=== PATIENT | female | born 1950 | race Caucasian/White ===

== ENCOUNTER 2016-08-25 23:27 | Inpatient (IN) | payer MEDICARE ==
[~2016-08-25] VITALS: Ht 167.6 cm; Wt 95.2 kg
[2016-08-25 23:48] LABS: BASO # 0.1 x10^3/uL (0.0-0.2); BASO % 1 % (0-3); EOS % 4 % (0-3); LYMPH # 1.5 x10^3/uL (1.0-4.8); LYMPH % 9 % (24-48); MEAN CORPUSCULAR HEMOGLOBIN 30 pg (25-35); MEAN CORPUSCULAR HGB CONC 33 g/dL (31-37); MEAN CORPUSCULAR VOLUME 91 fL (79-100); MONO % 5 % (0-9); NEUT % 81 % (31-73); PLATELET COUNT 264 x10^3/uL (140-400); RED BLOOD COUNT 4.05 x10^6/uL (3.50-5.40); RED CELL DISTRIBUTION WIDTH 15.8 % (11.5-14.5); WHITE BLOOD COUNT 17.2 x10^3/uL (4.0-11.0)
[2016-08-25 23:52] LABS: BILIRUBIN,URINE SMALL (NEG); GLUCOSE,URINE NEGATIVE (NEG); NITRITE,URINE NEGATIVE (NEG); PH,URINE 5.5; PROTEIN,URINE 30 mg/dL (NEG-TRACE)
[2016-08-25 23:58] LABS: BARBITURATES NEG (NEG); BENZODIAZEPINES NEG (NEG); CANNABINOIDS NEG (NEG); COCAINE NEG (NEG); METHADONE NEG (NEG); OPIATES NEG (NEG); PHENCYCLIDINE NEG (NEG)
[2016-08-26] VITALS (55 sets, daily range): BP systolic 66–154; BP diastolic 29–110
[2016-08-26] LABS: ETHANOL, URINE NEG (NEG)
[2016-08-26 00:01] LABS: MAGNESIUM 2.1 mg/dL (1.8-2.4)
[2016-08-26 00:04] LABS: INR 1.2 (0.8-1.1); PROTHROMBIN TIME PATIENT 14.1 SEC (11.7-14.0)
[2016-08-26 00:06] LABS: POTASSIUM ISTAT 3.8 mmol/L (3.5-5.0)
[2016-08-26 00:21] LABS: BACTERIA,URINE FEW /HPF (0-FEW); SQUAMOUS EPITHELIAL CELL,UR FEW /LPF
[2016-08-26] MEDS: FENTANYL PF 100 MCG/2 ML VIAL. IV PRN ×10 (00:22→07:42)
[2016-08-26] MEDS: NITROGLYCERIN SUBLINGUAL 0.4 MG BOTTLE OF 25. SL PRN ×2 (00:22→00:32)
[2016-08-26] MEDS ORDERED: IV NORMAL SALINE 500ML BAG 500 ML IV ONE (00:30)
[2016-08-26 00:31] LABS: % EOS 5 % (0-5); PLT ESTIMATE ADEQUATE (ADEQUATE)
[2016-08-26] MEDS ORDERED: ONDANSETRON PF 4 MG/2 ML VIAL. ONE ×2 (01:44→06:12)
[2016-08-26] MEDS ORDERED: ONDANSETRON PF 4 MG/2 ML VIAL. IV ONE (02:00)
--- NOTE | 2016-08-26 02:04 | RAD ---
PROCEDURE CT CS without contrast HISTORY Chest, upper back pain, history of breast cancer TECHNIQUE Exposure: One or more of the following individualized dose reduction techniques were utilized for this exam: 1. Automated exposure control. 2. Adjustment of the mA and/or kV according to patient size. 3. Use of iterative reconstruction technique. Helical noncontrast CT imaging of the chest was acquired COMPARISON No prior FINDINGS Lytic and sclerotic bone metastases of the thoracic and upper lumbar spine associated with a pathologic mild compression fracture of the T11 vertebral body. There is also a pathologic nonunion fracture of the upper sternal body. There is pneumoperitoneum and there is fluid surrounding the liver. Bubbles of air at the zahira hepatis and wall thickening and stranding about the gastric antrum and duodenal bulb. Indeterminate right renal hypodensities. Focal density within the lumen of the duodenal bulb could be something the patient ingested or hemorrhage or a passed gallstone. Left breast lumpectomy with skin thickening, and a left axillary adenopathy as well as a left axillary tail 3 centimeter mass or adenopathy abutting the lateral margin of the pectoralis. Calcified plaque coronary arteries and thoracic aorta. Fusiform aneurysm ascending aorta diameter 4.5 centimeters. Mild cardiomegaly. Thoracic esophagus unremarkable. Pulmonary artery enlarged diameter 4.3 centimeters. Pulmonary nodules largest measuring 4 millimeters. IMPRESSION 1. Pneumoperitoneum and mild fluid surrounding the liver. There is edema surrounding the duodenum and a small density within the duodenum, could be indicative of a perforated duodenal ulcer. A passed gallstone to the duodenum would be a secondary consideration. A perforated segment of bowel elsewhere would be a consideration. 2. Metastatic disease with numerous lytic and sclerotic bone lesions with pathologic fractures of the sternum and T11 vertebral body. Left axillary tail 3 centimeter mass or lymph node and left axillary adenopathy. 3. Pulmonary nodules. 4. Ascending thoracic aortic aneurysm diameter 4.5 centimeters. Critical results called to Dr. Donohue at 2:02 a.m. August 26, 2016 Electronically signed by: Rivera Cherry MD (Aug 26, 2016 02:03:42)
[2016-08-26] MEDS ORDERED: METRONIDAZOLE 500mg PREMIX 100 ML IV ONE ×2 (02:30→04:30)
[2016-08-26 02:59] LABS: CALCIUM 9.5 mg/dL (8.5-10.1); CREATININE 1.9 mg/dL (0.6-1.0); GFR 26.4; POTASSIUM 3.9 mmol/L (3.5-5.1)
[2016-08-26] MEDS ORDERED: IV NORMAL SALINE 1000ML BAG 1,000 ML IV ONE ×2 (03:00→23:00)
[2016-08-26] MEDS ORDERED: ONDANSETRON ODT 4 MG TAB.RAPDIS PO ONE (03:00)
[2016-08-26] MEDS ORDERED: CEFEPIME HCL 2 GM in IV NORMAL SALINE 100ML 100 ML IV ONE (03:00)
[2016-08-26 03:04] LABS: TOTAL BILIRUBIN 0.4 mg/dL (0.2-1.0); TOTAL PROTEIN 6.8 g/dL (6.4-8.2)
--- NOTE | 2016-08-26 03:13 | RAD ---
PROCEDURE CT abdomen and pelvis without contrast HISTORY Pneumoperitoneum on recent chest and. Vomiting. Abdominal pain. Nausea. TECHNIQUE Exposure: One or more of the following individualized dose reduction techniques were utilized for this exam: 1. Automated exposure control. 2. Adjustment of the mA and/or kV according to patient size. 3. Use of iterative reconstruction technique. Helical noncontrast CT imaging abdomen and pelvis COMPARISON CT chest August 26, 2016 FINDINGS Abdomen: Pulmonary nodules at the lung bases largest measuring 4 millimeters. Mild pneumoperitoneum. Mild fluid surrounding the liver and at the right pericolic gutter. Fluid density right renal cysts. Pancreas, adrenals, spleen and liver are unremarkable. There is stranding about the gallbladder fundus as well as extensive stranding about the pylorus and duodenal bulb which is markedly thick walled and there is mild density within the lumen, with adjacent pneumoperitoneum within the zahira hepatis and a possible intramural defect with air of the anterior duodenal bulb on axial image 38. No bowel obstruction. Appendix is not visualized. Disc bulges and facet osteophytes lumbar spine with spinal canal stenosis L3-L4, L4-5 and L2-L3. Left breast lumpectomy and skin thickening. Pathologic sclerotic lesion with compression deformity T11 vertebral body as described in the CT chest report. Pelvis: Moderate pelvic fluid. Uterus, bladder, ovaries, rectum unremarkable. Chronic appearing deformities right iliac crest may be due to prior surgery from bone donation or old trauma. IMPRESSION 1. Pneumoperitoneum and mild free fluid in the abdomen and pelvis. There is marked wall thickening at the duodenal bulb and intraluminal density and a possible intramural defect of the anterior wall of the bulb raising suspicion of a perforated duodenal diverticulum. 2. Results called to Dr. Donohue 3:11 am, 08/26/16 Electronically signed by: Rivera Cherry MD (Aug 26, 2016 03:12:10)
[2016-08-26 03:19] LABS: ALBUMIN 3.1 g/dL (3.4-5.0); ALBUMIN/GLOBULIN RATIO 0.8 (1.0-1.7)
[2016-08-26] MEDS ORDERED: HYDROMORPHONE 2 MG/ML VIAL. IV ONE (04:30)
[2016-08-26] MEDS ORDERED: FENTANYL PF 250 MCG/5 ML VIAL. ONE (04:41)
[2016-08-26] MEDS ORDERED: SUCCINYLCHOLINE 200 MG/10 ML VIAL. ONE (04:42)
[2016-08-26] MEDS ORDERED: ROCURONIUM 50 MG/5 ML VIAL. ONE (04:42)
[2016-08-26] MEDS ORDERED: IV RINGERS,LACTATED 1000ML 1,000 ML IV SCH (04:43)
[2016-08-26] MEDS ORDERED: LIDOCAINE 2% PF Vial for OR 5 ML VIAL. ONE (04:44)
[2016-08-26] MEDS ORDERED: PROPOFOL 20 ML IV ONE (04:44)
[2016-08-26] MEDS ORDERED: PROCHLORPERAZINE 10 MG/2 ML VIAL. IV PRN (04:45)
[2016-08-26] MEDS ORDERED: MORPHINE SULFATE 2 MG/ML DISP.SYRIN. IV PRN (04:45)
[2016-08-26] MEDS ORDERED: ONDANSETRON PF 4 MG/2 ML VIAL. IV PRN (04:45)
[2016-08-26] MEDS ORDERED: HYDROMORPHONE 2 MG/ML VIAL. IV PRN (04:45)
[2016-08-26] MEDS ORDERED: FENTANYL PF 100 MCG/2 ML VIAL. IV PRN ×2 (04:45)
[2016-08-26] MEDS ORDERED: LIDOCAINE 1% 1 ML SYRINGE. ID PRN (04:45)
[2016-08-26] MEDS ORDERED: SEVOFLURANE 61 TO 120 MINUTES. IH ONE (06:07)
[2016-08-26] MEDS ORDERED: PHENYLEPHRINE in 0.9% NACL PF 1 MG/10 ML DISP.SYRIN. IV ONE (06:12)
[2016-08-26] MEDS ORDERED: DEXAMETHASONE SOD PHOS 20 MG/5 ML VIAL. ONE (06:12)
[2016-08-26] MEDS ORDERED: NEOSTIGMINE METHYLSULFATE 5 MG/5 ML SYRINGE. ONE (06:13)
[2016-08-26] MEDS ORDERED: GLYCOPYRROLATE 1 MG/5 ML VIAL. ONE (06:13)
--- NOTE | 2016-08-26 06:52 | PDOC ---
BRIEF OPERATIVE NOTE Date: Aug 26, 2016 Pre-Op Diagnosis perforated viscous Post-Op Diagnosis same 2/2 perforated pyloric channel ulcer Procedure Performed exploratory laparotomy biopsy and closure of perforated pyloric channel ulcer with Josep patch MARIANA Surgeon Andrea [employer] Technician Madai White [facility] Anesthesia Type: General Blood Loss 25cc IV Fluid 2500cc Urine Output 200cc Specimens Obtained biopsy of ulcer Findings perforated pyloric channel ulcer Complications none Additional Remarks # [id number] MARLON PRINCE MD Aug 26, 2016 06:52
[2016-08-26] MEDS ORDERED: HYDROMORPHONE STANDARD PCA 30 ML IV PRN ×3 (07:00→12:15)
[2016-08-26] MEDS ORDERED: BENZOCAINE/MENTHOL LOZENGE. PO PRN (07:00)
[2016-08-26] MEDS ORDERED: PHENOL ORAL SPRAY 177ML BOTTLE. PO PRN (07:00)
[2016-08-26] MEDS ORDERED: DIPHENHYDRAMINE 50 MG/ML VIAL IV PRN (07:00)
[2016-08-26] MEDS ORDERED: 0.9 % SODIUM CHLORIDE 10 ML DISP.SYRIN. IV PRN (07:00)
--- NOTE | 2016-08-26 07:41 | ED.ADGEN ---
Past Medical History Past Medical History: Cancer, Diabetes-Type II, Hypertension, Migraines, MRSA Past Surgical History: Cancer Surgery, Cervical Fusion Additional Past Surgical Histo: LEFT BREAST, Alcohol Use: None Drug Use: None Adult General Chief Complaint Chief Complaint: CHEST PAIN HPI HPI Patient is a 66 year old woman, history of breast cancer treated with radiation several years ago, in remission, hypertension, type 2 diabetes mellitus, who presents to the emergency department with a complaint of back pain. Patient states the pain began around 5 PM this evening, located in the mid thoracic region of her back, denies any injuries, denies any chest pain, states he does have pain with deep inspiration, denies any nausea or vomiting, any weakness numbness or tingling. Patient denies any history of cardiac issues , ECG obtained via EMS in route reveals a left axis deviation, with left anterior vesicular block, which the patient takes might be new. Denies any recent travel or surgery, history of DVT or PE, any abdominal pain, any diarrhea , any sick contacts or exposures. Patient received aspirin and 100 mg of fentanyl en route to the ED. Review of Systems Review of Systems Constitutional: Denies fever or chills. [] Eyes: Denies change in visual acuity. [] HENT: Denies nasal congestion or sore throat. [] Respiratory: Denies cough, no shortness of breath, complaining of back pain that worse with deep inspiration, radiating to the chest. Cardiovascular: Denies chest pain or edema. [] GI: Denies abdominal pain, nausea, vomiting, bloody stools or diarrhea. [] : Denies dysuria. [] Musculoskeletal: Denies back pain or joint pain. [] Integument: Denies rash. [] Neurologic: Denies headache, focal weakness or sensory changes. [] Endocrine: Denies polyuria or polydipsia. [] Lymphatic: Denies swollen glands. [] Psychiatric: Denies depression or anxiety. [] Current Medications Current Medications Current Medications Medications (Trade) Dose Ordered Sig/Rosalinda Start Time Stop Time Status Last Admin Dose Admin Cefepime HCl 2 gm/ Sodium Chloride 100 ml @ 200 mls/hr 1X ONCE 08/26/16 03:00 08/26/16 03:29 DC 08/26/16 03:22 200 MLS/HR Fentanyl Citrate (Fentanyl 2ml Vial) 50 mcg PRN Q5MIN PRN 08/26/16 04:45 08/27/16 04:44 Fentanyl Citrate (Fentanyl 5ml Vial) 250 mcg STK-MED ONCE 08/26/16 04:41 08/26/16 04:42 DC Fentanyl Citrate 25 mcg 25 mcg PRN Q15MIN PRN 08/25/16 23:45 08/26/16 23:44 08/26/16 02:43 50 MCG Hydromorphone HCl (Dilaudid) 0.5 mg PRN Q10MIN PRN 08/26/16 04:45 08/27/16 04:44 Lactated Ringer's (Iv Lactated Ringers) 1,000 ml @ 30 mls/hr Q24H 08/26/16 04:43 08/26/16 16:42 Lidocaine HCl (Lidocaine Pf 2% Vial) 5 ml STK-MED ONCE 08/26/16 04:44 08/26/16 04:45 DC Metronidazole (FLAGYL 500Mmg PREMIX) 100 ml @ 100 mls/hr 1X ONCE 08/26/16 04:30 08/26/16 05:29 DC 08/26/16 05:12 100 MLS/HR Morphine Sulfate 1 mg 1 mg PRN Q10MIN PRN 08/26/16 04:45 08/27/16 04:44 Nitroglycerin (Nitrostat) 0.4 mg PRN Q5MIN PRN 08/25/16 23:45 08/26/16 23:44 08/26/16 00:32 0.4 MG Ondansetron HCl (Zofran) 4 mg PRN Q6HRS PRN 08/26/16 04:45 08/27/16 04:44 Ondansetron HCl 4 mg 4 mg 1X ONCE 08/26/16 03:00 08/26/16 03:01 DC Prochlorperazine Edisylate 5 mg 5 mg PACU PRN PRN 08/26/16 04:45 08/27/16 04:44 Propofol (Diprivan) 20 ml @ As Directed STK-MED ONCE 08/26/16 04:44 08/26/16 04:45 DC Rocuronium Dime Box (Zemuron) 50 mg STK-MED ONCE 08/26/16 04:42 08/26/16 04:43 DC Sodium Chloride (Iv Sodium Chloride 0.9% 1000ml Bag) 1,000 ml @ 125 mls/hr 1X ONCE 08/26/16 03:00 08/26/16 10:59 08/26/16 02:41 125 MLS/HR Succinylcholine Chloride (Anectine) 200 mg STK-MED ONCE 08/26/16 04:42 08/26/16 04:43 DC Allergies Allergies Allergies Coded Allergies Type Severity Reaction Last Updated Verified Penicillins Allergy Severe Hives 08/25/16 Yes Physical Exam Physical Exam Constitutional: Well developed, well nourished, moderate distress secondary to pain, non-toxic appearance. [] HENT: Normocephalic, atraumatic, bilateral external ears normal, oropharynx moist, no oral exudates, nose normal. [] Eyes: PERRLA, EOMI, conjunctiva normal, no discharge. [] Neck: Normal range of motion, no tenderness, supple, no stridor. [] Cardiovascular:Heart rate regular rhythm, no murmur, S1, S2, rubs or gallops. [] Lungs & Thorax: Bilateral breath sounds clear to auscultation , no wheezing, rhonchi, rales. Patient with tenderness to palpation in the mid thoracic region , no step-offs or deformities identified. Patient with some tenderness and mass palpated in the right breast, healed surgical incision noted. Abdomen: Bowel sounds normal, soft, mild epigastric tenderness to palpation, no rebound, rigidity, no guarding, no masses, no pulsatile masses. [] Skin: Warm, dry, no erythema, no rash. [] Back: No tenderness, no CVA tenderness. [] Extremities: No tenderness, no cyanosis, no clubbing, ROM intact, no edema. [] Neurologic: Alert and oriented X 3, normal motor function, normal sensory function, no focal deficits noted. [] Psychologic: Affect normal, judgement normal, mood normal. [] Current Patient Data Vital Signs Vital Signs Date Time Temp Pulse Resp B/P Pulse Ox O2 Delivery O2 Flow Rate FiO2 08/26/16 04:30 80 22 205/81 97 Nasal Cannula 08/26/16 04:00 2 08/25/16 23:30 99.1 99.1 Lab Values Laboratory Tests Test 08/25/16 23:35 08/25/16 23:40 08/25/16 23:42 08/25/16 23:43 White Blood Count 17.2x10^3/uL (4.0-11.0) H Red Blood Count 4.05x10^6/uL (3.50-5.40) Hemoglobin 12.0g/dL (12.0-15.5) Hematocrit 37.0% (36.0-47.0) Mean Corpuscular Volume 91fL (79-100) Mean Corpuscular Hemoglobin 30pg (25-35) Mean Corpuscular Hemoglobin Concent 33g/dL (31-37) Red Cell Distribution Width 15.8% (11.5-14.5) H Platelet Count 264x10^3/uL (140-400) Neutrophils (%) (Auto) 81% (31-73) H Lymphocytes (%) (Auto) 9% (24-48) L Monocytes (%) (Auto) 5% (0-9) Eosinophils (%) (Auto) 4% (0-3) H Basophils (%) (Auto) 1% (0-3) Neutrophils # (Auto) 14.0x10^3uL (1.8-7.7) H Lymphocytes # (Auto) 1.5x10^3/uL (1.0-4.8) Monocytes # (Auto) 0.9x10^3/uL (0.0-1.1) Eosinophils # (Auto) 0.8x10^3/uL (0.0-0.7) H Basophils # (Auto) 0.1x10^3/uL (0.0-0.2) Segmented Neutrophils % 67% (35-66) H Band Neutrophils % 12% (0-9) H Lymphocytes % 11% (24-48) L Monocytes % 5% (0-10) Eosinophils % 5% (0-5) Platelet Estimate Adequate (ADEQUATE) Prothrombin Time 14.1SEC (11.7-14.0) H Prothrombin Time INR 1.2 (0.8-1.1) H Sodium Level 141mmol/L (136-145) Potassium Level 3.9mmol/L (3.5-5.1) Chloride Level 104mmol/L (98-107) Carbon Dioxide Level 22mmol/L (21-32) Anion Gap 15 (6-14) H 17mmol/L (6-14) H Blood Urea Nitrogen 40mg/dL (7-20) H Creatinine 1.9mg/dL (0.6-1.0) H Estimated GFR (Cockcroft-Gault) 26.4 BUN/Creatinine Ratio 21 (6-20) H Glucose Level 164mg/dL (70-99) H 157mg/dL (70-99) H Lactic Acid Level 1.6mmol/L (0.4-2.0) Calcium Level 9.5mg/dL (8.5-10.1) Magnesium Level 2.1mg/dL (1.8-2.4) Total Bilirubin 0.4mg/dL (0.2-1.0) Aspartate Amino Transferase (AST) 12U/L (15-37) L Alanine Aminotransferase (ALT) 11U/L (14-59) L Alkaline Phosphatase 186U/L (46-116) H Troponin I Quantitative < 0.017ng/mL (0.000-0.055) LP-Cgp-L-Type Natriuretic Peptide 1158pg/mL (0-124) H Total Protein 6.8g/dL (6.4-8.2) Albumin 3.1g/dL (3.4-5.0) L Albumin/Globulin Ratio 0.8 (1.0-1.7) L Lipase 134U/L (73-393) Urine Collection Type Unknown Urine Color Sasha Urine Clarity Clear Urine pH 5.5 Urine Specific Vanderbilt 1.025 Urine Protein 30mg/dL (NEG-TRACE) Urine Glucose (UA) Negativemg/dL (NEG) Urine Ketones (Stick) Tracemg/dL (NEG) Urine Blood Negative (NEG) Urine Nitrite Negative (NEG) Urine Bilirubin Small (NEG) Urine Urobilinogen Dipstick 1.0mg/dL (0.2 mg/dL) Urine Leukocyte Esterase Small (NEG) Urine RBC 3-5/HPF (0-2) Urine WBC 1-4/HPF (0-4) Urine Squamous Epithelial Cells Few/LPF Urine Amorphous Sediment Present/HPF Urine Bacteria Few/HPF (0-FEW) Urine Hyaline Casts Moderate/HPF Urine Mucus Slight/LPF Urine Opiates Screen Neg (NEG) Urine Methadone Screen Neg (NEG) Urine Barbiturates Neg (NEG) Urine Phencyclidine Screen Neg (NEG) Urine Amphetamine/Methamphetamine Neg (NEG) Urine Benzodiazepines Screen Neg (NEG) Urine Cocaine Screen Neg (NEG) Urine Cannabinoids Screen Neg (NEG) Urine Ethyl Alcohol Neg (NEG) POC Hemoglobin 12.6g/dL (12-15) POC Hematocrit 37% (36-40) POC Sodium 138mmol/L (135-145) POC Potassium 3.8mmol/L (3.5-5.0) POC Chloride 104mmol/L (98-110) POC Total CO2 22mmol/L (23-32) L POC Blood Urea Nitrogen 37mg/dL (8-26) H POC Creatinine 1.8mg/dL (0.5-1.4) H POC Ionized Calcium (Andrzej) 1.18mmol/L (1.13-1.32) POC Troponin I 0.00ng/ml (<0.08) Test 08/26/16 04:35 Glucose (Fingerstick) 165mg/dL (70-99) H Laboratory Tests 08/25/16 23:35 Laboratory Tests 08/25/16 23:35 08/25/16 23:42 EKG EKG EC: Irregular rhythm, heart rate 71 beats minute, QTC of 454, QRS of 132 , left anterior vesicular block noted, left axis deviation with right ventricular hypertrophy, abnormal ECG, does not meet STEMI criteria. As interpreted by me. EC: Sinus rhythm with occasional APCs noted, QTc of 481, LA 176, QRS of 124, heart rate is 71 bpm, no significant morphologic changes noted from previous ECG. Abnormal, does not meet STEMI criteria, as interpreted by me. Radiology/Procedures Radiology/Procedures [] [facility] [address] [place], [place] [id number] IMAGING REPORT Signed PATIENT: PATTI KONG ACCOUNT: [id number] : 1950 LOCATION: ER AGE: 66 SEX: F EXAM STATUS: REG ER ORD. PHYSICIAN: SYLVIA DONOHUE DO REASON: free air PROCEDURE: ABDOMEN PELVIS WO CONTRAST PROCEDURE CT abdomen and pelvis without contrast HISTORY Pneumoperitoneum on recent chest and. Vomiting. Abdominal pain. Nausea. TECHNIQUE Exposure: One or more of the following individualized dose reduction techniques were utilized for this exam: 1. Automated exposure control. 2. Adjustment of the mA and/or kV according to patient size. 3. Use of iterative reconstruction technique. Helical noncontrast CT imaging abdomen and pelvis COMPARISON CT chest August 26, 2016 FINDINGS Abdomen: Pulmonary nodules at the lung bases largest measuring 4 millimeters. Mild pneumoperitoneum. Mild fluid surrounding the liver and at the right pericolic gutter. Fluid density right renal cysts. Pancreas, adrenals, spleen and liver are unremarkable. There is stranding about the gallbladder fundus as well as extensive stranding about the pylorus and duodenal bulb which is markedly thick walled and there is mild density within the lumen, with adjacent pneumoperitoneum within the zahira hepatis and a possible intramural defect with air of the anterior duodenal bulb on axial image 38. No bowel obstruction. Appendix is not visualized. Disc bulges and facet osteophytes lumbar spine with spinal canal stenosis L3-L4, L4-5 and L2-L3. Left breast lumpectomy and skin thickening. Pathologic sclerotic lesion with compression deformity T11 vertebral body as described in the CT chest report. Pelvis: Moderate pelvic fluid. Uterus, bladder, ovaries, rectum unremarkable. Chronic appearing deformities right iliac crest may be due to prior surgery from bone donation or old trauma. IMPRESSION 1. Pneumoperitoneum and mild free fluid in the abdomen and pelvis. There is marked wall thickening at the duodenal bulb and intraluminal density and a possible intramural defect of the anterior wall of the bulb raising suspicion of a perforated duodenal diverticulum. 2. Results called to Dr. Donohue 3:11 am, 08/26/16 Electronically signed by: Henrik Cherry MD (Aug 26, 2016 03:12:10) DICTATED and SIGNED BY: HENRIK CHERRY MD DATE: 08/26/16311 CC: SYLVIA DONOHUE DO; CALIXTO MARTELL MD ~ Impressions: [facility] [address] [place], [place] [id number] IMAGING REPORT Signed PATIENT: PATTI KONG ACCOUNT: [id number] : 1950 LOCATION: ER AGE: 66 SEX: F EXAM STATUS: REG ER ORD. PHYSICIAN: SYLVIA DONOHUE DO REASON: Chest pain/ hx of breast Ca PROCEDURE: CHEST WO CONTRAST PROCEDURE CT CS without contrast HISTORY Chest, upper back pain, history of breast cancer TECHNIQUE Exposure: One or more of the following individualized dose reduction techniques were utilized for this exam: 1. Automated exposure control. 2. Adjustment of the mA and/or kV according to patient size. 3. Use of iterative reconstruction technique. Helical noncontrast CT imaging of the chest was acquired COMPARISON No prior FINDINGS Lytic and sclerotic bone metastases of the thoracic and upper lumbar spine associated with a pathologic mild compression fracture of the T11 vertebral body. There is also a pathologic nonunion fracture of the upper sternal body. There is pneumoperitoneum and there is fluid surrounding the liver. Bubbles of air at the zahira hepatis and wall thickening and stranding about the gastric antrum and duodenal bulb. Indeterminate right renal hypodensities. Focal density within the lumen of the duodenal bulb could be something the patient ingested or hemorrhage or a passed gallstone. Left breast lumpectomy with skin thickening, and a left axillary adenopathy as well as a left axillary tail 3 centimeter mass or adenopathy abutting the lateral margin of the pectoralis. Calcified plaque coronary arteries and thoracic aorta. Fusiform aneurysm ascending aorta diameter 4.5 centimeters. Mild cardiomegaly. Thoracic esophagus unremarkable. Pulmonary artery enlarged diameter 4.3 centimeters. Pulmonary nodules largest measuring 4 millimeters. IMPRESSION 1. Pneumoperitoneum and mild fluid surrounding the liver. There is edema surrounding the duodenum and a small density within the duodenum, could be indicative of a perforated duodenal ulcer. A passed gallstone to the duodenum would be a secondary consideration. A perforated segment of bowel elsewhere would be a consideration. 2. Metastatic disease with numerous lytic and sclerotic bone lesions with pathologic fractures of the sternum and T11 vertebral body. Left axillary tail 3 centimeter mass or lymph node and left axillary adenopathy. 3. Pulmonary nodules. 4. Ascending thoracic aortic aneurysm diameter 4.5 centimeters. Critical results called to Dr. Donohue at 2:02 a.m. August 26, 2016 Electronically signed by: Henrik Cherry MD (Aug 26, 2016 02:03:42) DICTATED and SIGNED BY: HENRIK CHERRY MD DATE: 08/26/16 0203 CC: SYLVIA DONOHUE DO; CALIXTO MARTELL MD ~ Course & Med Decision Making Course & Med Decision Making Pertinent Labs and Imaging studies reviewed. (See chart for details) Concern for potential cardiac cause of symptoms on initial evaluation, without normal ECG as stated with left anterior fascicular block noted, unclear if this is a change from prior, patient denies any knowledge, unable to access cardiac tower observer for possible comparison. Troponin is negative, chest x-ray does not reveal any acutely concerning findings, however based and examination of patient 's breast, I am concerned that she may have recurrence of her breast cancer as the cause of her symptoms today, with an elevated creatinine at 1.8, a noncontrast CT scan of the chest was obtained, which did reveal evidence of metastatic bony disease, and compression fracture of T11, also noted was pneumoperitoneum. On reevaluation patient has suddenly developed abdominal pain , with vomiting in the emergency department, states "my stomach just all of a sudden cramped up". CT abdomen and pelvis obtained, reveals pneumoperitoneum, with concern for perforated duodenum. Patient has received metronidazole, cefepime IV due to her penicillin allergy which is reportedly severe with concern for possible anaphylactic reaction, she is tolerating his medications without issue. I have discussed all findings as above, with patient and family at bedside, patient voices understanding with these concerning findings, I do believe that the T11 fracture is consistent with the initial pain which she described. Patient is agreeable for admission to the hospital and surgical intervention. Findings as above were discussed with Dr. Mendez of Gen. surgery, who did evaluate the patient in the emergency department, and did proceed with the patient to the OR. Findings as above were discussed with Dr. Wise of internal medicine, patient was accepted to her service with consultation for Dr. Mendez, full admission to the ICU at this time. Patient transferred to the OR without issue. Dragon Disclaimer Dragon Disclaimer This electronic medical record was generated, in whole or in part, using a voice recognition dictation system. Departure Impression: Primary Impression: Perforated ulcer Additional Impression: Closed wedge compression fracture of T11 vertebra Disposition: ADMITTED INPATIENT Admitting Physician: Other Condition: GUARDED Problem Qualifiers Additional Impression: SYLVIA DONOHUE DO Aug 26, 2016 07:41
--- NOTE | 2016-08-26 08:09 | RAD ---
AP portable radiograph of the abdomen 08/26/2016 Clinical history: Off instrument count. Findings: An AP supine digital radiograph of the abdomen was obtained. A NG tube has been placed. The tip of this tube overlies the antrum of the stomach. Midline skin olga are noted. A surgical drain overlies the right lower quadrant of the abdomen extending to the pelvis. The visualized abdominal bowel gas pattern is nonobstructive. No radiopaque foreign body is seen to suggest evidence of a retained surgical instrument or needle. The cardiac silhouette is mildly enlarged. Degenerative changes are seen involving the lower thoracic and throughout the lumbar spine. Impression: No radiopaque foreign body is seen suggest evidence of a retained surgical instrument or needle.
--- NOTE | 2016-08-26 08:19 | RAD ---
AP portable chest radiograph 08/26/2016 Clinical History: Chest pain throughout the night. An AP portable erect digital radiograph of the chest was obtained. Comparison study is dated 07/01/2012. The cardiac silhouette is mildly enlarged. The thoracic aorta is tortuous. Surgical clips overlie the left axilla. No acute pulmonary infiltrate is seen. No pleural effusion or pneumothorax is noted. Degenerative changes are seen involving the thoracic spine and both shoulders. Impression: No acute abnormality is seen.
[2016-08-26] MEDS: ENOXAPARIN 40 MG/0.4 ML DISP.SYRIN. SQ SCH ×2 (09:00→22:49)
--- NOTE | 2016-08-26 09:48 | EKG ---
[facility] [address] [place] [id number] Test Date: 2016-08-26 Test Time: 09:43:05 Pat Name: PATTI KONG Department: Room: 434 1 Gender: F Acute Dialysis Nurse: : 1950 Requested By: SIMON DELAROSA Order Number: [id number] Reading MD: Simon Delarosa Measurements Intervals Gilman Rate: 68 P: 54 NH: 184 QRS: -68 QRSD: 72 T: 10 QT: 420 QTc: 447 Interpretive Statements SINUS RHYTHM ATRIAL PREMATURE COMPLEX(ES) ABNORMAL LEFT AXIS DEVIATION R-S TRANSITION ZONE IN V LEADS DISPLACED TO THE RIGHT CONSIDER LEFT VENTRICULAR HYPERTROPHY QRS(T) CONTOUR ABNORMALITY CONSISTENT WITH POSSIBLE INFERIOR INFARCT AGE UNDETERMINED ABNORMAL ECG RI6.01 Unconfirmed report Compared to ECG 07/02/2012 15:23:15 Left-axis deviation now present Electronically Signed On 08-27-2016 10:38:28 [employer] by Simon Delarosa
[2016-08-26] MEDS: POTASSIUM CL 20MEQ-0.45% NACL 1,000 ML IV SCH ×3 (10:17→23:09)
--- NOTE | 2016-08-26 10:48 | OP ---
DATE OF SURGERY: 08/26/2016 PREOPERATIVE DIAGNOSIS: Pneumoperitoneum. POSTOPERATIVE DIAGNOSIS: Pneumoperitoneum secondary to perforated pyloric channel ulcer. PROCEDURES: 1. Exploratory laparotomy. 2. Biopsy and closure of perforated pyloric channel ulcer. 3. Josep patch. 4. Lysis of adhesions. SURGEON: Reggie Prince MD [employer] SALES: , who is a certified PAINTER S[employer] MAINTENANCE ANESTHESIA: General endotracheal. ESTIMATED BLOOD LOSS: 25 mL. IV FLUIDS: 2500. URINE OUTPUT: 200. INDICATIONS: The patient is a 66-year-old who presented with severe abdominal pain and free air by CT brought for exploration. OPERATIVE FINDINGS: The liver was generous, gallbladder was unremarkable. The pyloric channel showed a punched out ulcer with surrounding inflammatory change. The small bowel was run from ligament of Treitz to ileocecal valve without abnormality. A small fibrotic appendix was present. The ascending, transverse and descending colon were palpably unremarkable, save some formed stool. The uterus was perhaps slightly generous for the patient's age. She had mildly atrophic ovaries some hydrosalpinges bilaterally. DESCRIPTION OF PROCEDURE: The patient brought to the operating suite, given a general endotracheal anesthetic. Brunson catheter placed for the drainage and the abdomen prepped and draped in usual sterile fashion. A midline incision from the pubis to just below the umbilicus was made through the skin and subcutaneous tissue and the anterior sheath. Bleeders were cauterized as identified. The sheath was opened in the midline, abdomen carefully entered, extended with cautery avoiding injury to abdominal contents. Abdomen explored with results as noted above. The purulent fluid in the abdomen was cultured and then evacuated. With the Omni self-retaining retractor for exposure the perforation was identified, biopsied and closed with interrupted figure of 8 sutures of 2-0 silk. The omentum was then taken down from the abdominal wall where adhesions from previous surgery to allowed completion of the inspection of the abdomen. The abdomen was then irrigated with 4 liters of normal saline evacuated and checked for adequate hemostasis. When present and a correct sponge count was obtained. A 19-Syriac round Hernando drain was brought through a right lower quadrant stab wound, left in the true pelvis for postoperative drainage. We then brought a tongue of omentum up to the long tail as other 2-0 silk stitch and held it in place for ground patch. We again checked for hemostasis and when present and a second sponge count was correct. The incision was closed in running fashion in a single layer using looped 0 PDS tied in the middle. Subq was irrigated and checked for hemostasis. Skin was closed loosely with olga. Sterile dressing applied. Postop foreign body film was negative for unexplained foreign body. The patient awakened from her anesthetic and taken to the recovery room in satisfactory condition. REGGIE PRINCE MD DR: [email or web address] JOB#: [id number] / [id number]
[2016-08-26] MEDS ORDERED: PROP80CA3 PO (11:33)
[2016-08-26] MEDS ORDERED: ZOLP10TA PO (11:41)
[2016-08-26] MEDS ORDERED: DICL100T PO (11:41)
[2016-08-26] MEDS ORDERED: LABETALOL 20 MG/4 ML DISP.SYRIN. IVP PRN (13:15)
[2016-08-26] MEDS ORDERED: BUTA1CAP29 PO (14:34)
[2016-08-26] MEDS ORDERED: CETI-203 PO (14:34)
[2016-08-26] MEDS ORDERED: HYDR-2762 PO (14:34)
[2016-08-26] MEDS: METRONIDAZOLE 500mg PREMIX 100 ML IV SCH ×2 (14:58→22:48)
--- NOTE | 2016-08-26 15:51 | ACF ---
Admission Forms Criteria INTENSIVE CARE UNIT ADMISSION Intensive Care Admission Guidelines ( Place 'X' for any and all applicable criteria): Admission to ICU may be indicated when need is demonstrated by ANY ONE of the following (1)(2)(3)(4)(5)(6)(7)(8)(9) : [ ]I. Vital sign abnormalities, including ANY ONE of the following: [ ]a) Systolic arterial pressure less than 90 mm Hg, or 20 mm Hg below the patient's usual pressure [ ]b) Diastolic arterial pressure greater than 120 mm Hg [ ]c) Mean arterial pressure less than 70 mm Hg [A] [ ]d) Pulse less than 40 or greater than 140 beats per minute (in adult) [ ]e) Respiratory rate greater than 35 or less than 8 breaths per minute [ ]II. Laboratory findings (new), including ANY ONE of the following (10): [ ]a) Saturation of arterial oxygen less than 88% or partial pressure of oxygen less than 60 mm Hg (8.0 kPa) despite oxygen supplementation [ ]b) Rising partial pressure of carbon dioxide with respiratory acidosis [ ]c) pH less than 7.2 or greater than 7.65 [ ]d) Serum glucose greater than 800 mg/dL (44.4 mmol/L) [ ]e) Serum sodium less than 110 mEq/L (mmol/L) or greater than 160 mEq/L (mmol/L) [ ]f) Serum potassium less than 2 mEq/L (mmol/L) or greater than 7 mEq /L (mmol/L) [ ]g) Serum calcium greater than 15 mg/dL (3.75 mmol/L) [ ]h) Serum phosphorus less than 1 mg/dL (0.32 mmol/L) [ ]i) Toxic drug level or poisoning causing or likely to cause neurologic or Hemodynamic instability [ ]j) Less severe laboratory abnormalities contributing to ANY ONE of the following: [ ]i) Seizure [ ]ii) Altered mental status [ ]iii) Muscle weakness [ ]iv) Arrhythmias [ ]v) Hemodynamic instability [ ]vi) Other significant clinical manifestations [ ]III. Electrocardiogram (or cardiac monitoring) findings, including ANY ONE of the following: [ ]a) Inherently unstable or life-threatening arrhythmia (eg, sustained ventricular tachycardia, ventricular fibrillation, asystole) [ ]b) Arrhythmia causing severe hypotension (eg, bradycardia, tachycardia) [ ]c) Complete heart block causing severe hypotension [ ]d) Other findings indicative of a need for intensive care (eg , ID) [ ]IV.Physical findings, including ANY ONE of the following: [ ]a) Threatened airway [ ]b) Sudden altered mental status [ ]c) Repeated or prolonged seizures [ ]d) Coma [ ]e) New-onset anuria (urine output <0.1 mL/kg/hr over 4 h) [ ]f) Cyanosis (new) [ ]g) Cardiac tamponade [ ]h) Status post respiratory or cardiac arrest [ ]i) Severe bui (eg, partial thickness bui over more than 10% of body surface, third-degree bui) [ ]j) Findings consistent with abdominal emergency (eg, peritoneal signs) [ ]V.Imaging findings, such as dissecting aneurysm or ruptured viscus [ ].Specific intervention or monitoring needed, as indicated by ANY ONE of the following: [ ]a) New need for assisted ventilation, invasive or noninvasive(11) [ ]b) New need for intubation (eg, to protect airway) [ ]c) New tracheostomy (less than 48 hours old) [ ]d) Hourly vital signs or neurologic checks [ ]e) Pulmonary artery line monitoring needed [ ]f) Continuous arterial line monitoring needed [ ]g) Continuous IV vasoactive drugs [ ]h) Continuous IV antiarrhythmics [ ]i) Large volume IV fluid resuscitation (eg, greater than 6 L per day ) [ ]j) Large or rapid transfusion needs (eg, more than 6 units within 24 hours) [ ]k) High-risk IV treatment, such as bolus IV medicatns or mannitol infusion [ ]l) Acute cardiac pacing [ ]m) Intra-aortic balloon pump [ ]n) Ventricular assist device [ ]o) Cardioversion [ ]p) Pericardiocentesis [ ]q) Hemodialysis in unstable patient [ ]r) Continuous renal replacement therapy (eg, continuous veno-venous hemofiltration) [ ]s) Peritoneal dialysis initiation [ ]t) Emergency bronchoscopic therapy (eg, for hemoptysis) [ ]u) Emergency endoscopic therapy for bleeding [ ]v) Balloon tamponade for variceal bleeding [ ]w) Intracranial pressure monitoring or tissue oxygen monitoring [ ]x) Ventriculostomy monitoring [ ]y) Treatment of ongoing seizures [ ]z) Induced hypothermia or coma [ ]aa) Ongoing frequent testing and treatment for acute conditions, including ANY ONE of the following: [ ]i) Correction of severe metabolic acidosis/ alkalosis [ ]ii). Severe fluid overload [ ]iii) Cerebral edema [ ]iv) Monitoring or suctioning for respiratory insufficiency or acidosis [ ]v) Monitoring for active bleeding [ ]bb) Rapid desensitization for high-risk hypersensitivity reaction to required medication (eg, penicillin)(12) [ ]cc) Other need for treatment or monitoring not available outside the ICU [ ]VII.Cardiology diagnoses or procedures, including ANY ONE of the following (13)(14)(15)(16)(17): [ ]a) Chest pain with ANY ONE of the following: [ ]i) Hemodynamic instability [ ]ii) Suspicion of diagnoses needing ICU care (eg, aortic dissection) [ ]iii) New unstable or symptomatic arrhythmia or ECG finding (eg, ventricular tachycardia, ventricular fibrillation, advanced heart block) [ ]iv) Syncope or near-syncope [ ]v) SBP less than 100 mm Hg [ ]vi) Pulmonary edema thought to be due to ischemia [ ]vii) New or worsening mitral regurgitation murmur, S3 , or rales [ ]b) Acute ID with complications as indicated by ANY ONE of the following: [ ]i) Persistent chest pain [ ]ii) Hemodynamic instability [ ]iii) New unstable or symptomatic arrhythmia or ECG finding (eg, ventricular tachycardia, ventricular fibrillation, advanced heart block) [ ]iv) Syncope or near-syncope [ ]v) Pulmonary edema thought to be due to ischemia [ ]vi) New or worsening mitral regurgitation murmur, S3 , or rales [ ]vii) New-onset bundle branch block [ ]viii) Hemorrhagic complication (eg, intracranial or access site bleed following thrombolysis) [ ]c) Cardiac arrhythmia or conduction defect with Hemodynamic instability [ ]d) Complication of cardiac ablation, including ANY ONE of the following(18): [ ]i) Pericardial tamponade [ ]ii) Hemodynamic instability [ ]iii) Thromboembolic stroke [ ]iv) Aortic valve injury [ ]v) Vascular injuries [ ]vi) Esophageal perforation [ ]vii) Severe arrhythmia [ ]viii) Air embolism [ ]ix) Other severe complication [ ]e) Cardiogenic shock [ ]f) Hypertensive emergency, with need for ANY ONE of the following(19): [ ]i) IV antihypertensive therapy [ ]ii) Invasive hemodynamic monitoring (eg, arterial line) [ ]g) Pericardial tamponade [ ]h) Severe heart failure, with ANY ONE of the following(15): [ ]i) Respiratory failure [ ]ii) Cardiogenic shock [ ]iii) Severe arrhythmias [ ]iv) Evidence of cardiac ischemia [ ]i Myocarditis, with ANY ONE of the following [ ]i) Hemodynamic instability [ ]ii) Respiratory failure [ ]iii) Severe arrhythmias [ ]iv) Need for cardiac assist device (eg, left ventricular assist device or extracorporeal membrane oxygenator) [ ]j) Status post cardiac arrest(20) [ ]VIII. Cardiovascular Surgery diagnoses or procedures, including ANY ONE of the following.(21)(22): [ ]a) Acute aortic dissection [ ]b) Aortic surgery for ANY ONE of the following: [ ]i) Thoracic aneurysm [ ]ii) Abdominal aneurysm with ANY ONE of the following(23): [ ]1) Emergency repair [ ]2) Severe cardiopulmonary disease [ ]3) Dialysis-dependent renal failure [ ]4) Need for IV blood pressure control [ ]5) Need for ongoing ventilatory support [ ]6) Perioperative complications, including ANY ONE of the following: [ ]A. Sustained Hemodynamic instability [ ]B. Cardiac ischemia or arrhythmia [ ]C. Hypothermia (less than 35 degrees C (95 degrees F)) [ ]D. Blood transfusion greater than 3 L [ ]iii) Aortic coarctation operative excision or repair [ ]iv) Aortofemoral or aortoiliac bypass with ANY ONE of the following: [ ]1) Continued intubation [ ]2) Hemodynamic instability [ ]3) Need for IV blood pressure control [ ]4) Severe cardiopulmonary disease [ ]c) Cardiac surgery [ ]d) Carotid endarterectomy or stent placement with ANY ONE of the following: [ ]i) Blood pressure <100/60 mm Hg or >160/90 mm Hg despite 4 h of postanesthetic management [ ]ii) New or progressive neurologic defect [ ]iii) Chest pain [ ]iv) Continued intubation [ ]v) Heart failure [ ]vi) Airway compromise by hematoma or vocal cord paralysis [ ]vi) Need for IV blood pressure control [ ]e) Heart transplant [ ]f) Infrainguinal peripheral vascular surgery with ANY ONE of the following: [ ]i) Hemodynamic instability [ ]ii) Acute complications such as persistent chest pain or respiratory distress [ ]iii) Requirement for IV antiarrhythmic or vasoactive agent [ ]iv) Requirement for pulmonary artery catheter [ ]v) Severe hypertension despite 6 hours of recovery room management [ ]g) Complications of any surgery requiring ICU intervention as indicated by ANY ONE of the following(24): [ ]i) Hemodynamic instability [ ]ii) Myocardial infarction with complications (eg, severe arrhythmia, hypotension) [ ]iii) Excessive bleeding or severe coagulopathy [ ]iv) Respiratory failure [ ]v) Renal failure [ ]vi) Airway instability or obstruction [ ]vii) Neurologic deterioration [ ]viii) Infection with likelihood of sepsis syndrome or significant fluid shifts [ ]IX.Endocrinology diagnoses or procedures, including ANY ONE of the following(25)(26): [ ]a) Adrenal crisis with Hemodynamic instability(27) [ ]b) Pheochromocytoma with ANY ONE of the following(28): [ ]i) Hypertensive crisis [ ]ii) Postoperative Hemodynamic instability [ ]iii) Need for IV vasoactive therapy [ ]iv) Need for invasive arterial or central venous pressure monitoring [ ]v) Organ ischemia [ ]c) Diabetic hyperosmolar state with obtundation or coma [ ]d) Diabetic ketoacidosis with ANY ONE of the following: [ ]i) Serum pH less than 7.10 or bicarbonate level less than 10 mEq/L (mmol/L) [ ]ii) Rapidly changing electrolytes [ ]iii) Hypotension [ ]iv) Requirement for large-volume fluid resuscitation [ ]v) Respiratory insufficiency [ ]vi) Life-threatening cardiac dysrhythmias [ ]vii) Obtundation [ ]viii) Severe precipitating condition such as sepsis, stroke, or acute ID [ ]e) Severe hypoglycemia requiring continuous glucose infusion with frequent adjustment or glucagon infusion [ ]f) Hyperthyroidism associated with thyroid storm (also known as thyrotoxic crisis)(29) [ ]g) Myxedema with life-threatening neurologic, cardiovascular, electrolyte, or renal dysfunction(29) [ ]h) Diabetes insipidus that cannot be controlled with routine medication (30) [ ]X. Gastroenterology diagnoses or procedures, including ANY ONE of the following: [ ]a) Esophageal perforation(31) [ ]b) Severe caustic esophageal injury(31) [ ]c) Liver disease complications with ANY ONE of the following(32): [ ]i) Severe hepatic encephalopathy (eg, stage 3 (somnolent) or higher) [ ]ii) Type 1 hepatorenal syndrome [ ]iii) Other cirrhosis-associated causes of acute renal failure ( eg, severe hypovolemia, acute tubular necrosis, abdominal compartment syndrome) [ ]iv) Hemodynamic instability [ ]v) Respiratory insufficiency due to severe ascites [ ]vi) Sepsis due to spontaneous bacterial peritonitis [ ]d) Fulminant hepatic failure when aggressive intervention or transplant is anticipated (32) [ ]e) Gastrointestinal hemorrhage (upper or lower) with ANY ONE of the following(33)(34): [ ]i) Active ongoing bleeding [ ]ii) Transfusion requirement greater than 2 units of packed red cells [ ]iii) Bleeding ulcer or nonbleeding visible vessel seen on endoscopy [ ]iv) Bleeding ulcer, visible blood vessel, bleeding (or recently bleeding) esophageal varices seen on endoscopy [ ]v) Hypotension [ ]vi) Syncope [ ]vii) Coagulopathy [ ]viii) Hepatic cirrhosis [ ]ix) Abnormal mental status [ ]x) Unstable comorbid condition or end organ dysfunction [ ]xi) Ischemia due to poor perfusion [ ]xii) Need for hemodynamic monitoring (eg, for patients with heart failure or valvular disease) [ ]f) Severe pancreatitis indicated by ANY ONE of the following (35)(36): [ ]i) Requirement for aggressive fluid resuscitation [ ]ii) Life-threatening electrolyte abnormality [ ]iii) SBP less than 90 mm Hg [ ]iv) Persistent tachycardia greater than 120 beats per minute [ ]v) Patients at high risk of rapid deterioration, including ANY ONE of the following: [ ]1) Calculated [place] II score greater than 8 [ ]2) Age older than 55 years [ ]3) BMI greater than 30 [ ]4) Greater than 30% pancreatic necrosis on CT scan [ ]5) Admission hematocrit greater than 47% (0.47) [ ]vi) Organ failure as indicated by ANY ONE of the following: [ ]1) Serum creatinine greater than 1.9 mg/dL (168 micromoles/L) [ ]2) Requirement for mechanical ventilation [ ]3) Urine output less than 50 mL/hour [ ]4) Arterial partial pressure of oxygen less than 60 mm Hg (8.0 kPa) despite supplemental oxygen [ ]5) PiO2/FiO2 ratio less than 300 [ ]vii) Expanding pseudocyst [ ]viii) Infected pancreas [ ]ix) Pleural effusion [ ]x) Encephalopathy [ ]xi) Severe comorbidities [X]XI. General Surgery diagnoses or procedures, including ANY ONE of the following (9)(24)(37): [X]a) Acute abdominal catastrophe (eg, ischemic bowel, perforated viscus, abdominal compartment syndrome) [ ]b) Complications of any surgery requiring ICU intervention as indicated by ANY ONE of the following: [ ]i) Hemodynamic instability [ ]ii) ID with complications (eg, severe arrhythmia, hypotension) [ ]iii) Excessive bleeding or severe coagulopathy [ ]iv) Respiratory failure [ ]v) Renal failure [ ]vi) Airway instability or obstruction [ ]vii) Neurologic deterioration [ ]viii) Infection with likelihood of sepsis syndrome or significant fluid shifts [ ]c) Multiple trauma with complicating features as indicated by ANY ONE of the following(38): [ ]i) Impending acute respiratory failure due to lung contusion, unstable chest wall, aspiration, or hemorrhage [ ]ii) Facial or neck injury threatening airway patency [ ]iii) Cardiac contusion [ ]iv) Pericardial effusion [ ]v) Bronchial tear [ ]vi) Hemodynamic instability [ ]vii) Rhabdomyolisis requiring large volume IV fluid resuscitation [ ]viii)Other significant complicating feature [ ]d) Organ transplant(39)(40) [ ]e) Esophagectomy(31) [ ]f) Whipple procedure [ ]g) Preoperative or postoperative patients requiring ICU intervention, such as hemodynamic optimization, pulmonary artery monitoring, mechanical ventilation, or extensive nursing care [ ]h) Obesity surgery patients with ANY ONE of the following(41): [ ]i) ICU management needs for comorbid conditions, such as sleep apnea or airway management needs [ ]ii) Failed postoperative extubation [ ]iii) Intraoperative complications [ ]XII. Nephrology diagnoses or procedures, including acute, or acute on chronic renal insufficiency with ANY ONE of the following(44)(45): [ ]a) Life-threatening electrolyte or acid-base disorder [ ]b) Acute pulmonary edema [ ]c) Hypotension or significant volume depletion [ ]d) Hypertensive emergency [ ]e) Underlying critical illness contributing to renal failure (eg, septic shock, hepatorenal syndrome) [ ]f) Need for continuous renal replacement therapy [ ]XIII. Neurology diagnoses or procedures, including ANY ONE of the following (46)(47) [B] : [ ]a) Intracranial hypertension requiring ANY ONE of the following(49 ): [ ]i) Induced barbiturate coma [ ]ii) Pharmacologic paralysis or deep sedation and mechanical ventilation [ ]iii) Intracranial pressure or cerebral perfusion pressure monitoring [ ]iv) IV mannitol or hypertonic saline [ ]v) Frequent serum osmolality measurements [ ]b) Seizures with ANY ONE of the following(50): [ ]i) Status epilepticus [ ]ii) Airway compromise requiring or likely to require mechanical ventilation [ ]iii) Severe electrolyte abnormalities causing seizures [ ]c) Progressive acute neurologic dysfunction requiring or likely to require ANY ONE of the following: [ ]i) Mechanical ventilation [ ]ii) Intracranial pressure or cerebral perfusion pressure monitoring [ ]d) Meningitis with obtundation or respiratory insufficiency [C])(51 ) [ ]e) Stroke with ANY ONE of the following(52)(53): [ ]i) Need for observation after thrombolysis [ ]ii) Altered mental status [ ]iii) Need for mechanical ventilation [ ]iv) Elevated intracranial pressure [ ]v) Hypertensive emergency [ ]vi) High risk of progressive infarction or deterioration based on CT scan or MRI [ ]vii) Hemorrhage [ ]f) Acute coma [ ]g) Acute spontaneous intracranial hemorrhage(53)(54) [ ]h) Drug ingestion with ANY ONE of the following(56)(57): [ ]i) Hemodynamic instability [ ]ii) Respiratory depression (partial pressure of carbon dioxide >45 mm Hg (6.0 kPa), new) [ ]iii) Patient requires or is likely to require mechanical ventilation. [ ]iv) Arrhythmias [ ]v) Seizures [ ]vi) Altered mental status ([place] coma scale score less than 12, new) [ ]vii) Significant risk for acute deterioration (eg, toxic level of hypotension or arrhythmia-producing drug) [ ]viii) Drug-induced hypothermia or hyperthermia [ ]ix) Increasing metabolic acidosis [ ]x) Severe hypoglycemia requiring glucose infusion with frequent adjustment or glucagon administration [ ]xi) Ongoing antidote administration (eg, continuous naloxone infusion, organophosphate toxicity treatment) [ ]xii) Emergency intervention need (eg, dialysis, hemoperfusion, restraints) [ ]i) Brain with preparation for organ donation [ ]j) Traumatic brain injury with ANY ONE of the following(55): [ ]i) Altered mental status (eg, new onset Diana coma scale score less than 10) [ ]ii) Cerebral edema [ ]iii) Cerebral hemorrhage [ ]iv) Increased intracranial pressure [ ]XIV. Neurosurgery diagnoses or procedures, including ANY ONE of the following(49)(58)(59): [ ]a) Emergency craniotomy for tumor, hematoma, or trauma [ ]b) Elective craniotomy for posterior fossa tumor [ ]c) Elective craniotomy (supratentorial) for tumor with ANY ONE of the following: [ ]i) Postoperative neurologic deficit or impaired consciousness 6 hours after completion of procedure [ ]ii) SBP less than 110 mm Hg or greater than 180 mm Hg despite therapy [ ]iii) Extensive operative blood loss [ ]iv) High anesthesia risk (eg, [employer] [employer] score greater than 3 [ ]d) Craniotomy for aneurysm with ANY ONE of the following: [ ]i) Postoperative neurologic deficit or impaired consciousness 6 hours after completion of procedure [ ]ii) Preoperative Lara-Chand grade 3 or higher [ ]iii) SBP less than 110 mm Hg or greater than 180 mm Hg despite therapy [ ]iv) Intracranial pressure monitoring [ ]e) Acute spinal cord injury [ ]f) Subarachnoid hemorrhage [ ]g) Traumatic brain injury with ANY ONE of the following: [ ]i) Acute mental status change (Diana coma scale score less than 10) [ ]ii) CT scan showing cerebral edema or hemorrhage [ ]iii) Intracranial pressure monitoring [ ]h) Complications of any surgery requiring ICU intervention as indicated by ANY ONE of the following(60): [ ]i) Hemodynamic instability [ ]ii) ID with complications (eg, severe arrhythmia, hypotension) [ ]iii) Excessive bleeding or severe coagulopathy [ ]iv) Respiratory failure [ ] v) Renal failure [ ]vi) Airway instability or obstruction [ ]vii) Neurologic deterioration [ ]viii) Infection with likelihood of sepsis syndrome or significant fluid shifts [ ]i) Preoperative or postoperative patients requiring ICU intervention, such as hemodynamic optimization, pulmonary artery monitoring, mechanical ventilation, or extensive nursing care [ ]XV.Obstetrics and Gynecology diagnoses or procedures, including ANY ONE of the ffg. (61)(62)(63): [ ]a) Severe peripartum condition as indicated by ANY ONE of the following: [ ]i) Eclampsia [ ]ii) Hypertensive emergency [ ]iii) HELLP syndrome (hemolysis, elevated liver enzymes, and low platelet count) [ ]iv) Pulmonary edema [ ]v) Respiratory failure [ ]vi) Pulmonary embolism [ ]vii) Anaphylactoid syndrome of (amniotic fluid embolus) [ ]viii) Ovarian hyperstimulation syndrome [D] [ ]ix) Acute fatty liver of (hepatic failure) [ ]x) Complications such as placental abruption or severe hemorrhage [ ]xi) Sepsis (eg, puerperal sepsis, chorioamnionitis, septic ) [ ]xii) cardiomyopathy with severe congestive heart failure (eg, respiratory failure, cardiogenic shock) [ ]b) Ruptured ectopic [ ]c) Complications of any surgery requiring ICU intervention as indicated by ANY ONE of the following: [ ]i) Hemodynamic instability [ ]ii) ID with complications (eg, severe arrhythmia, hypotension) [ ]iii) Excessive bleeding or severe coagulopathy [ ]iv) Respiratory failure [ ]v) Renal failure [ ]vi) Airway instability or obstruction [ ]vii) Neurologic deterioration [ ]viii) Infection with likelihood of sepsis syndrome or significant fluid shifts [ ]d) Preoperative or postoperative patients requiring ICU intervention , such as hemodynamic optimization, pulmonary artery monitoring, mechanical ventilation, or extensive nursing care [ ]XVI.Ophthalmology diagnoses or procedures, including ANY ONE of the following (64): [ ]a) Complications of any surgery requiring ICU intervention, such as ANY ONE of the following: [ ]i) Hemodynamic instability [ ]ii) ID with complications (eg, severe arrhythmia, hypotension) [ ]iii) Excessive bleeding or severe coagulopathy [ ]iv) Respiratory failure [ ]v) Renal failure [ ]vi) Airway instability or obstruction [ ]vii) Neurologic deterioration [ ]viii) Infection with likelihood of sepsis syndrome or significant fluid shifts [ ]b) Preoperative or postoperative patients requiring ICU intervention , such as hemodynamic optimization, pulmonary artery monitoring, mechanical ventilation, or extensive nursing care [ ]XVII.Orthopedics diagnoses or procedures, including ANY ONE of the following [phone]): [ ]a) Complications of any surgery requiring ICU intervention as indicated by ANY ONE of the following: [ ]i) Hemodynamic instability [ ]ii) ID with complications (eg, severe arrhythmia, hypotension) [ ]iii) Excessive bleeding or severe coagulopathy [ ]iv) Respiratory failure [ ]v) Renal failure [ ]vi) Airway instability or obstruction [ ] vii) Neurologic deterioration [ ]viii) Infection with likelihood of sepsis syndrome or significant fluid shifts [ ]b) Multiple trauma with complicating features as indicated by ANY ONE of the following(38): [ ]i) Impending acute respiratory failure due to lung contusion, unstable chest wall, pneumothorax, aspiration, or hemorrhage [ ]ii) Facial or neck injury threatening airway patency [ ]iii) Cardiac contusion [ ]iv) Rhabdomyolysis requiring large volume IV fluid resuscitation [ ]v) Pericardial effusion [ ]vi) Bronchial tear [ ]vii) Hemodynamic instability [ ]viii) Other significant complicating feature [ ]c) Threatened compartment syndrome [ ]d) Severe bui with ANY ONE of the following(68)(69)(70): [ ]i) Hypotension or requirement for aggressive fluid resuscitation [ ]ii) Respiratory insufficiency with requirement for high- flow oxygen or mechanical ventilation [ ]iii) Carbon monoxide poisoning [ ]iv) Life-threatening cardiac, renal, pulmonary, or neurologic dysfunction [ ]v) High-voltage (eg, 1000 volts or more) electrical burn [ ]vi) Requirement for frequent or intensive debridement and dressing changes; examples include: [ ]1) Partial thickness bui greater than 10% of body surface [ ]2) Bui on face, hands, feet, genitalia, perineum , or major joints [ ]3) Third-degree bui [ ]4) Any burn greater than 15% of body surface area [ ]vii) Inhalation lung injury [ ]viii) Concomitant trauma or other medical condition requiring ICU care [ ]e) Preoperative or postoperative patients requiring ICU intervention , such as hemodynamic optimization, pulmonary artery monitoring, mechanical ventilation, or extensive nursing care [ ]XVIII.Otolaryngology diagnoses or procedures, including ANY ONE of the following (71)(72): [ ]a) Complications of any surgery requiring ICU intervention as indicated by ANY ONE of the following: [ ]i) Hemodynamic instability [ ]ii) ID with complications (eg, severe arrhythmia, hypotension) [ ]iii) Excessive bleeding or severe coagulopathy [ ]iv) Respiratory failure [ ]v) Renal failure [ ]vi) Airway instability or obstruction [ ]vii) Neurologic deterioration [ ]viii) Infection with likelihood of sepsis syndrome or significant fluid shifts [ ]b) Airway or hemodynamic compromise that persists after 3 hours of observation in postanesthesia care unit following nasal, palate (eg, uvulopalatopharyngoplasty or palatoplasty), or tongue surgery for sleep apnea [ ]c) Preoperative or postoperative patient requiring ICU intervention, such as hemodynamic optimization, pulmonary artery monitoring, mechanical ventilation, or extensive nursing care [ ]d) Symptomatic upper airway compromise (eg, laryngeal edema, mass) [ ]e) Other airway-compromising procedure (eg, posterior nasal packing) [ ]XIX.Thoracic Surgery and Pulmonary Disease Diagnosis or procedures, including ANY ONE of the following(6): [ ]a) Asthma with ANY ONE of the following(73)(74): [ ]i) Impending or actual respiratory arrest [ ]ii) Need for mechanical ventilation [ ]iii) Peak expiratory flow rate less than 30% of predicted or personal best [ ]iv) Peak expiratory flow rate or FEV1 less than 40% predicted after 1 hour of initial treatment [ ]v) Acidosis [ ]vi) Persistent or worsening hypoxia after initial treatment [ ]vii) Hypercapnia (eg, partial pressure of carbon dioxide greater than 43 mm Hg (5.7 kPa)) [ ]viii) Severe drowsiness, confusion, or coma [ ]ix) Requiring continuous inhaled bronchodilator [ ]b) COPD with ANY ONE of the following(75): [ ]i) Need for assisted ventilation [ ]ii) Hemodynamic instability [ ]iii) Severe dyspnea unresponsive to initial treatment [ ]iv) Change in level of consciousness [ ]v) Persistent findings despite oxygen and outpatient management, including ANY ONE of the following: [ ]1) Partial pressure of oxygen less than 40 mm Hg ( 5.3 kPa) [ ]2) Partial pressure of carbon dioxide greater than 60 mm Hg (8.0 kPa) [ ]3) pH less than 7.25 [ ]4) Worsening hypoxemia or acidosis [ ]c) Cor pulmonale with ANY ONE of the following(75)(76)(77): [ ]i) Hemodynamic instability [ ]ii) Need for IV inotropic or vasoactive agent [ ]iii) Need for invasive hemodynamic monitoring (eg, central venous, pulmonary artery, or arterial catheter) [ ]iv) Hypoxemia with partial pressure of oxygen less than 40 mm Hg (5.3 kPa) [ ]v) Worsening hypoxemia or acidosis despite oxygen therapy [ ]vi) Need for assisted ventilation [ ]vii) Need for right ventricular assist device [ ]viii) Unstable atrial tachyarrhythmia [ ]ix) Need for inhaled nitric oxide [ ]d) Aspiration pneumonia with ANY ONE of the following(78): [ ]i) Acute respiratory distress syndrome (PaO2/FiO2 ratio of 300 or less) [ ]ii) Impending or actual respiratory arrest [ ]iii) Need for invasive or noninvasive mechanical ventilation [ ]e) Pneumocystis jiroveci pneumonia with ANY ONE of the following(79): [ ]i) Impending or actual respiratory arrest [ ]ii) Hypoxia (eg, PO260 mmGh (8.0 kPa) or less despite oxygen therapy) [ ]iii) Need for invasive or noninvasive mechanical ventilation [ ]f) Pneumonia with ANY ONE of the following(80)(81)(82): [ ]i) Need for invasive or noninvasive assisted ventilation [ ]ii) Hemodynamic instability [ ]iii) Severity factors as indicated by 3 or MORE of the following: [ ]1) Respiratory rate 30 breaths per minute or greater [ ]2) PaO2/FiO2 ratio of 250 or less [ ]3) Multilobed infiltrates [ ]4) Altered mental status [ ]5) BUN 20 mg/dL (7.1 mmol/L) or greater [ ]6) WBC count less than 4000/mm3 (4 x109/L) [ ]7) Platelet count <100,000/mm3 (100 x109/L) [ ]8) Temperature less than 36 degrees C (96.8 degrees F ) [ ]9) Hypotension requiring aggressive fluid resuscitation [ ]g) Pulmonary hypertension requiring initiation of parenteral pulmonary vasodilator or trial of inhaled nitric oxide (eg, need for right heart catheterization)(76) [ ]h) Impending respiratory failure as indicated by ANY ONE of the following: [ ]i) Respiratory rate greater than 30 or partial pressure of oxygen less than 60 mm Hg (8.0 kPa) on 50% oxygen or more [ ]ii) Partial pressure of carbon dioxide greater than 45 mm Hg (6.0 kPa) with pH less than 7.35 [ ]i) Respiratory failure with ANY ONE of the following (47): [ ]i) Need for invasive or noninvasive mechanical ventilation [ ]ii) High likelihood of requiring mechanical ventilation within 24 hours [ ]iii) Observation in the first several hours immediately after extubation from mechanical ventilation [ ]iv) Need for close observation and aggressive therapy, such as suctioning, chest physiotherapy, or inhalation treatments at intervals less than 1 hour [ ]v) Pharmacologic ventilatory paralysis [ ]j) Venous thromboembolism with need for systemic or catheter- directed thrombolysis (eg, for limb-threatening thrombosis, phlegmasia cerulea dolens) (83) [ ]k) Pulmonary embolus with ANY ONE of the following(83): [ ]i) Hypotension [ ]ii) Severe hypoxia [ ]iii) Dangerous arrhythmia [ ]iv) Bleeding [ ]v) Need for systemic or catheter-directed thrombolysis [ ]l) Lobectomy or other major thoracic surgery [ ]m) Lung transplant [ ]n) Symptomatic upper airway obstruction (eg, laryngeal edema, mass) [ ]o) Massive hemoptysis [ ]p) Infection or thrombosis of an intravenous device with ANY ONE of the following(6)(84): [ ]i) Hemodynamic instability [ ]ii) Requirement for frequent hemodynamic measurements [ ]iii) Shock [ ]iv) End organ dysfunction [ ] v) Acute renal failure due to missed dialysis [ ]vi) Unstable acute complication (eg, pericardial tamponade , tension pneumothorax) [ ]q) Traumatic rib fracture or fractures with ANY ONE of the following(85): [ ]i) Injury severity score of 19 or greater [ ]ii) Respiratory insufficiency [ ]iii) Flail chest [ ]iv) Sternum fracture [ ]v) Vascular injury (eg, heart or great vessels) [ ]r) Pleural effusion with ANY ONE of the following(86): [ ]i) Respiratory insufficiency [ ]ii) Hemothorax with active ongoing bleeding [ ]iii) Hemodynamic instability [ ]iv) Unstable comorbid condition (eg, sepsis or heart failure [ ]XX. Urology diagnoses or procedures, including ANY ONE of the following ( 87)(88): [ ]a) Renal transplant [ ]b) Complications of any surgery requiring ICU intervention as indicated by ANY ONE of the following: [ ]i) Hemodynamic instability [ ]ii) ID with complications (eg, severe arrhythmia, hypotension) [ ]iii) Excessive bleeding or severe coagulopathy [ ]iv) Respiratory failure [ ]v) Renal failure [ ]vi) Airway instability or obstruction [ ]vii) Neurologic deterioration [ ]viii) Infection with likelihood of sepsis syndrome or significant fluid shifts [ ]c) Preoperative or postoperative patients requiring ICU intervention , such as hemodynamic optimization, pulmonary artery monitoring, mechanical ventilation , or extensive nursing care [ ]XXI.Infectious Disease diagnoses or procedures, with ANY ONE of the following (6)(43): [ ]a) Hemodynamic instability [ ]b) Shock [ ]c) Requirement for frequent hemodynamic measurements (eg, arterial catheter, pulmonary artery catheter) [ ]d) Sepsis or suspected sepsis with end organ dysfunction (eg, acute kidney injury, acute respiratory distress syndrome) [ ]e) Necrotizing soft tissue infection [ ] XXII.Hematology - Oncology diagnoses or procedures, including chemotherapy administration with ANY ONE of the following(42): [ ]a) Hemodynamic instability [ ]b) Tumor lysis syndrome with ANY ONE of the following : [ ]1) Acute kidney injury [ ]2) Severe electrolyte abnormality [ ]3) Cardiac dysrhythmia [ ]XXIII. Systemic conditions, including ANY ONE of the following: [ ]a) Severe electrolyte or metabolic disturbance causing or likely to cause ANY ONE of the following(10)(89)(90): [ ]i) Life-threatening cardiac dysrhythmia [ ]ii) Respiratory insufficiency [ ]iii) Altered mental status [ ]iv) Seizures [ ]v) Hemodynamic instability [ ]vi) Muscular weakness [ ]b) Environmental injuries such as hypothermia, hyperthermia, electrical injuries, or near drowning(70)(91)(92) The original [facility] [employer] content created by [employer] has been revised. The portions of the content which have been revised are identified through the use of italic text or in bold, and [facility] has neither reviewed nor approved the modified material. All other unmodified content is copyright [facility] [employer] Please see references footnoted in the original [facility] [employer] edition 2016 Admission Criteria Met?: Yes REBECCA MARSH Aug 26, 2016 15:51
[2016-08-26 16:23] LABS: HEMATOCRIT 37.3 % (36.0-47.0); HEMOGLOBIN 11.9 g/dL (12.0-15.5); RED BLOOD COUNT 4.05 x10^6/uL (3.50-5.40); RED CELL DISTRIBUTION WIDTH 15.9 % (11.5-14.5); WHITE BLOOD COUNT 20.5 x10^3/uL (4.0-11.0)
--- NOTE | 2016-08-26 17:39 | HP ---
ADMIT DATE: 08/26/2016 CHIEF COMPLAINT: Chest pain/back pain. HISTORY OF PRESENT ILLNESS: The patient is a 66-year-old woman with a past medical history of breast cancer, treated with mastectomy, followed by radiation and chemotherapy as well as AI for 5 years which she just completed, who presented to the Emergency Room with sudden onset of back pain. She relates that pain started about 5 p.m. in the evening, located in the mid thoracic region in her back. Denied any injuries that could have led to the pain. Denies any other symptoms. In the Emergency Room, a CAT scan was obtained which unfortunately resulted showing several metastases including a T11 pathologic compression fracture. However, more alarmingly a pneumoperitoneum and mild free fluid in the abdomen and pelvis were noted. She was therefore taken immediately to the OR for perforated viscera and exploration. In the pyloric channel, a punched-out ulcer was noted with surrounding inflammatory change. This was corrected surgically. The patient is now on the Med-Surg floor. PAST MEDICAL HISTORY: Breast cancer 5 years ago as above, hypertension, diabetes mellitus, migraines, history of cervical fusions. FAMILY HISTORY: No other breast cancers. SOCIAL HISTORY: Lives with her family and no toxic habits. ALLERGIES: Penicillin. MEDICATIONS: Home medications reconciled with MAR. REVIEW OF SYSTEMS: The patient complains of severe pain in her abdominal incision. She has a very low dose LAST CODE STRIPER with Dilaudid running right now. Also, pain in her mid back. PHYSICAL EXAMINATION: VITAL SIGNS: From today show a blood pressure of 142/65, heart rate of 78, respiratory rate at 20. She is afebrile. GENERAL: This is an obese 66-year-old woman, quite uncomfortable, alert and oriented. HEENT: Shows no scleral icterus. NECK: Supple. LUNGS: Fairly clear bilaterally. HEART: Has regular rate and rhythm. ABDOMEN: Very tender, gauze covering the incision. EXTREMITIES: Show no edema, no clubbing, no cyanosis. SKIN: Warm, soft and dry. LABORATORY DATA: CBC with a WBC of 17.2, hemoglobin 12.0, platelets of 264, 81% neutrophils, 12 of those are bands. Chemistries with BUN and creatinine of 37 and 1.8. Electrolytes essentially within normal limits. Glucose at 157. Urine essentially benign. Coags normal. Negative tox screen. IMAGING: CT of the abdomen as above. ASSESSMENT AND PLAN: The patient is a 66-year-old woman presenting with a ruptured viscera, pyloric ulcer with hemo and pneumoperitoneum. This now has been surgically addressed. We will continue on antibiotics, ID will be involved. For pain control, we will increase her Dilaudid with a basal rate as well as LAST CODE STRIPER. The patient unfortunately has a recurrence of breast cancer which at least is in her bones. CT of the abdomen and pelvis last night showed tiny pulmonary nodules in her lung bases. No abnormalities were suspicious for cancer in her abdomen and pelvis. Obviously, further staging will have to be done. She does have a T11 compression fracture which was noted on CT of the chest. She also has lymphadenopathy in the left axilla and lateral margin of the pectoralis. Pulmonary nodules as above and we will obtain Oncology consult. She will most likely undergo a biopsy to confirm a marker status. For her T11 fracture which more than likely is pathologic, a kyphoplasty can be offered. Biopsy could be obtained at the same time. This, however, will be put off until she recovers from the acute abdominal issues. We will continue all other home medications, including the propranolol and zolpidem. Hold off on diclofenac for now, as this may be involved in the development of her ulcer. We will start on PPI b.i.d. IV for now. Lovenox will be started when deemed safe by Surgery. BUBBA LACY MD DR: UR/nts JOB#: [id number] / [id number] CALIXTO Sands MD
[2016-08-26] MEDS: PANTOPRAZOLE IV PUSH 40 MG VIAL. IVP SCH (22:49)
[2016-08-26] MEDS: ONDANSETRON PF 4 MG/2 ML VIAL. IV PRN (23:08)
[2016-08-27 03:27] VITALS: BP 134/45
--- NOTE | 2016-08-27 03:57 | CONS ---
DATE OF CONSULTATION: 08/26/2016 HISTORY OF PRESENT ILLNESS: The patient is a 66-year-old female who presented to the Emergency Department earlier this morning with back pain. She was scanned and found to have pneumoperitoneum and free fluid. We are asked to see her for evaluation of same. PAST MEDICAL HISTORY: Medically history of type 2 diabetes, hypertension, migraines, MRSA, breast cancer PAST SURGICAL HISTORY: Left partial mastectomy with ____radiation, cervical fusion. ALLERGIES: SHE IS ALLERGIC TO PENICILLIN. ROUTINE MEDICATIONS: Listed on reconciliation sheet. SOCIAL HISTORY: She is a nonsmoker who does not use alcohol. FAMILY HISTORY: Noncontributory to this illness. REVIEW OF SYSTEMS: GENERAL: Denies fevers or chills. HEENT: No recent sore throat or earaches. RESPIRATORY: No wheezing or productive cough. CARDIAC: No chest pain or palpitations. GASTROINTESTINAL: Abdominal pain and nausea. GENITOURINARY: No dysuria or increased frequency. NEUROLOGIC: Denies visual changes or headaches. TUNNEL KILN OPERATOR: The patient has had vaginal bleeding. MUSCULOSKELETAL: No chronic majority issues. OBJECTIVE: GENERAL: Reveals a well-developed, well-nourished female who appears in distress due to severe abdominal pain. VITAL SIGNS: Her temperature on presentation was 99.1, heart rate 74, blood pressure 189/87. HEENT: Normocephalic. EOMs intact. NECK: Supple. LUNGS: Clear. HEART: Regular rate and rhythm. BREAST: Deferred. ABDOMEN: Belly is obese, soft. There is a well-healed upper abdominal incision just off the midline (the patient says that she had ____shunt in the past). There is diffuse tenderness to palpation. GENITAL AND RECTAL: Deferred. EXTREMITIES: Showed no gross skeletal abnormalities. NEUROLOGIC: She is grossly intact. ADMISSION LABORATORY DATA: Shows a white count of 7200, hemoglobin of 12, chemistries show creatinine of 1.8, elevated blood sugars. CT scan of the abdomen and pelvis shows pneumoperitoneum and mild free fluid in the abdomen and pelvis, marked wall thickening of the duodenal bulb. ASSESSMENT AND PLAN: 1. Abdominal/back pain. 1.1. Pneumoperitoneum. 1.2. Free fluid in the abdomen. 2. Obesity. 3. Diabetes. 4. Hypertension. 5. History of breast cancer. PLAN: Abdominal exploration with biopsy and closure, perforated viscus, possible bowel resection. I explained the process to the patient with risks including but not limited to bleeding, infection, need for bowel resection with possible temporary stoma. She understands and will proceed. Thank you for asking us to see this nice lady and participate in her care. We will follow her with you during her hospitalization. MAROLN PRINCE MD DR: MAKENZIE/nik JOB#: [id number] / [id number]
[2016-08-27 05:13] LABS: BASO % 0 % (0-3); EOS % 0 % (0-3); HEMATOCRIT 30.7 % (36.0-47.0); LYMPH % 6 % (24-48); MEAN CORPUSCULAR HEMOGLOBIN 30 pg (25-35); MEAN CORPUSCULAR HGB CONC 33 g/dL (31-37); MEAN CORPUSCULAR VOLUME 91 fL (79-100); MONO % 8 % (0-9); NEUT % 86 % (31-73); PLATELET COUNT 178 x10^3/uL (140-400); RED BLOOD COUNT 3.36 x10^6/uL (3.50-5.40); RED CELL DISTRIBUTION WIDTH 16.1 % (11.5-14.5); WHITE BLOOD COUNT 17.3 x10^3/uL (4.0-11.0)
[2016-08-27 05:44] LABS: ALBUMIN 2.1 g/dL (3.4-5.0); ALBUMIN/GLOBULIN RATIO 0.6 (1.0-1.7); CALCIUM 8.2 mg/dL (8.5-10.1); CREATININE 1.6 mg/dL (0.6-1.0); GFR 32.2; TOTAL BILIRUBIN 0.3 mg/dL (0.2-1.0); TOTAL PROTEIN 5.8 g/dL (6.4-8.2)
[2016-08-27] MEDS: METRONIDAZOLE 500mg PREMIX 100 ML IV SCH ×3 (06:02→21:29)
[2016-08-27 07:00] VITALS: BP 112/42
--- NOTE | 2016-08-27 07:54 | EKG ---
[facility] [address] [place] [address] Test Date: 2016-08-25 Test Time: 23:33:54 Pat Name: PATTI KONG Department: Room: 434 1 Gender: F Animation Artist: : 1950 Requested By: SYLVIA BOLANOS Order Number: [id number] Reading MD: Catracho Delarosa Measurements Intervals [place] Rate: 71 P: AK: QRS: -77 QRSD: 132 T: 16 QT: 418 QTc: 454 Interpretive Statements SINUS RHYTHM PACS ABNORMAL LEFT AXIS DEVIATION LEFT ANTERIOR FASCICULAR BLOCK NON SPECIFIC INTRAVENTRICULAR BLOCK RVH WITH REPOLARIZATION ABNORMALITY ABNORMAL ECG RI6.0 Electronically Signed On 08-27-2016 10:49:31 ALL TERRAIN VEHICLE TECHNICIAN by Catracho Delarosa
--- NOTE | 2016-08-27 07:56 | EKG ---
[facility] [address] [place] [address] Test Date: 2016-08-25 Test Time: 23:54:46 Pat Name: PATTI KONG Department: Room: 434 1 Gender: F Commercial Lending Vice President: : 1950 Requested By: SYLVIA BOLANOS Order Number: [id number] Reading MD: Catracho Delarosa Measurements Intervals [place] Rate: 71 P: 55 [place]: 176 QRS: -72 QRSD: 124 T: 14 QT: 438 QTc: 481 Interpretive Statements SINUS RHYTHM ATRIAL PREMATURE COMPLEX(ES) ABNORMAL LEFT AXIS DEVIATION LEFT ANTERIOR FASCICULAR BLOCK T ABNORMALITY IN ANTEROSEPTAL LEAD NONSPECIFIC ST-T WAVE CHANGES. Electronically Signed On 08-27-2016 10:48:12 MANAGER CIVIL by Catracho Delarosa
[2016-08-27] MEDS: HYDROMORPHONE STANDARD PCA 30 ML IV PRN (08:37)
[2016-08-27] MEDS: PANTOPRAZOLE IV PUSH 40 MG VIAL. IVP SCH ×2 (10:29→21:27)
[2016-08-27] MEDS: ENOXAPARIN 40 MG/0.4 ML DISP.SYRIN. SQ SCH (10:30)
--- NOTE | 2016-08-27 10:40 | PDOC2 ---
CARDIAC CONSULT DATE OF CONSULT Date of Consult DATE: 08/27/16 TIME: 10:22 REASON FOR CONSULT Reason for Consult: abnormal EKG REFERRING PHYSICIAN Referring Physician: Dr. Donohue SOURCE Source: Chart review, Patient HISTORY OF PRESENT ILLNESS HISTORY OF PRESENT ILLNESS This is a 66 yo female, with a history of HTN, DM, and breast CA, who presented with complaints of back pain. Patient reports intermittent back pain since Saturday. Progressively worsened; became excruciating that night. Described as stabbing in nature. EKG obtained in ED notable for left axis deviation with left anterior vesicular block, which prompted this consults. CT abdomen/pelvis identified pneumoperitoneum with possible perforated duodenal diverticulum. Patient was therefore taken immediately to the OR for exploratory laparotomy with biopsy and closure of perforated pyloric channel ulcer with Josep patch. CT additionally notable for ascending thoracic aortic aneurysm measuring 4.5 centimeters. Patient denies any chest pain, palpitations, dizziness, diaphoresis , SOA, AVILA, or LE edema. No prior h/o CAD or recent cardiac workup. PAST MEDICAL HISTORY Cardiovascular: HTN, Hyperlipidemia Pulmonary: No pertinent hx CENTRAL NERVOUS SYSTEM: Migraine GI: No pertinent hx Heme/Onc: No pertinent hx, Cancer (breast- tx with chemo and radiation) Hepatobiliary: No pertinent hx Psych: No pertinent hx Musculoskeletal: Osteoarthritis Rheumatologic: No pertinent hx Infectious disease: No pertinent hx ENT: No pertinent hx Renal/: No pertinent hx Endocrine: Diabetes Dermatology: No pertinent hx PAST SURGICAL HISTORY Past Surgical History: Other (cervical fusion, gastric bypass ) FAMILY HISTORY Family History: Diabetes SOCIAL HISTORY Smoke: No ALCOHOL: none Drugs: None Lives: Alone CURRENT MEDICATIONS CURRENT MEDICATIONS Current Medications Medications (Trade) Dose Ordered Sig/Rosalinda Route PRN Reason Start Time Stop Time Status Last Admin Dose Admin Metronidazole (FLAGYL 500Mmg PREMIX) 100 ml @ 100 mls/hr Q8HRS IV 08/26/16 14:00 08/27/16 06:02 Pantoprazole Sodium 40 mg 40 mg BID IVP 08/26/16 21:00 08/26/16 22:49 Hydromorphone HCl (Dilaudid Standard SURGICAL SUPPLY ASSISTANT) 30 ml @ 0 mls/hr CONT PRN PRN IV PROTOCOL 08/26/16 20:15 08/27/16 08:37 ALLERGIES ALLERGIES: Coded Allergies: Penicillins (Verified Allergy, Severe, Hives, 08/25/16) ROS Review of System 14 point ROS conducted with pertinent positives noted above in HPI. PHYSICAL EXAM General: Alert, Oriented X3, Cooperative, No acute distress HEENT: Atraumatic, Mucous membr. moist/pink, Other (left nare NG in place) Lungs: Clear to auscultation, Other (diminished bases ) Heart: Regular rate, Normal S1, Normal S2, Other (2/6 systolic murmur ) Abdomen: Soft, Other (diffuse tenderness. Surgical incision with drsg intact) Extremities: No edema, Normal pulses Skin: No breakdown, No significant lesion Neuro: Normal speech, Sensation intact Psych/Mental Status: Mental status NL, Mood NL MUSCULOSKELETAL: Osteoarthritic changes both hands VITALS VITALS Vital Signs Date Time Temp Pulse Resp B/P Pulse Ox O2 Delivery O2 Flow Rate FiO2 08/27/16 07:00 98.8 58 16 112/42 95 Room Air 2.0 98.8 LABS Lab: Laboratory Tests Test 08/26/16 16:07 08/26/16 17:06 08/26/16 20:49 08/27/16 04:50 White Blood Count 20.5x10^3/uL (4.0-11.0) 17.3x10^3/uL (4.0-11.0) Red Blood Count 4.05x10^6/uL (3.50-5.40) 3.36x10^6/uL (3.50-5.40) Hemoglobin 11.9g/dL (12.0-15.5) 10.0g/dL (12.0-15.5) Hematocrit 37.3% (36.0-47.0) 30.7% (36.0-47.0) Mean Corpuscular Volume 92fL (79-100) 91fL (79-100) Mean Corpuscular Hemoglobin 30pg (25-35) 30pg (25-35) Mean Corpuscular Hemoglobin Concent 32g/dL (31-37) 33g/dL (31-37) Red Cell Distribution Width 15.9% (11.5-14.5) 16.1% (11.5-14.5) Platelet Count 257x10^3/uL (140-400) 178x10^3/uL (140-400) Glucose (Fingerstick) 164mg/dL (70-99) 136mg/dL (70-99) Neutrophils (%) (Auto) 86% (31-73) Lymphocytes (%) (Auto) 6% (24-48) Monocytes (%) (Auto) 8% (0-9) Eosinophils (%) (Auto) 0% (0-3) Basophils (%) (Auto) 0% (0-3) Neutrophils # (Auto) 14.8x10^3uL (1.8-7.7) Lymphocytes # (Auto) 1.0x10^3/uL (1.0-4.8) Monocytes # (Auto) 1.4x10^3/uL (0.0-1.1) Eosinophils # (Auto) 0.0x10^3/uL (0.0-0.7) Basophils # (Auto) 0.0x10^3/uL (0.0-0.2) Sodium Level 139mmol/L (136-145) Potassium Level 5.0mmol/L (3.5-5.1) Chloride Level 109mmol/L (98-107) Carbon Dioxide Level 21mmol/L (21-32) Anion Gap 9 (6-14) Blood Urea Nitrogen 37mg/dL (7-20) Creatinine 1.6mg/dL (0.6-1.0) Estimated GFR (Cockcroft-Gault) 32.2 BUN/Creatinine Ratio 23 (6-20) Glucose Level 123mg/dL (70-99) Calcium Level 8.2mg/dL (8.5-10.1) Magnesium Level 2.0mg/dL (1.8-2.4) Total Bilirubin 0.3mg/dL (0.2-1.0) Aspartate Amino Transf (AST/SGOT) 14U/L (15-37) Alanine Aminotransferase (ALT/SGPT) 12U/L (14-59) Alkaline Phosphatase 124U/L (46-116) Total Protein 5.8g/dL (6.4-8.2) Albumin 2.1g/dL (3.4-5.0) Albumin/Globulin Ratio 0.6 (1.0-1.7) Test 08/27/16 07:36 Glucose (Fingerstick) 110mg/dL (70-99) ASSESSMENT/PLAN ASSESSMENT/PLAN 1. Abnormal EKG stable. No anginal symptoms. no significant acute changes is comparison to EKG conducted 07/02/12. check echo to assess LV function/presence of WMA not presently candidate for further aggressive cardiac workup given acute illness/surgery 2. Ruptured viscera, pyloric ulcer with hemo and pneumoperitoneum s/p biopsy and closure of perforated pyloric channel ulcer post-op management per surgical team 3. HTN controlled 4. DM 5. breast CA with metastatic disease 6. Leukocytosis 7. PRADIP Problems: TRE BUENROSTRO APRN Aug 27, 2016 10:40
[2016-08-27 11:00] VITALS: BP 127/49
[2016-08-27] MEDS: POTASSIUM CL 20MEQ-0.45% NACL 1,000 ML IV SCH ×2 (12:53→21:30)
--- NOTE | 2016-08-27 13:11 | PDOC ---
LINA LANIER MARINA [employer] MA[employer]GER 08/27/16 1311: SURGICAL PROGRESS NOTE Subjective asking about NG coming out moderate amount of pain, mainly with movement Vital Signs Vital Signs Date Time Temp Pulse Resp B/P Pulse Ox O2 Delivery O2 Flow Rate FiO2 08/27/16 11:00 98.2 59 18 127/49 94 Nasal Cannula 2.0 98.2 I&O Intake and Output 08/27/16 07:00 Intake Total 1832.24 ml Output Total 1905 ml Balance -72.76 ml Intake Oral 0 ml IV Total 972.24 ml Other 860 ml Output Urine Total 1200 ml Gastric Drainage Total 350 ml Drainage Total 330 ml Estimated Blood Loss 25 ml General: Alert, Oriented X3, Cooperative, No acute distress HEENT: Other (NG present) Abdomen: Soft, Other (dressing dry, incisional ttp, drain serosang) Labs Laboratory Tests Test 08/25/16 23:35 08/25/16 23:40 08/25/16 23:42 08/25/16 23:43 White Blood Count 17.2x10^3/uL (4.0-11.0) Red Blood Count 4.05x10^6/uL (3.50-5.40) Hemoglobin 12.0g/dL (12.0-15.5) Hematocrit 37.0% (36.0-47.0) Mean Corpuscular Volume 91fL (79-100) Mean Corpuscular Hemoglobin 30pg (25-35) Mean Corpuscular Hemoglobin Concent 33g/dL (31-37) Red Cell Distribution Width 15.8% (11.5-14.5) Platelet Count 264x10^3/uL (140-400) Neutrophils (%) (Auto) 81% (31-73) Lymphocytes (%) (Auto) 9% (24-48) Monocytes (%) (Auto) 5% (0-9) Eosinophils (%) (Auto) 4% (0-3) Basophils (%) (Auto) 1% (0-3) Neutrophils # (Auto) 14.0x10^3uL (1.8-7.7) Lymphocytes # (Auto) 1.5x10^3/uL (1.0-4.8) Monocytes # (Auto) 0.9x10^3/uL (0.0-1.1) Eosinophils # (Auto) 0.8x10^3/uL (0.0-0.7) Basophils # (Auto) 0.1x10^3/uL (0.0-0.2) Segmented Neutrophils % 67% (35-66) Band Neutrophils % 12% (0-9) Lymphocytes % 11% (24-48) Monocytes % 5% (0-10) Eosinophils % 5% (0-5) Platelet Estimate Adequate (ADEQUATE) Prothrombin Time 14.1SEC (11.7-14.0) Prothromb Time International Ratio 1.2 (0.8-1.1) Sodium Level 141mmol/L (136-145) Potassium Level 3.9mmol/L (3.5-5.1) Chloride Level 104mmol/L (98-107) Carbon Dioxide Level 22mmol/L (21-32) Anion Gap 15 (6-14) 17mmol/L (6-14) Blood Urea Nitrogen 40mg/dL (7-20) Creatinine 1.9mg/dL (0.6-1.0) Estimated GFR (Cockcroft-Gault) 26.4 BUN/Creatinine Ratio 21 (6-20) Glucose Level 164mg/dL (70-99) 157mg/dL (70-99) Lactic Acid Level 1.6mmol/L (0.4-2.0) Calcium Level 9.5mg/dL (8.5-10.1) Magnesium Level 2.1mg/dL (1.8-2.4) Total Bilirubin 0.4mg/dL (0.2-1.0) Aspartate Amino Transf (AST/SGOT) 12U/L (15-37) Alanine Aminotransferase (ALT/SGPT) 11U/L (14-59) Alkaline Phosphatase 186U/L (46-116) Troponin I Quantitative < 0.017ng/mL (0.000-0.055) KB-Ung-N-Type Natriuretic Peptide 1158pg/mL (0-124) Total Protein 6.8g/dL (6.4-8.2) Albumin 3.1g/dL (3.4-5.0) Albumin/Globulin Ratio 0.8 (1.0-1.7) Lipase 134U/L (73-393) Urine Collection Type Unknown Urine Color Sasha Urine Clarity Clear Urine pH 5.5 Urine Specific [place] 1.025 Urine Protein 30mg/dL (NEG-TRACE) Urine Glucose (UA) Negativemg/dL (NEG) Urine Ketones (Stick) Tracemg/dL (NEG) Urine Blood Negative (NEG) Urine Nitrite Negative (NEG) Urine Bilirubin Small (NEG) Urine Urobilinogen Dipstick 1.0mg/dL (0.2 mg/dL) Urine Leukocyte Esterase Small (NEG) Urine RBC 3-5/HPF (0-2) Urine WBC 1-4/HPF (0-4) Urine Squamous Epithelial Cells Few/LPF Urine Amorphous Sediment Present/HPF Urine Bacteria Few/HPF (0-FEW) Urine Hyaline Casts Moderate/HPF Urine Mucus Slight/LPF Urine Opiates Screen Neg (NEG) Urine Methadone Screen Neg (NEG) Urine Barbiturates Neg (NEG) Urine Phencyclidine Screen Neg (NEG) Urine Amphetamine/Methamphetamine Neg (NEG) Urine Benzodiazepines Screen Neg (NEG) Urine Cocaine Screen Neg (NEG) Urine Cannabinoids Screen Neg (NEG) Urine Ethyl Alcohol Neg (NEG) Bedside Hemoglobin 12.6g/dL (12-15) Bedside Hematocrit 37% (36-40) Bedside Sodium 138mmol/L (135-145) Bedside Potassium 3.8mmol/L (3.5-5.0) Bedside Chloride 104mmol/L (98-110) Bedside Total CO2 22mmol/L (23-32) Bedside Blood Urea Nitrogen 37mg/dL (8-26) Bedside Creatinine 1.8mg/dL (0.5-1.4) Bedside Ionized Calcium (Andrzej) 1.18mmol/L (1.13-1.32) Bedside Troponin I 0.00ng/ml (<0.08) Test 08/26/16 04:35 08/26/16 06:45 08/26/16 16:07 08/26/16 17:06 Glucose (Fingerstick) 165mg/dL (70-99) 131mg/dL (70-99) 164mg/dL (70-99) White Blood Count 20.5x10^3/uL (4.0-11.0) Red Blood Count 4.05x10^6/uL (3.50-5.40) Hemoglobin 11.9g/dL (12.0-15.5) Hematocrit 37.3% (36.0-47.0) Mean Corpuscular Volume 92fL (79-100) Mean Corpuscular Hemoglobin 30pg (25-35) Mean Corpuscular Hemoglobin Concent 32g/dL (31-37) Red Cell Distribution Width 15.9% (11.5-14.5) Platelet Count 257x10^3/uL (140-400) Test 08/26/16 20:49 08/27/16 04:50 08/27/16 07:36 08/27/16 10:28 Glucose (Fingerstick) 136mg/dL (70-99) 110mg/dL (70-99) 106mg/dL (70-99) White Blood Count 17.3x10^3/uL (4.0-11.0) Red Blood Count 3.36x10^6/uL (3.50-5.40) Hemoglobin 10.0g/dL (12.0-15.5) Hematocrit 30.7% (36.0-47.0) Mean Corpuscular Volume 91fL (79-100) Mean Corpuscular Hemoglobin 30pg (25-35) Mean Corpuscular Hemoglobin Concent 33g/dL (31-37) Red Cell Distribution Width 16.1% (11.5-14.5) Platelet Count 178x10^3/uL (140-400) Neutrophils (%) (Auto) 86% (31-73) Lymphocytes (%) (Auto) 6% (24-48) Monocytes (%) (Auto) 8% (0-9) Eosinophils (%) (Auto) 0% (0-3) Basophils (%) (Auto) 0% (0-3) Neutrophils # (Auto) 14.8x10^3uL (1.8-7.7) Lymphocytes # (Auto) 1.0x10^3/uL (1.0-4.8) Monocytes # (Auto) 1.4x10^3/uL (0.0-1.1) Eosinophils # (Auto) 0.0x10^3/uL (0.0-0.7) Basophils # (Auto) 0.0x10^3/uL (0.0-0.2) Sodium Level 139mmol/L (136-145) Potassium Level 5.0mmol/L (3.5-5.1) Chloride Level 109mmol/L (98-107) Carbon Dioxide Level 21mmol/L (21-32) Anion Gap 9 (6-14) Blood Urea Nitrogen 37mg/dL (7-20) Creatinine 1.6mg/dL (0.6-1.0) Estimated GFR (Cockcroft-Gault) 32.2 BUN/Creatinine Ratio 23 (6-20) Glucose Level 123mg/dL (70-99) Calcium Level 8.2mg/dL (8.5-10.1) Magnesium Level 2.0mg/dL (1.8-2.4) Total Bilirubin 0.3mg/dL (0.2-1.0) Aspartate Amino Transf (AST/SGOT) 14U/L (15-37) Alanine Aminotransferase (ALT/SGPT) 12U/L (14-59) Alkaline Phosphatase 124U/L (46-116) Total Protein 5.8g/dL (6.4-8.2) Albumin 2.1g/dL (3.4-5.0) Albumin/Globulin Ratio 0.6 (1.0-1.7) Laboratory Tests Test 08/26/16 16:07 08/26/16 17:06 08/26/16 20:49 08/27/16 04:50 White Blood Count 20.5x10^3/uL (4.0-11.0) 17.3x10^3/uL (4.0-11.0) Red Blood Count 4.05x10^6/uL (3.50-5.40) 3.36x10^6/uL (3.50-5.40) Hemoglobin 11.9g/dL (12.0-15.5) 10.0g/dL (12.0-15.5) Hematocrit 37.3% (36.0-47.0) 30.7% (36.0-47.0) Mean Corpuscular Volume 92fL (79-100) 91fL (79-100) Mean Corpuscular Hemoglobin 30pg (25-35) 30pg (25-35) Mean Corpuscular Hemoglobin Concent 32g/dL (31-37) 33g/dL (31-37) Red Cell Distribution Width 15.9% (11.5-14.5) 16.1% (11.5-14.5) Platelet Count 257x10^3/uL (140-400) 178x10^3/uL (140-400) Glucose (Fingerstick) 164mg/dL (70-99) 136mg/dL (70-99) Neutrophils (%) (Auto) 86% (31-73) Lymphocytes (%) (Auto) 6% (24-48) Monocytes (%) (Auto) 8% (0-9) Eosinophils (%) (Auto) 0% (0-3) Basophils (%) (Auto) 0% (0-3) Neutrophils # (Auto) 14.8x10^3uL (1.8-7.7) Lymphocytes # (Auto) 1.0x10^3/uL (1.0-4.8) Monocytes # (Auto) 1.4x10^3/uL (0.0-1.1) Eosinophils # (Auto) 0.0x10^3/uL (0.0-0.7) Basophils # (Auto) 0.0x10^3/uL (0.0-0.2) Sodium Level 139mmol/L (136-145) Potassium Level 5.0mmol/L (3.5-5.1) Chloride Level 109mmol/L (98-107) Carbon Dioxide Level 21mmol/L (21-32) Anion Gap 9 (6-14) Blood Urea Nitrogen 37mg/dL (7-20) Creatinine 1.6mg/dL (0.6-1.0) Estimated GFR (Cockcroft-Gault) 32.2 BUN/Creatinine Ratio 23 (6-20) Glucose Level 123mg/dL (70-99) Calcium Level 8.2mg/dL (8.5-10.1) Magnesium Level 2.0mg/dL (1.8-2.4) Total Bilirubin 0.3mg/dL (0.2-1.0) Aspartate Amino Transf (AST/SGOT) 14U/L (15-37) Alanine Aminotransferase (ALT/SGPT) 12U/L (14-59) Alkaline Phosphatase 124U/L (46-116) Total Protein 5.8g/dL (6.4-8.2) Albumin 2.1g/dL (3.4-5.0) Albumin/Globulin Ratio 0.6 (1.0-1.7) Test 08/27/16 07:36 08/27/16 10:28 Glucose (Fingerstick) 110mg/dL (70-99) 106mg/dL (70-99) Problem List Problems Medical Problems: (1) Closed wedge compression fracture of T11 vertebra Status: Acute (2) Perforated ulcer Status: Acute Assessment/Plan POD#1 repair perf ulcer continue NG oob continue abx, ppi Problems: MARLON PRINCE MD 08/27/16 1803: SURGICAL PROGRESS NOTE Assessment/Plan pt seen and examined NG trial in AM Problems: LINA LANIER APRN Aug 27, 2016 13:11 MARLON PRINCE MD Aug 27, 2016 18:03
--- NOTE | 2016-08-27 13:48 | PDOC ---
PROGRESS NOTES Chief Complaint Chief Complaint Acute abdominal pain perforated pyloric ulcer, now POD#1 repair perf ulcer obesity, BMI 34 Abdominal/back pain. Pneumoperitoneum, Free fluid in the abdomen. Diabetes 2 Hypertension. prior History of breast cancer. 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 Vitals Vitals Vital Signs Date Time Temp Pulse Resp B/P Pulse Ox O2 Delivery O2 Flow Rate FiO2 08/27/16 11:00 98.2 59 18 127/49 94 Nasal Cannula 2.0 98.2 Physical Exam General: Alert, Oriented X3, Cooperative, No acute distress Heart: Regular rate, Normal S1, Normal S2, Other (2/6 systolic murmur ) Abdomen: Soft, Other (dressing dry, incisional ttp, drain serosang) Extremities: No edema, Normal pulses Skin: No breakdown, No significant lesion Labs LABS Laboratory Tests Test 08/26/16 16:07 08/26/16 17:06 08/26/16 20:49 08/27/16 04:50 White Blood Count 20.5x10^3/uL (4.0-11.0) 17.3x10^3/uL (4.0-11.0) Red Blood Count 4.05x10^6/uL (3.50-5.40) 3.36x10^6/uL (3.50-5.40) Hemoglobin 11.9g/dL (12.0-15.5) 10.0g/dL (12.0-15.5) Hematocrit 37.3% (36.0-47.0) 30.7% (36.0-47.0) Mean Corpuscular Volume 92fL (79-100) 91fL (79-100) Mean Corpuscular Hemoglobin 30pg (25-35) 30pg (25-35) Mean Corpuscular Hemoglobin Concent 32g/dL (31-37) 33g/dL (31-37) Red Cell Distribution Width 15.9% (11.5-14.5) 16.1% (11.5-14.5) Platelet Count 257x10^3/uL (140-400) 178x10^3/uL (140-400) Glucose (Fingerstick) 164mg/dL (70-99) 136mg/dL (70-99) Neutrophils (%) (Auto) 86% (31-73) Lymphocytes (%) (Auto) 6% (24-48) Monocytes (%) (Auto) 8% (0-9) Eosinophils (%) (Auto) 0% (0-3) Basophils (%) (Auto) 0% (0-3) Neutrophils # (Auto) 14.8x10^3uL (1.8-7.7) Lymphocytes # (Auto) 1.0x10^3/uL (1.0-4.8) Monocytes # (Auto) 1.4x10^3/uL (0.0-1.1) Eosinophils # (Auto) 0.0x10^3/uL (0.0-0.7) Basophils # (Auto) 0.0x10^3/uL (0.0-0.2) Sodium Level 139mmol/L (136-145) Potassium Level 5.0mmol/L (3.5-5.1) Chloride Level 109mmol/L (98-107) Carbon Dioxide Level 21mmol/L (21-32) Anion Gap 9 (6-14) Blood Urea Nitrogen 37mg/dL (7-20) Creatinine 1.6mg/dL (0.6-1.0) Estimated GFR (Cockcroft-Gault) 32.2 BUN/Creatinine Ratio 23 (6-20) Glucose Level 123mg/dL (70-99) Calcium Level 8.2mg/dL (8.5-10.1) Magnesium Level 2.0mg/dL (1.8-2.4) Total Bilirubin 0.3mg/dL (0.2-1.0) Aspartate Amino Transf (AST/SGOT) 14U/L (15-37) Alanine Aminotransferase (ALT/SGPT) 12U/L (14-59) Alkaline Phosphatase 124U/L (46-116) Total Protein 5.8g/dL (6.4-8.2) Albumin 2.1g/dL (3.4-5.0) Albumin/Globulin Ratio 0.6 (1.0-1.7) Test 08/27/16 07:36 08/27/16 10:28 Glucose (Fingerstick) 110mg/dL (70-99) 106mg/dL (70-99) Review of Systems Review of Systems no n.v.d no gas Assessment and Plan Assessmemt and Plan plan PATHOLOGY LABORATORY AIDE OOB to chair ice chips consider removal of NG tomorrow if improved, less distended or flatus Problems Medical Problems: (1) Closed wedge compression fracture of T11 vertebra Status: Acute (2) Perforated ulcer Status: Acute Problems: Comment Review of Relevant I have reviewed the following items maggy (where applicable) has been applied. Labs Laboratory Tests Test 08/25/16 23:35 08/25/16 23:40 08/25/16 23:42 08/25/16 23:43 White Blood Count 17.2x10^3/uL (4.0-11.0) Red Blood Count 4.05x10^6/uL (3.50-5.40) Hemoglobin 12.0g/dL (12.0-15.5) Hematocrit 37.0% (36.0-47.0) Mean Corpuscular Volume 91fL (79-100) Mean Corpuscular Hemoglobin 30pg (25-35) Mean Corpuscular Hemoglobin Concent 33g/dL (31-37) Red Cell Distribution Width 15.8% (11.5-14.5) Platelet Count 264x10^3/uL (140-400) Neutrophils (%) (Auto) 81% (31-73) Lymphocytes (%) (Auto) 9% (24-48) Monocytes (%) (Auto) 5% (0-9) Eosinophils (%) (Auto) 4% (0-3) Basophils (%) (Auto) 1% (0-3) Neutrophils # (Auto) 14.0x10^3uL (1.8-7.7) Lymphocytes # (Auto) 1.5x10^3/uL (1.0-4.8) Monocytes # (Auto) 0.9x10^3/uL (0.0-1.1) Eosinophils # (Auto) 0.8x10^3/uL (0.0-0.7) Basophils # (Auto) 0.1x10^3/uL (0.0-0.2) Segmented Neutrophils % 67% (35-66) Band Neutrophils % 12% (0-9) Lymphocytes % 11% (24-48) Monocytes % 5% (0-10) Eosinophils % 5% (0-5) Platelet Estimate Adequate (ADEQUATE) Prothrombin Time 14.1SEC (11.7-14.0) Prothromb Time International Ratio 1.2 (0.8-1.1) Sodium Level 141mmol/L (136-145) Potassium Level 3.9mmol/L (3.5-5.1) Chloride Level 104mmol/L (98-107) Carbon Dioxide Level 22mmol/L (21-32) Anion Gap 15 (6-14) 17mmol/L (6-14) Blood Urea Nitrogen 40mg/dL (7-20) Creatinine 1.9mg/dL (0.6-1.0) Estimated GFR (Cockcroft-Gault) 26.4 BUN/Creatinine Ratio 21 (6-20) Glucose Level 164mg/dL (70-99) 157mg/dL (70-99) Lactic Acid Level 1.6mmol/L (0.4-2.0) Calcium Level 9.5mg/dL (8.5-10.1) Magnesium Level 2.1mg/dL (1.8-2.4) Total Bilirubin 0.4mg/dL (0.2-1.0) Aspartate Amino Transf (AST/SGOT) 12U/L (15-37) Alanine Aminotransferase (ALT/SGPT) 11U/L (14-59) Alkaline Phosphatase 186U/L (46-116) Troponin I Quantitative < 0.017ng/mL (0.000-0.055) GM-Xek-C-Type Natriuretic Peptide 1158pg/mL (0-124) Total Protein 6.8g/dL (6.4-8.2) Albumin 3.1g/dL (3.4-5.0) Albumin/Globulin Ratio 0.8 (1.0-1.7) Lipase 134U/L (73-393) Urine Collection Type Unknown Urine Color Sasha Urine Clarity Clear Urine pH 5.5 Urine Specific [place] 1.025 Urine Protein 30mg/dL (NEG-TRACE) Urine Glucose (UA) Negativemg/dL (NEG) Urine Ketones (Stick) Tracemg/dL (NEG) Urine Blood Negative (NEG) Urine Nitrite Negative (NEG) Urine Bilirubin Small (NEG) Urine Urobilinogen Dipstick 1.0mg/dL (0.2 mg/dL) Urine Leukocyte Esterase Small (NEG) Urine RBC 3-5/HPF (0-2) Urine WBC 1-4/HPF (0-4) Urine Squamous Epithelial Cells Few/LPF Urine Amorphous Sediment Present/HPF Urine Bacteria Few/HPF (0-FEW) Urine Hyaline Casts Moderate/HPF Urine Mucus Slight/LPF Urine Opiates Screen Neg (NEG) Urine Methadone Screen Neg (NEG) Urine Barbiturates Neg (NEG) Urine Phencyclidine Screen Neg (NEG) Urine Amphetamine/Methamphetamine Neg (NEG) Urine Benzodiazepines Screen Neg (NEG) Urine Cocaine Screen Neg (NEG) Urine Cannabinoids Screen Neg (NEG) Urine Ethyl Alcohol Neg (NEG) Bedside Hemoglobin 12.6g/dL (12-15) Bedside Hematocrit 37% (36-40) Bedside Sodium 138mmol/L (135-145) Bedside Potassium 3.8mmol/L (3.5-5.0) Bedside Chloride 104mmol/L (98-110) Bedside Total CO2 22mmol/L (23-32) Bedside Blood Urea Nitrogen 37mg/dL (8-26) Bedside Creatinine 1.8mg/dL (0.5-1.4) Bedside Ionized Calcium (Andrzej) 1.18mmol/L (1.13-1.32) Bedside Troponin I 0.00ng/ml (<0.08) Test 08/26/16 04:35 08/26/16 06:45 08/26/16 16:07 08/26/16 17:06 Glucose (Fingerstick) 165mg/dL (70-99) 131mg/dL (70-99) 164mg/dL (70-99) White Blood Count 20.5x10^3/uL (4.0-11.0) Red Blood Count 4.05x10^6/uL (3.50-5.40) Hemoglobin 11.9g/dL (12.0-15.5) Hematocrit 37.3% (36.0-47.0) Mean Corpuscular Volume 92fL (79-100) Mean Corpuscular Hemoglobin 30pg (25-35) Mean Corpuscular Hemoglobin Concent 32g/dL (31-37) Red Cell Distribution Width 15.9% (11.5-14.5) Platelet Count 257x10^3/uL (140-400) Test 08/26/16 20:49 08/27/16 04:50 08/27/16 07:36 08/27/16 10:28 Glucose (Fingerstick) 136mg/dL (70-99) 110mg/dL (70-99) 106mg/dL (70-99) White Blood Count 17.3x10^3/uL (4.0-11.0) Red Blood Count 3.36x10^6/uL (3.50-5.40) Hemoglobin 10.0g/dL (12.0-15.5) Hematocrit 30.7% (36.0-47.0) Mean Corpuscular Volume 91fL (79-100) Mean Corpuscular Hemoglobin 30pg (25-35) Mean Corpuscular Hemoglobin Concent 33g/dL (31-37) Red Cell Distribution Width 16.1% (11.5-14.5) Platelet Count 178x10^3/uL (140-400) Neutrophils (%) (Auto) 86% (31-73) Lymphocytes (%) (Auto) 6% (24-48) Monocytes (%) (Auto) 8% (0-9) Eosinophils (%) (Auto) 0% (0-3) Basophils (%) (Auto) 0% (0-3) Neutrophils # (Auto) 14.8x10^3uL (1.8-7.7) Lymphocytes # (Auto) 1.0x10^3/uL (1.0-4.8) Monocytes # (Auto) 1.4x10^3/uL (0.0-1.1) Eosinophils # (Auto) 0.0x10^3/uL (0.0-0.7) Basophils # (Auto) 0.0x10^3/uL (0.0-0.2) Sodium Level 139mmol/L (136-145) Potassium Level 5.0mmol/L (3.5-5.1) Chloride Level 109mmol/L (98-107) Carbon Dioxide Level 21mmol/L (21-32) Anion Gap 9 (6-14) Blood Urea Nitrogen 37mg/dL (7-20) Creatinine 1.6mg/dL (0.6-1.0) Estimated GFR (Cockcroft-Gault) 32.2 BUN/Creatinine Ratio 23 (6-20) Glucose Level 123mg/dL (70-99) Calcium Level 8.2mg/dL (8.5-10.1) Magnesium Level 2.0mg/dL (1.8-2.4) Total Bilirubin 0.3mg/dL (0.2-1.0) Aspartate Amino Transf (AST/SGOT) 14U/L (15-37) Alanine Aminotransferase (ALT/SGPT) 12U/L (14-59) Alkaline Phosphatase 124U/L (46-116) Total Protein 5.8g/dL (6.4-8.2) Albumin 2.1g/dL (3.4-5.0) Albumin/Globulin Ratio 0.6 (1.0-1.7) Laboratory Tests Test 08/26/16 16:07 08/26/16 17:06 08/26/16 20:49 08/27/16 04:50 White Blood Count 20.5x10^3/uL (4.0-11.0) 17.3x10^3/uL (4.0-11.0) Red Blood Count 4.05x10^6/uL (3.50-5.40) 3.36x10^6/uL (3.50-5.40) Hemoglobin 11.9g/dL (12.0-15.5) 10.0g/dL (12.0-15.5) Hematocrit 37.3% (36.0-47.0) 30.7% (36.0-47.0) Mean Corpuscular Volume 92fL (79-100) 91fL (79-100) Mean Corpuscular Hemoglobin 30pg (25-35) 30pg (25-35) Mean Corpuscular Hemoglobin Concent 32g/dL (31-37) 33g/dL (31-37) Red Cell Distribution Width 15.9% (11.5-14.5) 16.1% (11.5-14.5) Platelet Count 257x10^3/uL (140-400) 178x10^3/uL (140-400) Glucose (Fingerstick) 164mg/dL (70-99) 136mg/dL (70-99) Neutrophils (%) (Auto) 86% (31-73) Lymphocytes (%) (Auto) 6% (24-48) Monocytes (%) (Auto) 8% (0-9) Eosinophils (%) (Auto) 0% (0-3) Basophils (%) (Auto) 0% (0-3) Neutrophils # (Auto) 14.8x10^3uL (1.8-7.7) Lymphocytes # (Auto) 1.0x10^3/uL (1.0-4.8) Monocytes # (Auto) 1.4x10^3/uL (0.0-1.1) Eosinophils # (Auto) 0.0x10^3/uL (0.0-0.7) Basophils # (Auto) 0.0x10^3/uL (0.0-0.2) Sodium Level 139mmol/L (136-145) Potassium Level 5.0mmol/L (3.5-5.1) Chloride Level 109mmol/L (98-107) Carbon Dioxide Level 21mmol/L (21-32) Anion Gap 9 (6-14) Blood Urea Nitrogen 37mg/dL (7-20) Creatinine 1.6mg/dL (0.6-1.0) Estimated GFR (Cockcroft-Gault) 32.2 BUN/Creatinine Ratio 23 (6-20) Glucose Level 123mg/dL (70-99) Calcium Level 8.2mg/dL (8.5-10.1) Magnesium Level 2.0mg/dL (1.8-2.4) Total Bilirubin 0.3mg/dL (0.2-1.0) Aspartate Amino Transf (AST/SGOT) 14U/L (15-37) Alanine Aminotransferase (ALT/SGPT) 12U/L (14-59) Alkaline Phosphatase 124U/L (46-116) Total Protein 5.8g/dL (6.4-8.2) Albumin 2.1g/dL (3.4-5.0) Albumin/Globulin Ratio 0.6 (1.0-1.7) Test 08/27/16 07:36 08/27/16 10:28 Glucose (Fingerstick) 110mg/dL (70-99) 106mg/dL (70-99) Microbiology 08/26/16 Gram Stain - Final, Complete Medications Current Medications Nitroglycerin (Nitrostat) 0.4 mg PRN Q5MIN PRN SL CP RATING > 1/10 Last administered on 08/26/16 00:32; Start 08/25/16 at 23:45; Stop 08/26/16 at 23:44; Status DC Fentanyl Citrate 25 mcg 25 mcg PRN Q15MIN PRN IV PAIN GREATER THAN 3/10 Last administered on 08/26/16 02:43; Start 08/25/16 at 23:45; Stop 08/26/16 at 14:40; Status DC Sodium Chloride (Iv Sodium Chloride 0.9% 500ml Bag) 500 ml @ 500 mls/hr 1X ONCE IV Last administered on 08/26/16 00:32; Start 08/26/16 at 00:30; Stop at 01:29; Status DC Ondansetron HCl (Zofran) 4 mg STK-MED ONCE .ROUTE ; Start 08/26/16 at 01:44; Stop 08/26/16 at 01:45; Status DC Ondansetron HCl 4 mg 4 mg 1X ONCE IV Last administered on 08/26/16 01:45; Start 08/26/16 at 02:00; Stop 08/26/16 at 02:03; Status DC Metronidazole 100 ml @ 100 mls/hr Q8HRS IV Last administered on 08/27/16 06:02 ; Start 08/26/16 at 14:00 Metronidazole 100 ml @ 100 mls/hr 1X ONCE IV Last administered on 08/26/16 02 :38; Start 08/26/16 at 02:30; Stop 08/26/16 at 03:29; Status DC Cefepime HCl 2 gm/ Sodium Chloride 100 ml @ 200 mls/hr 1X ONCE IV Last administered on 08/26/16 03:22; Start 08/26/16 at 03:00; Stop 08/26/16 at 03:29; Status DC Sodium Chloride (Iv Sodium Chloride 0.9% 1000ml Bag) 1,000 ml @ 125 mls/hr 1X ONCE IV Last administered on 08/26/16 02:41; Start 08/26/16 at 03:00; Stop at 10:59; Status DC Fentanyl Citrate (Fentanyl 2ml Vial) 50 mcg PRN Q15MIN PRN IV PAIN GREATER THAN 3/10 Last administered on 2/5/17at 07:42; Start 08/26/16 at 02:45; Stop 08/26 at 14:40; Status DC Ondansetron HCl 4 mg 4 mg 1X ONCE PO ; Start 08/26/16 at 03:00; Stop 08/26/16 at 03:01; Status DC Metronidazole (FLAGYL 500Mmg PREMIX) 100 ml @ 100 mls/hr 1X ONCE IV Last administered on 08/26/16 05:12; Start 08/26/16 at 04:30; Stop 08/26/16 at 05:29; Status DC Hydromorphone HCl (Dilaudid) 1 mg 1X ONCE IV Last administered on 08/26/16 04: 29; Start 08/26/16 at 04:30; Stop 08/26/16 at 04:31; Status DC Fentanyl Citrate (Fentanyl 5ml Vial) 250 mcg STK-MED ONCE .ROUTE ; Start at 04:41; Stop 08/26/16 at 04:42; Status DC Succinylcholine Chloride (Anectine) 200 mg STK-MED ONCE .ROUTE ; Start 08/26/16 at 04:42; Stop 08/26/16 at 04:43; Status DC Rocuronium [place] (Zemuron) 50 mg STK-MED ONCE .ROUTE ; Start 08/26/16 at 04:42 ; Stop 08/26/16 at 04:43; Status DC Ondansetron HCl (Zofran) 4 mg PRN Q6HRS PRN IV Nausea; Start 08/26/16 at 04:45; Stop 08/26/16 at 14:42; Status DC Fentanyl Citrate (Fentanyl 2ml Vial) 25 mcg PRN Q5MIN PRN IV MILD PAIN; Start 08/26/16 at 04:45; Stop 08/26/16 at 14:41; Status DC Fentanyl Citrate (Fentanyl 2ml Vial) 50 mcg PRN Q5MIN PRN IV MODERATE PAIN; Start 08/26/16 at 04:45; Stop 08/26/16 at 14:42; Status DC Morphine Sulfate 1 mg 1 mg PRN Q10MIN PRN IV SEVERE PAIN; Start 08/26/16 at 04: 45; Stop 08/26/16 at 14:42; Status DC Lactated Ringer's (Iv Lactated Ringers) 1,000 ml @ 30 mls/hr Q24H IV ; Start at 04:43; Stop 08/26/16 at 16:42; Status DC Lidocaine HCl 2 ml 1X PRN PRN ID IV START; Start 08/26/16 at 04:45; Stop at 14:42; Status DC Hydromorphone HCl (Dilaudid) 0.5 mg PRN Q10MIN PRN IV SEV PAIN,Second choice; Start 08/26/16 at 04:45; Stop 08/26/16 at 14:42; Status DC Prochlorperazine Edisylate 5 mg 5 mg PACU PRN PRN IV NAUSEA; Start 08/26/16 at 04:45; Stop 08/26/16 at 14:42; Status DC Propofol (Diprivan) 20 ml @ As Directed STK-MED ONCE IV ; Start 08/26/16 at 04:44 ; Stop 08/26/16 at 04:45; Status DC Lidocaine HCl (Lidocaine Pf 2% Vial) 5 ml STK-MED ONCE .ROUTE ; Start 08/26/16 at 04:44; Stop 08/26/16 at 04:45; Status DC Sevoflurane (Ultane) 60 ml STK-MED ONCE IH ; Start 08/26/16 at 06:07; Stop at 06:08; Status DC Phenylephrine HCl 1 mg STK-MED ONCE IV ; Start 08/26/16 at 06:12; Stop 08/26/16 at 06:13; Status DC Dexamethasone Sodium Phosphate (Decadron) 20 mg STK-MED ONCE .ROUTE ; Start 08/26 at 06:12; Stop 08/26/16 at 06:13; Status DC Ondansetron HCl (Zofran) 4 mg STK-MED ONCE .ROUTE ; Start 08/26/16 at 06:12; Stop 08/26/16 at 06:13; Status DC Glycopyrrolate (Robinul) 1 mg STK-MED ONCE .ROUTE ; Start 08/26/16 at 06:13; Stop 08/26/16 at 06:14; Status DC Neostigmine Methylsulfate 5 mg STK-MED ONCE .ROUTE ; Start 08/26/16 at 06:13; Stop 08/26/16 at 06:14; Status DC Diphenhydramine HCl (Benadryl) 25 mg PRN Q6HRS PRN IV ITCHING; Start 08/26/16 at 07:00 Enoxaparin Sodium (Lovenox 40mg Syringe) 40 mg Q12HR SQ Last administered on 10:30; Start 08/26/16 at 09:00 Sodium Chloride 3 ml 3 ml QSHIFT PRN IV AFTER MEDS AND BLOOD DRAWS; Start at 07:00 Potassium Chloride/Sodium Chloride 1,000 ml @ 100 mls/hr Q10H IV Last administered on 08/26/16 23:09; Start 08/26/16 at 06:53 Hydromorphone HCl (Dilaudid Standard PATHOLOGY LABORATORY AIDE) 30 ml @ 0 mls/hr CONT PRN PRN IV PROTOCOL Last administered on 08/26/16 07:41; Start 08/26/16 at 07:00; Stop at 09:42; Status DC Ondansetron HCl (Zofran) 4 mg PRN Q6HRS PRN IV NAUESA, 1ST CHOICE Last administered on 08/26/16 23:08; Start 08/26/16 at 07:00 Throat Lozenges (Chloraseptic) 1 spray PRN Q2HR PRN PO SORE THROAT; Start at 07:00 Throat Lozenges 1 noreen 1 noreen PRN Q2HRS PRN PO SORE THROAT; Start 08/26/16 at 07: 00 Hydromorphone HCl 30 ml @ 0 mls/hr CONT PRN PRN IV PROTOCOL; Start 08/26/16 at 09:45; Stop 08/26/16 at 12:16; Status DC Hydromorphone HCl (Dilaudid Standard PATHOLOGY LABORATORY AIDE) 30 ml @ 0 mls/hr CONT PRN PRN IV PROTOCOL; Start 08/26/16 at 12:15; Stop 08/26/16 at 20:05; Status DC Pantoprazole Sodium (Protonix Vial) 40 mg BID IVP Last administered on 10:29; Start 08/26/16 at 21:00 Labetalol HCl 20 mg 20 mg PRN Q2HR PRN IVP HYPERTENSION, SEE COMMENTS; Start at 13:15 Sodium Chloride 1,000 ml @ 1,000 mls/hr 1X ONCE IV ; Start 08/26/16 at 23:00; Stop 08/26/16 at 23:59; Status DC Hydromorphone HCl (Dilaudid Standard PATHOLOGY LABORATORY AIDE) 30 ml @ 0 mls/hr CONT PRN PRN IV PROTOCOL Last administered on 08/27/16t 08:37; Start 08/26/16 at 20:15 Active Scripts Active Reported Cetirizine Hcl 1 Mg/1 Ml Solution 10 Mg PO Hydrocodone-Apap 7.5-325 (Hydrocodone Bit/Acetaminophen) 1 Each Tablet 1 Tab PO PRN Q6HRS PRN Fioricet 50-300-40 Mg Capsule (Butalb/Acetaminophen/Caffeine) 1 Each Capsule 1 Each PO PRN Q6-8HRS PRN Voltaren-Xr (Diclofenac Sodium) 100 Mg Tab.er.24h 75 Mg PO [id number] Ambien (Zolpidem Tartrate) 10 Mg Tablet 10 Mg PO HS PRN Propranolol Hcl 80 Mg Cap.sa.24h 1 Cap PO DAILY Vitals/I & O Vital Sign - Last 24 Hours 08/26/16 08/26/16 08/26/16 08/26/16 13:48 14:03 14:19 14:34 Temp 99.1 99.1 99.1 99.1 99.1 99.1 99.1 99.1 Pulse 80 70 79 78 Resp 16 16 16 B/P 112/47 128/50 127/51 110/51 Pulse Ox 95 95 99 96 O2 Delivery Nasal Cannula Nasal Cannula Nasal Cannula Nasal Cannula O2 Flow Rate 2.0 2.0 2.0 2.0 08/26/16 08/26/16 08/26/16 08/26/16 14:49 15:04 15:19 15:34 Temp 99.1 99.1 99.1 99.1 99.1 99.1 99.1 99.1 Pulse 60 76 71 67 Resp 16 16 16 B/P 103/49 95/45 91/41 94/43 Pulse Ox 93 92 96 96 O2 Delivery Nasal Cannula Nasal Cannula Nasal Cannula Nasal Cannula O2 Flow Rate 2.0 2.0 2.0 2.0 08/26/16 08/26/16 08/26/16 08/26/16 15:51 16:05 16:28 16:33 Temp 99.1 99.1 99.1 99.1 99.1 99.1 99.1 99.1 Pulse 76 95 57 55 Resp 16 16 16 16 B/P 80/45 66/39 84/36 101/38 Pulse Ox 97 94 87 95 O2 Delivery Nasal Cannula Nasal Cannula Nasal Cannula Nasal Cannula O2 Flow Rate 2.0 2.0 2.0 2.0 08/26/16 08/26/16 08/26/16 08/26/16 16:49 16:51 17:04 17:10 Temp 97.8 97.8 97.8 97.8 97.8 97.8 97.8 97.8 Pulse 59 64 69 58 Resp 16 16 16 16 B/P 96/33 97/41 79/36 95/29 Pulse Ox 95 95 95 95 O2 Delivery Nasal Cannula Nasal Cannula Nasal Cannula Nasal Cannula O2 Flow Rate 2.0 2.0 2.0 2.0 08/26/16 08/26/16 08/26/16 08/26/16 17:18 17:34 17:49 18:03 Temp 97.8 97.8 97.8 99.1 97.8 97.8 97.8 99.1 Pulse 56 60 56 61 Resp 16 16 16 16 B/P 102/39 99/39 101/36 99/36 Pulse Ox 95 95 95 95 O2 Delivery Nasal Cannula Nasal Cannula Nasal Cannula Nasal Cannula O2 Flow Rate 2.0 2.0 2.0 2.0 08/26/16 08/26/16 08/26/16 08/26/16 18:10 18:20 18:40 19:00 Pulse 61 62 60 57 B/P 99/36 96/37 107/35 94/35 Pulse Ox 96 97 96 O2 Delivery Room Air Room Air Room Air Room Air 08/26/16 08/26/16 08/26/16 08/26/16 19:10 19:20 19:40 19:42 Temp 98.2 98.2 Pulse 64 76 82 70 B/P 92/34 105/42 107/46 117/44 Pulse Ox 96 95 97 96 O2 Delivery Room Air Room Air Room Air Room Air 08/26/16 08/26/16 08/26/16 08/26/16 19:50 20:00 20:10 20:20 Pulse 84 67 84 B/P 124/49 120/35 110/43 Pulse Ox 96 92 88 O2 Delivery Room Air Nasal Cannula Room Air Room Air O2 Flow Rate 2.0 08/26/16 08/26/16 08/26/16 08/26/16 20:40 20:50 21:10 21:20 Pulse 70 83 67 66 B/P 99/43 104/44 114/77 111/75 Pulse Ox 89 88 93 95 O2 Delivery Room Air Room Air Room Air Room Air 08/26/16 08/26/16 08/26/16 08/26/16 21:40 21:40 21:50 22:02 Pulse 75 75 66 B/P 118/39 118/39 97/30 151/66 Pulse Ox 94 94 94 O2 Delivery Room Air Room Air Room Air 08/26/16 08/27/16 08/27/16 08/27/16 23:52 03:27 07:00 09:07 Temp 98.6 98.3 98.8 98.6 98.3 98.8 Pulse 77 63 58 Resp 18 18 16 12 B/P 111/40 134/45 112/42 Pulse Ox 95 96 95 95 O2 Delivery Room Air Nasal Cannula Room Air Nasal Cannula O2 Flow Rate 2.0 2.0 2.0 08/27/16 11:00 Temp 98.2 98.2 Pulse 59 Resp 18 B/P 127/49 Pulse Ox 94 O2 Delivery Nasal Cannula O2 Flow Rate 2.0 Intake and Output 08/26/16 08/26/16 08/27/16 15:00 23:00 07:00 Intake Total 0 ml 972.24 ml 860 ml Output Total 580 ml 360 ml 965 ml Balance -580 ml 612.24 ml -105 ml KENYETTA RUTH MD Aug 27, 2016 13:48
--- NOTE | 2016-08-27 16:56 | PDOC ---
Provider Note Provider Note Med-Onc consult See dictation Breast ca Bone mets SALVADOR PERALES MD Aug 27, 2016 16:56
[2016-08-27 19:59] VITALS: BP 159/72
[2016-08-27 22:12] VITALS: BP 155/63
[2016-08-28 02:46] VITALS: BP 150/55
[2016-08-28] MEDS: METRONIDAZOLE 500mg PREMIX 100 ML IV SCH ×3 (06:37→21:58)
[2016-08-28 07:00] VITALS: BP 151/61
[2016-08-28] MEDS: ENOXAPARIN 40 MG/0.4 ML DISP.SYRIN. SQ SCH (08:32)
[2016-08-28] MEDS: PANTOPRAZOLE IV PUSH 40 MG VIAL. IVP SCH ×2 (08:32→21:58)
[2016-08-28] MEDS: POTASSIUM CL 20MEQ-0.45% NACL 1,000 ML IV SCH ×2 (08:39→22:38)
[2016-08-28 08:41] LABS: BASO % 0 % (0-3); EOS % 1 % (0-3); HEMATOCRIT 28.3 % (36.0-47.0); LYMPH # 1.4 x10^3/uL (1.0-4.8); LYMPH % 9 % (24-48); MEAN CORPUSCULAR HEMOGLOBIN 30 pg (25-35); MEAN CORPUSCULAR HGB CONC 32 g/dL (31-37); MEAN CORPUSCULAR VOLUME 93 fL (79-100); MONO % 5 % (0-9); NEUT % 84 % (31-73); PLATELET COUNT 172 x10^3/uL (140-400); RED BLOOD COUNT 3.05 x10^6/uL (3.50-5.40); RED CELL DISTRIBUTION WIDTH 15.8 % (11.5-14.5); WHITE BLOOD COUNT 15.4 x10^3/uL (4.0-11.0)
[2016-08-28 09:01] LABS: ALBUMIN/GLOBULIN RATIO 0.6 (1.0-1.7); CALCIUM 8.3 mg/dL (8.5-10.1); CREATININE 1.4 mg/dL (0.6-1.0); GFR 37.5; POTASSIUM 4.9 mmol/L (3.5-5.1); TOTAL BILIRUBIN 0.4 mg/dL (0.2-1.0); TOTAL PROTEIN 5.6 g/dL (6.4-8.2)
--- NOTE | 2016-08-28 09:02 | PDOC ---
SURGICAL PROGRESS NOTE Subjective no complaints with NG off suction times three hours Vital Signs Vital Signs Date Time Temp Pulse Resp B/P Pulse Ox O2 Delivery O2 Flow Rate FiO2 08/28/16 07:00 98.2 57 16 151/61 99 Nasal Cannula 2.0 98.2 I&O Intake and Output 08/28/16 07:00 Intake Total 730 ml Output Total 1595 ml Balance -865 ml Intake Oral 100 ml IV Total 630 ml Output Urine Total 1175 ml Gastric Drainage Total 350 ml Drainage Total 70 ml PATIENT HAS A MELTON: Yes General: Alert, Oriented X3 Abdomen: Soft Labs Laboratory Tests Test 08/26/16 16:07 08/26/16 17:06 08/26/16 20:49 08/26/16 22:30 White Blood Count 20.5x10^3/uL (4.0-11.0) Red Blood Count 4.05x10^6/uL (3.50-5.40) Hemoglobin 11.9g/dL (12.0-15.5) Hematocrit 37.3% (36.0-47.0) Mean Corpuscular Volume 92fL (79-100) Mean Corpuscular Hemoglobin 30pg (25-35) Mean Corpuscular Hemoglobin Concent 32g/dL (31-37) Red Cell Distribution Width 15.9% (11.5-14.5) Platelet Count 257x10^3/uL (140-400) Glucose (Fingerstick) 164mg/dL (70-99) 136mg/dL (70-99) Nasal Screen MRSA (PCR) Negative (Negative) Test 08/27/16 04:50 08/27/16 07:36 08/27/16 10:28 08/27/16 20:39 White Blood Count 17.3x10^3/uL (4.0-11.0) Red Blood Count 3.36x10^6/uL (3.50-5.40) Hemoglobin 10.0g/dL (12.0-15.5) Hematocrit 30.7% (36.0-47.0) Mean Corpuscular Volume 91fL (79-100) Mean Corpuscular Hemoglobin 30pg (25-35) Mean Corpuscular Hemoglobin Concent 33g/dL (31-37) Red Cell Distribution Width 16.1% (11.5-14.5) Platelet Count 178x10^3/uL (140-400) Neutrophils (%) (Auto) 86% (31-73) Lymphocytes (%) (Auto) 6% (24-48) Monocytes (%) (Auto) 8% (0-9) Eosinophils (%) (Auto) 0% (0-3) Basophils (%) (Auto) 0% (0-3) Neutrophils # (Auto) 14.8x10^3uL (1.8-7.7) Lymphocytes # (Auto) 1.0x10^3/uL (1.0-4.8) Monocytes # (Auto) 1.4x10^3/uL (0.0-1.1) Eosinophils # (Auto) 0.0x10^3/uL (0.0-0.7) Basophils # (Auto) 0.0x10^3/uL (0.0-0.2) Sodium Level 139mmol/L (136-145) Potassium Level 5.0mmol/L (3.5-5.1) Chloride Level 109mmol/L (98-107) Carbon Dioxide Level 21mmol/L (21-32) Anion Gap 9 (6-14) Blood Urea Nitrogen 37mg/dL (7-20) Creatinine 1.6mg/dL (0.6-1.0) Estimated GFR (Cockcroft-Gault) 32.2 BUN/Creatinine Ratio 23 (6-20) Glucose Level 123mg/dL (70-99) Calcium Level 8.2mg/dL (8.5-10.1) Magnesium Level 2.0mg/dL (1.8-2.4) Total Bilirubin 0.3mg/dL (0.2-1.0) Aspartate Amino Transf (AST/SGOT) 14U/L (15-37) Alanine Aminotransferase (ALT/SGPT) 12U/L (14-59) Alkaline Phosphatase 124U/L (46-116) Total Protein 5.8g/dL (6.4-8.2) Albumin 2.1g/dL (3.4-5.0) Albumin/Globulin Ratio 0.6 (1.0-1.7) Glucose (Fingerstick) 110mg/dL (70-99) 106mg/dL (70-99) 96mg/dL (70-99) Test 08/28/16 07:15 08/28/16 08:20 Glucose (Fingerstick) 92mg/dL (70-99) White Blood Count 15.4x10^3/uL (4.0-11.0) Red Blood Count 3.05x10^6/uL (3.50-5.40) Hemoglobin 9.0g/dL (12.0-15.5) Hematocrit 28.3% (36.0-47.0) Mean Corpuscular Volume 93fL (79-100) Mean Corpuscular Hemoglobin 30pg (25-35) Mean Corpuscular Hemoglobin Concent 32g/dL (31-37) Red Cell Distribution Width 15.8% (11.5-14.5) Platelet Count 172x10^3/uL (140-400) Neutrophils (%) (Auto) 84% (31-73) Lymphocytes (%) (Auto) 9% (24-48) Monocytes (%) (Auto) 5% (0-9) Eosinophils (%) (Auto) 1% (0-3) Basophils (%) (Auto) 0% (0-3) Neutrophils # (Auto) 12.9x10^3uL (1.8-7.7) Lymphocytes # (Auto) 1.4x10^3/uL (1.0-4.8) Monocytes # (Auto) 0.8x10^3/uL (0.0-1.1) Eosinophils # (Auto) 0.2x10^3/uL (0.0-0.7) Basophils # (Auto) 0.0x10^3/uL (0.0-0.2) Laboratory Tests Test 08/27/16 10:28 08/27/16 20:39 08/28/16 07:15 08/28/16 08:20 Glucose (Fingerstick) 106mg/dL (70-99) 96mg/dL (70-99) 92mg/dL (70-99) White Blood Count 15.4x10^3/uL (4.0-11.0) Red Blood Count 3.05x10^6/uL (3.50-5.40) Hemoglobin 9.0g/dL (12.0-15.5) Hematocrit 28.3% (36.0-47.0) Mean Corpuscular Volume 93fL (79-100) Mean Corpuscular Hemoglobin 30pg (25-35) Mean Corpuscular Hemoglobin Concent 32g/dL (31-37) Red Cell Distribution Width 15.8% (11.5-14.5) Platelet Count 172x10^3/uL (140-400) Neutrophils (%) (Auto) 84% (31-73) Lymphocytes (%) (Auto) 9% (24-48) Monocytes (%) (Auto) 5% (0-9) Eosinophils (%) (Auto) 1% (0-3) Basophils (%) (Auto) 0% (0-3) Neutrophils # (Auto) 12.9x10^3uL (1.8-7.7) Lymphocytes # (Auto) 1.4x10^3/uL (1.0-4.8) Monocytes # (Auto) 0.8x10^3/uL (0.0-1.1) Eosinophils # (Auto) 0.2x10^3/uL (0.0-0.7) Basophils # (Auto) 0.0x10^3/uL (0.0-0.2) Problem List Problems Medical Problems: (1) Closed wedge compression fracture of T11 vertebra Status: Acute (2) Perforated ulcer Status: Acute Assessment/Plan POD 2 closure perforated ulcer minimal residual in NG d/c NG d/c melton ambulate clears tomorrow Dr Ivy will follow in my absence Problems: MARLON PRINCE MD Aug 28, 2016 09:02
--- NOTE | 2016-08-28 09:29 | CARD ---
APPROVED REPORT EXAM: Two-dimensional and M-mode echocardiogram with Doppler and color Doppler. Other Information Quality : Fair INDICATION Abnormal ECG 2D DIMENSIONS RVDd2.3 (2.9-3.5cm)Left Atrium(2D)3.6 (1.6-4.0cm) IVSd1.0 (0.7-1.1cm)Aortic Root(2D)2.9 (2.0-3.7cm) LVDd6.5 (3.9-5.9cm)LVOT Diameter2.3 (1.8-2.4cm) PWd1.2 (0.7-1.1cm)LVDs4.2 (2.5-4.0cm) FS (%) 35.5 %SV139.8 ml LVEF(%)63.7 (>50%) Aortic Valve AoV Peak Miki.297.2cm/sAoV VTI66.3cm AO Peak GR.35.3mmHgLVOT Peak Miki.154.2cm/s AO Mean GR.20mmHgAVA (VMAX)2.15cm2 MARIANO (VTI)2.20cm2 Mitral Valve MV E Fjyutubl073.2cm/sMV DECEL [id number] MV A Soywdyaf206.5cm/sE/A Ratio0.9 Tricuspid Valve TR P. Uuagzmhv634rj/sRAP HENSWUKM0fzPr TR Peak Gr.52stSeAAFD50gaCq Pulmonary Vein S1 Ozlcyosj27.1cm/sD2 Cimvgbmi23.1cm/s PVa [id number] LEFT VENTRICLE The left ventricle is normal size. There is mild to moderate asymmetric posterior wall left ventricul ar hypertrophy. The left ventricular systolic function is normal and the ejection fraction is within normal range. The Ejection Fraction is 55-60%. Cannot rule out basal to mid inferior wall akinesis. T ransmitral Doppler flow pattern is Grade I-abnormal relaxation pattern. RIGHT VENTRICLE The right ventricle is normal size. The right ventricular systolic function is normal. ATRIA The left atrium size is normal. The right atrium size is normal. The interatrial septum is intact wit h no evidence for an atrial septal defect or patent foramen ovale as noted on 2-D or Doppler imaging. AORTIC VALVE The aortic valve is calcified with resricted leaflet motion. Doppler and Color Flow revealed no signi ficant aortic regurgitation. There is mild valvular aortic stenosis. MG 19 mm Hg. MITRAL VALVE The mitral valve is calcified but opens well. There is no evidence of mitral valve prolapse. There is no mitral valve stenosis. Doppler and Color-flow revealed mild eccentric mitral regurgitation. TRICUSPID VALVE The tricuspid valve is normal in structure and function. Doppler and Color Flow revealed trace tricus pid regurgitation. The PA pressure was estimated at 44 mmHg suggestive of mild pulmonary HTN. There i s no tricuspid valve stenosis. PULMONIC VALVE Doppler and Color Flow revealed no pulmonic valvular regurgitation. There is no pulmonic valvular raymon nosis. GREAT VESSELS The aortic root is normal in size. The ascending aorta is mildly dilated at 4.0 cm. The IVC was not v isualized. PERICARDIAL EFFUSION There is no evidence of significant pericardial effusion. Critical Notification Critical Value: No <Conclusion> The left ventricular systolic function is normal and the ejection fraction is within normal range. Th e Ejection Fraction is 55-60%. Cannot rule out basal to mid inferior wall akinesis. There is mild valvular aortic stenosis. Doppler and Color Flow revealed trace tricuspid regurgitation. The PA pressure was estimated at 44 mm Hg suggestive of mild pulmonary HTN. The ascending aorta is mildly dilated at 4.0 cm.
--- NOTE | 2016-08-28 09:40 | CONS ---
DATE OF CONSULTATION: 08/27/2016 REQUESTING PHYSICIAN: Dr. Mariajose Wise. REASON FOR CONSULTATION: Bone metastasis in a patient with a history of breast cancer. HISTORY OF PRESENT ILLNESS: The patient is a 66-year-old female who was diagnosed with breast cancer in 2011. At that time, she had noted mass in the inferior outer aspect of the left breast in 2011 and she had a mammogram that revealed a 2 cm abnormality. She underwent biopsy of this lesion on 11/26/2011, that revealed infiltrating moderately differentiated ductal carcinoma, grade 2, ER/CA positive, HER-2/kristel negative. She subsequently underwent lumpectomy and sentinel lymph node resection on 01/21/[address] Shipley. Four sentinel lymph nodes were removed and they were all negative, the invasive component was 2.5 cm. One lymph node had isolated tumor cells, it was staged as a T2 N0 (I+) M0, stage IIA breast cancer. Postoperatively, she underwent radiation therapy with 5000 cGy and in addition 1000 cGy in 5 fraction to lumpectomy cavity between 02/19/2012 and 04/02/2012. She then received adjuvant Arimidex under the direction of Dr. Tawanda Roman. She subsequently established care with [facility] on 06/07/2014. She then never returned for followup visit. She mentions that she had financial issues and hence she did not continue Arimidex after May 2012 and she never followed up with an oncologist since then. She was admitted to [facility] on 08/26/2016, with complaints of sudden onset of back pain that subsequently radiated to the abdomen. She underwent further workup in the Emergency Room with a chest x-ray on 08/25/2016 that did not reveal any acute abnormality. KUB on 08/26/2016, revealed no abnormalities. CT scan of the abdomen and pelvis on 08/26/2016 revealed pneumoperitoneum with mild free fluid in the abdomen and pelvis. Has marked wall thickening in the duodenal bulb and possible intramural defect of the anterior wall with the above raising suspicion of a perforated duodenal diverticulum. CT scan of the chest on 08/25/2016 revealed pneumoperitoneum as described above, metastatic disease with numerous lytic and sclerotic bone lesions with the pathologic fracture of the sternum at T11 vertebral body, left axillary tail 3 cm mass was also noted, pulmonary nodules were also noted and she had a thoracic aortic aneurysm measuring 4.5 cm in diameter. I was asked to see the patient for further evaluation and management of metastatic disease. PAST MEDICAL HISTORY: Hypertension, diabetes, migraines, history of cervical fusions, Bright's disease, chronic hearing loss, hyperlipidemia. SOCIAL HISTORY: She is . She has history of smoking cigarettes for pack-a-day for 45 years at least. FAMILY HISTORY: Mother had brain tumor. PAST SURGICAL HISTORY: The patient underwent exploratory laparotomy, biopsy and closure of the perforated pyloric channel ulcer and lysis of adhesions by Dr. Reggie Mendez on 08/26/2016. REVIEW OF SYSTEMS: A 14-point review of system was performed. Pertinent positives are mentioned in the history of present illness. Rest of the system review is negative. PHYSICAL EXAMINATION: GENERAL APPEARANCE: The patient is a 66-year-old female who is in no acute cardiorespiratory distress. VITAL SIGNS: Blood pressure 127/49, temperature 98.2. HEENT: Atraumatic, normocephalic. Eyes: No icterus. NECK: Supple. CHEST: Bilaterally symmetrical. No crepitations or rhonchi heard. HEART: S1, S2 normal. ABDOMEN: Soft, nontender. Its distended and surgical wounds appear clean. CENTRAL NERVOUS SYSTEM: No focal deficits. LYMPHATICS: No lymphadenopathy. SKIN: No rashes. PSYCHOLOGIC: Mood and affect are appropriate. MUSCULOSKELETAL: No joint effusions. LABORATORY DATA: WBC 17.3, hemoglobin 10, platelet count 178, creatinine 1.6. Alkaline phosphatase is 124, albumin 2.5, total protein 5.8. IMPRESSION AND PLAN: 1. Invasive ductal carcinoma of the left breast diagnosed in 2011, ER/CA positive, HER-2/kristel negative. She underwent lumpectomy and radiation therapy and she received Arimidex till 2013 and she quit taking it because she could afford it. She now has evidence of bone metastasis and possibly lung metastasis. She has evidence of a T11 pathologic fracture and also sternal fracture. This is now suggestive of stage IV lung cancer. Once she is stable from the recent surgery done on 08/26/2016, I would proceed with vertebroplasty and biopsy of the T11 vertebral body. Also, when she is stable, I would recommend further workup with a bone scan and if needed, an MRI of the thoracic spine. All her questions were answered. I discussed with Dr. Sushil Robinow. 2. Bone metastasis. She has numerous lytic and sclerotic bone lesions with pathologic fracture of the sternum at T11 vertebral body. Plan Xgeva as an outpatient. Plan, T11 vertebroplasty and biopsy and also consideration of a radiation therapy. 3. Pulmonary nodules, thought to be due to metastatic disease from breast cancer. 4. Perforated pyloric channel ulcer, status post exploratory laparotomy and biopsy and closure of the ulcer by Dr. Mendez on 08/26/2016. Continue postoperative care. 5. Leukocytosis, reactive. Monitor. 6. Anemia postoperative due to surgical blood loss. Monitor. 7. Renal insufficiency with a creatinine of 1.6 and a BUN of 37 on 08/27/2016. Continue to monitor. SALVADOR PERALES MD DR: TOMAS/nts JOB#: [id number] / [id number] KAYLIN
[2016-08-28 11:00] VITALS: BP 147/52
--- NOTE | 2016-08-28 12:05 | PDOC ---
CARDIO Progress Notes Date and Time Date of Service 08/28/16 Time of Evaluation 1130 Subjective Subjective: No Chest Pain, No Palpitations, Other (incisional pain) Vitals Vitals Vital Signs Date Time Temp Pulse Resp B/P Pulse Ox O2 Delivery O2 Flow Rate FiO2 08/28/16 11:00 98.3 54 16 147/52 96 Nasal Cannula 2.0 98.3 Weight Weight [ ] Input and Output Intake and Output Intake and Output 08/28/16 07:00 Intake Total 730 ml Output Total 1595 ml Balance -865 ml Intake Oral 100 ml IV Total 630 ml Output Urine Total 1175 ml Gastric Drainage Total 350 ml Drainage Total 70 ml Laboratory Labs Laboratory Tests Test 08/27/16 20:39 08/28/16 07:15 08/28/16 08:20 08/28/16 10:46 Glucose (Fingerstick) 96mg/dL (70-99) 92mg/dL (70-99) 85mg/dL (70-99) White Blood Count 15.4x10^3/uL (4.0-11.0) Red Blood Count 3.05x10^6/uL (3.50-5.40) Hemoglobin 9.0g/dL (12.0-15.5) Hematocrit 28.3% (36.0-47.0) Mean Corpuscular Volume 93fL (79-100) Mean Corpuscular Hemoglobin 30pg (25-35) Mean Corpuscular Hemoglobin Concent 32g/dL (31-37) Red Cell Distribution Width 15.8% (11.5-14.5) Platelet Count 172x10^3/uL (140-400) Neutrophils (%) (Auto) 84% (31-73) Lymphocytes (%) (Auto) 9% (24-48) Monocytes (%) (Auto) 5% (0-9) Eosinophils (%) (Auto) 1% (0-3) Basophils (%) (Auto) 0% (0-3) Neutrophils # (Auto) 12.9x10^3uL (1.8-7.7) Lymphocytes # (Auto) 1.4x10^3/uL (1.0-4.8) Monocytes # (Auto) 0.8x10^3/uL (0.0-1.1) Eosinophils # (Auto) 0.2x10^3/uL (0.0-0.7) Basophils # (Auto) 0.0x10^3/uL (0.0-0.2) Sodium Level 139mmol/L (136-145) Potassium Level 4.9mmol/L (3.5-5.1) Chloride Level 108mmol/L (98-107) Carbon Dioxide Level 24mmol/L (21-32) Anion Gap 7 (6-14) Blood Urea Nitrogen 30mg/dL (7-20) Creatinine 1.4mg/dL (0.6-1.0) Estimated GFR (Cockcroft-Gault) 37.5 BUN/Creatinine Ratio 21 (6-20) Glucose Level 93mg/dL (70-99) Calcium Level 8.3mg/dL (8.5-10.1) Magnesium Level 2.0mg/dL (1.8-2.4) Total Bilirubin 0.4mg/dL (0.2-1.0) Aspartate Amino Transf (AST/SGOT) 13U/L (15-37) Alanine Aminotransferase (ALT/SGPT) 13U/L (14-59) Alkaline Phosphatase 110U/L (46-116) Total Protein 5.6g/dL (6.4-8.2) Albumin 2.0g/dL (3.4-5.0) Albumin/Globulin Ratio 0.6 (1.0-1.7) Microbiology Micro Microbiology 08/26/16 Gram Stain - Final, Complete 08/26/16 Urine Culture - Final, Complete 08/26/16 Urine Culture Result 1 (LATASHA) - Final, Complete Physical Exam HEENT: Neck Supple W Full Motion Chest: Symmetric LUNGS: Clear to Auscultation Heart: S1S2, RRR, murmurs (2/6 systolic murmur ) Abdomen: Other (diffuse tenderness. Surgical incision with drsg intact) Extremities: No Edema, No Calf Tenderness Neurology: alert, oriented, follow commands Assessment Assessment 1. Abnormal EKG stable. No anginal symptoms. No acute events overnight. tolerated surgical repair well. echo with EF 55-60% wild mild pulHTN. Inferior wall akinesis cannot be ruled out will need outpatient f/u and consideration of MPI when acute issues resolve. no BB with bradycardia 2. Ruptured ulcer s/p repair of perforated pyloric ulcer post-op management per surgical team 3. HTN controlled 4. breast CA with metastatic disease 5. Ascending aortic aneurysm measuring 4.0 cm per echo plan for outpatient CTA for evaluation when acute issues resolve TRE BUENROSTRO APRN Aug 28, 2016 12:05
[2016-08-28 15:00] VITALS: BP 145/52
--- NOTE | 2016-08-28 15:07 | PATHOLOGY ---
PATHOLOGY REPORT * * * * * * * * FINAL DIAGNOSIS: Fibromuscular tissue, duodenal ulcer: - Marked acute and chronic inflammation consistent with ulcer. COMMENT: There is no evidence of malignancy. (JPM:all; d/t: 08/28/2016) REPORT ELECTRONICALLY SIGNED BY: Robbie Zelaya M.D. DATE/TIME: 08/28/2016 15:06 * * * * * * * * GROSS PATHOLOGY: Received in formalin labeled "Dorie Kong and duodenal ulcer," is a segment of shipman soft tissue measuring 0.7 cm in maximum dimension. The specimen is submitted entirely in cassette A1. (TTL; 08/27/2016) INITIAL CPT CODE(S): A; 51343 Professional services performed [place] [facility] [place] [address] Technical services performed by [facility] at [address] [place] [address]. SPECIMEN(S) RECEIVED: A.Duodenal ulcer CLINICAL HISTORY: Pneumoperitoneum PATIENT: DORIE KONG /AGE: 7 1950 (Age: 66) PATIENT #: [id number] ALT CASE #: SPECIMEN COLLECTION DATE: 08/26/2016 SPECIMEN RECEIVED DATE: 08/27/2016 [facility] - [id number] [place] [address] - PHONE: [phone] * * * END OF REPORT * * *
--- NOTE | 2016-08-28 15:38 | PDOC ---
PROGRESS NOTES Chief Complaint Chief Complaint Acute abdominal pain perforated pyloric ulcer, now POD#2 repair perf ulcer obesity, BMI 34 Abdominal/back pain. Pneumoperitoneum, Free fluid in the abdomen. Diabetes 2 Hypertension. prior History of breast cancer. History of Present Illness History of Present Illness feels a little better using TOOL CRIB LEAD less + flatus alen ice chipds Vitals Vitals Vital Signs Date Time Temp Pulse Resp B/P Pulse Ox O2 Delivery O2 Flow Rate FiO2 08/28/16 11:00 98.3 54 16 147/52 96 Nasal Cannula 2.0 98.3 Physical Exam General: Alert, Oriented X3 Heart: Regular rate, Normal S1, Normal S2, Other (2/6 systolic murmur ) Abdomen: Soft Extremities: No edema, Normal pulses Skin: No breakdown, No significant lesion Labs LABS Laboratory Tests Test 08/27/16 20:39 08/28/16 07:15 08/28/16 08:20 08/28/16 10:46 Glucose (Fingerstick) 96mg/dL (70-99) 92mg/dL (70-99) 85mg/dL (70-99) White Blood Count 15.4x10^3/uL (4.0-11.0) Red Blood Count 3.05x10^6/uL (3.50-5.40) Hemoglobin 9.0g/dL (12.0-15.5) Hematocrit 28.3% (36.0-47.0) Mean Corpuscular Volume 93fL (79-100) Mean Corpuscular Hemoglobin 30pg (25-35) Mean Corpuscular Hemoglobin Concent 32g/dL (31-37) Red Cell Distribution Width 15.8% (11.5-14.5) Platelet Count 172x10^3/uL (140-400) Neutrophils (%) (Auto) 84% (31-73) Lymphocytes (%) (Auto) 9% (24-48) Monocytes (%) (Auto) 5% (0-9) Eosinophils (%) (Auto) 1% (0-3) Basophils (%) (Auto) 0% (0-3) Neutrophils # (Auto) 12.9x10^3uL (1.8-7.7) Lymphocytes # (Auto) 1.4x10^3/uL (1.0-4.8) Monocytes # (Auto) 0.8x10^3/uL (0.0-1.1) Eosinophils # (Auto) 0.2x10^3/uL (0.0-0.7) Basophils # (Auto) 0.0x10^3/uL (0.0-0.2) Sodium Level 139mmol/L (136-145) Potassium Level 4.9mmol/L (3.5-5.1) Chloride Level 108mmol/L (98-107) Carbon Dioxide Level 24mmol/L (21-32) Anion Gap 7 (6-14) Blood Urea Nitrogen 30mg/dL (7-20) Creatinine 1.4mg/dL (0.6-1.0) Estimated GFR (Cockcroft-Gault) 37.5 BUN/Creatinine Ratio 21 (6-20) Glucose Level 93mg/dL (70-99) Calcium Level 8.3mg/dL (8.5-10.1) Magnesium Level 2.0mg/dL (1.8-2.4) Total Bilirubin 0.4mg/dL (0.2-1.0) Aspartate Amino Transf (AST/SGOT) 13U/L (15-37) Alanine Aminotransferase (ALT/SGPT) 13U/L (14-59) Alkaline Phosphatase 110U/L (46-116) Total Protein 5.6g/dL (6.4-8.2) Albumin 2.0g/dL (3.4-5.0) Albumin/Globulin Ratio 0.6 (1.0-1.7) Assessment and Plan Assessmemt and Plan Problems Medical Problems: (1) Closed wedge compression fracture of T11 vertebra Status: Acute (2) Perforated ulcer Status: Acute Problems: Comment Review of Relevant I have reviewed the following items maggy (where applicable) has been applied. Labs Laboratory Tests Test 08/26/16 16:07 08/26/16 17:06 08/26/16 20:49 08/26/16 22:30 White Blood Count 20.5x10^3/uL (4.0-11.0) Red Blood Count 4.05x10^6/uL (3.50-5.40) Hemoglobin 11.9g/dL (12.0-15.5) Hematocrit 37.3% (36.0-47.0) Mean Corpuscular Volume 92fL (79-100) Mean Corpuscular Hemoglobin 30pg (25-35) Mean Corpuscular Hemoglobin Concent 32g/dL (31-37) Red Cell Distribution Width 15.9% (11.5-14.5) Platelet Count 257x10^3/uL (140-400) Glucose (Fingerstick) 164mg/dL (70-99) 136mg/dL (70-99) Nasal Screen MRSA (PCR) Negative (Negative) Test 08/27/16 04:50 08/27/16 07:36 08/27/16 10:28 08/27/16 20:39 White Blood Count 17.3x10^3/uL (4.0-11.0) Red Blood Count 3.36x10^6/uL (3.50-5.40) Hemoglobin 10.0g/dL (12.0-15.5) Hematocrit 30.7% (36.0-47.0) Mean Corpuscular Volume 91fL (79-100) Mean Corpuscular Hemoglobin 30pg (25-35) Mean Corpuscular Hemoglobin Concent 33g/dL (31-37) Red Cell Distribution Width 16.1% (11.5-14.5) Platelet Count 178x10^3/uL (140-400) Neutrophils (%) (Auto) 86% (31-73) Lymphocytes (%) (Auto) 6% (24-48) Monocytes (%) (Auto) 8% (0-9) Eosinophils (%) (Auto) 0% (0-3) Basophils (%) (Auto) 0% (0-3) Neutrophils # (Auto) 14.8x10^3uL (1.8-7.7) Lymphocytes # (Auto) 1.0x10^3/uL (1.0-4.8) Monocytes # (Auto) 1.4x10^3/uL (0.0-1.1) Eosinophils # (Auto) 0.0x10^3/uL (0.0-0.7) Basophils # (Auto) 0.0x10^3/uL (0.0-0.2) Sodium Level 139mmol/L (136-145) Potassium Level 5.0mmol/L (3.5-5.1) Chloride Level 109mmol/L (98-107) Carbon Dioxide Level 21mmol/L (21-32) Anion Gap 9 (6-14) Blood Urea Nitrogen 37mg/dL (7-20) Creatinine 1.6mg/dL (0.6-1.0) Estimated GFR (Cockcroft-Gault) 32.2 BUN/Creatinine Ratio 23 (6-20) Glucose Level 123mg/dL (70-99) Calcium Level 8.2mg/dL (8.5-10.1) Magnesium Level 2.0mg/dL (1.8-2.4) Total Bilirubin 0.3mg/dL (0.2-1.0) Aspartate Amino Transf (AST/SGOT) 14U/L (15-37) Alanine Aminotransferase (ALT/SGPT) 12U/L (14-59) Alkaline Phosphatase 124U/L (46-116) Total Protein 5.8g/dL (6.4-8.2) Albumin 2.1g/dL (3.4-5.0) Albumin/Globulin Ratio 0.6 (1.0-1.7) Glucose (Fingerstick) 110mg/dL (70-99) 106mg/dL (70-99) 96mg/dL (70-99) Test 08/28/16 07:15 08/28/16 08:20 08/28/16 10:46 Glucose (Fingerstick) 92mg/dL (70-99) 85mg/dL (70-99) White Blood Count 15.4x10^3/uL (4.0-11.0) Red Blood Count 3.05x10^6/uL (3.50-5.40) Hemoglobin 9.0g/dL (12.0-15.5) Hematocrit 28.3% (36.0-47.0) Mean Corpuscular Volume 93fL (79-100) Mean Corpuscular Hemoglobin 30pg (25-35) Mean Corpuscular Hemoglobin Concent 32g/dL (31-37) Red Cell Distribution Width 15.8% (11.5-14.5) Platelet Count 172x10^3/uL (140-400) Neutrophils (%) (Auto) 84% (31-73) Lymphocytes (%) (Auto) 9% (24-48) Monocytes (%) (Auto) 5% (0-9) Eosinophils (%) (Auto) 1% (0-3) Basophils (%) (Auto) 0% (0-3) Neutrophils # (Auto) 12.9x10^3uL (1.8-7.7) Lymphocytes # (Auto) 1.4x10^3/uL (1.0-4.8) Monocytes # (Auto) 0.8x10^3/uL (0.0-1.1) Eosinophils # (Auto) 0.2x10^3/uL (0.0-0.7) Basophils # (Auto) 0.0x10^3/uL (0.0-0.2) Sodium Level 139mmol/L (136-145) Potassium Level 4.9mmol/L (3.5-5.1) Chloride Level 108mmol/L (98-107) Carbon Dioxide Level 24mmol/L (21-32) Anion Gap 7 (6-14) Blood Urea Nitrogen 30mg/dL (7-20) Creatinine 1.4mg/dL (0.6-1.0) Estimated GFR (Cockcroft-Gault) 37.5 BUN/Creatinine Ratio 21 (6-20) Glucose Level 93mg/dL (70-99) Calcium Level 8.3mg/dL (8.5-10.1) Magnesium Level 2.0mg/dL (1.8-2.4) Total Bilirubin 0.4mg/dL (0.2-1.0) Aspartate Amino Transf (AST/SGOT) 13U/L (15-37) Alanine Aminotransferase (ALT/SGPT) 13U/L (14-59) Alkaline Phosphatase 110U/L (46-116) Total Protein 5.6g/dL (6.4-8.2) Albumin 2.0g/dL (3.4-5.0) Albumin/Globulin Ratio 0.6 (1.0-1.7) Laboratory Tests Test 08/27/16 20:39 08/28/16 07:15 08/28/16 08:20 08/28/16 10:46 Glucose (Fingerstick) 96mg/dL (70-99) 92mg/dL (70-99) 85mg/dL (70-99) White Blood Count 15.4x10^3/uL (4.0-11.0) Red Blood Count 3.05x10^6/uL (3.50-5.40) Hemoglobin 9.0g/dL (12.0-15.5) Hematocrit 28.3% (36.0-47.0) Mean Corpuscular Volume 93fL (79-100) Mean Corpuscular Hemoglobin 30pg (25-35) Mean Corpuscular Hemoglobin Concent 32g/dL (31-37) Red Cell Distribution Width 15.8% (11.5-14.5) Platelet Count 172x10^3/uL (140-400) Neutrophils (%) (Auto) 84% (31-73) Lymphocytes (%) (Auto) 9% (24-48) Monocytes (%) (Auto) 5% (0-9) Eosinophils (%) (Auto) 1% (0-3) Basophils (%) (Auto) 0% (0-3) Neutrophils # (Auto) 12.9x10^3uL (1.8-7.7) Lymphocytes # (Auto) 1.4x10^3/uL (1.0-4.8) Monocytes # (Auto) 0.8x10^3/uL (0.0-1.1) Eosinophils # (Auto) 0.2x10^3/uL (0.0-0.7) Basophils # (Auto) 0.0x10^3/uL (0.0-0.2) Sodium Level 139mmol/L (136-145) Potassium Level 4.9mmol/L (3.5-5.1) Chloride Level 108mmol/L (98-107) Carbon Dioxide Level 24mmol/L (21-32) Anion Gap 7 (6-14) Blood Urea Nitrogen 30mg/dL (7-20) Creatinine 1.4mg/dL (0.6-1.0) Estimated GFR (Cockcroft-Gault) 37.5 BUN/Creatinine Ratio 21 (6-20) Glucose Level 93mg/dL (70-99) Calcium Level 8.3mg/dL (8.5-10.1) Magnesium Level 2.0mg/dL (1.8-2.4) Total Bilirubin 0.4mg/dL (0.2-1.0) Aspartate Amino Transf (AST/SGOT) 13U/L (15-37) Alanine Aminotransferase (ALT/SGPT) 13U/L (14-59) Alkaline Phosphatase 110U/L (46-116) Total Protein 5.6g/dL (6.4-8.2) Albumin 2.0g/dL (3.4-5.0) Albumin/Globulin Ratio 0.6 (1.0-1.7) Microbiology 08/26/16 Gram Stain - Final, Complete 08/26/16 Urine Culture - Final, Complete 08/26/16 Urine Culture Result 1 (LATASHA) - Final, Complete Medications Current Medications Nitroglycerin (Nitrostat) 0.4 mg PRN Q5MIN PRN SL CP RATING > 1/10 Last administered on 08/26/16 00:32; Start 08/25/16 at 23:45; Stop 08/26/16 at 23:44; Status DC Fentanyl Citrate 25 mcg 25 mcg PRN Q15MIN PRN IV PAIN GREATER THAN 3/10 Last administered on 08/26/16 02:43; Start 08/25/16 at 23:45; Stop 08/26/16 at 14:40; Status DC Sodium Chloride (Iv Sodium Chloride 0.9% 500ml Bag) 500 ml @ 500 mls/hr 1X ONCE IV Last administered on 08/26/16 00:32; Start 08/26/16 at 00:30; Stop at 01:29; Status DC Ondansetron HCl (Zofran) 4 mg STK-MED ONCE .ROUTE ; Start 08/26/16 at 01:44; Stop 08/26/16 at 01:45; Status DC Ondansetron HCl 4 mg 4 mg 1X ONCE IV Last administered on 08/26/16 01:45; Start 08/26/16 at 02:00; Stop 08/26/16 at 02:03; Status DC Metronidazole 100 ml @ 100 mls/hr Q8HRS IV Last administered on 08/28/16 06:37 ; Start 08/26/16 at 14:00 Metronidazole 100 ml @ 100 mls/hr 1X ONCE IV Last administered on 08/26/16 02 :38; Start 08/26/16 at 02:30; Stop 08/26/16 at 03:29; Status DC Cefepime HCl 2 gm/ Sodium Chloride 100 ml @ 200 mls/hr 1X ONCE IV Last administered on 08/26/16 03:22; Start 08/26/16 at 03:00; Stop 08/26/16 at 03:29; Status DC Sodium Chloride (Iv Sodium Chloride 0.9% 1000ml Bag) 1,000 ml @ 125 mls/hr 1X ONCE IV Last administered on 08/26/16 02:41; Start 08/26/16 at 03:00; Stop at 10:59; Status DC Fentanyl Citrate (Fentanyl 2ml Vial) 50 mcg PRN Q15MIN PRN IV PAIN GREATER THAN 3/10 Last administered on 08/26/16 07:42; Start 08/26/16 at 02:45; Stop 08/26 at 14:40; Status DC Ondansetron HCl 4 mg 4 mg 1X ONCE PO ; Start 08/26/16 at 03:00; Stop 08/26/16 at 03:01; Status DC Metronidazole (FLAGYL 500Mmg PREMIX) 100 ml @ 100 mls/hr 1X ONCE IV Last administered on 08/26/16 05:12; Start 08/26/16 at 04:30; Stop 08/26/16 at 05:29; Status DC Hydromorphone HCl (Dilaudid) 1 mg 1X ONCE IV Last administered on 08/26/16 04: 29; Start 08/26/16 at 04:30; Stop 08/26/16 at 04:31; Status DC Fentanyl Citrate (Fentanyl 5ml Vial) 250 mcg STK-MED ONCE .ROUTE ; Start at 04:41; Stop 08/26/16 at 04:42; Status DC Succinylcholine Chloride (Anectine) 200 mg STK-MED ONCE .ROUTE ; Start 08/26/16 at 04:42; Stop 08/26/16 at 04:43; Status DC Rocuronium [place] (Zemuron) 50 mg STK-MED ONCE .ROUTE ; Start 08/26/16 at 04:42 ; Stop 08/26/16 at 04:43; Status DC Ondansetron HCl (Zofran) 4 mg PRN Q6HRS PRN IV Nausea; Start 08/26/16 at 04:45; Stop 08/26/16 at 14:42; Status DC Fentanyl Citrate (Fentanyl 2ml Vial) 25 mcg PRN Q5MIN PRN IV MILD PAIN; Start 08/26/16 at 04:45; Stop 08/26/16 at 14:41; Status DC Fentanyl Citrate (Fentanyl 2ml Vial) 50 mcg PRN Q5MIN PRN IV MODERATE PAIN; Start 08/26/16 at 04:45; Stop 08/26/16 at 14:42; Status DC Morphine Sulfate 1 mg 1 mg PRN Q10MIN PRN IV SEVERE PAIN; Start 08/26/16 at 04: 45; Stop 08/26/16 at 14:42; Status DC Lactated Ringer's (Iv Lactated Ringers) 1,000 ml @ 30 mls/hr Q24H IV ; Start at 04:43; Stop 08/26/16 at 16:42; Status DC Lidocaine HCl 2 ml 1X PRN PRN ID IV START; Start 08/26/16 at 04:45; Stop at 14:42; Status DC Hydromorphone HCl (Dilaudid) 0.5 mg PRN Q10MIN PRN IV SEV PAIN,Second choice; Start 08/26/16 at 04:45; Stop 08/26/16 at 14:42; Status DC Prochlorperazine Edisylate 5 mg 5 mg PACU PRN PRN IV NAUSEA; Start 08/26/16 at 04:45; Stop 08/26/16 at 14:42; Status DC Propofol (Diprivan) 20 ml @ As Directed STK-MED ONCE IV ; Start 08/26/16 at 04:44 ; Stop 08/26/16 at 04:45; Status DC Lidocaine HCl (Lidocaine Pf 2% Vial) 5 ml STK-MED ONCE .ROUTE ; Start 08/26/16 at 04:44; Stop 08/26/16 at 04:45; Status DC Sevoflurane (Ultane) 60 ml STK-MED ONCE IH ; Start 08/26/16 at 06:07; Stop at 06:08; Status DC Phenylephrine HCl 1 mg STK-MED ONCE IV ; Start 08/26/16 at 06:12; Stop 08/26/16 at 06:13; Status DC Dexamethasone Sodium Phosphate (Decadron) 20 mg STK-MED ONCE .ROUTE ; Start 08/26 at 06:12; Stop 08/26/16 at 06:13; Status DC Ondansetron HCl (Zofran) 4 mg STK-MED ONCE .ROUTE ; Start 08/26/16 at 06:12; Stop 08/26/16 at 06:13; Status DC Glycopyrrolate (Robinul) 1 mg STK-MED ONCE .ROUTE ; Start 08/26/16 at 06:13; Stop 08/26/16 at 06:14; Status DC Neostigmine Methylsulfate 5 mg STK-MED ONCE .ROUTE ; Start 08/26/16 at 06:13; Stop 08/26/16 at 06:14; Status DC Diphenhydramine HCl (Benadryl) 25 mg PRN Q6HRS PRN IV ITCHING; Start 08/26/16 at 07:00 Enoxaparin Sodium (Lovenox 40mg Syringe) 40 mg Q12HR SQ Last administered on 10:30; Start 08/26/16 at 09:00; Stop 08/27/16 at 16:33; Status DC Sodium Chloride 3 ml 3 ml QSHIFT PRN IV AFTER MEDS AND BLOOD DRAWS; Start at 07:00 Potassium Chloride/Sodium Chloride 1,000 ml @ 100 mls/hr Q10H IV Last administered on 08/28/16 08:39; Start 08/26/16 at 06:53 Hydromorphone HCl (Dilaudid Standard TOOL CRIB LEAD) 30 ml @ 0 mls/hr CONT PRN PRN IV PROTOCOL Last administered on 08/26/16 07:41; Start 08/26/16 at 07:00; Stop at 09:42; Status DC Ondansetron HCl (Zofran) 4 mg PRN Q6HRS PRN IV NAUESA, 1ST CHOICE Last administered on 08/26/16 23:08; Start 08/26/16 at 07:00 Throat Lozenges (Chloraseptic) 1 spray PRN Q2HR PRN PO SORE THROAT; Start at 07:00 Throat Lozenges 1 noreen 1 noreen PRN Q2HRS PRN PO SORE THROAT; Start 08/26/16 at 07: 00 Hydromorphone HCl 30 ml @ 0 mls/hr CONT PRN PRN IV PROTOCOL; Start 08/26/16 at 09:45; Stop 08/26/16 at 12:16; Status DC Hydromorphone HCl (Dilaudid Standard TOOL CRIB LEAD) 30 ml @ 0 mls/hr CONT PRN PRN IV PROTOCOL; Start 08/26/16 at 12:15; Stop 08/26/16 at 20:05; Status DC Pantoprazole Sodium (Protonix Vial) 40 mg BID IVP Last administered on 08:32; Start 08/26/16 at 21:00 Labetalol HCl 20 mg 20 mg PRN Q2HR PRN IVP HYPERTENSION, SEE COMMENTS; Start at 13:15 Sodium Chloride 1,000 ml @ 1,000 mls/hr 1X ONCE IV ; Start 08/26/16 at 23:00; Stop 08/26/16 at 23:59; Status DC Hydromorphone HCl (Dilaudid Standard TOOL CRIB LEAD) 30 ml @ 0 mls/hr CONT PRN PRN IV PROTOCOL Last administered on 08/27/16 08:37; Start 08/26/16 at 20:15 Enoxaparin Sodium (Lovenox 40mg Syringe) 40 mg Q24H SQ Last administered on 08/28 08:32; Start 08/28/16 at 09:00 Active Scripts Active Reported Cetirizine Hcl 1 Mg/1 Ml Solution 10 Mg PO Hydrocodone-Apap 7.5-325 (Hydrocodone Bit/Acetaminophen) 1 Each Tablet 1 Tab PO PRN Q6HRS PRN Fioricet 50-300-40 Mg Capsule (Butalb/Acetaminophen/Caffeine) 1 Each Capsule 1 Each PO PRN Q6-8HRS PRN Voltaren-Xr (Diclofenac Sodium) 100 Mg Tab.er.24h 75 Mg PO [id number] Ambien (Zolpidem Tartrate) 10 Mg Tablet 10 Mg PO HS PRN Propranolol Hcl 80 Mg Cap.sa.24h 1 Cap PO DAILY Vitals/I & O Vital Sign - Last 24 Hours 08/27/16 08/27/16 08/27/16 08/28/16 19:45 19:59 22:12 02:46 Temp 98.3 98.6 98.3 98.3 98.6 98.3 Pulse 64 63 64 Resp 16 16 20 B/P 159/72 155/63 150/55 Pulse Ox 98 97 96 O2 Delivery Nasal Cannula Nasal Cannula Nasal Cannula Nasal Cannula O2 Flow Rate 2.0 2.0 2.0 2.0 08/28/16 08/28/16 08/28/16 08/28/16 07:00 07:30 08:15 11:00 Temp 98.2 98.3 98.2 98.3 Pulse 57 54 Resp 16 16 B/P 151/61 147/52 Pulse Ox 99 96 O2 Delivery Nasal Cannula Nasal Cannula Nasal Cannula Nasal Cannula O2 Flow Rate 2.0 2.0 2.0 2.0 Intake and Output 08/27/16 08/27/16 08/28/16 15:00 23:00 07:00 Intake Total 0 ml 730 ml Output Total 350 ml 1245 ml Balance -350 ml 0 ml -515 ml KENYETTA RUTH MD Aug 28, 2016 15:38
--- NOTE | 2016-08-28 17:07 | PDOC ---
Provider Note Provider Note DATE OF f/u: 08/28/2016 c/c: f/u of Bone metastasis in a patient with a history of breast cancer. HISTORY OF PRESENT ILLNESS: The patient is a 66-year-old female who was diagnosed with breast cancer in 2011. At that time, she had noted mass in the inferior outer aspect of the left breast in 2011 and she had a mammogram that revealed a 2 cm abnormality. She underwent biopsy of this lesion on 11/26/2011, that revealed infiltrating moderately differentiated ductal carcinoma, grade 2, ER/VA positive, HER-2/kristel negative. She subsequently underwent lumpectomy and sentinel lymph node resection on 01/21/[address] Shipley. Four sentinel lymph nodes were removed and they were all negative, the invasive component was 2.5 cm. One lymph node had isolated tumor cells, it was staged as a T2 N0 (I+) M0, stage IIA breast cancer. Postoperatively, she underwent radiation therapy with 5000 cGy and in addition 1000 cGy in 5 fraction to lumpectomy cavity between 02/19/2012 and 04/02/2012. She then received adjuvant Arimidex under the direction of Dr. Tawanda Roman. She subsequently established care with sc on 06/07/2014. She then never returned for followup visit. She mentions that she had financial issues and hence she did not continue Arimidex after May 2012 and she never followed up with an oncologist since then. She was admitted to [facility] on 08/26/2016, with complaints of sudden onset of back pain that subsequently radiated to the abdomen. She underwent further workup in the Emergency Room with a chest x-ray on 08/25/2016 that did not reveal any acute abnormality. KUB on 08/26/2016, revealed no abnormalities. CT scan of the abdomen and pelvis on 08/26/2016 revealed pneumoperitoneum with mild free fluid in the abdomen and pelvis. Has marked wall thickening in the duodenal bulb and possible intramural defect of the anterior wall with the above raising suspicion of a perforated duodenal diverticulum. CT scan of the chest on 08/25/2016 revealed pneumoperitoneum as described above, metastatic disease with numerous lytic and sclerotic bone lesions with the pathologic fracture of the sternum at T11 vertebral body, left axillary tail 3 cm mass was also noted, pulmonary nodules were also noted and she had a thoracic aortic aneurysm measuring 4.5 cm in diameter. I was asked to see the patient for further evaluation and management of metastatic disease. PAST MEDICAL HISTORY: Hypertension, diabetes, migraines, history of cervical fusions, Bright's disease, chronic hearing loss, hyperlipidemia. REVIEW OF SYSTEMS: has abd pain and back pain PHYSICAL EXAMINATION: GENERAL APPEARANCE: The patient is a 66-year-old female who is in no acute cardiorespiratory distress. CHEST: Bilaterally symmetrical. No crepitations or rhonchi heard. HEART: S1, S2 normal. ABDOMEN: Soft, nontender. Its distended and surgical wounds appear clean. CENTRAL NERVOUS SYSTEM: No focal deficits. IMPRESSION AND PLAN: 1. Invasive ductal carcinoma of the left breast diagnosed in 2011, ER/VA positive, HER-2/kristel negative. She underwent lumpectomy and radiation therapy and she received Arimidex till 2013 and she quit taking it because she could afford it. She now has evidence of bone metastasis and possibly lung metastasis. She has evidence of a T11 pathologic fracture and also sternal fracture. This is now suggestive of stage IV lung cancer. Once she is stable from the recent surgery done on 08/26/2016, I would proceed with vertebroplasty and biopsy of the T11 vertebral body. Also, when she is stable, I would recommend further workup with a bone scan and if needed, an MRI of the thoracic spine. All her questions were answered. I discussed with Dr. Sushil Zhang. 2. Bone metastasis. She has numerous lytic and sclerotic bone lesions with pathologic fracture of the sternum at T11 vertebral body. Plan Xgeva as an outpatient. Plan, T11 vertebroplasty and biopsy and also consideration of a radiation therapy. 3. Pulmonary nodules, thought to be due to metastatic disease from breast cancer. 4. Perforated pyloric channel ulcer, status post exploratory laparotomy and biopsy and closure of the ulcer by Dr. Mendez on 08/26/2016. Continue postoperative care. 5. Leukocytosis, reactive. Monitor. WBC 15.4 6. Anemia postoperative due to surgical blood loss. Monitor. 7. Renal insufficiency with a creatinine of 1.6 and a BUN of 37 on 08/27/2016. Continue to monitor. SALVADOR PERALES MD Aug 28, 2016 17:07
--- NOTE | 2016-08-28 18:06 | CONS ---
DATE OF CONSULTATION: 08/27/2016 REFERRING DOCTOR: Dr. Gwyn Gaitan. DIAGNOSIS: History of stage 2A (T2N1 micro M0) grade 2, ER and FL positive, adenocarcinoma of the left breast. She had primary surgery in March 2012 with lumpectomy and axillary lymph node sampling followed by adjuvant breast radiation completed here in March 2012. She now has radiographic evidence for osseous, visceral and silverio metastatic disease. She recently presented with acute abdomen with pneumoperitoneum and found to have a perforated pyloric channel ulcer, and underwent open laparotomy and closure of this on 08/26/2016. We were asked to see her regarding treatment for her radiographically recurrent breast cancer. The patient is a 66-year-old woman, with a prior history of breast carcinoma as summarized above, initially treated with lumpectomy, axillary lymph node sampling, postoperative radiation. She was supposed to go on Arimidex postoperatively, but was lost to medical followup when initially seen by Dr. Tawanda Roman here. Late last week, she just did not feel well. 08/25/2016, she developed severe back pain radiating to the front. CT scan of the abdomen revealed pneumoperitoneum and lytic and lytic and blastic metastatic disease primarily remarkable for pathologic fracture with lytic disease at T11. She then underwent urgent exploratory laparotomy and was found to have a perforated pyloric channel ulcer, that underwent operative closure by Dr. Reggie Mendez on 08/26/2016. Postoperatively, she is recovering and looks forward to having her NG removed. She now notes lumbar level back pain, bad with movement, no other pain elsewhere. She denies any chest or sternal pain and had no other symptoms to suggest metastatic disease recurrence prior to her episode of acute abdominal pain. 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 CT scan of the abdomen and pelvis on admission on 08/26/2016 revealed pneumoperitoneum, sclerotic lytic change at T11 with compression fracture that was mild in its character. CT scan of the chest revealed left mediastinal adenopathy, left axillary adenopathy, lytic sclerotic disease in the sternum with pathologic fracture and scattered osseous disease elsewhere; most dominant at T11 with modest compression fracture. Canal was widely patent. Tiny bilateral pulmonary nodules of uncertain significance but possibly metastatic as well. PAST MEDICAL HISTORY: Remarkable for [employer] shunt 40 years ago for morbid obesity, mild hypertension, diabetes mellitus, cervical fusion at C5 through C7. FAMILY HISTORY: Unremarkable for breast cancer. Mother from some form of brain tumor. SOCIAL HISTORY: 16 years. Two sons who live here. Worked for [employer] in customer service up to her current illness. Enjoys watching TV, specifically football. PHYSICAL EXAMINATION: Revealed a pleasant, articulate woman with an NG in place, recovering well from surgery. General examination was omitted at this time due to her postoperative convalescence. LABORATORY STUDIES: From today 08/27/2016, hemoglobin 10.0, white count 17,300, platelet count 178,000. Chemistry panel from today: Normal electrolytes, creatinine 1.6, glucose 123, calcium 8.2, alk phos 124. Normal liver function tests. CT of the chest also reveals pulmonary nodules in addition to the above findings. ASSESSMENT AND PLAN: In summary, my impression is that of initial stage II, ER and FL-positive adenocarcinoma of the left breast, status post lumpectomy, axillary lymph node sampling, and postoperative radiation over 4 years ago. She now has radiographic evidence for osseous, silverio, and visceral metastatic disease. She is primarily symptomatic for low back pain, potentially at or below the level of her T11 metastasis. At this time, she should continue to convalesce postoperatively. Biopsy of her axillary lymph nodes would be a rational choice to confirm recurrence. She may be a candidate for kyphoplasty at T11, at which time biopsy could be addressed at that time. Following that, we would consider palliative radiation to T11 to preserve its bone integrity. If she is not a candidate for kyphoplasty at that site, palliative radiation alone would be in order to prevent further bone loss, compression fracture, and worsening pain. I had a general discussion with the patient. We will continue to follow her with you postoperatively along with Dr. Gaitan. Thank you for allowing us to participate in her evaluation. SERA BENDER MD DR: MANUEL/nik JOB#: [id number] / [id number] REGGIE Tran MD, STEPHEN MD MTDD
[2016-08-28 19:00] VITALS: BP 142/52
[2016-08-28] MEDS: HYDROMORPHONE STANDARD PCA 30 ML IV PRN (22:12)
[2016-08-28 23:00] VITALS: BP 131/65
[2016-08-29 03:00] VITALS: BP 120/50
[2016-08-29] MEDS: METRONIDAZOLE 500mg PREMIX 100 ML IV SCH ×3 (05:52→22:41)
[2016-08-29 07:00] VITALS: BP 144/45
[2016-08-29 07:20] LABS: BASO % 0 % (0-3); EOS % 3 % (0-3); HEMATOCRIT 28.9 % (36.0-47.0); HEMOGLOBIN 9.3 g/dL (12.0-15.5); LYMPH # 1.2 x10^3/uL (1.0-4.8); LYMPH % 10 % (24-48); MEAN CORPUSCULAR HEMOGLOBIN 29 pg (25-35); MEAN CORPUSCULAR HGB CONC 32 g/dL (31-37); MEAN CORPUSCULAR VOLUME 92 fL (79-100); MONO % 7 % (0-9); NEUT % 80 % (31-73); PLATELET COUNT 176 x10^3/uL (140-400); RED BLOOD COUNT 3.15 x10^6/uL (3.50-5.40); RED CELL DISTRIBUTION WIDTH 15.8 % (11.5-14.5); WHITE BLOOD COUNT 11.7 x10^3/uL (4.0-11.0)
[2016-08-29 07:40] LABS: ALBUMIN 2.1 g/dL (3.4-5.0); ALBUMIN/GLOBULIN RATIO 0.7 (1.0-1.7); CALCIUM 8.3 mg/dL (8.5-10.1); CREATININE 1.2 mg/dL (0.6-1.0); GFR 44.8; MAGNESIUM 1.9 mg/dL (1.8-2.4); TOTAL BILIRUBIN 0.4 mg/dL (0.2-1.0); TOTAL PROTEIN 5.2 g/dL (6.4-8.2)
[2016-08-29] MEDS: PANTOPRAZOLE IV PUSH 40 MG VIAL. IVP SCH ×2 (09:46→22:41)
[2016-08-29] MEDS: POTASSIUM CL 20MEQ-0.45% NACL 1,000 ML IV SCH ×2 (09:46→15:42)
[2016-08-29] MEDS: ENOXAPARIN 40 MG/0.4 ML DISP.SYRIN. SQ SCH (09:47)
--- NOTE | 2016-08-29 10:48 | PDOC ---
PROGRESS NOTES Chief Complaint Chief Complaint Acute abdominal pain perforated pyloric ulcer, now POD#2 repair perf ulcer obesity, BMI 34 Abdominal/back pain. Pneumoperitoneum, Free fluid in the abdomen. Diabetes 2 Hypertension. prior History of breast cancer. T11 compression deformity seen on CT History of Present Illness History of Present Illness feels a little better using [employer] less + flatus alen ice chipds Vitals Vitals Vital Signs Date Time Temp Pulse Resp B/P Pulse Ox O2 Delivery O2 Flow Rate FiO2 08/29/16 07:00 98.1 59 20 144/45 98 Nasal Cannula 2.0 98.1 Physical Exam General: Alert, Oriented X3 Heart: Regular rate, Normal S1, Normal S2, Other (2/6 systolic murmur ) Abdomen: Soft Extremities: No edema, Normal pulses Skin: No breakdown, No significant lesion Labs LABS Laboratory Tests Test 08/28/16 15:24 08/28/16 20:57 08/29/16 06:45 08/29/16 09:40 Glucose (Fingerstick) 72mg/dL (70-99) 74mg/dL (70-99) 82mg/dL (70-99) White Blood Count 11.7x10^3/uL (4.0-11.0) Red Blood Count 3.15x10^6/uL (3.50-5.40) Hemoglobin 9.3g/dL (12.0-15.5) Hematocrit 28.9% (36.0-47.0) Mean Corpuscular Volume 92fL (79-100) Mean Corpuscular Hemoglobin 29pg (25-35) Mean Corpuscular Hemoglobin Concent 32g/dL (31-37) Red Cell Distribution Width 15.8% (11.5-14.5) Platelet Count 176x10^3/uL (140-400) Neutrophils (%) (Auto) 80% (31-73) Lymphocytes (%) (Auto) 10% (24-48) Monocytes (%) (Auto) 7% (0-9) Eosinophils (%) (Auto) 3% (0-3) Basophils (%) (Auto) 0% (0-3) Neutrophils # (Auto) 9.4x10^3uL (1.8-7.7) Lymphocytes # (Auto) 1.2x10^3/uL (1.0-4.8) Monocytes # (Auto) 0.8x10^3/uL (0.0-1.1) Eosinophils # (Auto) 0.4x10^3/uL (0.0-0.7) Basophils # (Auto) 0.0x10^3/uL (0.0-0.2) Sodium Level 141mmol/L (136-145) Potassium Level 5.0mmol/L (3.5-5.1) Chloride Level 109mmol/L (98-107) Carbon Dioxide Level 24mmol/L (21-32) Anion Gap 8 (6-14) Blood Urea Nitrogen 24mg/dL (7-20) Creatinine 1.2mg/dL (0.6-1.0) Estimated GFR (Cockcroft-Gault) 44.8 BUN/Creatinine Ratio 20 (6-20) Glucose Level 89mg/dL (70-99) Calcium Level 8.3mg/dL (8.5-10.1) Magnesium Level 1.9mg/dL (1.8-2.4) Total Bilirubin 0.4mg/dL (0.2-1.0) Aspartate Amino Transf (AST/SGOT) 11U/L (15-37) Alanine Aminotransferase (ALT/SGPT) 10U/L (14-59) Alkaline Phosphatase 112U/L (46-116) Total Protein 5.2g/dL (6.4-8.2) Albumin 2.1g/dL (3.4-5.0) Albumin/Globulin Ratio 0.7 (1.0-1.7) Assessment and Plan Assessmemt and Plan PT and OT OOB w assist. wean [employer] as able Problems Medical Problems: (1) Closed wedge compression fracture of T11 vertebra Status: Acute (2) Perforated ulcer Status: Acute Problems: Comment Review of Relevant I have reviewed the following items maggy (where applicable) has been applied. Labs Laboratory Tests Test 08/27/16 20:39 08/28/16 07:15 08/28/16 08:20 08/28/16 10:46 Glucose (Fingerstick) 96mg/dL (70-99) 92mg/dL (70-99) 85mg/dL (70-99) White Blood Count 15.4x10^3/uL (4.0-11.0) Red Blood Count 3.05x10^6/uL (3.50-5.40) Hemoglobin 9.0g/dL (12.0-15.5) Hematocrit 28.3% (36.0-47.0) Mean Corpuscular Volume 93fL (79-100) Mean Corpuscular Hemoglobin 30pg (25-35) Mean Corpuscular Hemoglobin Concent 32g/dL (31-37) Red Cell Distribution Width 15.8% (11.5-14.5) Platelet Count 172x10^3/uL (140-400) Neutrophils (%) (Auto) 84% (31-73) Lymphocytes (%) (Auto) 9% (24-48) Monocytes (%) (Auto) 5% (0-9) Eosinophils (%) (Auto) 1% (0-3) Basophils (%) (Auto) 0% (0-3) Neutrophils # (Auto) 12.9x10^3uL (1.8-7.7) Lymphocytes # (Auto) 1.4x10^3/uL (1.0-4.8) Monocytes # (Auto) 0.8x10^3/uL (0.0-1.1) Eosinophils # (Auto) 0.2x10^3/uL (0.0-0.7) Basophils # (Auto) 0.0x10^3/uL (0.0-0.2) Sodium Level 139mmol/L (136-145) Potassium Level 4.9mmol/L (3.5-5.1) Chloride Level 108mmol/L (98-107) Carbon Dioxide Level 24mmol/L (21-32) Anion Gap 7 (6-14) Blood Urea Nitrogen 30mg/dL (7-20) Creatinine 1.4mg/dL (0.6-1.0) Estimated GFR (Cockcroft-Gault) 37.5 BUN/Creatinine Ratio 21 (6-20) Glucose Level 93mg/dL (70-99) Calcium Level 8.3mg/dL (8.5-10.1) Magnesium Level 2.0mg/dL (1.8-2.4) Total Bilirubin 0.4mg/dL (0.2-1.0) Aspartate Amino Transf (AST/SGOT) 13U/L (15-37) Alanine Aminotransferase (ALT/SGPT) 13U/L (14-59) Alkaline Phosphatase 110U/L (46-116) Total Protein 5.6g/dL (6.4-8.2) Albumin 2.0g/dL (3.4-5.0) Albumin/Globulin Ratio 0.6 (1.0-1.7) Test 08/28/16 15:24 08/28/16 20:57 08/29/16 06:45 08/29/16 09:40 Glucose (Fingerstick) 72mg/dL (70-99) 74mg/dL (70-99) 82mg/dL (70-99) White Blood Count 11.7x10^3/uL (4.0-11.0) Red Blood Count 3.15x10^6/uL (3.50-5.40) Hemoglobin 9.3g/dL (12.0-15.5) Hematocrit 28.9% (36.0-47.0) Mean Corpuscular Volume 92fL (79-100) Mean Corpuscular Hemoglobin 29pg (25-35) Mean Corpuscular Hemoglobin Concent 32g/dL (31-37) Red Cell Distribution Width 15.8% (11.5-14.5) Platelet Count 176x10^3/uL (140-400) Neutrophils (%) (Auto) 80% (31-73) Lymphocytes (%) (Auto) 10% (24-48) Monocytes (%) (Auto) 7% (0-9) Eosinophils (%) (Auto) 3% (0-3) Basophils (%) (Auto) 0% (0-3) Neutrophils # (Auto) 9.4x10^3uL (1.8-7.7) Lymphocytes # (Auto) 1.2x10^3/uL (1.0-4.8) Monocytes # (Auto) 0.8x10^3/uL (0.0-1.1) Eosinophils # (Auto) 0.4x10^3/uL (0.0-0.7) Basophils # (Auto) 0.0x10^3/uL (0.0-0.2) Sodium Level 141mmol/L (136-145) Potassium Level 5.0mmol/L (3.5-5.1) Chloride Level 109mmol/L (98-107) Carbon Dioxide Level 24mmol/L (21-32) Anion Gap 8 (6-14) Blood Urea Nitrogen 24mg/dL (7-20) Creatinine 1.2mg/dL (0.6-1.0) Estimated GFR (Cockcroft-Gault) 44.8 BUN/Creatinine Ratio 20 (6-20) Glucose Level 89mg/dL (70-99) Calcium Level 8.3mg/dL (8.5-10.1) Magnesium Level 1.9mg/dL (1.8-2.4) Total Bilirubin 0.4mg/dL (0.2-1.0) Aspartate Amino Transf (AST/SGOT) 11U/L (15-37) Alanine Aminotransferase (ALT/SGPT) 10U/L (14-59) Alkaline Phosphatase 112U/L (46-116) Total Protein 5.2g/dL (6.4-8.2) Albumin 2.1g/dL (3.4-5.0) Albumin/Globulin Ratio 0.7 (1.0-1.7) Laboratory Tests Test 08/28/16 15:24 08/28/16 20:57 08/29/16 06:45 08/29/16 09:40 Glucose (Fingerstick) 72mg/dL (70-99) 74mg/dL (70-99) 82mg/dL (70-99) White Blood Count 11.7x10^3/uL (4.0-11.0) Red Blood Count 3.15x10^6/uL (3.50-5.40) Hemoglobin 9.3g/dL (12.0-15.5) Hematocrit 28.9% (36.0-47.0) Mean Corpuscular Volume 92fL (79-100) Mean Corpuscular Hemoglobin 29pg (25-35) Mean Corpuscular Hemoglobin Concent 32g/dL (31-37) Red Cell Distribution Width 15.8% (11.5-14.5) Platelet Count 176x10^3/uL (140-400) Neutrophils (%) (Auto) 80% (31-73) Lymphocytes (%) (Auto) 10% (24-48) Monocytes (%) (Auto) 7% (0-9) Eosinophils (%) (Auto) 3% (0-3) Basophils (%) (Auto) 0% (0-3) Neutrophils # (Auto) 9.4x10^3uL (1.8-7.7) Lymphocytes # (Auto) 1.2x10^3/uL (1.0-4.8) Monocytes # (Auto) 0.8x10^3/uL (0.0-1.1) Eosinophils # (Auto) 0.4x10^3/uL (0.0-0.7) Basophils # (Auto) 0.0x10^3/uL (0.0-0.2) Sodium Level 141mmol/L (136-145) Potassium Level 5.0mmol/L (3.5-5.1) Chloride Level 109mmol/L (98-107) Carbon Dioxide Level 24mmol/L (21-32) Anion Gap 8 (6-14) Blood Urea Nitrogen 24mg/dL (7-20) Creatinine 1.2mg/dL (0.6-1.0) Estimated GFR (Cockcroft-Gault) 44.8 BUN/Creatinine Ratio 20 (6-20) Glucose Level 89mg/dL (70-99) Calcium Level 8.3mg/dL (8.5-10.1) Magnesium Level 1.9mg/dL (1.8-2.4) Total Bilirubin 0.4mg/dL (0.2-1.0) Aspartate Amino Transf (AST/SGOT) 11U/L (15-37) Alanine Aminotransferase (ALT/SGPT) 10U/L (14-59) Alkaline Phosphatase 112U/L (46-116) Total Protein 5.2g/dL (6.4-8.2) Albumin 2.1g/dL (3.4-5.0) Albumin/Globulin Ratio 0.7 (1.0-1.7) Microbiology 08/26/16 Gram Stain - Final, Complete 08/26/16 Urine Culture - Final, Complete 08/26/16 Urine Culture Result 1 (LATASHA) - Final, Complete Medications Current Medications Nitroglycerin (Nitrostat) 0.4 mg PRN Q5MIN PRN SL CP RATING > 110 Last administered on 08/26/16t 00:32; Start 08/25/16 at 23:45; Stop 08/26/16 at 23:44; Status DC Fentanyl Citrate 25 mcg 25 mcg PRN Q15MIN PRN IV PAIN GREATER THAN 3/10 Last administered on 08/26/16 02:43; Start 08/25/16 at 23:45; Stop 08/26/16 at 14:40; Status DC Sodium Chloride (Iv Sodium Chloride 0.9% 500ml Bag) 500 ml @ 500 mls/hr 1X ONCE IV Last administered on 08/26/16 00:32; Start 08/26/16 at 00:30; Stop at 01:29; Status DC Ondansetron HCl (Zofran) 4 mg STK-MED ONCE .ROUTE ; Start 08/26/16 at 01:44; Stop 08/26/16 at 01:45; Status DC Ondansetron HCl 4 mg 4 mg 1X ONCE IV Last administered on 08/26/16 01:45; Start 08/26/16 at 02:00; Stop 08/26/16 at 02:03; Status DC Metronidazole 100 ml @ 100 mls/hr Q8HRS IV Last administered on 08/29/16 05:52 ; Start 08/26/16 at 14:00 Metronidazole 100 ml @ 100 mls/hr 1X ONCE IV Last administered on 08/26/16 02 :38; Start 08/26/16 at 02:30; Stop 08/26/16 at 03:29; Status DC Cefepime HCl 2 gm/ Sodium Chloride 100 ml @ 200 mls/hr 1X ONCE IV Last administered on 08/26/16 03:22; Start 08/26/16 at 03:00; Stop 08/26/16 at 03:29; Status DC Sodium Chloride (Iv Sodium Chloride 0.9% 1000ml Bag) 1,000 ml @ 125 mls/hr 1X ONCE IV Last administered on 08/26/16 02:41; Start 08/26/16 at 03:00; Stop at 10:59; Status DC Fentanyl Citrate (Fentanyl 2ml Vial) 50 mcg PRN Q15MIN PRN IV PAIN GREATER THAN 3/10 Last administered on 08/26/16 07:42; Start 08/26/16 at 02:45; Stop 08/26 at 14:40; Status DC Ondansetron HCl 4 mg 4 mg 1X ONCE PO ; Start 08/26/16 at 03:00; Stop 08/26/16 at 03:01; Status DC Metronidazole (FLAGYL 500Mmg PREMIX) 100 ml @ 100 mls/hr 1X ONCE IV Last administered on 08/26/16t 05:12; Start 08/26/16 at 04:30; Stop 08/26/16 at 05:29; Status DC Hydromorphone HCl (Dilaudid) 1 mg 1X ONCE IV Last administered on 08/26/16t 04: 29; Start 08/26/16 at 04:30; Stop 08/26/16 at 04:31; Status DC Fentanyl Citrate (Fentanyl 5ml Vial) 250 mcg STK-MED ONCE .ROUTE ; Start at 04:41; Stop 08/26/16 at 04:42; Status DC Succinylcholine Chloride (Anectine) 200 mg STK-MED ONCE .ROUTE ; Start 08/26/16 at 04:42; Stop 08/26/16 at 04:43; Status DC Rocuronium [place] (Zemuron) 50 mg STK-MED ONCE .ROUTE ; Start 08/26/16 at 04:42 ; Stop 08/26/16 at 04:43; Status DC Ondansetron HCl (Zofran) 4 mg PRN Q6HRS PRN IV Nausea; Start 08/26/16 at 04:45; Stop 08/26/16 at 14:42; Status DC Fentanyl Citrate (Fentanyl 2ml Vial) 25 mcg PRN Q5MIN PRN IV MILD PAIN; Start 08/26/16 at 04:45; Stop 08/26/16 at 14:41; Status DC Fentanyl Citrate (Fentanyl 2ml Vial) 50 mcg PRN Q5MIN PRN IV MODERATE PAIN; Start 08/26/16 at 04:45; Stop 08/26/16 at 14:42; Status DC Morphine Sulfate 1 mg 1 mg PRN Q10MIN PRN IV SEVERE PAIN; Start 08/26/16 at 04: 45; Stop 08/26/16 at 14:42; Status DC Lactated Ringer's (Iv Lactated Ringers) 1,000 ml @ 30 mls/hr Q24H IV ; Start at 04:43; Stop 08/26/16 at 16:42; Status DC Lidocaine HCl 2 ml 1X PRN PRN ID IV START; Start 08/26/16 at 04:45; Stop at 14:42; Status DC Hydromorphone HCl (Dilaudid) 0.5 mg PRN Q10MIN PRN IV SEV PAIN,Second choice; Start 08/26/16 at 04:45; Stop 08/26/16 at 14:42; Status DC Prochlorperazine Edisylate 5 mg 5 mg PACU PRN PRN IV NAUSEA; Start 08/26/16 at 04:45; Stop 08/26/16 at 14:42; Status DC Propofol (Diprivan) 20 ml @ As Directed STK-MED ONCE IV ; Start 08/26/16 at 04:44 ; Stop 08/26/16 at 04:45; Status DC Lidocaine HCl (Lidocaine Pf 2% Vial) 5 ml STK-MED ONCE .ROUTE ; Start 08/26/16 at 04:44; Stop 08/26/16 at 04:45; Status DC Sevoflurane (Ultane) 60 ml STK-MED ONCE IH ; Start 08/26/16 at 06:07; Stop at 06:08; Status DC Phenylephrine HCl 1 mg STK-MED ONCE IV ; Start 08/26/16 at 06:12; Stop 08/26/16 at 06:13; Status DC Dexamethasone Sodium Phosphate (Decadron) 20 mg STK-MED ONCE .ROUTE ; Start 08/26 at 06:12; Stop 08/26/16 at 06:13; Status DC Ondansetron HCl (Zofran) 4 mg STK-MED ONCE .ROUTE ; Start 08/26/16 at 06:12; Stop 08/26/16 at 06:13; Status DC Glycopyrrolate (Robinul) 1 mg STK-MED ONCE .ROUTE ; Start 08/26/16 at 06:13; Stop 08/26/16 at 06:14; Status DC Neostigmine Methylsulfate 5 mg STK-MED ONCE .ROUTE ; Start 08/26/16 at 06:13; Stop 08/26/16 at 06:14; Status DC Diphenhydramine HCl (Benadryl) 25 mg PRN Q6HRS PRN IV ITCHING; Start 08/26/16 at 07:00 Enoxaparin Sodium (Lovenox 40mg Syringe) 40 mg Q12HR SQ Last administered on 10:30; Start 08/26/16 at 09:00; Stop 08/27/16 at 16:33; Status DC Sodium Chloride 3 ml 3 ml QSHIFT PRN IV AFTER MEDS AND BLOOD DRAWS; Start at 07:00 Potassium Chloride/Sodium Chloride 1,000 ml @ 100 mls/hr Q10H IV Last administered on 08/29/16 09:46; Start 08/26/16 at 06:53 Hydromorphone HCl (Dilaudid Standard [employer]) 30 ml @ 0 mls/hr CONT PRN PRN IV PROTOCOL Last administered on 08/26/16 07:41; Start 08/26/16 at 07:00; Stop at 09:42; Status DC Ondansetron HCl (Zofran) 4 mg PRN Q6HRS PRN IV NAUESA, 1ST CHOICE Last administered on 08/26/16 23:08; Start 08/26/16 at 07:00 Throat Lozenges (Chloraseptic) 1 spray PRN Q2HR PRN PO SORE THROAT; Start at 07:00 Throat Lozenges 1 noreen 1 noreen PRN Q2HRS PRN PO SORE THROAT; Start 08/26/16 at 07: 00 Hydromorphone HCl 30 ml @ 0 mls/hr CONT PRN PRN IV PROTOCOL; Start 08/26/16 at 09:45; Stop 08/26/16 at 12:16; Status DC Hydromorphone HCl (Dilaudid Standard [employer]) 30 ml @ 0 mls/hr CONT PRN PRN IV PROTOCOL; Start 08/26/16 at 12:15; Stop 08/26/16 at 20:05; Status DC Pantoprazole Sodium (Protonix Vial) 40 mg BID IVP Last administered on 09:46; Start 08/26/16 at 21:00 Labetalol HCl 20 mg 20 mg PRN Q2HR PRN IVP HYPERTENSION, SEE COMMENTS; Start at 13:15 Sodium Chloride 1,000 ml @ 1,000 mls/hr 1X ONCE IV ; Start 08/26/16 at 23:00; Stop 08/26/16 at 23:59; Status DC Hydromorphone HCl (Dilaudid Standard [employer]) 30 ml @ 0 mls/hr CONT PRN PRN IV PROTOCOL Last administered on 08/28/16 22:12; Start 08/26/16 at 20:15 Enoxaparin Sodium (Lovenox 40mg Syringe) 40 mg Q24H SQ Last administered on 08/29 09:47; Start 08/28/16 at 09:00 Active Scripts Active Reported Cetirizine Hcl 1 Mg/1 Ml Solution 10 Mg PO Hydrocodone-Apap 7.5-325 (Hydrocodone Bit/Acetaminophen) 1 Each Tablet 1 Tab PO PRN Q6HRS PRN Fioricet 50-300-40 Mg Capsule (Butalb/Acetaminophen/Caffeine) 1 Each Capsule 1 Each PO PRN Q6-8HRS PRN Voltaren-Xr (Diclofenac Sodium) 100 Mg Tab.er.24h 75 Mg PO [id number] Ambien (Zolpidem Tartrate) 10 Mg Tablet 10 Mg PO HS PRN Propranolol Hcl 80 Mg Cap.sa.24h 1 Cap PO DAILY Vitals/I & O Vital Sign - Last 24 Hours 08/28/16 08/28/16 08/28/16 08/28/16 11:00 15:00 19:00 20:05 Temp 98.3 98.2 98.1 98.3 98.2 98.1 Pulse 54 51 60 Resp 16 18 18 B/P 147/52 145/52 142/52 Pulse Ox 96 98 97 O2 Delivery Nasal Cannula Room Air Room Air Nasal Cannula O2 Flow Rate 2.0 2.0 08/28/16 08/28/16 08/28/16 08/29/16 22:12 22:42 23:00 03:00 Temp 98.5 97.7 98.5 97.7 Pulse 64 55 Resp 20 18 18 18 B/P 131/65 120/50 Pulse Ox 96 95 O2 Delivery Nasal Cannula Nasal Cannula Room Air Room Air O2 Flow Rate 2.0 2.0 08/29/16 07:00 Temp 98.1 98.1 Pulse 59 Resp 20 B/P 144/45 Pulse Ox 98 O2 Delivery Nasal Cannula O2 Flow Rate 2.0 Intake and Output 08/28/16 08/28/16 08/29/16 15:00 23:00 07:00 Intake Total 2460 ml Output Total 405 ml 350 ml 900 ml Balance -405 ml -350 ml 1560 ml KENYETTA RUTH MD Aug 29, 2016 10:48
--- NOTE | 2016-08-29 10:49 | PDOC ---
Provider Note Provider Note NG tube removed. Sipping water and ice chips. Looking forward to having PO advanced. She does midlevel back pain with movement and cough. Impression: Perforated pyloric ulcer, doing well after surgical repair, anticipate diet advancement soon. 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 Following this eval then consider palliative radiation to follow. Discussed with patient and SERA Lugo MD Aug 29, 2016 10:49
[2016-08-29 10:54] VITALS: BP 187/82
--- NOTE | 2016-08-29 12:59 | PDOC ---
SURGICAL PROGRESS NOTE Subjective Pt with c/o incisional pain, but otherwise doing well Vital Signs Vital Signs Date Time Temp Pulse Resp B/P Pulse Ox O2 Delivery O2 Flow Rate FiO2 08/29/16 10:54 97.9 67 20 187/82 96 Nasal Cannula 2.0 97.9 I&O Intake and Output 08/29/16 07:00 Intake Total 2460 ml Output Total 1655 ml Balance 805 ml Intake Oral 60 ml IV Total 1200 ml Other 1200 ml Output Urine Total 1250 ml Gastric Drainage Total 375 ml Drainage Total 30 ml General: Alert, Oriented X3, Cooperative, No acute distress Abdomen: Soft, Other (mild TTP at incision) Labs Laboratory Tests Test 08/27/16 20:39 08/28/16 07:15 08/28/16 08:20 08/28/16 10:46 Glucose (Fingerstick) 96mg/dL (70-99) 92mg/dL (70-99) 85mg/dL (70-99) White Blood Count 15.4x10^3/uL (4.0-11.0) Red Blood Count 3.05x10^6/uL (3.50-5.40) Hemoglobin 9.0g/dL (12.0-15.5) Hematocrit 28.3% (36.0-47.0) Mean Corpuscular Volume 93fL (79-100) Mean Corpuscular Hemoglobin 30pg (25-35) Mean Corpuscular Hemoglobin Concent 32g/dL (31-37) Red Cell Distribution Width 15.8% (11.5-14.5) Platelet Count 172x10^3/uL (140-400) Neutrophils (%) (Auto) 84% (31-73) Lymphocytes (%) (Auto) 9% (24-48) Monocytes (%) (Auto) 5% (0-9) Eosinophils (%) (Auto) 1% (0-3) Basophils (%) (Auto) 0% (0-3) Neutrophils # (Auto) 12.9x10^3uL (1.8-7.7) Lymphocytes # (Auto) 1.4x10^3/uL (1.0-4.8) Monocytes # (Auto) 0.8x10^3/uL (0.0-1.1) Eosinophils # (Auto) 0.2x10^3/uL (0.0-0.7) Basophils # (Auto) 0.0x10^3/uL (0.0-0.2) Sodium Level 139mmol/L (136-145) Potassium Level 4.9mmol/L (3.5-5.1) Chloride Level 108mmol/L (98-107) Carbon Dioxide Level 24mmol/L (21-32) Anion Gap 7 (6-14) Blood Urea Nitrogen 30mg/dL (7-20) Creatinine 1.4mg/dL (0.6-1.0) Estimated GFR (Cockcroft-Gault) 37.5 BUN/Creatinine Ratio 21 (6-20) Glucose Level 93mg/dL (70-99) Calcium Level 8.3mg/dL (8.5-10.1) Magnesium Level 2.0mg/dL (1.8-2.4) Total Bilirubin 0.4mg/dL (0.2-1.0) Aspartate Amino Transf (AST/SGOT) 13U/L (15-37) Alanine Aminotransferase (ALT/SGPT) 13U/L (14-59) Alkaline Phosphatase 110U/L (46-116) Total Protein 5.6g/dL (6.4-8.2) Albumin 2.0g/dL (3.4-5.0) Albumin/Globulin Ratio 0.6 (1.0-1.7) Test 08/28/16 15:24 08/28/16 20:57 08/29/16 06:45 08/29/16 09:40 Glucose (Fingerstick) 72mg/dL (70-99) 74mg/dL (70-99) 82mg/dL (70-99) White Blood Count 11.7x10^3/uL (4.0-11.0) Red Blood Count 3.15x10^6/uL (3.50-5.40) Hemoglobin 9.3g/dL (12.0-15.5) Hematocrit 28.9% (36.0-47.0) Mean Corpuscular Volume 92fL (79-100) Mean Corpuscular Hemoglobin 29pg (25-35) Mean Corpuscular Hemoglobin Concent 32g/dL (31-37) Red Cell Distribution Width 15.8% (11.5-14.5) Platelet Count 176x10^3/uL (140-400) Neutrophils (%) (Auto) 80% (31-73) Lymphocytes (%) (Auto) 10% (24-48) Monocytes (%) (Auto) 7% (0-9) Eosinophils (%) (Auto) 3% (0-3) Basophils (%) (Auto) 0% (0-3) Neutrophils # (Auto) 9.4x10^3uL (1.8-7.7) Lymphocytes # (Auto) 1.2x10^3/uL (1.0-4.8) Monocytes # (Auto) 0.8x10^3/uL (0.0-1.1) Eosinophils # (Auto) 0.4x10^3/uL (0.0-0.7) Basophils # (Auto) 0.0x10^3/uL (0.0-0.2) Sodium Level 141mmol/L (136-145) Potassium Level 5.0mmol/L (3.5-5.1) Chloride Level 109mmol/L (98-107) Carbon Dioxide Level 24mmol/L (21-32) Anion Gap 8 (6-14) Blood Urea Nitrogen 24mg/dL (7-20) Creatinine 1.2mg/dL (0.6-1.0) Estimated GFR (Cockcroft-Gault) 44.8 BUN/Creatinine Ratio 20 (6-20) Glucose Level 89mg/dL (70-99) Calcium Level 8.3mg/dL (8.5-10.1) Magnesium Level 1.9mg/dL (1.8-2.4) Total Bilirubin 0.4mg/dL (0.2-1.0) Aspartate Amino Transf (AST/SGOT) 11U/L (15-37) Alanine Aminotransferase (ALT/SGPT) 10U/L (14-59) Alkaline Phosphatase 112U/L (46-116) Total Protein 5.2g/dL (6.4-8.2) Albumin 2.1g/dL (3.4-5.0) Albumin/Globulin Ratio 0.7 (1.0-1.7) Test 08/29/16 11:25 Glucose (Fingerstick) 91mg/dL (70-99) Laboratory Tests Test 08/28/16 15:24 2/7/17 20:57 08/29/16 06:45 08/29/16 09:40 Glucose (Fingerstick) 72mg/dL (70-99) 74mg/dL (70-99) 82mg/dL (70-99) White Blood Count 11.7x10^3/uL (4.0-11.0) Red Blood Count 3.15x10^6/uL (3.50-5.40) Hemoglobin 9.3g/dL (12.0-15.5) Hematocrit 28.9% (36.0-47.0) Mean Corpuscular Volume 92fL (79-100) Mean Corpuscular Hemoglobin 29pg (25-35) Mean Corpuscular Hemoglobin Concent 32g/dL (31-37) Red Cell Distribution Width 15.8% (11.5-14.5) Platelet Count 176x10^3/uL (140-400) Neutrophils (%) (Auto) 80% (31-73) Lymphocytes (%) (Auto) 10% (24-48) Monocytes (%) (Auto) 7% (0-9) Eosinophils (%) (Auto) 3% (0-3) Basophils (%) (Auto) 0% (0-3) Neutrophils # (Auto) 9.4x10^3uL (1.8-7.7) Lymphocytes # (Auto) 1.2x10^3/uL (1.0-4.8) Monocytes # (Auto) 0.8x10^3/uL (0.0-1.1) Eosinophils # (Auto) 0.4x10^3/uL (0.0-0.7) Basophils # (Auto) 0.0x10^3/uL (0.0-0.2) Sodium Level 141mmol/L (136-145) Potassium Level 5.0mmol/L (3.5-5.1) Chloride Level 109mmol/L (98-107) Carbon Dioxide Level 24mmol/L (21-32) Anion Gap 8 (6-14) Blood Urea Nitrogen 24mg/dL (7-20) Creatinine 1.2mg/dL (0.6-1.0) Estimated GFR (Cockcroft-Gault) 44.8 BUN/Creatinine Ratio 20 (6-20) Glucose Level 89mg/dL (70-99) Calcium Level 8.3mg/dL (8.5-10.1) Magnesium Level 1.9mg/dL (1.8-2.4) Total Bilirubin 0.4mg/dL (0.2-1.0) Aspartate Amino Transf (AST/SGOT) 11U/L (15-37) Alanine Aminotransferase (ALT/SGPT) 10U/L (14-59) Alkaline Phosphatase 112U/L (46-116) Total Protein 5.2g/dL (6.4-8.2) Albumin 2.1g/dL (3.4-5.0) Albumin/Globulin Ratio 0.7 (1.0-1.7) Test 08/29/16 11:25 Glucose (Fingerstick) 91mg/dL (70-99) Problem List Problems Medical Problems: (1) Closed wedge compression fracture of T11 vertebra Status: Acute (2) Perforated ulcer Status: Acute Assessment/Plan s/p perforated ulcer repair try clears cont supportive care Problems: CALIXTO GOMES MD Aug 29, 2016 12:59
[2016-08-29 15:26] VITALS: BP 167/77
[2016-08-29] MEDS: ONDANSETRON PF 4 MG/2 ML VIAL. IV PRN (15:37)
[2016-08-29 19:12] VITALS: BP 172/64
[2016-08-29 23:17] VITALS: BP 125/77
[2016-08-30] VITALS (12 sets, daily range): BP systolic 132–197; BP diastolic 46–89
[2016-08-30] MEDS: POTASSIUM CL 20MEQ-0.45% NACL 1,000 ML IV SCH ×3 (02:06→17:57)
[2016-08-30 04:47] LABS: BASO % 0 % (0-3); EOS % 3 % (0-3); HEMATOCRIT 33.5 % (36.0-47.0); HEMOGLOBIN 10.8 g/dL (12.0-15.5); LYMPH # 1.6 x10^3/uL (1.0-4.8); LYMPH % 15 % (24-48); MEAN CORPUSCULAR HEMOGLOBIN 30 pg (25-35); MEAN CORPUSCULAR HGB CONC 32 g/dL (31-37); MEAN CORPUSCULAR VOLUME 92 fL (79-100); MONO % 10 % (0-9); NEUT % 71 % (31-73); PLATELET COUNT 189 x10^3/uL (140-400); RED BLOOD COUNT 3.65 x10^6/uL (3.50-5.40); RED CELL DISTRIBUTION WIDTH 15.9 % (11.5-14.5); WHITE BLOOD COUNT 10.8 x10^3/uL (4.0-11.0)
[2016-08-30 05:22] LABS: ALBUMIN 2.3 g/dL (3.4-5.0); ALBUMIN/GLOBULIN RATIO 0.6 (1.0-1.7); CALCIUM 8.7 mg/dL (8.5-10.1); CREATININE 1.2 mg/dL (0.6-1.0); GFR 44.8; MAGNESIUM 1.9 mg/dL (1.8-2.4); POTASSIUM 4.5 mmol/L (3.5-5.1); TOTAL BILIRUBIN 0.5 mg/dL (0.2-1.0); TOTAL PROTEIN 6.3 g/dL (6.4-8.2)
[2016-08-30] MEDS: METRONIDAZOLE 500mg PREMIX 100 ML IV SCH ×3 (06:03→22:03)
[2016-08-30] MEDS ORDERED: FENTANYL PF 100 MCG/2 ML VIAL. IV PRN (07:00)
[2016-08-30] MEDS ORDERED: MORPHINE SULFATE 2 MG/ML DISP.SYRIN. IV PRN (07:00)
[2016-08-30] MEDS ORDERED: IV RINGERS,LACTATED 1000ML 1,000 ML IV SCH (07:00)
[2016-08-30] MEDS ORDERED: PROCHLORPERAZINE 10 MG/2 ML VIAL. IV PRN (07:00)
[2016-08-30] MEDS ORDERED: LIDOCAINE 1% 1 ML SYRINGE. ID PRN (07:00)
[2016-08-30] MEDS ORDERED: ONDANSETRON PF 4 MG/2 ML VIAL. IV PRN (07:00)
[2016-08-30] MEDS ORDERED: HYDROMORPHONE 2 MG/ML VIAL. IV PRN (07:00)
[2016-08-30] MEDS: ENOXAPARIN 40 MG/0.4 ML DISP.SYRIN. SQ SCH (08:48)
--- NOTE | 2016-08-30 09:17 | PDOC ---
Provider Note Provider Note DATE OF f/u: 08/30/2016 c/c: f/u of Bone metastasis in a patient with a history of breast cancer. HISTORY OF PRESENT ILLNESS: The patient is a 66-year-old female who was diagnosed with breast cancer in 2011. At that time, she had noted mass in the inferior outer aspect of the left breast in 2011 and she had a mammogram that revealed a 2 cm abnormality. She underwent biopsy of this lesion on 11/26/2011, that revealed infiltrating moderately differentiated ductal carcinoma, grade 2, ER/ND positive, HER-2/kristel negative. She subsequently underwent lumpectomy and sentinel lymph node resection on 01/21/[address] Shipley. Four sentinel lymph nodes were removed and they were all negative, the invasive component was 2.5 cm. One lymph node had isolated tumor cells, it was staged as a T2 N0 (I+) M0, stage IIA breast cancer. Postoperatively, she underwent radiation therapy with 5000 cGy and in addition 1000 cGy in 5 fraction to lumpectomy cavity between 02/19/2012 and 04/02/2012. She then received adjuvant Arimidex under the direction of Dr. Tawanda Roman. She subsequently established care with ar on 06/07/2014. She then never returned for followup visit. She mentions that she had financial issues and hence she did not continue Arimidex after May 2012 and she never followed up with an oncologist since then. She was admitted to on 08/26/2016, with complaints of sudden onset of back pain that subsequently radiated to the abdomen. She underwent further workup in the Emergency Room with a chest x-ray on 08/25/2016 that did not reveal any acute abnormality. KUB on 08/26/2016, revealed no abnormalities. CT scan of the abdomen and pelvis on 08/26/2016 revealed pneumoperitoneum with mild free fluid in the abdomen and pelvis. Has marked wall thickening in the duodenal bulb and possible intramural defect of the anterior wall with the above raising suspicion of a perforated duodenal diverticulum. CT scan of the chest on 08/25/2016 revealed pneumoperitoneum as described above, metastatic disease with numerous lytic and sclerotic bone lesions with the pathologic fracture of the sternum at T11 vertebral body, left axillary tail 3 cm mass was also noted, pulmonary nodules were also noted and she had a thoracic aortic aneurysm measuring 4.5 cm in diameter. I was asked to see the patient for further evaluation and management of metastatic disease. PAST MEDICAL HISTORY: Hypertension, diabetes, migraines, history of cervical fusions, Bright's disease, chronic hearing loss, hyperlipidemia. REVIEW OF SYSTEMS: has abd pain and back pain on movement PHYSICAL EXAMINATION: GENERAL APPEARANCE: The patient is a 66-year-old female who is in no acute cardiorespiratory distress. CHEST: Bilaterally symmetrical. No crepitations or rhonchi heard. HEART: S1, S2 normal. ABDOMEN: Soft, nontender. Its distended and surgical wounds appear clean. CENTRAL NERVOUS SYSTEM: No focal deficits. IMPRESSION AND PLAN: 1. Invasive ductal carcinoma of the left breast diagnosed in 2011, ER/ND positive, HER-2/kristel negative. She underwent lumpectomy and radiation therapy and she received Arimidex till 2013 and she quit taking it because she could afford it. She now has evidence of bone metastasis and possibly lung metastasis. She has evidence of a T11 pathologic fracture and also sternal fracture. This is now suggestive of stage IV lung cancer. Agree to proceed with vertebroplasty and biopsy of the T11 vertebral body. I would recommend further workup with a bone scan and an MRI of the thoracic spine. All her questions were answered. I discussed with Dr. Sushil Zhang. Agree with radiation after bx. 2. Bone metastasis. She has numerous lytic and sclerotic bone lesions with pathologic fracture of the sternum at T11 vertebral body. Plan Xgeva as an outpatient. Plan, T11 vertebroplasty and biopsy and also radiation therapy. 3. Pulmonary nodules, thought to be due to metastatic disease from breast cancer. 4. Perforated pyloric channel ulcer, status post exploratory laparotomy and biopsy and closure of the ulcer by Dr. Mendez on 08/26/2016. Continue postoperative care. 5. Leukocytosis, reactive. Monitor. WBC better at 10.8 6. Anemia postoperative due to surgical blood loss. Monitor. 7. Renal insufficiency with a creatinine of 1.6 and a BUN of 37 on 08/27/2016. Continue to monitor. SALVADOR PERALES MD Aug 30, 2016 09:17
--- NOTE | 2016-08-30 09:30 | PDOC ---
SURGICAL PROGRESS NOTE Subjective tolerating clears, NPO now for kyphoplasty Vital Signs Vital Signs Date Time Temp Pulse Resp B/P Pulse Ox O2 Delivery O2 Flow Rate FiO2 08/30/16 07:00 98.2 64 12 197/89 95 Room Air 98.2 08/29/16 20:00 2.0 I&O Intake and Output 08/30/16 07:00 Intake Total 480 ml Output Total 90 ml Balance 390 ml Intake Oral 480 ml Drainage Total 90 ml # Voids 4 General: Alert, Oriented X3, Cooperative, No acute distress Abdomen: Soft, Other (incision c/d/i, no erythema, ABDIAZIZ serous) Labs Laboratory Tests Test 08/28/16 10:46 08/28/16 15:24 08/28/16 20:57 08/29/16 06:45 Glucose (Fingerstick) 85mg/dL (70-99) 72mg/dL (70-99) 74mg/dL (70-99) White Blood Count 11.7x10^3/uL (4.0-11.0) Red Blood Count 3.15x10^6/uL (3.50-5.40) Hemoglobin 9.3g/dL (12.0-15.5) Hematocrit 28.9% (36.0-47.0) Mean Corpuscular Volume 92fL (79-100) Mean Corpuscular Hemoglobin 29pg (25-35) Mean Corpuscular Hemoglobin Concent 32g/dL (31-37) Red Cell Distribution Width 15.8% (11.5-14.5) Platelet Count 176x10^3/uL (140-400) Neutrophils (%) (Auto) 80% (31-73) Lymphocytes (%) (Auto) 10% (24-48) Monocytes (%) (Auto) 7% (0-9) Eosinophils (%) (Auto) 3% (0-3) Basophils (%) (Auto) 0% (0-3) Neutrophils # (Auto) 9.4x10^3uL (1.8-7.7) Lymphocytes # (Auto) 1.2x10^3/uL (1.0-4.8) Monocytes # (Auto) 0.8x10^3/uL (0.0-1.1) Eosinophils # (Auto) 0.4x10^3/uL (0.0-0.7) Basophils # (Auto) 0.0x10^3/uL (0.0-0.2) Sodium Level 141mmol/L (136-145) Potassium Level 5.0mmol/L (3.5-5.1) Chloride Level 109mmol/L (98-107) Carbon Dioxide Level 24mmol/L (21-32) Anion Gap 8 (6-14) Blood Urea Nitrogen 24mg/dL (7-20) Creatinine 1.2mg/dL (0.6-1.0) Estimated GFR (Cockcroft-Gault) 44.8 BUN/Creatinine Ratio 20 (6-20) Glucose Level 89mg/dL (70-99) Calcium Level 8.3mg/dL (8.5-10.1) Magnesium Level 1.9mg/dL (1.8-2.4) Total Bilirubin 0.4mg/dL (0.2-1.0) Aspartate Amino Transf (AST/SGOT) 11U/L (15-37) Alanine Aminotransferase (ALT/SGPT) 10U/L (14-59) Alkaline Phosphatase 112U/L (46-116) Total Protein 5.2g/dL (6.4-8.2) Albumin 2.1g/dL (3.4-5.0) Albumin/Globulin Ratio 0.7 (1.0-1.7) Test 08/29/16 09:40 08/29/16 11:25 08/29/16 16:14 08/30/16 03:50 Glucose (Fingerstick) 82mg/dL (70-99) 91mg/dL (70-99) 76mg/dL (70-99) White Blood Count 10.8x10^3/uL (4.0-11.0) Red Blood Count 3.65x10^6/uL (3.50-5.40) Hemoglobin 10.8g/dL (12.0-15.5) Hematocrit 33.5% (36.0-47.0) Mean Corpuscular Volume 92fL (79-100) Mean Corpuscular Hemoglobin 30pg (25-35) Mean Corpuscular Hemoglobin Concent 32g/dL (31-37) Red Cell Distribution Width 15.9% (11.5-14.5) Platelet Count 189x10^3/uL (140-400) Neutrophils (%) (Auto) 71% (31-73) Lymphocytes (%) (Auto) 15% (24-48) Monocytes (%) (Auto) 10% (0-9) Eosinophils (%) (Auto) 3% (0-3) Basophils (%) (Auto) 0% (0-3) Neutrophils # (Auto) 7.6x10^3uL (1.8-7.7) Lymphocytes # (Auto) 1.6x10^3/uL (1.0-4.8) Monocytes # (Auto) 1.1x10^3/uL (0.0-1.1) Eosinophils # (Auto) 0.3x10^3/uL (0.0-0.7) Basophils # (Auto) 0.0x10^3/uL (0.0-0.2) Sodium Level 141mmol/L (136-145) Potassium Level 4.5mmol/L (3.5-5.1) Chloride Level 105mmol/L (98-107) Carbon Dioxide Level 23mmol/L (21-32) Anion Gap 13 (6-14) Blood Urea Nitrogen 19mg/dL (7-20) Creatinine 1.2mg/dL (0.6-1.0) Estimated GFR (Cockcroft-Gault) 44.8 BUN/Creatinine Ratio 16 (6-20) Glucose Level 95mg/dL (70-99) Calcium Level 8.7mg/dL (8.5-10.1) Magnesium Level 1.9mg/dL (1.8-2.4) Total Bilirubin 0.5mg/dL (0.2-1.0) Aspartate Amino Transf (AST/SGOT) 10U/L (15-37) Alanine Aminotransferase (ALT/SGPT) 10U/L (14-59) Alkaline Phosphatase 125U/L (46-116) Total Protein 6.3g/dL (6.4-8.2) Albumin 2.3g/dL (3.4-5.0) Albumin/Globulin Ratio 0.6 (1.0-1.7) Laboratory Tests Test 08/29/16 09:40 08/29/16 11:25 08/29/16 16:14 08/30/16 03:50 Glucose (Fingerstick) 82mg/dL (70-99) 91mg/dL (70-99) 76mg/dL (70-99) White Blood Count 10.8x10^3/uL (4.0-11.0) Red Blood Count 3.65x10^6/uL (3.50-5.40) Hemoglobin 10.8g/dL (12.0-15.5) Hematocrit 33.5% (36.0-47.0) Mean Corpuscular Volume 92fL (79-100) Mean Corpuscular Hemoglobin 30pg (25-35) Mean Corpuscular Hemoglobin Concent 32g/dL (31-37) Red Cell Distribution Width 15.9% (11.5-14.5) Platelet Count 189x10^3/uL (140-400) Neutrophils (%) (Auto) 71% (31-73) Lymphocytes (%) (Auto) 15% (24-48) Monocytes (%) (Auto) 10% (0-9) Eosinophils (%) (Auto) 3% (0-3) Basophils (%) (Auto) 0% (0-3) Neutrophils # (Auto) 7.6x10^3uL (1.8-7.7) Lymphocytes # (Auto) 1.6x10^3/uL (1.0-4.8) Monocytes # (Auto) 1.1x10^3/uL (0.0-1.1) Eosinophils # (Auto) 0.3x10^3/uL (0.0-0.7) Basophils # (Auto) 0.0x10^3/uL (0.0-0.2) Sodium Level 141mmol/L (136-145) Potassium Level 4.5mmol/L (3.5-5.1) Chloride Level 105mmol/L (98-107) Carbon Dioxide Level 23mmol/L (21-32) Anion Gap 13 (6-14) Blood Urea Nitrogen 19mg/dL (7-20) Creatinine 1.2mg/dL (0.6-1.0) Estimated GFR (Cockcroft-Gault) 44.8 BUN/Creatinine Ratio 16 (6-20) Glucose Level 95mg/dL (70-99) Calcium Level 8.7mg/dL (8.5-10.1) Magnesium Level 1.9mg/dL (1.8-2.4) Total Bilirubin 0.5mg/dL (0.2-1.0) Aspartate Amino Transf (AST/SGOT) 10U/L (15-37) Alanine Aminotransferase (ALT/SGPT) 10U/L (14-59) Alkaline Phosphatase 125U/L (46-116) Total Protein 6.3g/dL (6.4-8.2) Albumin 2.3g/dL (3.4-5.0) Albumin/Globulin Ratio 0.6 (1.0-1.7) Problem List Problems Medical Problems: (1) Closed wedge compression fracture of T11 vertebra Status: Acute (2) Perforated ulcer Status: Acute Assessment/Plan s/p perf ulcer repair clears today Continue PPI Problems: LINA LANIER APRN Aug 30, 2016 09:30
[2016-08-30] MEDS: PANTOPRAZOLE IV PUSH 40 MG VIAL. IVP SCH ×2 (09:33→20:58)
[2016-08-30] MEDS ORDERED: MIDAZOLAM HCL 2 MG/2 ML VIAL. ONE ×2 (12:35)
[2016-08-30] MEDS ORDERED: PROPOFOL 20 ML IV ONE (12:35)
[2016-08-30] MEDS ORDERED: PROPOFOL 50 ML IV ONE (12:35)
[2016-08-30] MEDS ORDERED: KETAMINE HCL 500 MG/10 ML VIAL. ONE (12:35)
[2016-08-30] MEDS ORDERED: PROPOFOL 0 ML IV ONE ×3 (12:35)
[2016-08-30] MEDS: IV NORMAL SALINE 1000ML BAG 1,000 ML IV SCH ×2 (13:00→23:00)
--- NOTE | 2016-08-30 13:20 | RAD ---
Indication breast cancer. Assess for skeletal metastatic disease. 25 mCi of technetium labeled MDP was administered. Whole body static images were obtained. No prior bone scan imaging is available. There are multiple areas of abnormal uptake compatible with metastatic disease. There is uptake at T11 consistent with the sclerotic focus seen on the recent CT. Additional foci are seen scattered in mid and upper thoracic vertebral body segments compatible with metastatic disease. Increased activity is seen in the midportion of the sternum consistent with same. There are 2 areas of increased activity in the calvarium compatible with calvarial metastatic disease. There is an isolated focus of increased activity in the lower lumbar spine which may be degenerative. Finally a single focus of increased activity is seen in a right lower, anterior, rib. IMPRESSION: Moderately widespread skeletal metastatic disease
--- NOTE | 2016-08-30 13:34 | PDOC ---
PROGRESS NOTES Chief Complaint Chief Complaint Acute abdominal pain perforated pyloric ulcer, now POD#3 repair perf ulcer obesity, BMI 34 Abdominal/back pain. Pneumoperitoneum, Free fluid in the abdomen. Diabetes 2 Hypertension. Breast cancer. likely metastatic T11 compression deformity seen on CT Bone scan shows metastatic disease to bone History of Present Illness History of Present Illness feels a little better using CONTINUITY EDITOR less + flatus alen ice chipds Vitals Vitals Vital Signs Date Time Temp Pulse Resp B/P Pulse Ox O2 Delivery O2 Flow Rate FiO2 08/30/16 11:03 98.4 58 12 144/46 94 Room Air 98.4 08/30/16 08:00 2.0 Physical Exam General: Alert, Oriented X3, Cooperative, No acute distress Heart: Regular rate, Normal S1, Normal S2, Other (2/6 systolic murmur ) Abdomen: Soft, Other (incision c/d/i, no erythema, ABDIAZIZ serous) Extremities: No edema, Normal pulses Skin: No breakdown, No significant lesion Labs LABS Laboratory Tests Test 08/29/16 16:14 08/30/16 03:50 08/30/16 10:06 Glucose (Fingerstick) 76mg/dL (70-99) 87mg/dL (70-99) White Blood Count 10.8x10^3/uL (4.0-11.0) Red Blood Count 3.65x10^6/uL (3.50-5.40) Hemoglobin 10.8g/dL (12.0-15.5) Hematocrit 33.5% (36.0-47.0) Mean Corpuscular Volume 92fL (79-100) Mean Corpuscular Hemoglobin 30pg (25-35) Mean Corpuscular Hemoglobin Concent 32g/dL (31-37) Red Cell Distribution Width 15.9% (11.5-14.5) Platelet Count 189x10^3/uL (140-400) Neutrophils (%) (Auto) 71% (31-73) Lymphocytes (%) (Auto) 15% (24-48) Monocytes (%) (Auto) 10% (0-9) Eosinophils (%) (Auto) 3% (0-3) Basophils (%) (Auto) 0% (0-3) Neutrophils # (Auto) 7.6x10^3uL (1.8-7.7) Lymphocytes # (Auto) 1.6x10^3/uL (1.0-4.8) Monocytes # (Auto) 1.1x10^3/uL (0.0-1.1) Eosinophils # (Auto) 0.3x10^3/uL (0.0-0.7) Basophils # (Auto) 0.0x10^3/uL (0.0-0.2) Sodium Level 141mmol/L (136-145) Potassium Level 4.5mmol/L (3.5-5.1) Chloride Level 105mmol/L (98-107) Carbon Dioxide Level 23mmol/L (21-32) Anion Gap 13 (6-14) Blood Urea Nitrogen 19mg/dL (7-20) Creatinine 1.2mg/dL (0.6-1.0) Estimated GFR (Cockcroft-Gault) 44.8 BUN/Creatinine Ratio 16 (6-20) Glucose Level 95mg/dL (70-99) Calcium Level 8.7mg/dL (8.5-10.1) Magnesium Level 1.9mg/dL (1.8-2.4) Total Bilirubin 0.5mg/dL (0.2-1.0) Aspartate Amino Transf (AST/SGOT) 10U/L (15-37) Alanine Aminotransferase (ALT/SGPT) 10U/L (14-59) Alkaline Phosphatase 125U/L (46-116) Total Protein 6.3g/dL (6.4-8.2) Albumin 2.3g/dL (3.4-5.0) Albumin/Globulin Ratio 0.6 (1.0-1.7) Review of Systems Review of Systems nausea some pain Assessment and Plan Assessmemt and Plan Problems Medical Problems: (1) Closed wedge compression fracture of T11 vertebra Status: Acute (2) Perforated ulcer Status: Acute Problems: Comment Review of Relevant I have reviewed the following items amggy (where applicable) has been applied. Labs Laboratory Tests Test 08/28/16 15:24 08/28/16 20:57 08/29/16 06:45 08/29/16 09:40 Glucose (Fingerstick) 72mg/dL (70-99) 74mg/dL (70-99) 82mg/dL (70-99) White Blood Count 11.7x10^3/uL (4.0-11.0) Red Blood Count 3.15x10^6/uL (3.50-5.40) Hemoglobin 9.3g/dL (12.0-15.5) Hematocrit 28.9% (36.0-47.0) Mean Corpuscular Volume 92fL (79-100) Mean Corpuscular Hemoglobin 29pg (25-35) Mean Corpuscular Hemoglobin Concent 32g/dL (31-37) Red Cell Distribution Width 15.8% (11.5-14.5) Platelet Count 176x10^3/uL (140-400) Neutrophils (%) (Auto) 80% (31-73) Lymphocytes (%) (Auto) 10% (24-48) Monocytes (%) (Auto) 7% (0-9) Eosinophils (%) (Auto) 3% (0-3) Basophils (%) (Auto) 0% (0-3) Neutrophils # (Auto) 9.4x10^3uL (1.8-7.7) Lymphocytes # (Auto) 1.2x10^3/uL (1.0-4.8) Monocytes # (Auto) 0.8x10^3/uL (0.0-1.1) Eosinophils # (Auto) 0.4x10^3/uL (0.0-0.7) Basophils # (Auto) 0.0x10^3/uL (0.0-0.2) Sodium Level 141mmol/L (136-145) Potassium Level 5.0mmol/L (3.5-5.1) Chloride Level 109mmol/L (98-107) Carbon Dioxide Level 24mmol/L (21-32) Anion Gap 8 (6-14) Blood Urea Nitrogen 24mg/dL (7-20) Creatinine 1.2mg/dL (0.6-1.0) Estimated GFR (Cockcroft-Gault) 44.8 BUN/Creatinine Ratio 20 (6-20) Glucose Level 89mg/dL (70-99) Calcium Level 8.3mg/dL (8.5-10.1) Magnesium Level 1.9mg/dL (1.8-2.4) Total Bilirubin 0.4mg/dL (0.2-1.0) Aspartate Amino Transf (AST/SGOT) 11U/L (15-37) Alanine Aminotransferase (ALT/SGPT) 10U/L (14-59) Alkaline Phosphatase 112U/L (46-116) Total Protein 5.2g/dL (6.4-8.2) Albumin 2.1g/dL (3.4-5.0) Albumin/Globulin Ratio 0.7 (1.0-1.7) Test 08/29/16 11:25 08/29/16 16:14 08/30/16 03:50 08/30/16 10:06 Glucose (Fingerstick) 91mg/dL (70-99) 76mg/dL (70-99) 87mg/dL (70-99) White Blood Count 10.8x10^3/uL (4.0-11.0) Red Blood Count 3.65x10^6/uL (3.50-5.40) Hemoglobin 10.8g/dL (12.0-15.5) Hematocrit 33.5% (36.0-47.0) Mean Corpuscular Volume 92fL (79-100) Mean Corpuscular Hemoglobin 30pg (25-35) Mean Corpuscular Hemoglobin Concent 32g/dL (31-37) Red Cell Distribution Width 15.9% (11.5-14.5) Platelet Count 189x10^3/uL (140-400) Neutrophils (%) (Auto) 71% (31-73) Lymphocytes (%) (Auto) 15% (24-48) Monocytes (%) (Auto) 10% (0-9) Eosinophils (%) (Auto) 3% (0-3) Basophils (%) (Auto) 0% (0-3) Neutrophils # (Auto) 7.6x10^3uL (1.8-7.7) Lymphocytes # (Auto) 1.6x10^3/uL (1.0-4.8) Monocytes # (Auto) 1.1x10^3/uL (0.0-1.1) Eosinophils # (Auto) 0.3x10^3/uL (0.0-0.7) Basophils # (Auto) 0.0x10^3/uL (0.0-0.2) Sodium Level 141mmol/L (136-145) Potassium Level 4.5mmol/L (3.5-5.1) Chloride Level 105mmol/L (98-107) Carbon Dioxide Level 23mmol/L (21-32) Anion Gap 13 (6-14) Blood Urea Nitrogen 19mg/dL (7-20) Creatinine 1.2mg/dL (0.6-1.0) Estimated GFR (Cockcroft-Gault) 44.8 BUN/Creatinine Ratio 16 (6-20) Glucose Level 95mg/dL (70-99) Calcium Level 8.7mg/dL (8.5-10.1) Magnesium Level 1.9mg/dL (1.8-2.4) Total Bilirubin 0.5mg/dL (0.2-1.0) Aspartate Amino Transf (AST/SGOT) 10U/L (15-37) Alanine Aminotransferase (ALT/SGPT) 10U/L (14-59) Alkaline Phosphatase 125U/L (46-116) Total Protein 6.3g/dL (6.4-8.2) Albumin 2.3g/dL (3.4-5.0) Albumin/Globulin Ratio 0.6 (1.0-1.7) Laboratory Tests Test 08/29/16 16:14 08/30/16 03:50 08/30/16 10:06 Glucose (Fingerstick) 76mg/dL (70-99) 87mg/dL (70-99) White Blood Count 10.8x10^3/uL (4.0-11.0) Red Blood Count 3.65x10^6/uL (3.50-5.40) Hemoglobin 10.8g/dL (12.0-15.5) Hematocrit 33.5% (36.0-47.0) Mean Corpuscular Volume 92fL (79-100) Mean Corpuscular Hemoglobin 30pg (25-35) Mean Corpuscular Hemoglobin Concent 32g/dL (31-37) Red Cell Distribution Width 15.9% (11.5-14.5) Platelet Count 189x10^3/uL (140-400) Neutrophils (%) (Auto) 71% (31-73) Lymphocytes (%) (Auto) 15% (24-48) Monocytes (%) (Auto) 10% (0-9) Eosinophils (%) (Auto) 3% (0-3) Basophils (%) (Auto) 0% (0-3) Neutrophils # (Auto) 7.6x10^3uL (1.8-7.7) Lymphocytes # (Auto) 1.6x10^3/uL (1.0-4.8) Monocytes # (Auto) 1.1x10^3/uL (0.0-1.1) Eosinophils # (Auto) 0.3x10^3/uL (0.0-0.7) Basophils # (Auto) 0.0x10^3/uL (0.0-0.2) Sodium Level 141mmol/L (136-145) Potassium Level 4.5mmol/L (3.5-5.1) Chloride Level 105mmol/L (98-107) Carbon Dioxide Level 23mmol/L (21-32) Anion Gap 13 (6-14) Blood Urea Nitrogen 19mg/dL (7-20) Creatinine 1.2mg/dL (0.6-1.0) Estimated GFR (Cockcroft-Gault) 44.8 BUN/Creatinine Ratio 16 (6-20) Glucose Level 95mg/dL (70-99) Calcium Level 8.7mg/dL (8.5-10.1) Magnesium Level 1.9mg/dL (1.8-2.4) Total Bilirubin 0.5mg/dL (0.2-1.0) Aspartate Amino Transf (AST/SGOT) 10U/L (15-37) Alanine Aminotransferase (ALT/SGPT) 10U/L (14-59) Alkaline Phosphatase 125U/L (46-116) Total Protein 6.3g/dL (6.4-8.2) Albumin 2.3g/dL (3.4-5.0) Albumin/Globulin Ratio 0.6 (1.0-1.7) Microbiology 08/26/16 Gram Stain - Final, Complete 08/26/16 Urine Culture - Final, Complete 08/26/16 Urine Culture Result 1 (LATASHA) - Final, Complete Medications Current Medications Nitroglycerin (Nitrostat) 0.4 mg PRN Q5MIN PRN SL CP RATING > 1/10 Last administered on 08/26/16t 00:32; Start 08/25/16 at 23:45; Stop 08/26/16 at 23:44; Status DC Fentanyl Citrate 25 mcg 25 mcg PRN Q15MIN PRN IV PAIN GREATER THAN 3/10 Last administered on 08/26/16 02:43; Start 08/25/16 at 23:45; Stop 08/26/16 at 14:40; Status DC Sodium Chloride (Iv Sodium Chloride 0.9% 500ml Bag) 500 ml @ 500 mls/hr 1X ONCE IV Last administered on 08/26/16 00:32; Start 08/26/16 at 00:30; Stop at 01:29; Status DC Ondansetron HCl (Zofran) 4 mg STK-MED ONCE .ROUTE ; Start 08/26/16 at 01:44; Stop 08/26/16 at 01:45; Status DC Ondansetron HCl 4 mg 4 mg 1X ONCE IV Last administered on 08/26/16 01:45; Start 08/26/16 at 02:00; Stop 08/26/16 at 02:03; Status DC Metronidazole 100 ml @ 100 mls/hr Q8HRS IV Last administered on 08/30/16 06:03 ; Start 08/26/16 at 14:00 Metronidazole 100 ml @ 100 mls/hr 1X ONCE IV Last administered on 08/26/16 02 :38; Start 08/26/16 at 02:30; Stop 08/26/16 at 03:29; Status DC Cefepime HCl 2 gm/ Sodium Chloride 100 ml @ 200 mls/hr 1X ONCE IV Last administered on 08/26/16 03:22; Start 08/26/16 at 03:00; Stop 08/26/16 at 03:29; Status DC Sodium Chloride (Iv Sodium Chloride 0.9% 1000ml Bag) 1,000 ml @ 125 mls/hr 1X ONCE IV Last administered on 08/26/16 02:41; Start 08/26/16 at 03:00; Stop at 10:59; Status DC Fentanyl Citrate (Fentanyl 2ml Vial) 50 mcg PRN Q15MIN PRN IV PAIN GREATER THAN 3/10 Last administered on 08/26/16 07:42; Start 08/26/16 at 02:45; Stop 08/26 at 14:40; Status DC Ondansetron HCl 4 mg 4 mg 1X ONCE PO ; Start 08/26/16 at 03:00; Stop 08/26/16 at 03:01; Status DC Metronidazole (FLAGYL 500Mmg PREMIX) 100 ml @ 100 mls/hr 1X ONCE IV Last administered on 08/26/16 05:12; Start 08/26/16 at 04:30; Stop 08/26/16 at 05:29; Status DC Hydromorphone HCl (Dilaudid) 1 mg 1X ONCE IV Last administered on 08/26/16 04: 29; Start 08/26/16 at 04:30; Stop 08/26/16 at 04:31; Status DC Fentanyl Citrate (Fentanyl 5ml Vial) 250 mcg STK-MED ONCE .ROUTE ; Start at 04:41; Stop 08/26/16 at 04:42; Status DC Succinylcholine Chloride (Anectine) 200 mg STK-MED ONCE .ROUTE ; Start 08/26/16 at 04:42; Stop 08/26/16 at 04:43; Status DC Rocuronium [place] (Zemuron) 50 mg STK-MED ONCE .ROUTE ; Start 08/26/16 at 04:42 ; Stop 08/26/16 at 04:43; Status DC Ondansetron HCl (Zofran) 4 mg PRN Q6HRS PRN IV Nausea; Start 08/26/16 at 04:45; Stop 08/26/16 at 14:42; Status DC Fentanyl Citrate (Fentanyl 2ml Vial) 25 mcg PRN Q5MIN PRN IV MILD PAIN; Start 08/26/16 at 04:45; Stop 08/26/16 at 14:41; Status DC Fentanyl Citrate (Fentanyl 2ml Vial) 50 mcg PRN Q5MIN PRN IV MODERATE PAIN; Start 08/26/16 at 04:45; Stop 08/26/16 at 14:42; Status DC Morphine Sulfate 1 mg 1 mg PRN Q10MIN PRN IV SEVERE PAIN; Start 08/26/16 at 04: 45; Stop 08/26/16 at 14:42; Status DC Lactated Ringer's (Iv Lactated Ringers) 1,000 ml @ 30 mls/hr Q24H IV ; Start at 04:43; Stop 08/26/16 at 16:42; Status DC Lidocaine HCl 2 ml 1X PRN PRN ID IV START; Start 08/26/16 at 04:45; Stop at 14:42; Status DC Hydromorphone HCl (Dilaudid) 0.5 mg PRN Q10MIN PRN IV SEV PAIN,Second choice; Start 08/26/16 at 04:45; Stop 08/26/16 at 14:42; Status DC Prochlorperazine Edisylate 5 mg 5 mg PACU PRN PRN IV NAUSEA; Start 08/26/16 at 04:45; Stop 08/26/16 at 14:42; Status DC Propofol (Diprivan) 20 ml @ As Directed STK-MED ONCE IV ; Start 08/26/16 at 04:44 ; Stop 08/26/16 at 04:45; Status DC Lidocaine HCl (Lidocaine Pf 2% Vial) 5 ml STK-MED ONCE .ROUTE ; Start 08/26/16 at 04:44; Stop 08/26/16 at 04:45; Status DC Sevoflurane (Ultane) 60 ml STK-MED ONCE IH ; Start 08/26/16 at 06:07; Stop at 06:08; Status DC Phenylephrine HCl 1 mg STK-MED ONCE IV ; Start 08/26/16 at 06:12; Stop 08/26/16 at 06:13; Status DC Dexamethasone Sodium Phosphate (Decadron) 20 mg STK-MED ONCE .ROUTE ; Start 08/26 at 06:12; Stop 08/26/16 at 06:13; Status DC Ondansetron HCl (Zofran) 4 mg STK-MED ONCE .ROUTE ; Start 08/26/16 at 06:12; Stop 08/26/16 at 06:13; Status DC Glycopyrrolate (Robinul) 1 mg STK-MED ONCE .ROUTE ; Start 08/26/16 at 06:13; Stop 08/26/16 at 06:14; Status DC Neostigmine Methylsulfate 5 mg STK-MED ONCE .ROUTE ; Start 08/26/16 at 06:13; Stop 08/26/16 at 06:14; Status DC Diphenhydramine HCl (Benadryl) 25 mg PRN Q6HRS PRN IV ITCHING; Start 08/26/16 at 07:00 Enoxaparin Sodium (Lovenox 40mg Syringe) 40 mg Q12HR SQ Last administered on 10:30; Start 08/26/16 at 09:00; Stop 08/27/16 at 16:33; Status DC Sodium Chloride 3 ml 3 ml QSHIFT PRN IV AFTER MEDS AND BLOOD DRAWS; Start at 07:00 Potassium Chloride/Sodium Chloride 1,000 ml @ 100 mls/hr Q10H IV Last administered on 08/30/16 02:06; Start 08/26/16 at 06:53 Hydromorphone HCl (Dilaudid Standard CONTINUITY EDITOR) 30 ml @ 0 mls/hr CONT PRN PRN IV PROTOCOL Last administered on 08/26/16 07:41; Start 08/26/16 at 07:00; Stop at 09:42; Status DC Ondansetron HCl (Zofran) 4 mg PRN Q6HRS PRN IV NAUESA, 1ST CHOICE Last administered on 08/29/16 15:37; Start 08/26/16 at 07:00 Throat Lozenges (Chloraseptic) 1 spray PRN Q2HR PRN PO SORE THROAT; Start at 07:00 Throat Lozenges 1 noreen 1 noreen PRN Q2HRS PRN PO SORE THROAT; Start 08/26/16 at 07: 00 Hydromorphone HCl 30 ml @ 0 mls/hr CONT PRN PRN IV PROTOCOL; Start 08/26/16 at 09:45; Stop 08/26/16 at 12:16; Status DC Hydromorphone HCl (Dilaudid Standard CONTINUITY EDITOR) 30 ml @ 0 mls/hr CONT PRN PRN IV PROTOCOL; Start 08/26/16 at 12:15; Stop 08/26/16 at 20:05; Status DC Pantoprazole Sodium (Protonix Vial) 40 mg BID IVP Last administered on 09:33; Start 08/26/16 at 21:00 Labetalol HCl 20 mg 20 mg PRN Q2HR PRN IVP HYPERTENSION, SEE COMMENTS Last administered on 08/30/16 09:34; Start 08/26/16 at 13:15 Sodium Chloride 1,000 ml @ 1,000 mls/hr 1X ONCE IV ; Start 08/26/16 at 23:00; Stop 08/26/16 at 23:59; Status DC Hydromorphone HCl (Dilaudid Standard CONTINUITY EDITOR) 30 ml @ 0 mls/hr CONT PRN PRN IV PROTOCOL Last administered on 08/28/16 22:12; Start 08/26/16 at 20:15 Enoxaparin Sodium (Lovenox 40mg Syringe) 40 mg Q24H SQ Last administered on 08/29 09:47; Start 08/28/16 at 09:00 Ondansetron HCl (Zofran) 4 mg PRN Q6HRS PRN IV Nausea; Start 08/30/16 at 07:00; Stop 08/31/16 at 06:59 Fentanyl Citrate (Fentanyl 2ml Vial) 25 mcg PRN Q5MIN PRN IV MILD PAIN; Start 08/30/16 at 07:00; Stop 08/31/16 at 06:59 Fentanyl Citrate (Fentanyl 2ml Vial) 50 mcg PRN Q5MIN PRN IV MODERATE PAIN; Start 08/30/16 at 07:00; Stop 08/31/16 at 06:59 Morphine Sulfate 1 mg 1 mg PRN Q10MIN PRN IV SEVERE PAIN; Start 08/30/16 at 07: 00; Stop 08/31/16 at 06:59 Lactated Ringer's (Iv Lactated Ringers) 1,000 ml @ 0 mls/hr Q0M IV ; Start 08/30 at 07:00; Stop 08/30/16 at 18:59 Lidocaine HCl 2 ml 1X PRN PRN ID IV START; Start 08/30/16 at 07:00; Stop at 06:59 Hydromorphone HCl (Dilaudid) 0.5 mg PRN Q10MIN PRN IV SEVERE PAIN, Second choice; Start 08/30/16 at 07:00; Stop 08/31/16 at 06:59 Prochlorperazine Edisylate 5 mg 5 mg PACU PRN PRN IV NAUSEA; Start 08/30/16 at 07:00; Stop 08/31/16 at 06:59 Propofol 50 ml @ As Directed STK-MED ONCE IV ; Start 08/30/16 at 12:35; Stop 08/30 at 12:36; Status DC Propofol 50 ml @ As Directed STK-MED ONCE IV ; Start 08/30/16 at 12:35; Stop 08/30 at 12:36; Status DC Propofol 20 ml @ As Directed STK-MED ONCE IV ; Start 08/30/16 at 12:35; Stop 08/30 at 12:36; Status DC Propofol 20 ml @ As Directed STK-MED ONCE IV ; Start 08/30/16 at 12:35; Stop 08/30 at 12:36; Status DC Propofol (Diprivan) 20 ml @ As Directed STK-MED ONCE IV ; Start 08/30/16 at 12:35 ; Stop 08/30/16 at 12:36; Status DC Midazolam HCl (Versed) 2 mg STK-MED ONCE .ROUTE ; Start 08/30/16 at 12:35; Stop 08/30/16 at 12:36; Status DC Midazolam HCl (Versed) 2 mg STK-MED ONCE .ROUTE ; Start 08/30/16 at 12:35; Stop 08/30/16 at 12:36; Status DC Ketamine HCl 500 mg STK-MED ONCE .ROUTE ; Start 08/30/16 at 12:35; Stop 08/30/16 at 12:36; Status DC Active Scripts Active Reported Cetirizine Hcl 1 Mg/1 Ml Solution 10 Mg PO Hydrocodone-Apap 7.5-325 (Hydrocodone Bit/Acetaminophen) 1 Each Tablet 1 Tab PO PRN Q6HRS PRN Fioricet 50-300-40 Mg Capsule (Butalb/Acetaminophen/Caffeine) 1 Each Capsule 1 Each PO PRN Q6-8HRS PRN Voltaren-Xr (Diclofenac Sodium) 100 Mg Tab.er.24h 75 Mg PO [id number] Ambien (Zolpidem Tartrate) 10 Mg Tablet 10 Mg PO HS PRN Propranolol Hcl 80 Mg Cap.sa.24h 1 Cap PO DAILY Vitals/I & O Vital Sign - Last 24 Hours 08/29/16 08/29/16 08/29/16 08/29/16 15:26 19:12 20:00 23:17 Temp 98.4 97.7 97.9 98.4 97.7 97.9 Pulse 62 71 69 Resp 20 20 18 B/P 167/77 172/64 125/77 Pulse Ox 98 100 95 O2 Delivery Room Air Room Air Nasal Cannula Room Air O2 Flow Rate 2.0 08/30/16 08/30/16 08/30/16 08/30/16 03:12 07:00 08:00 09:34 Temp 97.7 98.2 97.7 98.2 Pulse 61 64 64 Resp 18 12 B/P 178/65 197/89 197/89 Pulse Ox 90 95 O2 Delivery Room Air Room Air Nasal Cannula O2 Flow Rate 2.0 08/30/16 11:03 Temp 98.4 98.4 Pulse 58 Resp 12 B/P 144/46 Pulse Ox 94 O2 Delivery Room Air Intake and Output 08/29/16 08/29/16 08/30/16 15:00 23:00 07:00 Intake Total 120 ml 360 ml Output Total 90 ml Balance 30 ml 360 ml KENYETTA RUTH MD Aug 30, 2016 13:33
--- NOTE | 2016-08-30 14:09 | RAD ---
PROCEDURE MRI thoracic spine without contrast. HISTORY T11 pathologic compression fracture, history of breast cancer TECHNIQUE Multiplanar, multi sequential non contrast MR imaging was performed of the thoracic spine. Contrast: None COMPARISON There is no previous similar exam available. FINDINGS There is mild central compression deformity of T11, large area of heterogeneous signal replacing the entirety of the T11 vertebral body. There is mild bony of the foot posterior cortex, also some thin epidural signal abnormality dorsal to the T11 vertebral body. There is facet degenerative change and buckling of the ligamentum flavum at T10-11. There is fairly severe spinal stenosis at T10-11 primarily from buckling of the ligamentum flavum and facet degenerative change, effacement of subarachnoid space with central canal narrowed to 4-5 millimeters. There is suggestion of subtle increased T2 and STIR signal abnormality of the cord at this level. There are other edematous marrow lesions such as at T12, T10, T9, T7, T6, T5. There is some involvement of the posterior elements most notable on the left at T5, bilaterally at T11, and also on the right at T1. Vertebral body AP alignment is adequate. There is mild moderate left and mild right T10-11 neural foramina compromise in part from facets, minimal narrowing bilaterally at T11-12. There is small dependent right pleural effusion, trace left pleural effusion. Poorly evaluated, there may be aneurysmal dilatation of the ascending thoracic aorta on the order of 4 centimeters. IMPRESSION 1. There are findings of osseous metastatic disease. T11 lesion results in mild bowing of the posterior cortex also with mild epidural extent of mass. There is fairly severe spinal stenosis at T10-11 primarily from buckling of the ligamentum flavum and facet degenerative change, effacement of subarachnoid space at this level and likely mild cord edema. 2. Poorly evaluated, there may be aneurysmal dilatation of the ascending thoracic aorta on the order of 4 centimeters. 3. There is small dependent right pleural effusion. Electronically signed by: Peter Muñoz MD (Aug 30, 2016 14:07:54)
[2016-08-30] MEDS: FENTANYL PF 100 MCG/2 ML VIAL. IV PRN ×2 (14:16→14:48)
[2016-08-30] MEDS ORDERED: NALOXONE 0.4 MG/ML VIAL. ONE (15:37)
[2016-08-30] MEDS ORDERED: MIDAZOLAM HCL/PF 5 MG/5 ML VIAL ONE (15:37)
[2016-08-30] MEDS ORDERED: FLUMAZENIL 0.5 MG/5 ML VIAL. IV ONE (15:37)
[2016-08-30] MEDS ORDERED: FENTANYL PF 250 MCG/5 ML VIAL. ONE (15:38)
[2016-08-30] MEDS ORDERED: LIDOCAINE 1% / SOD BICARB 8.4% 20 ML VIAL. IJ ONE ×2 (15:45→16:00)
[2016-08-30] MEDS ORDERED: MIDAZOLAM HCL/PF 5 MG/5 ML VIAL IV ONE (16:00)
[2016-08-30] MEDS ORDERED: FENTANYL PF 250 MCG/5 ML VIAL. IV ONE (16:00)
--- NOTE | 2016-08-30 16:30 | PDOC ---
BRIEF OPERATIVE NOTE Pre-Op Diagnosis Metastatic breast cancer Post-Op Diagnosis same Procedure Performed T4 biopsy Surgeon Ana Lilia Anesthesia Type: Conscious Sedation Specimens Obtained 1 x 10g core Complications No immediate WILLIAM FRANCISCO MD Aug 30, 2016 16:30
--- NOTE | 2016-08-30 16:30 | PDOC ---
MODERATE SEDATION ASSESSMENT RISKS/ALTERNATIVES Risks/Alternatives Risks and alternatives of this type of sedation and procedure discussed with: RISK/ALTERNATIVES: Patient H & P ON CHART H & P H & P on chart and reviewed for co-morbid conditions and appropriate labs. H&P ON CHART: Yes STATUS PREG STATUS ASSESSED: Yes MEDS/ALLERGIES REVIEWED Meds/Allergies Reviewed Medications and Allergies including time and route of recently administered narcotics and sedatives. MEDS/ALLERGIES REVIEWED: Yes ASA RATING ASA RATING: II AIRWAY ASSESSMENT Airway Assessment Airway patency, oral function limitations, presence of caps, crowns, dentures, partials, and ability to extend neck assessed. AIRWAY ASSESSMENT: Yes MALLAMPATI SCORE MALLAMPATI SCORE: II PRE-SEDATION ASSESSMENT PRE-SEDATION ASSESSMENT: Yes WILLIAM FRANCSICO MD Aug 30, 2016 16:30
[2016-08-31] VITALS (7 sets, daily range): BP systolic 141–174; BP diastolic 49–95
[2016-08-31] MEDS: HYDROMORPHONE STANDARD PCA 30 ML IV PRN (03:20)
[2016-08-31 03:43] LABS: BASO % 0 % (0-3); EOS % 2 % (0-3); HEMATOCRIT 29.5 % (36.0-47.0); HEMOGLOBIN 9.6 g/dL (12.0-15.5); LYMPH # 1.3 x10^3/uL (1.0-4.8); LYMPH % 12 % (24-48); MEAN CORPUSCULAR HEMOGLOBIN 30 pg (25-35); MEAN CORPUSCULAR HGB CONC 33 g/dL (31-37); MEAN CORPUSCULAR VOLUME 91 fL (79-100); MONO % 11 % (0-9); NEUT % 74 % (31-73); PLATELET COUNT 171 x10^3/uL (140-400); RED BLOOD COUNT 3.24 x10^6/uL (3.50-5.40); RED CELL DISTRIBUTION WIDTH 15.6 % (11.5-14.5); WHITE BLOOD COUNT 10.8 x10^3/uL (4.0-11.0)
[2016-08-31 03:56] LABS: ALBUMIN 2.1 g/dL (3.4-5.0); ALBUMIN/GLOBULIN RATIO 0.6 (1.0-1.7); CALCIUM 8.7 mg/dL (8.5-10.1); CREATININE 1.2 mg/dL (0.6-1.0); GFR 44.8; MAGNESIUM 1.9 mg/dL (1.8-2.4); POTASSIUM 4.5 mmol/L (3.5-5.1); TOTAL BILIRUBIN 0.6 mg/dL (0.2-1.0); TOTAL PROTEIN 5.8 g/dL (6.4-8.2)
[2016-08-31] MEDS: POTASSIUM CL 20MEQ-0.45% NACL 1,000 ML IV SCH ×2 (04:12→13:19)
[2016-08-31] MEDS: METRONIDAZOLE 500mg PREMIX 100 ML IV SCH ×3 (05:44→23:39)
--- NOTE | 2016-08-31 08:32 | PDOC ---
LINA LANIER INFECTIOUS DISEASE TECHNICIAN 08/31/16 0832: SURGICAL PROGRESS NOTE Subjective cardiac arrhythmias last night cardiology following, npo currently tolerated clears Vital Signs Vital Signs Date Time Temp Pulse Resp B/P Pulse Ox O2 Delivery O2 Flow Rate FiO2 08/31/16 07:00 98.2 60 18 153/60 96 Nasal Cannula 2.0 98.2 I&O Intake and Output 08/31/16 07:00 Intake Total 5930 ml Output Total 1185 ml Balance 4745 ml Intake Oral 560 ml IV Total 1350 ml Other 4020 ml Output Urine Total 1075 ml Drainage Total 110 ml # Voids 4 General: Alert, Oriented X3, Cooperative, No acute distress Abdomen: Soft, Other (ND, incision c/d/i, no erythema, ABDIAZIZ serous) Labs Laboratory Tests Test 08/29/16 09:40 08/29/16 11:25 08/29/16 16:14 08/30/16 03:50 Glucose (Fingerstick) 82mg/dL (70-99) 91mg/dL (70-99) 76mg/dL (70-99) White Blood Count 10.8x10^3/uL (4.0-11.0) Red Blood Count 3.65x10^6/uL (3.50-5.40) Hemoglobin 10.8g/dL (12.0-15.5) Hematocrit 33.5% (36.0-47.0) Mean Corpuscular Volume 92fL (79-100) Mean Corpuscular Hemoglobin 30pg (25-35) Mean Corpuscular Hemoglobin Concent 32g/dL (31-37) Red Cell Distribution Width 15.9% (11.5-14.5) Platelet Count 189x10^3/uL (140-400) Neutrophils (%) (Auto) 71% (31-73) Lymphocytes (%) (Auto) 15% (24-48) Monocytes (%) (Auto) 10% (0-9) Eosinophils (%) (Auto) 3% (0-3) Basophils (%) (Auto) 0% (0-3) Neutrophils # (Auto) 7.6x10^3uL (1.8-7.7) Lymphocytes # (Auto) 1.6x10^3/uL (1.0-4.8) Monocytes # (Auto) 1.1x10^3/uL (0.0-1.1) Eosinophils # (Auto) 0.3x10^3/uL (0.0-0.7) Basophils # (Auto) 0.0x10^3/uL (0.0-0.2) Sodium Level 141mmol/L (136-145) Potassium Level 4.5mmol/L (3.5-5.1) Chloride Level 105mmol/L (98-107) Carbon Dioxide Level 23mmol/L (21-32) Anion Gap 13 (6-14) Blood Urea Nitrogen 19mg/dL (7-20) Creatinine 1.2mg/dL (0.6-1.0) Estimated GFR (Cockcroft-Gault) 44.8 BUN/Creatinine Ratio 16 (6-20) Glucose Level 95mg/dL (70-99) Calcium Level 8.7mg/dL (8.5-10.1) Magnesium Level 1.9mg/dL (1.8-2.4) Total Bilirubin 0.5mg/dL (0.2-1.0) Aspartate Amino Transf (AST/SGOT) 10U/L (15-37) Alanine Aminotransferase (ALT/SGPT) 10U/L (14-59) Alkaline Phosphatase 125U/L (46-116) Total Protein 6.3g/dL (6.4-8.2) Albumin 2.3g/dL (3.4-5.0) Albumin/Globulin Ratio 0.6 (1.0-1.7) Test 08/30/16 10:06 08/30/16 16:59 08/30/16 20:41 08/31/16 01:38 Glucose (Fingerstick) 87mg/dL (70-99) 105mg/dL (70-99) 92mg/dL (70-99) Magnesium Level 2.0mg/dL (1.8-2.4) Test 08/31/16 01:45 08/31/16 07:17 White Blood Count 10.8x10^3/uL (4.0-11.0) Red Blood Count 3.24x10^6/uL (3.50-5.40) Hemoglobin 9.6g/dL (12.0-15.5) Hematocrit 29.5% (36.0-47.0) Mean Corpuscular Volume 91fL (79-100) Mean Corpuscular Hemoglobin 30pg (25-35) Mean Corpuscular Hemoglobin Concent 33g/dL (31-37) Red Cell Distribution Width 15.6% (11.5-14.5) Platelet Count 171x10^3/uL (140-400) Neutrophils (%) (Auto) 74% (31-73) Lymphocytes (%) (Auto) 12% (24-48) Monocytes (%) (Auto) 11% (0-9) Eosinophils (%) (Auto) 2% (0-3) Basophils (%) (Auto) 0% (0-3) Neutrophils # (Auto) 8.1x10^3uL (1.8-7.7) Lymphocytes # (Auto) 1.3x10^3/uL (1.0-4.8) Monocytes # (Auto) 1.2x10^3/uL (0.0-1.1) Eosinophils # (Auto) 0.3x10^3/uL (0.0-0.7) Basophils # (Auto) 0.0x10^3/uL (0.0-0.2) Sodium Level 142mmol/L (136-145) Potassium Level 4.5mmol/L (3.5-5.1) Chloride Level 107mmol/L (98-107) Carbon Dioxide Level 22mmol/L (21-32) Anion Gap 13 (6-14) Blood Urea Nitrogen 17mg/dL (7-20) Creatinine 1.2mg/dL (0.6-1.0) Estimated GFR (Cockcroft-Gault) 44.8 BUN/Creatinine Ratio 14 (6-20) Glucose Level 107mg/dL (70-99) Calcium Level 8.7mg/dL (8.5-10.1) Magnesium Level 1.9mg/dL (1.8-2.4) Total Bilirubin 0.6mg/dL (0.2-1.0) Aspartate Amino Transf (AST/SGOT) 10U/L (15-37) Alanine Aminotransferase (ALT/SGPT) 9U/L (14-59) Alkaline Phosphatase 114U/L (46-116) Total Protein 5.8g/dL (6.4-8.2) Albumin 2.1g/dL (3.4-5.0) Albumin/Globulin Ratio 0.6 (1.0-1.7) Glucose (Fingerstick) 96mg/dL (70-99) Laboratory Tests Test 08/30/16 10:06 08/30/16 16:59 08/30/16 20:41 08/31/16 01:38 Glucose (Fingerstick) 87mg/dL (70-99) 105mg/dL (70-99) 92mg/dL (70-99) Magnesium Level 2.0mg/dL (1.8-2.4) Test 08/31/16 01:45 08/31/16 07:17 White Blood Count 10.8x10^3/uL (4.0-11.0) Red Blood Count 3.24x10^6/uL (3.50-5.40) Hemoglobin 9.6g/dL (12.0-15.5) Hematocrit 29.5% (36.0-47.0) Mean Corpuscular Volume 91fL (79-100) Mean Corpuscular Hemoglobin 30pg (25-35) Mean Corpuscular Hemoglobin Concent 33g/dL (31-37) Red Cell Distribution Width 15.6% (11.5-14.5) Platelet Count 171x10^3/uL (140-400) Neutrophils (%) (Auto) 74% (31-73) Lymphocytes (%) (Auto) 12% (24-48) Monocytes (%) (Auto) 11% (0-9) Eosinophils (%) (Auto) 2% (0-3) Basophils (%) (Auto) 0% (0-3) Neutrophils # (Auto) 8.1x10^3uL (1.8-7.7) Lymphocytes # (Auto) 1.3x10^3/uL (1.0-4.8) Monocytes # (Auto) 1.2x10^3/uL (0.0-1.1) Eosinophils # (Auto) 0.3x10^3/uL (0.0-0.7) Basophils # (Auto) 0.0x10^3/uL (0.0-0.2) Sodium Level 142mmol/L (136-145) Potassium Level 4.5mmol/L (3.5-5.1) Chloride Level 107mmol/L (98-107) Carbon Dioxide Level 22mmol/L (21-32) Anion Gap 13 (6-14) Blood Urea Nitrogen 17mg/dL (7-20) Creatinine 1.2mg/dL (0.6-1.0) Estimated GFR (Cockcroft-Gault) 44.8 BUN/Creatinine Ratio 14 (6-20) Glucose Level 107mg/dL (70-99) Calcium Level 8.7mg/dL (8.5-10.1) Magnesium Level 1.9mg/dL (1.8-2.4) Total Bilirubin 0.6mg/dL (0.2-1.0) Aspartate Amino Transf (AST/SGOT) 10U/L (15-37) Alanine Aminotransferase (ALT/SGPT) 9U/L (14-59) Alkaline Phosphatase 114U/L (46-116) Total Protein 5.8g/dL (6.4-8.2) Albumin 2.1g/dL (3.4-5.0) Albumin/Globulin Ratio 0.6 (1.0-1.7) Glucose (Fingerstick) 96mg/dL (70-99) Problem List Problems Medical Problems: (1) Closed wedge compression fracture of T11 vertebra Status: Acute (2) Perforated ulcer Status: Acute Assessment/Plan s/p perf ulcer repair ok to advance to fulls once cardiac eval complete Problems: CALIXTO GOMES MD 08/31/16 0913: SURGICAL PROGRESS NOTE Assessment/Plan Pt comfortable, feels like hit by a truck, but improving abd soft, ABDIAZIZ serous agree with cardiac eval and ADAT pending this Problems: LINA LANIER APRN Aug 31, 2016 08:32 CALIXTO GOMES MD Aug 31, 2016 09:13
[2016-08-31] MEDS: ENOXAPARIN 40 MG/0.4 ML DISP.SYRIN. SQ SCH (08:39)
[2016-08-31] MEDS: PANTOPRAZOLE IV PUSH 40 MG VIAL. IVP SCH ×2 (08:39→20:43)
[2016-08-31] MEDS: IV NORMAL SALINE 1000ML BAG 1,000 ML IV SCH (08:40)
--- NOTE | 2016-08-31 08:58 | PDOC ---
Provider Note Provider Note DATE OF f/u: 08/31/2016 c/c: f/u of Bone metastasis in a patient with a history of breast cancer. HISTORY OF PRESENT ILLNESS: The patient is a 66-year-old female who was diagnosed with breast cancer in 2011. At that time, she had noted mass in the inferior outer aspect of the left breast in 2011 and she had a mammogram that revealed a 2 cm abnormality. She underwent biopsy of this lesion on 11/26/2011, that revealed infiltrating moderately differentiated ductal carcinoma, grade 2, ER/OK positive, HER-2/kristel negative. She subsequently underwent lumpectomy and sentinel lymph node resection on 01/21/[address] Shipley. Four sentinel lymph nodes were removed and they were all negative, the invasive component was 2.5 cm. One lymph node had isolated tumor cells, it was staged as a T2 N0 (I+) M0, stage IIA breast cancer. Postoperatively, she underwent radiation therapy with 5000 cGy and in addition 1000 cGy in 5 fraction to lumpectomy cavity between 02/19/2012 and 04/02/2012. She then received adjuvant Arimidex under the direction of Dr. Tawanda Roman. She subsequently established care with [facility] on 06/07/2014. She then never returned for followup visit. She mentions that she had financial issues and hence she did not continue Arimidex after May 2012 and she never followed up with an oncologist since then. She was admitted to [facility] on 08/26/2016, with complaints of sudden onset of back pain that subsequently radiated to the abdomen. She underwent further workup in the Emergency Room with a chest x-ray on 08/25/2016 that did not reveal any acute abnormality. KUB on 08/26/2016, revealed no abnormalities. CT scan of the abdomen and pelvis on 08/26/2016 revealed pneumoperitoneum with mild free fluid in the abdomen and pelvis. Has marked wall thickening in the duodenal bulb and possible intramural defect of the anterior wall with the above raising suspicion of a perforated duodenal diverticulum. CT scan of the chest on 08/25/2016 revealed pneumoperitoneum as described above, metastatic disease with numerous lytic and sclerotic bone lesions with the pathologic fracture of the sternum at T11 vertebral body, left axillary tail 3 cm mass was also noted, pulmonary nodules were also noted and she had a thoracic aortic aneurysm measuring 4.5 cm in diameter. I was asked to see the patient for further evaluation and management of metastatic disease. PAST MEDICAL HISTORY: Hypertension, diabetes, migraines, history of cervical fusions, Bright's disease, chronic hearing loss, hyperlipidemia. REVIEW OF SYSTEMS: 12 point ROS done - pertinent positives: has abd pain and back pain on movement PHYSICAL EXAMINATION: GENERAL APPEARANCE: The patient is a 66-year-old female who is in no acute cardiorespiratory distress. CHEST: Bilaterally symmetrical. No crepitations or rhonchi heard. HEART: S1, S2 normal. ABDOMEN: Soft, nontender. Its distended and surgical wounds appear clean. CENTRAL NERVOUS SYSTEM: No focal deficits. IMPRESSION AND PLAN: 1. Invasive ductal carcinoma of the left breast diagnosed in 2011, ER/OK positive, HER-2/kristel negative. She underwent lumpectomy and radiation therapy and she received Arimidex till 2013 and she quit taking it because she could afford it. She now has evidence of bone metastasis and possibly lung metastasis. She has evidence of a T11 pathologic fracture and also sternal fracture. This is now suggestive of stage IV lung cancer. Vertebroplasty and biopsy of the T11 vertebral body was canceled due to potential spinal cord compression I d/w Dr Sung. Bone bx was done from another location. Bone scan 08/30/16: There are multiple areas of abnormal uptake compatible with metastatic disease. There is uptake at T11 consistent with the sclerotic focus seen on the recent CT. Additional foci are seen scattered in mid and upper thoracic vertebral body segments compatible with metastatic disease. Increased activity is seen in the midportion of the sternum consistent with same. There are 2 areas of increased activity in the calvarium compatible with calvarial metastatic disease. There is an isolated focus of increased activity in the lower lumbar spine which may be degenerative. Finally a single focus of increased activity is seen in a right lower, anterior, rib. MRI of the thoracic 08/30/16: . There are findings of osseous metastatic disease. T11 lesion results in mild bowing of the posterior cortex also with mild epidural extent of mass. There is fairly severe spinal stenosis at T10-11 primarily from buckling of the ligamentum flavum and facet degenerative change, effacement of subarachnoid space at this level and likely mild cord edema. Poorly evaluated, there may be aneurysmal dilatation of the ascending thoracic aorta on the order of 4 centimeters. There is small dependent right pleural effusion. I d/w pt and her son Huy. I explained the clinical impression of stage 4 breast cancer. I recommended palliative radiation followed by faslodex plus Ibrance or aromain plus afinitor, Chemo can be used when she becomes hormone refractory. 2. Bone metastasis. She has numerous lytic and sclerotic bone lesions with pathologic fracture of the sternum at T11 vertebral body. Plan Xgeva as an outpatient. Plan, palliative radiation therapy. 3. Pulmonary nodules, thought to be due to metastatic disease from breast cancer. 4. Perforated pyloric channel ulcer, status post exploratory laparotomy and biopsy and closure of the ulcer by Dr. Mendez on 08/26/2016. Continue postoperative care. 5. Leukocytosis, reactive. Monitor. WBC better at 10.8 6. Anemia postoperative due to surgical blood loss. Monitor. 7. Renal insufficiency with a creatinine of 1.6 and a BUN of 37 on 08/27/2016. Continue to monitor. SALVADOR PERALES MD Aug 31, 2016 08:58
--- NOTE | 2016-08-31 11:03 | RAD ---
Procedure: CT-guided biopsy of a sclerotic T4 bone lesion Clinical Indication: 66-year-old female with history of metastatic breast cancer Sedation: Conscious sedation was administered for 24 minutes. The patient was monitored by a qualified independent observer throughout the time of sedation. Please refer to the medical record for exact doses of medications utilized to achieve moderate sedation. Antibiotics: Antibiotic was administered intravenously within 1 hour of the procedure start time. Contrast: None Sterility: The procedure was performed in its entirety using appropriate elements of sterile technique. Consent: The procedure was explained in its entirety to the patient or the patients designated sales account representative by a member of the treatment team, including a discussion of the risks, benefits and commonly accepted alternatives to the procedure, as well as the expected consequences of no therapy whatsoever. Discussion of the risks included, but was not limited to, those that are most frequent and those that are rare but possibly severe or life-threatening, as well as the possibility of unforeseen complications. Technique and Findings: Following informed consent, the patient was prepped and draped in usual sterile fashion. Preliminary CT scan of the area of interest was performed. 1% lidocaine was used to achieve local anesthesia. A small dermatotomy was made. Under periodic CT surveillance, a 10-gauge automated bone biopsy needle was advanced in a right transpedicular fashion into the T4 vertebral body and a single 10-gauge core biopsy specimen of the lesion in question was obtained and preserved in formalin. Hemostasis was achieved with manual compression. Complications: No immediate Impression: 1. CT-guided biopsy of T4 as described PQRS Compliance Statement: One or more of the following individualized dose reduction techniques were utilized for this examination: 1. Automated exposure control 2. Adjustment of the mA and/or kV according to patient size 3. Use of iterative reconstruction technique
--- NOTE | 2016-08-31 13:22 | PDOC ---
Provider Note Provider Note She underwent T4 bx yesterday now doing well post procedure. Now on liquid diet post op and this is well tolerated. currently no back pain supine in bed. Some mid thoracic back pain with movement. T11 bx and vertebralplasty was contraindicated due to risk of complications that could result in cord compression. MRi t spine T11 T6 and T4 mets with some spinal stenosis at T10 to T11 seen. Impression: Pyloric perforation, ow doing well following surgical repair. Bone metastases likely from breast primary. Await biopsy result. Plan to simulate for palliative treatment on Saturday09/03/2016. Surgical incision is to the right of midline and will be excluded from significant radiation exposure. Discussed with patient. SERA BENDER MD Aug 31, 2016 13:22
--- NOTE | 2016-08-31 14:50 | PDOC ---
CARDIO Progress Notes Date and Time Date of Service 08/31/16 Time of Evaluation 1300 Subjective Subjective: No Chest Pain, No Palpitations, Other (mild incisional pain with movement) Vitals Vitals Vital Signs Date Time Temp Pulse Resp B/P Pulse Ox O2 Delivery O2 Flow Rate FiO2 08/31/16 11:00 98.2 66 18 141/62 95 Room Air 98.2 08/31/16 07:35 2.0 Weight Weight [ ] Input and Output Intake and Output Intake and Output 08/31/16 07:00 Intake Total 5930 ml Output Total 1185 ml Balance 4745 ml Intake Oral 560 ml IV Total 1350 ml Other 4020 ml Output Urine Total 1075 ml Drainage Total 110 ml # Voids 4 Laboratory Labs Laboratory Tests Test 08/30/16 16:59 08/30/16 20:41 08/31/16 01:38 08/31/16 01:45 Glucose (Fingerstick) 105mg/dL (70-99) 92mg/dL (70-99) Magnesium Level 2.0mg/dL (1.8-2.4) 1.9mg/dL (1.8-2.4) White Blood Count 10.8x10^3/uL (4.0-11.0) Red Blood Count 3.24x10^6/uL (3.50-5.40) Hemoglobin 9.6g/dL (12.0-15.5) Hematocrit 29.5% (36.0-47.0) Mean Corpuscular Volume 91fL (79-100) Mean Corpuscular Hemoglobin 30pg (25-35) Mean Corpuscular Hemoglobin Concent 33g/dL (31-37) Red Cell Distribution Width 15.6% (11.5-14.5) Platelet Count 171x10^3/uL (140-400) Neutrophils (%) (Auto) 74% (31-73) Lymphocytes (%) (Auto) 12% (24-48) Monocytes (%) (Auto) 11% (0-9) Eosinophils (%) (Auto) 2% (0-3) Basophils (%) (Auto) 0% (0-3) Neutrophils # (Auto) 8.1x10^3uL (1.8-7.7) Lymphocytes # (Auto) 1.3x10^3/uL (1.0-4.8) Monocytes # (Auto) 1.2x10^3/uL (0.0-1.1) Eosinophils # (Auto) 0.3x10^3/uL (0.0-0.7) Basophils # (Auto) 0.0x10^3/uL (0.0-0.2) Sodium Level 142mmol/L (136-145) Potassium Level 4.5mmol/L (3.5-5.1) Chloride Level 107mmol/L (98-107) Carbon Dioxide Level 22mmol/L (21-32) Anion Gap 13 (6-14) Blood Urea Nitrogen 17mg/dL (7-20) Creatinine 1.2mg/dL (0.6-1.0) Estimated GFR (Cockcroft-Gault) 44.8 BUN/Creatinine Ratio 14 (6-20) Glucose Level 107mg/dL (70-99) Calcium Level 8.7mg/dL (8.5-10.1) Total Bilirubin 0.6mg/dL (0.2-1.0) Aspartate Amino Transf (AST/SGOT) 10U/L (15-37) Alanine Aminotransferase (ALT/SGPT) 9U/L (14-59) Alkaline Phosphatase 114U/L (46-116) Total Protein 5.8g/dL (6.4-8.2) Albumin 2.1g/dL (3.4-5.0) Albumin/Globulin Ratio 0.6 (1.0-1.7) Test 08/31/16 07:17 08/31/16 11:09 Glucose (Fingerstick) 96mg/dL (70-99) 93mg/dL (70-99) Microbiology Micro Microbiology 08/26/16 Gram Stain - Final, Complete 08/26/16 Urine Culture - Final, Complete 08/26/16 Urine Culture Result 1 (LATASHA) - Final, Complete Physical Exam HEENT: Neck Supple W Full Motion Chest: Symmetric LUNGS: Clear to Auscultation Heart: S1S2, RRR, murmurs (2/6 systolic murmur ) Abdomen: Other (diffuse tenderness. Surgical incision with drsg intact. ABDIAZIZ drain intact) Extremities: No Edema, No Calf Tenderness Neurology: alert, oriented, follow commands Assessment Assessment 1. Abnormal EKG stable. No anginal symptoms. tolerated surgical repair well. echo with EF 55-60% wild mild pulHTN. Inferior wall akinesis cannot be ruled out patient to f/u in our office with Dr. Meng in 1 month; consider outpatient ischemic eval add low-dose BB 2. Ruptured ulcer s/p repair of perforated pyloric ulcer post-op management per surgical team 3. HTN controlled 4. breast CA with metastatic disease 5. Ascending aortic aneurysm measuring 4.0 cm per echo plan for outpatient CTA for evaluation when acute issues resolve 6. dysrhythmia noted overnight. review of printed strips appears like AFIB. Telemetry full disclosure not available- monitor malfunctioning ([employer] working on) Mg 2.0, K 4.5 check TSH add low-dose BB for rate control TRE BUENROSTRO APRN Aug 31, 2016 14:50
--- NOTE | 2016-08-31 15:52 | PDOC ---
PROGRESS NOTES Chief Complaint Chief Complaint Acute abdominal pain perforated pyloric ulcer, now s/p repair perf ulcer obesity, BMI 34 Abdominal/back pain. Pneumoperitoneum, Free fluid in the abdomen. Diabetes 2 Hypertension. Breast cancer. likely metastatic T11 compression deformity seen on CT Bone scan shows metastatic disease to bone History of Present Illness History of Present Illness feels a little better using INSTRUCTIONAL TECHNOLOGY COACH less + flatus advancing diet OK less pain when at rest, marked pain with movement, Vitals Vitals Vital Signs Date Time Temp Pulse Resp B/P Pulse Ox O2 Delivery O2 Flow Rate FiO2 08/31/16 15:00 97.9 60 18 159/49 95 Room Air 97.9 08/31/16 07:35 2.0 Physical Exam General: Alert, Oriented X3, Cooperative, No acute distress Heart: Regular rate, Normal S1, Normal S2, Other (2/6 systolic murmur ) Abdomen: Soft, Other (ND, incision c/d/i, no erythema, ABDIAZIZ serous) Extremities: No edema, Normal pulses Skin: No breakdown, No significant lesion Labs LABS Laboratory Tests Test 08/30/16 16:59 08/30/16 20:41 08/31/16 01:38 08/31/16 01:45 Glucose (Fingerstick) 105mg/dL (70-99) 92mg/dL (70-99) Magnesium Level 2.0mg/dL (1.8-2.4) 1.9mg/dL (1.8-2.4) White Blood Count 10.8x10^3/uL (4.0-11.0) Red Blood Count 3.24x10^6/uL (3.50-5.40) Hemoglobin 9.6g/dL (12.0-15.5) Hematocrit 29.5% (36.0-47.0) Mean Corpuscular Volume 91fL (79-100) Mean Corpuscular Hemoglobin 30pg (25-35) Mean Corpuscular Hemoglobin Concent 33g/dL (31-37) Red Cell Distribution Width 15.6% (11.5-14.5) Platelet Count 171x10^3/uL (140-400) Neutrophils (%) (Auto) 74% (31-73) Lymphocytes (%) (Auto) 12% (24-48) Monocytes (%) (Auto) 11% (0-9) Eosinophils (%) (Auto) 2% (0-3) Basophils (%) (Auto) 0% (0-3) Neutrophils # (Auto) 8.1x10^3uL (1.8-7.7) Lymphocytes # (Auto) 1.3x10^3/uL (1.0-4.8) Monocytes # (Auto) 1.2x10^3/uL (0.0-1.1) Eosinophils # (Auto) 0.3x10^3/uL (0.0-0.7) Basophils # (Auto) 0.0x10^3/uL (0.0-0.2) Sodium Level 142mmol/L (136-145) Potassium Level 4.5mmol/L (3.5-5.1) Chloride Level 107mmol/L (98-107) Carbon Dioxide Level 22mmol/L (21-32) Anion Gap 13 (6-14) Blood Urea Nitrogen 17mg/dL (7-20) Creatinine 1.2mg/dL (0.6-1.0) Estimated GFR (Cockcroft-Gault) 44.8 BUN/Creatinine Ratio 14 (6-20) Glucose Level 107mg/dL (70-99) Calcium Level 8.7mg/dL (8.5-10.1) Total Bilirubin 0.6mg/dL (0.2-1.0) Aspartate Amino Transf (AST/SGOT) 10U/L (15-37) Alanine Aminotransferase (ALT/SGPT) 9U/L (14-59) Alkaline Phosphatase 114U/L (46-116) Total Protein 5.8g/dL (6.4-8.2) Albumin 2.1g/dL (3.4-5.0) Albumin/Globulin Ratio 0.6 (1.0-1.7) Thyroid Stimulating Hormone (TSH) 1.396uIU/mL (0.358-3.74) Test 08/31/16 07:17 08/31/16 11:09 Glucose (Fingerstick) 96mg/dL (70-99) 93mg/dL (70-99) Review of Systems Review of Systems abd pain, some nausea Assessment and Plan Assessmemt and Plan Problems Medical Problems: (1) Closed wedge compression fracture of T11 vertebra Status: Acute (2) Perforated ulcer Status: Acute Problems: Comment Review of Relevant I have reviewed the following items maggy (where applicable) has been applied. Labs Laboratory Tests Test 08/29/16 16:14 08/30/16 03:50 08/30/16 10:06 08/30/16 16:59 Glucose (Fingerstick) 76mg/dL (70-99) 87mg/dL (70-99) 105mg/dL (70-99) White Blood Count 10.8x10^3/uL (4.0-11.0) Red Blood Count 3.65x10^6/uL (3.50-5.40) Hemoglobin 10.8g/dL (12.0-15.5) Hematocrit 33.5% (36.0-47.0) Mean Corpuscular Volume 92fL (79-100) Mean Corpuscular Hemoglobin 30pg (25-35) Mean Corpuscular Hemoglobin Concent 32g/dL (31-37) Red Cell Distribution Width 15.9% (11.5-14.5) Platelet Count 189x10^3/uL (140-400) Neutrophils (%) (Auto) 71% (31-73) Lymphocytes (%) (Auto) 15% (24-48) Monocytes (%) (Auto) 10% (0-9) Eosinophils (%) (Auto) 3% (0-3) Basophils (%) (Auto) 0% (0-3) Neutrophils # (Auto) 7.6x10^3uL (1.8-7.7) Lymphocytes # (Auto) 1.6x10^3/uL (1.0-4.8) Monocytes # (Auto) 1.1x10^3/uL (0.0-1.1) Eosinophils # (Auto) 0.3x10^3/uL (0.0-0.7) Basophils # (Auto) 0.0x10^3/uL (0.0-0.2) Sodium Level 141mmol/L (136-145) Potassium Level 4.5mmol/L (3.5-5.1) Chloride Level 105mmol/L (98-107) Carbon Dioxide Level 23mmol/L (21-32) Anion Gap 13 (6-14) Blood Urea Nitrogen 19mg/dL (7-20) Creatinine 1.2mg/dL (0.6-1.0) Estimated GFR (Cockcroft-Gault) 44.8 BUN/Creatinine Ratio 16 (6-20) Glucose Level 95mg/dL (70-99) Calcium Level 8.7mg/dL (8.5-10.1) Magnesium Level 1.9mg/dL (1.8-2.4) Total Bilirubin 0.5mg/dL (0.2-1.0) Aspartate Amino Transf (AST/SGOT) 10U/L (15-37) Alanine Aminotransferase (ALT/SGPT) 10U/L (14-59) Alkaline Phosphatase 125U/L (46-116) Total Protein 6.3g/dL (6.4-8.2) Albumin 2.3g/dL (3.4-5.0) Albumin/Globulin Ratio 0.6 (1.0-1.7) Test 08/30/16 20:41 08/31/16 01:38 08/31/16 01:45 08/31/16 07:17 Glucose (Fingerstick) 92mg/dL (70-99) 96mg/dL (70-99) Magnesium Level 2.0mg/dL (1.8-2.4) 1.9mg/dL (1.8-2.4) White Blood Count 10.8x10^3/uL (4.0-11.0) Red Blood Count 3.24x10^6/uL (3.50-5.40) Hemoglobin 9.6g/dL (12.0-15.5) Hematocrit 29.5% (36.0-47.0) Mean Corpuscular Volume 91fL (79-100) Mean Corpuscular Hemoglobin 30pg (25-35) Mean Corpuscular Hemoglobin Concent 33g/dL (31-37) Red Cell Distribution Width 15.6% (11.5-14.5) Platelet Count 171x10^3/uL (140-400) Neutrophils (%) (Auto) 74% (31-73) Lymphocytes (%) (Auto) 12% (24-48) Monocytes (%) (Auto) 11% (0-9) Eosinophils (%) (Auto) 2% (0-3) Basophils (%) (Auto) 0% (0-3) Neutrophils # (Auto) 8.1x10^3uL (1.8-7.7) Lymphocytes # (Auto) 1.3x10^3/uL (1.0-4.8) Monocytes # (Auto) 1.2x10^3/uL (0.0-1.1) Eosinophils # (Auto) 0.3x10^3/uL (0.0-0.7) Basophils # (Auto) 0.0x10^3/uL (0.0-0.2) Sodium Level 142mmol/L (136-145) Potassium Level 4.5mmol/L (3.5-5.1) Chloride Level 107mmol/L (98-107) Carbon Dioxide Level 22mmol/L (21-32) Anion Gap 13 (6-14) Blood Urea Nitrogen 17mg/dL (7-20) Creatinine 1.2mg/dL (0.6-1.0) Estimated GFR (Cockcroft-Gault) 44.8 BUN/Creatinine Ratio 14 (6-20) Glucose Level 107mg/dL (70-99) Calcium Level 8.7mg/dL (8.5-10.1) Total Bilirubin 0.6mg/dL (0.2-1.0) Aspartate Amino Transf (AST/SGOT) 10U/L (15-37) Alanine Aminotransferase (ALT/SGPT) 9U/L (14-59) Alkaline Phosphatase 114U/L (46-116) Total Protein 5.8g/dL (6.4-8.2) Albumin 2.1g/dL (3.4-5.0) Albumin/Globulin Ratio 0.6 (1.0-1.7) Thyroid Stimulating Hormone (TSH) 1.396uIU/mL (0.358-3.74) Test 08/31/16 11:09 Glucose (Fingerstick) 93mg/dL (70-99) Laboratory Tests Test 08/30/16 16:59 08/30/16 20:41 08/31/16 01:38 08/31/16 01:45 Glucose (Fingerstick) 105mg/dL (70-99) 92mg/dL (70-99) Magnesium Level 2.0mg/dL (1.8-2.4) 1.9mg/dL (1.8-2.4) White Blood Count 10.8x10^3/uL (4.0-11.0) Red Blood Count 3.24x10^6/uL (3.50-5.40) Hemoglobin 9.6g/dL (12.0-15.5) Hematocrit 29.5% (36.0-47.0) Mean Corpuscular Volume 91fL (79-100) Mean Corpuscular Hemoglobin 30pg (25-35) Mean Corpuscular Hemoglobin Concent 33g/dL (31-37) Red Cell Distribution Width 15.6% (11.5-14.5) Platelet Count 171x10^3/uL (140-400) Neutrophils (%) (Auto) 74% (31-73) Lymphocytes (%) (Auto) 12% (24-48) Monocytes (%) (Auto) 11% (0-9) Eosinophils (%) (Auto) 2% (0-3) Basophils (%) (Auto) 0% (0-3) Neutrophils # (Auto) 8.1x10^3uL (1.8-7.7) Lymphocytes # (Auto) 1.3x10^3/uL (1.0-4.8) Monocytes # (Auto) 1.2x10^3/uL (0.0-1.1) Eosinophils # (Auto) 0.3x10^3/uL (0.0-0.7) Basophils # (Auto) 0.0x10^3/uL (0.0-0.2) Sodium Level 142mmol/L (136-145) Potassium Level 4.5mmol/L (3.5-5.1) Chloride Level 107mmol/L (98-107) Carbon Dioxide Level 22mmol/L (21-32) Anion Gap 13 (6-14) Blood Urea Nitrogen 17mg/dL (7-20) Creatinine 1.2mg/dL (0.6-1.0) Estimated GFR (Cockcroft-Gault) 44.8 BUN/Creatinine Ratio 14 (6-20) Glucose Level 107mg/dL (70-99) Calcium Level 8.7mg/dL (8.5-10.1) Total Bilirubin 0.6mg/dL (0.2-1.0) Aspartate Amino Transf (AST/SGOT) 10U/L (15-37) Alanine Aminotransferase (ALT/SGPT) 9U/L (14-59) Alkaline Phosphatase 114U/L (46-116) Total Protein 5.8g/dL (6.4-8.2) Albumin 2.1g/dL (3.4-5.0) Albumin/Globulin Ratio 0.6 (1.0-1.7) Thyroid Stimulating Hormone (TSH) 1.396uIU/mL (0.358-3.74) Test 08/31/16 07:17 08/31/16 11:09 Glucose (Fingerstick) 96mg/dL (70-99) 93mg/dL (70-99) Microbiology 08/26/16 Gram Stain - Final, Complete 08/26/16 Urine Culture - Final, Complete 08/26/16 Urine Culture Result 1 (LATASHA) - Final, Complete Medications Current Medications Nitroglycerin (Nitrostat) 0.4 mg PRN Q5MIN PRN SL CP RATING > 1/10 Last administered on 08/26/16 00:32; Start 08/25/16 at 23:45; Stop 08/26/16 at 23:44; Status DC Fentanyl Citrate 25 mcg 25 mcg PRN Q15MIN PRN IV PAIN GREATER THAN 3/10 Last administered on 08/26/16 02:43; Start 08/25/16 at 23:45; Stop 08/26/16 at 14:40; Status DC Sodium Chloride (Iv Sodium Chloride 0.9% 500ml Bag) 500 ml @ 500 mls/hr 1X ONCE IV Last administered on 08/26/16 00:32; Start 08/26/16 at 00:30; Stop at 01:29; Status DC Ondansetron HCl (Zofran) 4 mg STK-MED ONCE .ROUTE ; Start 08/26/16 at 01:44; Stop 08/26/16 at 01:45; Status DC Ondansetron HCl 4 mg 4 mg 1X ONCE IV Last administered on 08/26/16 01:45; Start 08/26/16 at 02:00; Stop 08/26/16 at 02:03; Status DC Metronidazole 100 ml @ 100 mls/hr Q8HRS IV Last administered on 08/31/16 13: 17; Start 08/26/16 at 14:00 Metronidazole 100 ml @ 100 mls/hr 1X ONCE IV Last administered on 08/26/16 02 :38; Start 08/26/16 at 02:30; Stop 08/26/16 at 03:29; Status DC Cefepime HCl 2 gm/ Sodium Chloride 100 ml @ 200 mls/hr 1X ONCE IV Last administered on 08/26/16 03:22; Start 08/26/16 at 03:00; Stop 08/26/16 at 03:29; Status DC Sodium Chloride (Iv Sodium Chloride 0.9% 1000ml Bag) 1,000 ml @ 125 mls/hr 1X ONCE IV Last administered on 08/26/16 02:41; Start 08/26/16 at 03:00; Stop at 10:59; Status DC Fentanyl Citrate (Fentanyl 2ml Vial) 50 mcg PRN Q15MIN PRN IV PAIN GREATER THAN 3/10 Last administered on 08/26/16 07:42; Start 08/26/16 at 02:45; Stop 08/26 at 14:40; Status DC Ondansetron HCl 4 mg 4 mg 1X ONCE PO ; Start 08/26/16 at 03:00; Stop 08/26/16 at 03:01; Status DC Metronidazole (FLAGYL 500Mmg PREMIX) 100 ml @ 100 mls/hr 1X ONCE IV Last administered on 08/26/16 05:12; Start 08/26/16 at 04:30; Stop 08/26/16 at 05:29; Status DC Hydromorphone HCl (Dilaudid) 1 mg 1X ONCE IV Last administered on 08/26/16 04: 29; Start 08/26/16 at 04:30; Stop 08/26/16 at 04:31; Status DC Fentanyl Citrate (Fentanyl 5ml Vial) 250 mcg STK-MED ONCE .ROUTE ; Start at 04:41; Stop 08/26/16 at 04:42; Status DC Succinylcholine Chloride (Anectine) 200 mg STK-MED ONCE .ROUTE ; Start 08/26/16 at 04:42; Stop 08/26/16 at 04:43; Status DC Rocuronium Olin (Zemuron) 50 mg STK-MED ONCE .ROUTE ; Start 08/26/16 at 04:42 ; Stop 08/26/16 at 04:43; Status DC Ondansetron HCl (Zofran) 4 mg PRN Q6HRS PRN IV Nausea; Start 08/26/16 at 04:45; Stop 08/26/16 at 14:42; Status DC Fentanyl Citrate (Fentanyl 2ml Vial) 25 mcg PRN Q5MIN PRN IV MILD PAIN; Start 08/26/16 at 04:45; Stop 08/26/16 at 14:41; Status DC Fentanyl Citrate (Fentanyl 2ml Vial) 50 mcg PRN Q5MIN PRN IV MODERATE PAIN; Start 08/26/16 at 04:45; Stop 08/26/16 at 14:42; Status DC Morphine Sulfate 1 mg 1 mg PRN Q10MIN PRN IV SEVERE PAIN; Start 08/26/16 at 04: 45; Stop 08/26/16 at 14:42; Status DC Lactated Ringer's (Iv Lactated Ringers) 1,000 ml @ 30 mls/hr Q24H IV ; Start at 04:43; Stop 08/26/16 at 16:42; Status DC Lidocaine HCl 2 ml 1X PRN PRN ID IV START; Start 08/26/16 at 04:45; Stop at 14:42; Status DC Hydromorphone HCl (Dilaudid) 0.5 mg PRN Q10MIN PRN IV SEV PAIN,Second choice; Start 08/26/16 at 04:45; Stop 08/26/16 at 14:42; Status DC Prochlorperazine Edisylate 5 mg 5 mg PACU PRN PRN IV NAUSEA; Start 08/26/16 at 04:45; Stop 08/26/16 at 14:42; Status DC Propofol (Diprivan) 20 ml @ As Directed STK-MED ONCE IV ; Start 08/26/16 at 04:44 ; Stop 08/26/16 at 04:45; Status DC Lidocaine HCl (Lidocaine Pf 2% Vial) 5 ml STK-MED ONCE .ROUTE ; Start 08/26/16 at 04:44; Stop 08/26/16 at 04:45; Status DC Sevoflurane (Ultane) 60 ml STK-MED ONCE IH ; Start 08/26/16 at 06:07; Stop at 06:08; Status DC Phenylephrine HCl 1 mg STK-MED ONCE IV ; Start 08/26/16 at 06:12; Stop 08/26/16 at 06:13; Status DC Dexamethasone Sodium Phosphate (Decadron) 20 mg STK-MED ONCE .ROUTE ; Start 08/26 at 06:12; Stop 08/26/16 at 06:13; Status DC Ondansetron HCl (Zofran) 4 mg STK-MED ONCE .ROUTE ; Start 08/26/16 at 06:12; Stop 08/26/16 at 06:13; Status DC Glycopyrrolate (Robinul) 1 mg STK-MED ONCE .ROUTE ; Start 08/26/16 at 06:13; Stop 08/26/16 at 06:14; Status DC Neostigmine Methylsulfate 5 mg STK-MED ONCE .ROUTE ; Start 08/26/16 at 06:13; Stop 08/26/16 at 06:14; Status DC Diphenhydramine HCl (Benadryl) 25 mg PRN Q6HRS PRN IV ITCHING; Start 08/26/16 at 07:00 Enoxaparin Sodium (Lovenox 40mg Syringe) 40 mg Q12HR SQ Last administered on 10:30; Start 08/26/16 at 09:00; Stop 08/27/16 at 16:33; Status DC Sodium Chloride 3 ml 3 ml QSHIFT PRN IV AFTER MEDS AND BLOOD DRAWS Last administered on 08/30/16 14:23; Start 08/26/16 at 07:00 Potassium Chloride/Sodium Chloride 1,000 ml @ 100 mls/hr Q10H IV Last administered on 08/31/16 13:19; Start 08/26/16 at 06:53 Hydromorphone HCl (Dilaudid Standard INSTRUCTIONAL TECHNOLOGY COACH) 30 ml @ 0 mls/hr CONT PRN PRN IV PROTOCOL Last administered on 08/26/16 07:41; Start 08/26/16 at 07:00; Stop at 09:42; Status DC Ondansetron HCl (Zofran) 4 mg PRN Q6HRS PRN IV NAUESA, 1ST CHOICE Last administered on 08/29/16 15:37; Start 08/26/16 at 07:00 Throat Lozenges (Chloraseptic) 1 spray PRN Q2HR PRN PO SORE THROAT; Start at 07:00 Throat Lozenges 1 noreen 1 noreen PRN Q2HRS PRN PO SORE THROAT; Start 08/26/16 at 07: 00 Hydromorphone HCl 30 ml @ 0 mls/hr CONT PRN PRN IV PROTOCOL; Start 08/26/16 at 09:45; Stop 08/26/16 at 12:16; Status DC Hydromorphone HCl (Dilaudid Standard INSTRUCTION[employer]CHN[employer] COACH) 30 ml @ 0 mls/hr CONT PRN PRN IV PROTOCOL; Start 08/26/16 at 12:15; Stop 08/26/16 at 20:05; Status DC Pantoprazole Sodium (Protonix Vial) 40 mg BID IVP Last administered on 08:39; Start 08/26/16 at 21:00 Labetalol HCl 20 mg 20 mg PRN Q2HR PRN IVP HYPERTENSION, SEE COMMENTS Last administered on 08/30/16 09:34; Start 08/26/16 at 13:15 Sodium Chloride 1,000 ml @ 1,000 mls/hr 1X ONCE IV ; Start 08/26/16 at 23:00; Stop 08/26/16 at 23:59; Status DC Hydromorphone HCl (Dilaudid Standard INSTRUCTION[employer]CHN[employer] COACH) 30 ml @ 0 mls/hr CONT PRN PRN IV PROTOCOL Last administered on 08/31/16 03:20; Start 08/26/16 at 20:15 Enoxaparin Sodium (Lovenox 40mg Syringe) 40 mg Q24H SQ Last administered on 08:39; Start 08/28/16 at 09:00 Ondansetron HCl (Zofran) 4 mg PRN Q6HRS PRN IV Nausea; Start 08/30/16 at 07:00; Stop 08/31/16 at 06:59; Status DC Fentanyl Citrate (Fentanyl 2ml Vial) 25 mcg PRN Q5MIN PRN IV MILD PAIN; Start 08/30/16 at 07:00; Stop 08/31/16 at 06:59; Status DC Fentanyl Citrate (Fentanyl 2ml Vial) 50 mcg PRN Q5MIN PRN IV MODERATE PAIN Last administered on 08/30/16 14:48; Start 08/30/16 at 07:00; Stop 08/31/16 at 06 :59; Status DC Morphine Sulfate 1 mg 1 mg PRN Q10MIN PRN IV SEVERE PAIN; Start 08/30/16 at 07: 00; Stop 08/31/16 at 06:59; Status DC Lactated Ringer's (Iv Lactated Ringers) 1,000 ml @ 0 mls/hr Q0M IV ; Start 08/30 at 07:00; Stop 08/30/16 at 18:59; Status DC Lidocaine HCl 2 ml 1X PRN PRN ID IV START; Start 08/30/16 at 07:00; Stop at 06:59; Status DC Hydromorphone HCl (Dilaudid) 0.5 mg PRN Q10MIN PRN IV SEVERE PAIN, Second choice; Start 08/30/16 at 07:00; Stop 08/31/16 at 06:59; Status DC Prochlorperazine Edisylate 5 mg 5 mg PACU PRN PRN IV NAUSEA; Start 08/30/16 at 07:00; Stop 08/31/16 at 06:59; Status DC Propofol 0 ml @ As Directed STK-MED ONCE IV ; Start 08/30/16 at 12:35; Stop at 12:36; Status DC Propofol 50 ml @ As Directed STK-MED ONCE IV ; Start 08/30/16 at 12:35; Stop 08/30 at 12:36; Status DC Propofol 0 ml @ As Directed STK-MED ONCE IV ; Start 08/30/16 at 12:35; Stop at 12:36; Status DC Propofol 0 ml @ As Directed STK-MED ONCE IV ; Start 08/30/16 at 12:35; Stop at 12:36; Status DC Propofol (Diprivan) 20 ml @ As Directed STK-MED ONCE IV ; Start 08/30/16 at 12:35 ; Stop 08/30/16 at 12:36; Status DC Midazolam HCl (Versed) 2 mg STK-MED ONCE .ROUTE ; Start 08/30/16 at 12:35; Stop 08/30/16 at 12:36; Status DC Midazolam HCl (Versed) 2 mg STK-MED ONCE .ROUTE ; Start 08/30/16 at 12:35; Stop 08/30/16 at 12:36; Status DC Ketamine HCl 500 mg 500 mg STK-MED ONCE .ROUTE ; Start 08/30/16 at 12:35; Stop at 12:36; Status DC Sodium Chloride (Iv Sodium Chloride 0.9% 1000ml Bag) 1,000 ml @ 100 mls/hr Q10H IV Last administered on 08/30/16 13:00; Start 08/30/16 at 13:00; Stop 08/31 at 08:41; Status DC Naloxone HCl (Narcan) 0.4 mg STK-MED ONCE .ROUTE ; Start 08/30/16 at 15:37; Stop 08/30/16 at 15:38; Status DC Flumazenil (Romazicon) 0.5 mg STK-MED ONCE IV ; Start 08/30/16 at 15:37; Stop 08/30/16 at 15:38; Status DC Midazolam HCl (Versed) 5 mg STK-MED ONCE .ROUTE ; Start 08/30/16 at 15:37; Stop 08/30/16 at 15:38; Status DC Fentanyl Citrate (Fentanyl 5ml Vial) 250 mcg STK-MED ONCE .ROUTE ; Start at 15:38; Stop 08/30/16 at 15:39; Status DC Lidocaine/Sodium Bicarbonate (Buffered Lidocaine 1%) 20 ml 1X ONCE IJ Last administered on 08/30/16 15:45; Start 08/30/16 at 15:45; Stop 08/30/16 at 15:46; Status DC Lidocaine/Sodium Bicarbonate (Buffered Lidocaine 1%) 20 ml 1X ONCE IJ ; Start 08/30/16 at 16:00; Stop 08/30/16 at 16:01; Status DC Midazolam HCl (Versed) 5 mg 1X ONCE IV Last administered on 08/30/16 16:00; Start 08/30/16 at 16:00; Stop 08/30/16 at 16:01; Status DC Fentanyl Citrate (Fentanyl 5ml Vial) 250 mcg 1X ONCE IV Last administered on 16:00; Start 08/30/16 at 16:00; Stop 08/30/16 at 16:01; Status DC Metoprolol Succinate (Toprol Xl) 12.5 mg DAILY PO ; Start 08/31/16 at 15:00 Active Scripts Active Reported Cetirizine Hcl 1 Mg/1 Ml Solution 10 Mg PO Hydrocodone-Apap 7.5-325 (Hydrocodone Bit/Acetaminophen) 1 Each Tablet 1 Tab PO PRN Q6HRS PRN Fioricet 50-300-40 Mg Capsule (Butalb/Acetaminophen/Caffeine) 1 Each Capsule 1 Each PO PRN Q6-8HRS PRN Voltaren-Xr (Diclofenac Sodium) 100 Mg Tab.er.24h 75 Mg PO [id number] Ambien (Zolpidem Tartrate) 10 Mg Tablet 10 Mg PO HS PRN Propranolol Hcl 80 Mg Cap.sa.24h 1 Cap PO DAILY Vitals/I & O Vital Sign - Last 24 Hours 08/30/16 08/30/16 08/30/16 08/30/16 16:00 16:00 16:02 16:08 Pulse 73 64 69 Resp 16 16 16 16 Pulse Ox 98 97 95 95 O2 Delivery Nasal Cannula Nasal Cannula Nasal Cannula Nasal Cannula O2 Flow Rate 2.0 2.0 2.0 2.0 08/30/16 08/30/16 08/30/16 08/30/16 16:10 16:16 16:23 16:25 Pulse 69 72 67 71 Resp 16 14 14 16 Pulse Ox 95 95 94 O2 Delivery Nasal Cannula Nasal Cannula Nasal Cannula Nasal Cannula O2 Flow Rate 2.0 2.0 2.0 2.0 08/30/16 08/30/16 08/30/16 08/31/16 19:31 20:00 23:03 01:01 Temp 97.5 97.7 97.5 97.7 Pulse 64 65 72 Resp 18 18 B/P 172/60 162/65 156/62 Pulse Ox 96 94 O2 Delivery Room Air Nasal Cannula Nasal Cannula O2 Flow Rate 2.0 08/31/16 08/31/16 08/31/16 08/31/16 03:20 03:30 03:52 07:00 Temp 97.7 98.2 97.7 98.2 Pulse 63 60 Resp 18 16 16 18 B/P 152/60 153/60 Pulse Ox 96 96 O2 Delivery Nasal Cannula Nasal Cannula Nasal Cannula Nasal Cannula O2 Flow Rate 2.0 2.0 2.0 2.0 08/31/16 08/31/16 08/31/16 07:35 11:00 15:00 Temp 98.2 97.9 98.2 97.9 Pulse 66 60 Resp 18 18 B/P 141/62 159/49 Pulse Ox 95 95 O2 Delivery Nasal Cannula Room Air Room Air O2 Flow Rate 2.0 Intake and Output 08/30/16 08/30/16 08/31/16 15:00 23:00 07:00 Intake Total 150 ml 4810 ml 970 ml Output Total 930 ml 255 ml Balance 150 ml 3880 ml 715 ml KENYETTA RUTH MD Aug 31, 2016 15:52
[2016-08-31] MEDS: METOPROLOL SUCC 24HR ER 25 MG TAB.ER.24H. PO SCH (16:01)
[2016-09-01] MEDS: ONDANSETRON PF 4 MG/2 ML VIAL. IV PRN ×2 (00:17→21:26)
[2016-09-01 03:09] VITALS: BP 187/86
[2016-09-01] MEDS: POTASSIUM CL 20MEQ-0.45% NACL 1,000 ML IV SCH ×2 (05:10→16:55)
[2016-09-01] MEDS: METOCLOPRAMIDE HCL 10 MG/2 ML VIAL. IV PRN (05:30)
[2016-09-01] MEDS: METRONIDAZOLE 500mg PREMIX 100 ML IV SCH ×3 (05:35→21:15)
[2016-09-01 07:00] VITALS: BP 160/83
--- NOTE | 2016-09-01 09:37 | PDOC ---
SURGICAL PROGRESS NOTE Subjective Doing well, on full liquids but some nausea last night. Vital Signs Vital Signs Date Time Temp Pulse Resp B/P Pulse Ox O2 Delivery O2 Flow Rate FiO2 09/01/16 07:00 97.9 81 20 160/83 96 Room Air 97.9 08/31/16 07:35 2.0 I&O Intake and Output 09/01/16 07:00 Intake Total 2156 ml Balance 2156 ml Other 2156 ml # Voids 7 PATIENT HAS A PEREZ: No General: Alert, Oriented X3, Cooperative, No acute distress Abdomen: Normal bowel sounds, Soft, No tenderness, Other (ABDIAZIZ with serous drainage) Labs Laboratory Tests Test 08/30/16 10:06 08/30/16 16:59 08/30/16 20:41 08/31/16 01:38 Glucose (Fingerstick) 87mg/dL (70-99) 105mg/dL (70-99) 92mg/dL (70-99) Magnesium Level 2.0mg/dL (1.8-2.4) Test 08/31/16 01:45 08/31/16 07:17 08/31/16 11:09 08/31/16 16:27 White Blood Count 10.8x10^3/uL (4.0-11.0) Red Blood Count 3.24x10^6/uL (3.50-5.40) Hemoglobin 9.6g/dL (12.0-15.5) Hematocrit 29.5% (36.0-47.0) Mean Corpuscular Volume 91fL (79-100) Mean Corpuscular Hemoglobin 30pg (25-35) Mean Corpuscular Hemoglobin Concent 33g/dL (31-37) Red Cell Distribution Width 15.6% (11.5-14.5) Platelet Count 171x10^3/uL (140-400) Neutrophils (%) (Auto) 74% (31-73) Lymphocytes (%) (Auto) 12% (24-48) Monocytes (%) (Auto) 11% (0-9) Eosinophils (%) (Auto) 2% (0-3) Basophils (%) (Auto) 0% (0-3) Neutrophils # (Auto) 8.1x10^3uL (1.8-7.7) Lymphocytes # (Auto) 1.3x10^3/uL (1.0-4.8) Monocytes # (Auto) 1.2x10^3/uL (0.0-1.1) Eosinophils # (Auto) 0.3x10^3/uL (0.0-0.7) Basophils # (Auto) 0.0x10^3/uL (0.0-0.2) Sodium Level 142mmol/L (136-145) Potassium Level 4.5mmol/L (3.5-5.1) Chloride Level 107mmol/L (98-107) Carbon Dioxide Level 22mmol/L (21-32) Anion Gap 13 (6-14) Blood Urea Nitrogen 17mg/dL (7-20) Creatinine 1.2mg/dL (0.6-1.0) Estimated GFR (Cockcroft-Gault) 44.8 BUN/Creatinine Ratio 14 (6-20) Glucose Level 107mg/dL (70-99) Calcium Level 8.7mg/dL (8.5-10.1) Magnesium Level 1.9mg/dL (1.8-2.4) Total Bilirubin 0.6mg/dL (0.2-1.0) Aspartate Amino Transf (AST/SGOT) 10U/L (15-37) Alanine Aminotransferase (ALT/SGPT) 9U/L (14-59) Alkaline Phosphatase 114U/L (46-116) Total Protein 5.8g/dL (6.4-8.2) Albumin 2.1g/dL (3.4-5.0) Albumin/Globulin Ratio 0.6 (1.0-1.7) Thyroid Stimulating Hormone (TSH) 1.396uIU/mL (0.358-3.74) Glucose (Fingerstick) 96mg/dL (70-99) 93mg/dL (70-99) 96mg/dL (70-99) Test 08/31/16 20:44 09/01/16 07:29 Glucose (Fingerstick) 91mg/dL (70-99) 92mg/dL (70-99) Laboratory Tests Test 08/31/16 11:09 08/31/16 16:27 08/31/16 20:44 09/01/16 07:29 Glucose (Fingerstick) 93mg/dL (70-99) 96mg/dL (70-99) 91mg/dL (70-99) 92mg/dL (70-99) Problem List Problems Medical Problems: (1) Closed wedge compression fracture of T11 vertebra Status: Acute (2) Perforated ulcer Status: Acute Assessment/Plan s/p xlap for perforated gastric ulcer Continue full liquids hope to advance to regular tomorrow Problems: JAMEL MEHTA MD Sep 01, 2016 09:37
[2016-09-01] MEDS: PANTOPRAZOLE IV PUSH 40 MG VIAL. IVP SCH ×2 (10:02→21:15)
[2016-09-01] MEDS: METOPROLOL SUCC 24HR ER 25 MG TAB.ER.24H. PO SCH (10:03)
[2016-09-01] MEDS: ENOXAPARIN 40 MG/0.4 ML DISP.SYRIN. SQ SCH (10:03)
[2016-09-01 11:00] VITALS: BP 140/75
--- NOTE | 2016-09-01 13:54 | PDOC ---
PROGRESS NOTES Chief Complaint Chief Complaint Acute abdominal pain perforated pyloric ulcer, now s/p repair perf ulcer obesity, BMI 34 Abdominal/back pain. Pneumoperitoneum, Free fluid in the abdomen. Diabetes 2 Hypertension. Breast cancer. likely metastatic T11 compression deformity seen on CT Bone scan shows metastatic disease to bone nausea Plan wound care full liquid diet GS following Pain control with iv Dilaudid Avoid co2 narcosis PRN constipation treatment metoprolol for HTN follow oncology recommendations. IV Flagyl prognosis guarded. labs reviewed. History of Present Illness History of Present Illness pain better no fever no chills. Vitals Vitals Vital Signs Date Time Temp Pulse Resp B/P Pulse Ox O2 Delivery O2 Flow Rate FiO2 09/01/16 11:00 97.5 76 20 140/75 98 Room Air 97.5 08/31/16 07:35 2.0 Physical Exam General: Alert, Oriented X3, Cooperative, No acute distress Heart: Regular rate, Normal S1, Normal S2, Other (2/6 systolic murmur ) Lungs: Clear Abdomen: Normal bowel sounds, Soft, No tenderness, Other (ABDIAZIZ with serous drainage) Extremities: No edema, Normal pulses Skin: No breakdown, No significant lesion Labs LABS Laboratory Tests Test 08/31/16 16:27 08/31/16 20:44 09/01/16 07:29 09/01/16 11:58 Glucose (Fingerstick) 96mg/dL (70-99) 91mg/dL (70-99) 92mg/dL (70-99) 120mg/dL (70-99) Assessment and Plan Assessmemt and Plan Problems Medical Problems: (1) Closed wedge compression fracture of T11 vertebra Status: Acute (2) Perforated ulcer Status: Acute Problems: Comment Review of Relevant I have reviewed the following items maggy (where applicable) has been applied. Labs Laboratory Tests Test 08/30/16 16:59 08/30/16 20:41 08/31/16 01:38 08/31/16 01:45 Glucose (Fingerstick) 105mg/dL (70-99) 92mg/dL (70-99) Magnesium Level 2.0mg/dL (1.8-2.4) 1.9mg/dL (1.8-2.4) White Blood Count 10.8x10^3/uL (4.0-11.0) Red Blood Count 3.24x10^6/uL (3.50-5.40) Hemoglobin 9.6g/dL (12.0-15.5) Hematocrit 29.5% (36.0-47.0) Mean Corpuscular Volume 91fL (79-100) Mean Corpuscular Hemoglobin 30pg (25-35) Mean Corpuscular Hemoglobin Concent 33g/dL (31-37) Red Cell Distribution Width 15.6% (11.5-14.5) Platelet Count 171x10^3/uL (140-400) Neutrophils (%) (Auto) 74% (31-73) Lymphocytes (%) (Auto) 12% (24-48) Monocytes (%) (Auto) 11% (0-9) Eosinophils (%) (Auto) 2% (0-3) Basophils (%) (Auto) 0% (0-3) Neutrophils # (Auto) 8.1x10^3uL (1.8-7.7) Lymphocytes # (Auto) 1.3x10^3/uL (1.0-4.8) Monocytes # (Auto) 1.2x10^3/uL (0.0-1.1) Eosinophils # (Auto) 0.3x10^3/uL (0.0-0.7) Basophils # (Auto) 0.0x10^3/uL (0.0-0.2) Sodium Level 142mmol/L (136-145) Potassium Level 4.5mmol/L (3.5-5.1) Chloride Level 107mmol/L (98-107) Carbon Dioxide Level 22mmol/L (21-32) Anion Gap 13 (6-14) Blood Urea Nitrogen 17mg/dL (7-20) Creatinine 1.2mg/dL (0.6-1.0) Estimated GFR (Cockcroft-Gault) 44.8 BUN/Creatinine Ratio 14 (6-20) Glucose Level 107mg/dL (70-99) Calcium Level 8.7mg/dL (8.5-10.1) Total Bilirubin 0.6mg/dL (0.2-1.0) Aspartate Amino Transf (AST/SGOT) 10U/L (15-37) Alanine Aminotransferase (ALT/SGPT) 9U/L (14-59) Alkaline Phosphatase 114U/L (46-116) Total Protein 5.8g/dL (6.4-8.2) Albumin 2.1g/dL (3.4-5.0) Albumin/Globulin Ratio 0.6 (1.0-1.7) Thyroid Stimulating Hormone (TSH) 1.396uIU/mL (0.358-3.74) Test 08/31/16 07:17 08/31/16 11:09 08/31/16 16:27 08/31/16 20:44 Glucose (Fingerstick) 96mg/dL (70-99) 93mg/dL (70-99) 96mg/dL (70-99) 91mg/dL (70-99) Test 09/01/16 07:29 09/01/16 11:58 Glucose (Fingerstick) 92mg/dL (70-99) 120mg/dL (70-99) Laboratory Tests Test 08/31/16 16:27 08/31/16 20:44 09/01/16 07:29 09/01/16 11:58 Glucose (Fingerstick) 96mg/dL (70-99) 91mg/dL (70-99) 92mg/dL (70-99) 120mg/dL (70-99) Microbiology 08/26/16 Gram Stain - Final, Complete 08/26/16 Urine Culture - Final, Complete 08/26/16 Urine Culture Result 1 (LATASHA) - Final, Complete Medications Current Medications Nitroglycerin (Nitrostat) 0.4 mg PRN Q5MIN PRN SL CP RATING > 1/10 Last administered on 08/26/16 00:32; Start 08/25/16 at 23:45; Stop 08/26/16 at 23:44; Status DC Fentanyl Citrate 25 mcg 25 mcg PRN Q15MIN PRN IV PAIN GREATER THAN 3/10 Last administered on 08/26/16 02:43; Start 08/25/16 at 23:45; Stop 08/26/16 at 14:40; Status DC Sodium Chloride (Iv Sodium Chloride 0.9% 500ml Bag) 500 ml @ 500 mls/hr 1X ONCE IV Last administered on 08/26/16 00:32; Start 08/26/16 at 00:30; Stop at 01:29; Status DC Ondansetron HCl (Zofran) 4 mg K-MED ONCE .ROUTE ; Start 08/26/16 at 01:44; Stop 08/26/16 at 01:45; Status DC Ondansetron HCl 4 mg 4 mg 1X ONCE IV Last administered on 08/26/16 01:45; Start 08/26/16 at 02:00; Stop 08/26/16 at 02:03; Status DC Metronidazole 100 ml @ 100 mls/hr Q8HRS IV Last administered on 09/01/16 05: 35; Start 08/26/16 at 14:00 Metronidazole 100 ml @ 100 mls/hr 1X ONCE IV Last administered on 08/26/16 02 :38; Start 08/26/16 at 02:30; Stop 08/26/16 at 03:29; Status DC Cefepime HCl 2 gm/ Sodium Chloride 100 ml @ 200 mls/hr 1X ONCE IV Last administered on 08/26/16 03:22; Start 08/26/16 at 03:00; Stop 08/26/16 at 03:29; Status DC Sodium Chloride (Iv Sodium Chloride 0.9% 1000ml Bag) 1,000 ml @ 125 mls/hr 1X ONCE IV Last administered on 08/26/16 02:41; Start 08/26/16 at 03:00; Stop at 10:59; Status DC Fentanyl Citrate (Fentanyl 2ml Vial) 50 mcg PRN Q15MIN PRN IV PAIN GREATER THAN 3/10 Last administered on 08/26/16 07:42; Start 08/26/16 at 02:45; Stop 08/26 at 14:40; Status DC Ondansetron HCl 4 mg 4 mg 1X ONCE PO ; Start 08/26/16 at 03:00; Stop 08/26/16 at 03:01; Status DC Metronidazole (FLAGYL 500Mmg PREMIX) 100 ml @ 100 mls/hr 1X ONCE IV Last administered on 08/26/16 05:12; Start 08/26/16 at 04:30; Stop 08/26/16 at 05:29; Status DC Hydromorphone HCl (Dilaudid) 1 mg 1X ONCE IV Last administered on 08/26/16 04: 29; Start 08/26/16 at 04:30; Stop 08/26/16 at 04:31; Status DC Fentanyl Citrate (Fentanyl 5ml Vial) 250 mcg STK-MED ONCE .ROUTE ; Start at 04:41; Stop 08/26/16 at 04:42; Status DC Succinylcholine Chloride (Anectine) 200 mg STK-MED ONCE .ROUTE ; Start 08/26/16 at 04:42; Stop 08/26/16 at 04:43; Status DC Rocuronium [place] (Zemuron) 50 mg STK-MED ONCE .ROUTE ; Start 08/26/16 at 04:42 ; Stop 08/26/16 at 04:43; Status DC Ondansetron HCl (Zofran) 4 mg PRN Q6HRS PRN IV Nausea; Start 08/26/16 at 04:45; Stop 08/26/16 at 14:42; Status DC Fentanyl Citrate (Fentanyl 2ml Vial) 25 mcg PRN Q5MIN PRN IV MILD PAIN; Start 08/26/16 at 04:45; Stop 08/26/16 at 14:41; Status DC Fentanyl Citrate (Fentanyl 2ml Vial) 50 mcg PRN Q5MIN PRN IV MODERATE PAIN; Start 08/26/16 at 04:45; Stop 08/26/16 at 14:42; Status DC Morphine Sulfate 1 mg 1 mg PRN Q10MIN PRN IV SEVERE PAIN; Start 08/26/16 at 04: 45; Stop 08/26/16 at 14:42; Status DC Lactated Ringer's (Iv Lactated Ringers) 1,000 ml @ 30 mls/hr Q24H IV ; Start at 04:43; Stop 08/26/16 at 16:42; Status DC Lidocaine HCl 2 ml 1X PRN PRN ID IV START; Start 08/26/16 at 04:45; Stop at 14:42; Status DC Hydromorphone HCl (Dilaudid) 0.5 mg PRN Q10MIN PRN IV SEV PAIN,Second choice; Start 08/26/16 at 04:45; Stop 08/26/16 at 14:42; Status DC Prochlorperazine Edisylate 5 mg 5 mg PACU PRN PRN IV NAUSEA; Start 08/26/16 at 04:45; Stop 08/26/16 at 14:42; Status DC Propofol (Diprivan) 20 ml @ As Directed STK-MED ONCE IV ; Start 08/26/16 at 04:44 ; Stop 08/26/16 at 04:45; Status DC Lidocaine HCl (Lidocaine Pf 2% Vial) 5 ml STK-MED ONCE .ROUTE ; Start 08/26/16 at 04:44; Stop 08/26/16 at 04:45; Status DC Sevoflurane (Ultane) 60 ml STK-MED ONCE IH ; Start 08/26/16 at 06:07; Stop at 06:08; Status DC Phenylephrine HCl 1 mg STK-MED ONCE IV ; Start 08/26/16 at 06:12; Stop 08/26/16 at 06:13; Status DC Dexamethasone Sodium Phosphate (Decadron) 20 mg STK-MED ONCE .ROUTE ; Start 08/26 at 06:12; Stop 08/26/16 at 06:13; Status DC Ondansetron HCl (Zofran) 4 mg STK-MED ONCE .ROUTE ; Start 08/26/16 at 06:12; Stop 08/26/16 at 06:13; Status DC Glycopyrrolate (Robinul) 1 mg STK-MED ONCE .ROUTE ; Start 08/26/16 at 06:13; Stop 08/26/16 at 06:14; Status DC Neostigmine Methylsulfate 5 mg STK-MED ONCE .ROUTE ; Start 08/26/16 at 06:13; Stop 08/26/16 at 06:14; Status DC Diphenhydramine HCl (Benadryl) 25 mg PRN Q6HRS PRN IV ITCHING; Start 08/26/16 at 07:00 Enoxaparin Sodium (Lovenox 40mg Syringe) 40 mg Q12HR SQ Last administered on 10:30; Start 08/26/16 at 09:00; Stop 08/27/16 at 16:33; Status DC Sodium Chloride 3 ml 3 ml QSHIFT PRN IV AFTER MEDS AND BLOOD DRAWS Last administered on 08/30/16 14:23; Start 08/26/16 at 07:00 Potassium Chloride/Sodium Chloride 1,000 ml @ 100 mls/hr Q10H IV Last administered on 09/01/16 05:10; Start 08/26/16 at 06:53 Hydromorphone HCl (Dilaudid Standard TILE MECHANIC) 30 ml @ 0 mls/hr CONT PRN PRN IV PROTOCOL Last administered on 08/26/16 07:41; Start 08/26/16 at 07:00; Stop at 09:42; Status DC Ondansetron HCl (Zofran) 4 mg PRN Q6HRS PRN IV NAUESA, 1ST CHOICE Last administered on 09/01/16 00:17; Start 08/26/16 at 07:00 Throat Lozenges (Chloraseptic) 1 spray PRN Q2HR PRN PO SORE THROAT; Start at 07:00 Throat Lozenges 1 noreen 1 noreen PRN Q2HRS PRN PO SORE THROAT; Start 08/26/16 at 07: 00 Hydromorphone HCl 30 ml @ 0 mls/hr CONT PRN PRN IV PROTOCOL; Start 08/26/16 at 09:45; Stop 08/26/16 at 12:16; Status DC Hydromorphone HCl (Dilaudid Standard TILE MECHANIC) 30 ml @ 0 mls/hr CONT PRN PRN IV PROTOCOL; Start 08/26/16 at 12:15; Stop 08/26/16 at 20:05; Status DC Pantoprazole Sodium (Protonix Vial) 40 mg BID IVP Last administered on 10:02; Start 08/26/16 at 21:00 Labetalol HCl 20 mg 20 mg PRN Q2HR PRN IVP HYPERTENSION, SEE COMMENTS Last administered on 08/30/16 09:34; Start 08/26/16 at 13:15 Sodium Chloride 1,000 ml @ 1,000 mls/hr 1X ONCE IV ; Start 08/26/16 at 23:00; Stop 08/26/16 at 23:59; Status DC Hydromorphone HCl (Dilaudid Standard TILE MECHANIC) 30 ml @ 0 mls/hr CONT PRN PRN IV PROTOCOL Last administered on 08/31/16 03:20; Start 08/26/16 at 20:15 Enoxaparin Sodium (Lovenox 40mg Syringe) 40 mg Q24H SQ Last administered on 10:03; Start 08/28/16 at 09:00 Ondansetron HCl (Zofran) 4 mg PRN Q6HRS PRN IV Nausea; Start 08/30/16 at 07:00; Stop 08/31/16 at 06:59; Status DC Fentanyl Citrate (Fentanyl 2ml Vial) 25 mcg PRN Q5MIN PRN IV MILD PAIN; Start 08/30/16 at 07:00; Stop 08/31/16 at 06:59; Status DC Fentanyl Citrate (Fentanyl 2ml Vial) 50 mcg PRN Q5MIN PRN IV MODERATE PAIN Last administered on 08/30/16t 14:48; Start 08/30/16 at 07:00; Stop 08/31/16 at 06 :59; Status DC Morphine Sulfate 1 mg 1 mg PRN Q10MIN PRN IV SEVERE PAIN; Start 08/30/16 at 07: 00; Stop 08/31/16 at 06:59; Status DC Lactated Ringer's (Iv Lactated Ringers) 1,000 ml @ 0 mls/hr Q0M IV ; Start 08/30 at 07:00; Stop 08/30/16 at 18:59; Status DC Lidocaine HCl 2 ml 1X PRN PRN ID IV START; Start 08/30/16 at 07:00; Stop at 06:59; Status DC Hydromorphone HCl (Dilaudid) 0.5 mg PRN Q10MIN PRN IV SEVERE PAIN, Second choice; Start 08/30/16 at 07:00; Stop 08/31/16 at 06:59; Status DC Prochlorperazine Edisylate 5 mg 5 mg PACU PRN PRN IV NAUSEA; Start 08/30/16 at 07:00; Stop 08/31/16 at 06:59; Status DC Propofol 0 ml @ As Directed STK-MED ONCE IV ; Start 08/30/16 at 12:35; Stop at 12:36; Status DC Propofol 50 ml @ As Directed STK-MED ONCE IV ; Start 08/30/16 at 12:35; Stop 08/30 at 12:36; Status DC Propofol 0 ml @ As Directed STK-MED ONCE IV ; Start 08/30/16 at 12:35; Stop at 12:36; Status DC Propofol 0 ml @ As Directed STK-MED ONCE IV ; Start 08/30/16 at 12:35; Stop at 12:36; Status DC Propofol (Diprivan) 20 ml @ As Directed STK-MED ONCE IV ; Start 08/30/16 at 12:35 ; Stop 08/30/16 at 12:36; Status DC Midazolam HCl (Versed) 2 mg STK-MED ONCE .ROUTE ; Start 08/30/16 at 12:35; Stop 08/30/16 at 12:36; Status DC Midazolam HCl (Versed) 2 mg STK-MED ONCE .ROUTE ; Start 08/30/16 at 12:35; Stop 08/30/16 at 12:36; Status DC Ketamine HCl 500 mg 500 mg STK-MED ONCE .ROUTE ; Start 08/30/16 at 12:35; Stop at 12:36; Status DC Sodium Chloride (Iv Sodium Chloride 0.9% 1000ml Bag) 1,000 ml @ 100 mls/hr Q10H IV Last administered on 08/30/16t 13:00; Start 08/30/16 at 13:00; Stop 08/31 at 08:41; Status DC Naloxone HCl (Narcan) 0.4 mg STK-MED ONCE .ROUTE ; Start 08/30/16 at 15:37; Stop 08/30/16 at 15:38; Status DC Flumazenil (Romazicon) 0.5 mg STK-MED ONCE IV ; Start 08/30/16 at 15:37; Stop 08/30/16 at 15:38; Status DC Midazolam HCl (Versed) 5 mg STK-MED ONCE .ROUTE ; Start 08/30/16 at 15:37; Stop 08/30/16 at 15:38; Status DC Fentanyl Citrate (Fentanyl 5ml Vial) 250 mcg STK-MED ONCE .ROUTE ; Start at 15:38; Stop 08/30/16 at 15:39; Status DC Lidocaine/Sodium Bicarbonate (Buffered Lidocaine 1%) 20 ml 1X ONCE IJ Last administered on 08/30/16t 15:45; Start 08/30/16 at 15:45; Stop 08/30/16 at 15:46; Status DC Lidocaine/Sodium Bicarbonate (Buffered Lidocaine 1%) 20 ml 1X ONCE IJ ; Start 08/30/16 at 16:00; Stop 08/30/16 at 16:01; Status DC Midazolam HCl (Versed) 5 mg 1X ONCE IV Last administered on 08/30/16 16:00; Start 08/30/16 at 16:00; Stop 08/30/16 at 16:01; Status DC Fentanyl Citrate (Fentanyl 5ml Vial) 250 mcg 1X ONCE IV Last administered on 16:00; Start 08/30/16 at 16:00; Stop 08/30/16 at 16:01; Status DC Metoprolol Succinate (Toprol Xl) 12.5 mg DAILY PO Last administered on 10:03; Start 08/31/16 at 15:00 Metoclopramide HCl (Reglan) 5 mg PRN Q6HRS PRN IV NAUSEA/VOMITING Last administered on 09/01/16 05:30; Start 09/01/16 at 05:30 Active Scripts Active Reported Cetirizine Hcl 1 Mg/1 Ml Solution 10 Mg PO Hydrocodone-Apap 7.5-325 (Hydrocodone Bit/Acetaminophen) 1 Each Tablet 1 Tab PO PRN Q6HRS PRN Fioricet 50-300-40 Mg Capsule (Butalb/Acetaminophen/Caffeine) 1 Each Capsule 1 Each PO PRN Q6-8HRS PRN Voltaren-Xr (Diclofenac Sodium) 100 Mg Tab.er.24h 75 Mg PO [id number] Ambien (Zolpidem Tartrate) 10 Mg Tablet 10 Mg PO HS PRN Propranolol Hcl 80 Mg Cap.sa.24h 1 Cap PO DAILY Vitals/I & O Vital Sign - Last 24 Hours 08/31/16 08/31/16 08/31/16 08/31/16 15:00 16:01 19:00 20:00 Temp 97.9 97.8 97.9 97.8 Pulse 60 60 60 Resp 18 20 B/P 159/49 159/49 174/95 Pulse Ox 95 97 O2 Delivery Room Air Room Air Room Air 08/31/16 09/01/16 09/01/16 09/01/16 23:26 03:09 07:00 08:00 Temp 98.2 98.0 97.9 98.2 98.0 97.9 Pulse 58 69 81 Resp 18 20 20 B/P 167/59 187/86 160/83 Pulse Ox 95 95 96 O2 Delivery Room Air Room Air Room Air Room Air 09/01/16 09/01/16 10:03 11:00 Temp 97.5 97.5 Pulse 81 76 Resp 20 B/P 160/83 140/75 Pulse Ox 98 O2 Delivery Room Air Intake and Output 08/31/16 08/31/16 09/01/16 15:00 23:00 07:00 Intake Total 1340 ml 816 ml Balance 1340 ml 816 ml AMRAND POMPA MD Sep 01, 2016 13:54
[2016-09-01 15:00] VITALS: BP 179/91
[2016-09-01 19:00] VITALS: BP 164/73
[2016-09-01 23:00] VITALS: BP 135/56
[2016-09-02] MEDS: ONDANSETRON PF 4 MG/2 ML VIAL. IV PRN ×3 (02:57→21:32)
[2016-09-02 03:00] VITALS: BP 147/78
[2016-09-02] MEDS: HYDROMORPHONE STANDARD PCA 30 ML IV PRN (05:37)
[2016-09-02] MEDS: METRONIDAZOLE 500mg PREMIX 100 ML IV SCH ×3 (05:38→21:33)
[2016-09-02] MEDS: POTASSIUM CL 20MEQ-0.45% NACL 1,000 ML IV SCH ×3 (05:39→18:22)
[2016-09-02 07:00] VITALS: BP 164/63
[2016-09-02] MEDS: PANTOPRAZOLE IV PUSH 40 MG VIAL. IVP SCH ×2 (07:47→21:32)
--- NOTE | 2016-09-02 09:36 | PDOC ---
SURGICAL PROGRESS NOTE Subjective Feeling nauseated this morning with one episode of vomiting. Vital Signs Vital Signs Date Time Temp Pulse Resp B/P Pulse Ox O2 Delivery O2 Flow Rate FiO2 09/02/16 07:00 98.4 57 20 164/63 94 Room Air 98.4 09/02/16 06:10 2.0 I&O Intake and Output 09/02/16 07:00 Intake Total 200 ml Balance 200 ml Intake Oral 200 ml # Voids 9 General: Alert, Oriented X3, Cooperative, mild distress Abdomen: Normal bowel sounds, Soft, No tenderness, Other (ABDIAZIZ with serous output ) Labs Laboratory Tests Test 08/31/16 11:09 08/31/16 16:27 08/31/16 20:44 09/01/16 07:29 Glucose (Fingerstick) 93mg/dL (70-99) 96mg/dL (70-99) 91mg/dL (70-99) 92mg/dL (70-99) Test 09/01/16 11:58 09/01/16 17:29 09/01/16 20:51 09/02/16 08:06 Glucose (Fingerstick) 120mg/dL (70-99) 75mg/dL (70-99) 107mg/dL (70-99) 99mg/dL (70-99) Laboratory Tests Test 09/01/16 11:58 09/01/16 17:29 09/01/16 20:51 09/02/16 08:06 Glucose (Fingerstick) 120mg/dL (70-99) 75mg/dL (70-99) 107mg/dL (70-99) 99mg/dL (70-99) Problem List Problems Medical Problems: (1) Closed wedge compression fracture of T11 vertebra Status: Acute (2) Perforated ulcer Status: Acute Assessment/Plan Nausea, had BM yesterday Hold on advancing diet Supportive care. Problems: JAMEL MEHTA MD Sep 02, 2016 09:35
[2016-09-02] MEDS: METOPROLOL SUCC 24HR ER 25 MG TAB.ER.24H. PO SCH (09:48)
[2016-09-02] MEDS: ENOXAPARIN 40 MG/0.4 ML DISP.SYRIN. SQ SCH (09:48)
[2016-09-02 11:00] VITALS: BP 187/89
--- NOTE | 2016-09-02 12:07 | PDOC ---
PROGRESS NOTES Chief Complaint Chief Complaint Acute abdominal pain Perforated pyloric ulcer, now s/p repair perf ulcer Obesity, BMI 34 Abdominal/back pain. Pneumoperitoneum, Free fluid in the abdomen. Diabetes 2 Hypertension. Breast cancer. likely metastatic T11 compression deformity seen on CT Bone scan shows metastatic disease to bone nausea Plan wound care Advance diet GS following Pain control with iv Dilaudid prn Avoid co2 narcosis PRN constipation treatment metoprolol for HTN follow oncology recommendations. IV Flagyl prognosis guarded. labs reviewed. History of Present Illness History of Present Illness pain better no fever no chills. Vitals Vitals Vital Signs Date Time Temp Pulse Resp B/P Pulse Ox O2 Delivery O2 Flow Rate FiO2 09/02/16 11:00 97.4 67 20 187/89 96 Room Air 97.4 09/02/16 06:10 2.0 Physical Exam General: Alert, Oriented X3, Cooperative, mild distress Heart: Regular rate, Normal S1, Normal S2, Other (2/6 systolic murmur ) Lungs: Clear Abdomen: Normal bowel sounds, Soft, No tenderness, Other Extremities: No edema, Normal pulses Skin: No breakdown, No significant lesion Labs LABS Laboratory Tests Test 09/01/16 17:29 09/01/16 20:51 09/02/16 08:06 09/02/16 11:45 Glucose (Fingerstick) 75mg/dL (70-99) 107mg/dL (70-99) 99mg/dL (70-99) 107mg/dL (70-99) Assessment and Plan Assessmemt and Plan Problems Medical Problems: (1) Closed wedge compression fracture of T11 vertebra Status: Acute (2) Perforated ulcer Status: Acute Problems: Comment Review of Relevant I have reviewed the following items maggy (where applicable) has been applied. Labs Laboratory Tests Test 08/31/16 16:27 08/31/16 20:44 09/01/16 07:29 09/01/16 11:58 Glucose (Fingerstick) 96mg/dL (70-99) 91mg/dL (70-99) 92mg/dL (70-99) 120mg/dL (70-99) Test 09/01/16 17:29 09/01/16 20:51 09/02/16 08:06 09/02/16 11:45 Glucose (Fingerstick) 75mg/dL (70-99) 107mg/dL (70-99) 99mg/dL (70-99) 107mg/dL (70-99) Laboratory Tests Test 09/01/16 17:29 09/01/16 20:51 09/02/16 08:06 09/02/16 11:45 Glucose (Fingerstick) 75mg/dL (70-99) 107mg/dL (70-99) 99mg/dL (70-99) 107mg/dL (70-99) Microbiology 08/26/16 Gram Stain - Final, Complete 08/26/16 Urine Culture - Final, Complete 08/26/16 Urine Culture Result 1 (LATASHA) - Final, Complete Medications Current Medications Nitroglycerin (Nitrostat) 0.4 mg PRN Q5MIN PRN SL CP RATING > 1/10 Last administered on 08/26/16 00:32; Start 08/25/16 at 23:45; Stop 08/26/16 at 23:44; Status DC Fentanyl Citrate 25 mcg 25 mcg PRN Q15MIN PRN IV PAIN GREATER THAN 3/10 Last administered on 08/26/16 02:43; Start 08/25/16 at 23:45; Stop 08/26/16 at 14:40; Status DC Sodium Chloride (Iv Sodium Chloride 0.9% 500ml Bag) 500 ml @ 500 mls/hr 1X ONCE IV Last administered on 08/26/16 00:32; Start 08/26/16 at 00:30; Stop at 01:29; Status DC Ondansetron HCl (Zofran) 4 mg STK-MED ONCE .ROUTE ; Start 08/26/16 at 01:44; Stop 08/26/16 at 01:45; Status DC Ondansetron HCl 4 mg 4 mg 1X ONCE IV Last administered on 08/26/16 01:45; Start 08/26/16 at 02:00; Stop 08/26/16 at 02:03; Status DC Metronidazole 100 ml @ 100 mls/hr Q8HRS IV Last administered on 09/02/16 05: 38; Start 08/26/16 at 14:00 Metronidazole 100 ml @ 100 mls/hr 1X ONCE IV Last administered on 08/26/16 02 :38; Start 08/26/16 at 02:30; Stop 08/26/16 at 03:29; Status DC Cefepime HCl 2 gm/ Sodium Chloride 100 ml @ 200 mls/hr 1X ONCE IV Last administered on 08/26/16 03:22; Start 08/26/16 at 03:00; Stop 08/26/16 at 03:29; Status DC Sodium Chloride (Iv Sodium Chloride 0.9% 1000ml Bag) 1,000 ml @ 125 mls/hr 1X ONCE IV Last administered on 08/26/16 02:41; Start 08/26/16 at 03:00; Stop at 10:59; Status DC Fentanyl Citrate (Fentanyl 2ml Vial) 50 mcg PRN Q15MIN PRN IV PAIN GREATER THAN 3/10 Last administered on 08/26/16 07:42; Start 08/26/16 at 02:45; Stop 08/26 at 14:40; Status DC Ondansetron HCl 4 mg 4 mg 1X ONCE PO ; Start 08/26/16 at 03:00; Stop 08/26/16 at 03:01; Status DC Metronidazole (FLAGYL 500Mmg PREMIX) 100 ml @ 100 mls/hr 1X ONCE IV Last administered on 08/26/16 05:12; Start 08/26/16 at 04:30; Stop 08/26/16 at 05:29; Status DC Hydromorphone HCl (Dilaudid) 1 mg 1X ONCE IV Last administered on 08/26/16 04: 29; Start 08/26/16 at 04:30; Stop 08/26/16 at 04:31; Status DC Fentanyl Citrate (Fentanyl 5ml Vial) 250 mcg STK-MED ONCE .ROUTE ; Start at 04:41; Stop 08/26/16 at 04:42; Status DC Succinylcholine Chloride (Anectine) 200 mg STK-MED ONCE .ROUTE ; Start 08/26/16 at 04:42; Stop 08/26/16 at 04:43; Status DC Rocuronium [place] (Zemuron) 50 mg STK-MED ONCE .ROUTE ; Start 08/26/16 at 04:42 ; Stop 08/26/16 at 04:43; Status DC Ondansetron HCl (Zofran) 4 mg PRN Q6HRS PRN IV Nausea; Start 08/26/16 at 04:45; Stop 08/26/16 at 14:42; Status DC Fentanyl Citrate (Fentanyl 2ml Vial) 25 mcg PRN Q5MIN PRN IV MILD PAIN; Start 08/26/16 at 04:45; Stop 08/26/16 at 14:41; Status DC Fentanyl Citrate (Fentanyl 2ml Vial) 50 mcg PRN Q5MIN PRN IV MODERATE PAIN; Start 08/26/16 at 04:45; Stop 08/26/16 at 14:42; Status DC Morphine Sulfate 1 mg 1 mg PRN Q10MIN PRN IV SEVERE PAIN; Start 08/26/16 at 04: 45; Stop 08/26/16 at 14:42; Status DC Lactated Ringer's (Iv Lactated Ringers) 1,000 ml @ 30 mls/hr Q24H IV ; Start at 04:43; Stop 08/26/16 at 16:42; Status DC Lidocaine HCl 2 ml 1X PRN PRN ID IV START; Start 08/26/16 at 04:45; Stop at 14:42; Status DC Hydromorphone HCl (Dilaudid) 0.5 mg PRN Q10MIN PRN IV SEV PAIN,Second choice; Start 08/26/16 at 04:45; Stop 08/26/16 at 14:42; Status DC Prochlorperazine Edisylate 5 mg 5 mg PACU PRN PRN IV NAUSEA; Start 08/26/16 at 04:45; Stop 08/26/16 at 14:42; Status DC Propofol (Diprivan) 20 ml @ As Directed STK-MED ONCE IV ; Start 08/26/16 at 04:44 ; Stop 08/26/16 at 04:45; Status DC Lidocaine HCl (Lidocaine Pf 2% Vial) 5 ml STK-MED ONCE .ROUTE ; Start 08/26/16 at 04:44; Stop 08/26/16 at 04:45; Status DC Sevoflurane (Ultane) 60 ml STK-MED ONCE IH ; Start 08/26/16 at 06:07; Stop at 06:08; Status DC Phenylephrine HCl 1 mg STK-MED ONCE IV ; Start 08/26/16 at 06:12; Stop 08/26/16 at 06:13; Status DC Dexamethasone Sodium Phosphate (Decadron) 20 mg STK-MED ONCE .ROUTE ; Start 08/26 at 06:12; Stop 08/26/16 at 06:13; Status DC Ondansetron HCl (Zofran) 4 mg STK-MED ONCE .ROUTE ; Start 08/26/16 at 06:12; Stop 08/26/16 at 06:13; Status DC Glycopyrrolate (Robinul) 1 mg STK-MED ONCE .ROUTE ; Start 08/26/16 at 06:13; Stop 08/26/16 at 06:14; Status DC Neostigmine Methylsulfate 5 mg STK-MED ONCE .ROUTE ; Start 08/26/16 at 06:13; Stop 08/26/16 at 06:14; Status DC Diphenhydramine HCl (Benadryl) 25 mg PRN Q6HRS PRN IV ITCHING; Start 08/26/16 at 07:00 Enoxaparin Sodium (Lovenox 40mg Syringe) 40 mg Q12HR SQ Last administered on 10:30; Start 08/26/16 at 09:00; Stop 08/27/16 at 16:33; Status DC Sodium Chloride 3 ml 3 ml QSHIFT PRN IV AFTER MEDS AND BLOOD DRAWS Last administered on 08/30/16 14:23; Start 08/26/16 at 07:00 Potassium Chloride/Sodium Chloride 1,000 ml @ 100 mls/hr Q10H IV Last administered on 09/02/16 07:51; Start 08/26/16 at 06:53 Hydromorphone HCl (Dilaudid Standard [employer]ER SERVICES MANAGER) 30 ml @ 0 mls/hr CONT PRN PRN IV PROTOCOL Last administered on 08/26/16 07:41; Start 08/26/16 at 07:00; Stop at 09:42; Status DC Ondansetron HCl (Zofran) 4 mg PRN Q6HRS PRN IV NAUESA, 1ST CHOICE Last administered on 09/02/16 07:46; Start 08/26/16 at 07:00 Throat Lozenges (Chloraseptic) 1 spray PRN Q2HR PRN PO SORE THROAT; Start at 07:00 Throat Lozenges 1 noreen 1 noreen PRN Q2HRS PRN PO SORE THROAT; Start 08/26/16 at 07: 00 Hydromorphone HCl 30 ml @ 0 mls/hr CONT PRN PRN IV PROTOCOL; Start 08/26/16 at 09:45; Stop 08/26/16 at 12:16; Status DC Hydromorphone HCl (Dilaudid Standard CUSTOMER SERVICES MANAGER) 30 ml @ 0 mls/hr CONT PRN PRN IV PROTOCOL; Start 08/26/16 at 12:15; Stop 08/26/16 at 20:05; Status DC Pantoprazole Sodium (Protonix Vial) 40 mg BID IVP Last administered on 07:47; Start 08/26/16 at 21:00 Labetalol HCl 20 mg 20 mg PRN Q2HR PRN IVP HYPERTENSION, SEE COMMENTS Last administered on 08/30/16 09:34; Start 08/26/16 at 13:15 Sodium Chloride 1,000 ml @ 1,000 mls/hr 1X ONCE IV ; Start 08/26/16 at 23:00; Stop 08/26/16 at 23:59; Status DC Hydromorphone HCl (Dilaudid Standard [employer]ER SERVICES MANAGER) 30 ml @ 0 mls/hr CONT PRN PRN IV PROTOCOL Last administered on 09/02/16 05:37; Start 08/26/16 at 20:15 Enoxaparin Sodium (Lovenox 40mg Syringe) 40 mg Q24H SQ Last administered on 09:48; Start 08/28/16 at 09:00 Ondansetron HCl (Zofran) 4 mg PRN Q6HRS PRN IV Nausea; Start 08/30/16 at 07:00; Stop 08/31/16 at 06:59; Status DC Fentanyl Citrate (Fentanyl 2ml Vial) 25 mcg PRN Q5MIN PRN IV MILD PAIN; Start 08/30/16 at 07:00; Stop 08/31/16 at 06:59; Status DC Fentanyl Citrate (Fentanyl 2ml Vial) 50 mcg PRN Q5MIN PRN IV MODERATE PAIN Last administered on 08/30/16 14:48; Start 08/30/16 at 07:00; Stop 08/31/16 at 06 :59; Status DC Morphine Sulfate 1 mg 1 mg PRN Q10MIN PRN IV SEVERE PAIN; Start 08/30/16 at 07: 00; Stop 08/31/16 at 06:59; Status DC Lactated Ringer's (Iv Lactated Ringers) 1,000 ml @ 0 mls/hr Q0M IV ; Start 08/30 at 07:00; Stop 08/30/16 at 18:59; Status DC Lidocaine HCl 2 ml 1X PRN PRN ID IV START; Start 08/30/16 at 07:00; Stop at 06:59; Status DC Hydromorphone HCl (Dilaudid) 0.5 mg PRN Q10MIN PRN IV SEVERE PAIN, Second choice; Start 08/30/16 at 07:00; Stop 08/31/16 at 06:59; Status DC Prochlorperazine Edisylate 5 mg 5 mg PACU PRN PRN IV NAUSEA; Start 08/30/16 at 07:00; Stop 08/31/16 at 06:59; Status DC Propofol 0 ml @ As Directed STK-MED ONCE IV ; Start 08/30/16 at 12:35; Stop at 12:36; Status DC Propofol 50 ml @ As Directed STK-MED ONCE IV ; Start 08/30/16 at 12:35; Stop 08/30 at 12:36; Status DC Propofol 0 ml @ As Directed STK-MED ONCE IV ; Start 08/30/16 at 12:35; Stop at 12:36; Status DC Propofol 0 ml @ As Directed STK-MED ONCE IV ; Start 08/30/16 at 12:35; Stop at 12:36; Status DC Propofol (Diprivan) 20 ml @ As Directed STK-MED ONCE IV ; Start 08/30/16 at 12:35 ; Stop 08/30/16 at 12:36; Status DC Midazolam HCl (Versed) 2 mg STK-MED ONCE .ROUTE ; Start 08/30/16 at 12:35; Stop 08/30/16 at 12:36; Status DC Midazolam HCl (Versed) 2 mg STK-MED ONCE .ROUTE ; Start 08/30/16 at 12:35; Stop 08/30/16 at 12:36; Status DC Ketamine HCl 500 mg 500 mg STK-MED ONCE .ROUTE ; Start 08/30/16 at 12:35; Stop at 12:36; Status DC Sodium Chloride (Iv Sodium Chloride 0.9% 1000ml Bag) 1,000 ml @ 100 mls/hr Q10H IV Last administered on 08/30/16 13:00; Start 08/30/16 at 13:00; Stop 08/31 at 08:41; Status DC Naloxone HCl (Narcan) 0.4 mg STK-MED ONCE .ROUTE ; Start 08/30/16 at 15:37; Stop 08/30/16 at 15:38; Status DC Flumazenil (Romazicon) 0.5 mg STK-MED ONCE IV ; Start 08/30/16 at 15:37; Stop 08/30/16 at 15:38; Status DC Midazolam HCl (Versed) 5 mg STK-MED ONCE .ROUTE ; Start 08/30/16 at 15:37; Stop 08/30/16 at 15:38; Status DC Fentanyl Citrate (Fentanyl 5ml Vial) 250 mcg STK-MED ONCE .ROUTE ; Start at 15:38; Stop 08/30/16 at 15:39; Status DC Lidocaine/Sodium Bicarbonate (Buffered Lidocaine 1%) 20 ml 1X ONCE IJ Last administered on 08/30/16 15:45; Start 08/30/16 at 15:45; Stop 08/30/16 at 15:46; Status DC Lidocaine/Sodium Bicarbonate (Buffered Lidocaine 1%) 20 ml 1X ONCE IJ ; Start 08/30/16 at 16:00; Stop 08/30/16 at 16:01; Status DC Midazolam HCl (Versed) 5 mg 1X ONCE IV Last administered on 08/30/16 16:00; Start 08/30/16 at 16:00; Stop 08/30/16 at 16:01; Status DC Fentanyl Citrate (Fentanyl 5ml Vial) 250 mcg 1X ONCE IV Last administered on 16:00; Start 08/30/16 at 16:00; Stop 08/30/16 at 16:01; Status DC Metoprolol Succinate (Toprol Xl) 12.5 mg DAILY PO Last administered on 09:48; Start 08/31/16 at 15:00 Metoclopramide HCl (Reglan) 5 mg PRN Q6HRS PRN IV NAUSEA/VOMITING Last administered on 09/01/16t 05:30; Start 09/01/16 at 05:30 Active Scripts Active Reported Cetirizine Hcl 1 Mg/1 Ml Solution 10 Mg PO Hydrocodone-Apap 7.5-325 (Hydrocodone Bit/Acetaminophen) 1 Each Tablet 1 Tab PO PRN Q6HRS PRN Fioricet 50-300-40 Mg Capsule (Butalb/Acetaminophen/Caffeine) 1 Each Capsule 1 Each PO PRN Q6-8HRS PRN Voltaren-Xr (Diclofenac Sodium) 100 Mg Tab.er.24h 75 Mg PO [id number] Ambien (Zolpidem Tartrate) 10 Mg Tablet 10 Mg PO HS PRN Propranolol Hcl 80 Mg Cap.sa.24h 1 Cap PO DAILY Vitals/I & O Vital Sign - Last 24 Hours 09/01/16 09/01/16 09/01/16 09/01/16 15:00 19:00 20:00 23:00 Temp 97.9 97.3 98.1 97.9 97.3 98.1 Pulse 63 63 68 Resp 20 18 20 B/P 179/91 164/73 135/56 Pulse Ox 93 97 93 O2 Delivery Room Air Room Air Room Air Room Air 09/02/16 09/02/16 09/02/16 09/02/16 03:00 06:10 07:00 07:32 Temp 97.1 98.4 97.1 98.4 Pulse 76 57 Resp 20 20 B/P 147/78 164/63 Pulse Ox 95 95 94 O2 Delivery Room Air Room Air Room Air Room Air O2 Flow Rate 2.0 09/02/16 09/02/16 09:48 11:00 Temp 97.4 97.4 Pulse 57 67 Resp 20 B/P 164/63 187/89 Pulse Ox 96 O2 Delivery Room Air Intake and Output 09/01/16 09/01/16 09/02/16 15:00 23:00 07:00 Intake Total 200 ml Balance 200 ml ARMAND POMPA MD Sep 02, 2016 12:07
[2016-09-02] MEDS: HYDROMORPHONE 2 MG/ML VIAL. IV PRN (14:10)
[2016-09-02 15:00] VITALS: BP 148/63
[2016-09-02 19:00] VITALS: BP 148/57
[2016-09-02] MEDS: OXYCODONE/APAP 10/325 TABLET. PO PRN (21:33)
[2016-09-02 23:29] VITALS: BP 141/51
[2016-09-03] MEDS: HYDROMORPHONE 2 MG/ML VIAL. IV PRN ×4 (01:00→22:12)
[2016-09-03 03:37] VITALS: BP 160/59
[2016-09-03] MEDS: POTASSIUM CL 20MEQ-0.45% NACL 1,000 ML IV SCH ×2 (06:04→19:41)
[2016-09-03] MEDS: ONDANSETRON PF 4 MG/2 ML VIAL. IV PRN (06:04)
[2016-09-03] MEDS: METRONIDAZOLE 500mg PREMIX 100 ML IV SCH ×3 (06:04→21:55)
[2016-09-03 07:00] VITALS: BP 139/64
[2016-09-03] MEDS: PANTOPRAZOLE IV PUSH 40 MG VIAL. IVP SCH (07:57)
[2016-09-03] MEDS: METOPROLOL SUCC 24HR ER 25 MG TAB.ER.24H. PO SCH (08:01)
[2016-09-03] MEDS: ENOXAPARIN 40 MG/0.4 ML DISP.SYRIN. SQ SCH (08:05)
--- NOTE | 2016-09-03 08:36 | PDOC ---
YOLANDELINA Elder [employer]OD EDUCATION INSTRUCTOR 09/03/16 0836: SURGICAL PROGRESS NOTE Subjective brief waves of nausea, not associated with meals + flatus, small BM pain managed Vital Signs Vital Signs Date Time Temp Pulse Resp B/P Pulse Ox O2 Delivery O2 Flow Rate FiO2 09/03/16 08:01 59 139/65 09/03/16 07:58 94 Room Air 2.0 09/03/16 03:37 96.4 18 96.4 I&O Intake and Output 09/03/16 07:00 Intake Total 200 ml Output Total 350 ml Balance -150 ml Intake Oral 200 ml Output Urine Total 300 ml Drainage Total 50 ml # Voids 6 General: Alert, Oriented X3, Cooperative, No acute distress Abdomen: Soft, Other (midline incision c/d/i, no erythema, ABDIAZIZ serous) Labs Laboratory Tests Test 09/01/16 11:58 09/01/16 17:29 09/01/16 20:51 09/02/16 08:06 Glucose (Fingerstick) 120mg/dL (70-99) 75mg/dL (70-99) 107mg/dL (70-99) 99mg/dL (70-99) Test 09/02/16 11:45 09/02/16 21:15 09/03/16 08:09 Glucose (Fingerstick) 107mg/dL (70-99) 126mg/dL (70-99) 105mg/dL (70-99) Laboratory Tests Test 09/02/16 11:45 09/02/16 21:15 09/03/16 08:09 Glucose (Fingerstick) 107mg/dL (70-99) 126mg/dL (70-99) 105mg/dL (70-99) Problem List Problems Medical Problems: (1) Closed wedge compression fracture of T11 vertebra Status: Acute (2) Perforated ulcer Status: Acute Assessment/Plan s/p ulcer repair soft diet continue drain for now, decreasing output Problems: MARLON PRINCE MD 09/03/16 1249: SURGICAL PROGRESS NOTE Assessment/Plan pt seen and examined agree with above appreciate other consultants input Problems: LINA LANIER [employer] CHIL[employer]OD EDUCATION INSTRUCTOR Sep 03, 2016 08:36 MARLON PRINCE MD Sep 03, 2016 12:49
--- NOTE | 2016-09-03 08:53 | PDOC ---
PROGRESS NOTES Subjective Subjective c/c - f/u of breast cancer Objective Objective Vital Signs Date Time Temp Pulse Resp B/P Pulse Ox O2 Delivery O2 Flow Rate FiO2 09/03/16 08:01 59 139/65 09/03/16 07:58 94 Room Air 2.0 09/03/16 03:37 96.4 18 96.4 Intake and Output 09/03/16 07:00 Intake Total 200 ml Output Total 350 ml Balance -150 ml Intake Oral 200 ml Output Urine Total 300 ml Drainage Total 50 ml # Voids 6 Physical Exam Heart: Normal S1, Normal S2 General: Alert, Oriented X3 Neuro: Normal speech Psych/Mental Status: Mental status NL Assessment Assessment Problems Medical Problems: (1) Closed wedge compression fracture of T11 vertebra Status: Acute (2) Perforated ulcer Status: Acute IMPRESSION AND PLAN: 1. Invasive ductal carcinoma of the left breast diagnosed in 2011, ER/ND positive, HER-2/kristel negative. She underwent lumpectomy and radiation therapy and she received Arimidex till 2013 and she quit taking it because she could afford it. She now has evidence of bone metastasis and possibly lung metastasis. She has evidence of a T11 pathologic fracture and also sternal fracture. This is now suggestive of stage IV lung cancer. Vertebroplasty and biopsy of the T11 vertebral body was canceled due to potential spinal cord compression I d/w Dr Sung. Bone bx - CT-guided biopsy of T4 was done 08/30/16. I will check ER/ND/Her 2 kristel. Bone scan 08/30/16: There are multiple areas of abnormal uptake compatible with metastatic disease. There is uptake at T11 consistent with the sclerotic focus seen on the recent CT. Additional foci are seen scattered in mid and upper thoracic vertebral body segments compatible with metastatic disease. Increased activity is seen in the midportion of the sternum consistent with same. There are 2 areas of increased activity in the calvarium compatible with calvarial metastatic disease. There is an isolated focus of increased activity in the lower lumbar spine which may be degenerative. Finally a single focus of increased activity is seen in a right lower, anterior, rib. MRI of the thoracic 08/30/16: . There are findings of osseous metastatic disease. T11 lesion results in mild bowing of the posterior cortex also with mild epidural extent of mass. There is fairly severe spinal stenosis at T10-11 primarily from buckling of the ligamentum flavum and facet degenerative change, effacement of subarachnoid space at this level and likely mild cord edema. Poorly evaluated, there may be aneurysmal dilatation of the ascending thoracic aorta on the order of 4 centimeters. There is small dependent right pleural effusion. I d/w pt and her son Huy. I explained the clinical impression of stage 4 breast cancer. I recommended palliative radiation followed by faslodex plus Ibrance or aromain plus afinitor. 2. Bone metastasis. She has numerous lytic and sclerotic bone lesions with pathologic fracture of the sternum at T11 vertebral body. Plan Xgeva as an outpatient. Plan, palliative radiation therapy. 3. Pulmonary nodules, thought to be due to metastatic disease from breast cancer. 4. Perforated pyloric channel ulcer, status post exploratory laparotomy and biopsy and closure of the ulcer by Dr. Mendez on 08/26/2016. Continue postoperative care. 5. Leukocytosis, reactive. Monitor. WBC better at 10.8 6. Anemia postoperative due to surgical blood loss. Monitor. 7. Renal insufficiency with a creatinine of 1.6 and a BUN of 37 on 08/27/2016. Continue to monitor. Comment Review of Relevant I have reviewed the following items maggy (where applicable) has been applied. Labs Laboratory Tests Test 09/01/16 11:58 09/01/16 17:29 09/01/16 20:51 09/02/16 08:06 Glucose (Fingerstick) 120mg/dL (70-99) 75mg/dL (70-99) 107mg/dL (70-99) 99mg/dL (70-99) Test 09/02/16 11:45 09/02/16 21:15 09/03/16 08:09 Glucose (Fingerstick) 107mg/dL (70-99) 126mg/dL (70-99) 105mg/dL (70-99) Laboratory Tests Test 09/02/16 11:45 09/02/16 21:15 09/03/16 08:09 Glucose (Fingerstick) 107mg/dL (70-99) 126mg/dL (70-99) 105mg/dL (70-99) Microbiology 08/26/16 Gram Stain - Final, Complete 08/26/16 Urine Culture - Final, Complete 08/26/16 Urine Culture Result 1 (LATASHA) - Final, Complete Medications Current Medications Nitroglycerin (Nitrostat) 0.4 mg PRN Q5MIN PRN SL CP RATING > 1/10 Last administered on 08/26/16 00:32; Start 08/25/16 at 23:45; Stop 08/26/16 at 23:44; Status DC Fentanyl Citrate 25 mcg 25 mcg PRN Q15MIN PRN IV PAIN GREATER THAN 3/10 Last administered on 08/26/16 02:43; Start 08/25/16 at 23:45; Stop 08/26/16 at 14:40; Status DC Sodium Chloride (Iv Sodium Chloride 0.9% 500ml Bag) 500 ml @ 500 mls/hr 1X ONCE IV Last administered on 08/26/16 00:32; Start 08/26/16 at 00:30; Stop at 01:29; Status DC Ondansetron HCl (Zofran) 4 mg STK-MED ONCE .ROUTE ; Start 08/26/16 at 01:44; Stop 08/26/16 at 01:45; Status DC Ondansetron HCl 4 mg 4 mg 1X ONCE IV Last administered on 08/26/16 01:45; Start 08/26/16 at 02:00; Stop 08/26/16 at 02:03; Status DC Metronidazole 100 ml @ 100 mls/hr Q8HRS IV Last administered on 09/03/16 06: 04; Start 08/26/16 at 14:00 Metronidazole 100 ml @ 100 mls/hr 1X ONCE IV Last administered on 08/26/16 02 :38; Start 08/26/16 at 02:30; Stop 08/26/16 at 03:29; Status DC Cefepime HCl 2 gm/ Sodium Chloride 100 ml @ 200 mls/hr 1X ONCE IV Last administered on 08/26/16 03:22; Start 08/26/16 at 03:00; Stop 08/26/16 at 03:29; Status DC Sodium Chloride (Iv Sodium Chloride 0.9% 1000ml Bag) 1,000 ml @ 125 mls/hr 1X ONCE IV Last administered on 08/26/16 02:41; Start 08/26/16 at 03:00; Stop at 10:59; Status DC Fentanyl Citrate (Fentanyl 2ml Vial) 50 mcg PRN Q15MIN PRN IV PAIN GREATER THAN 3/10 Last administered on 08/26/16 07:42; Start 08/26/16 at 02:45; Stop 08/26 at 14:40; Status DC Ondansetron HCl 4 mg 4 mg 1X ONCE PO ; Start 08/26/16 at 03:00; Stop 08/26/16 at 03:01; Status DC Metronidazole (FLAGYL 500Mmg PREMIX) 100 ml @ 100 mls/hr 1X ONCE IV Last administered on 08/26/16 05:12; Start 08/26/16 at 04:30; Stop 08/26/16 at 05:29; Status DC Hydromorphone HCl (Dilaudid) 1 mg 1X ONCE IV Last administered on 08/26/16 04: 29; Start 08/26/16 at 04:30; Stop 08/26/16 at 04:31; Status DC Fentanyl Citrate (Fentanyl 5ml Vial) 250 mcg STK-MED ONCE .ROUTE ; Start at 04:41; Stop 08/26/16 at 04:42; Status DC Succinylcholine Chloride (Anectine) 200 mg STK-MED ONCE .ROUTE ; Start 08/26/16 at 04:42; Stop 08/26/16 at 04:43; Status DC Rocuronium [place] (Zemuron) 50 mg STK-MED ONCE .ROUTE ; Start 08/26/16 at 04:42 ; Stop 08/26/16 at 04:43; Status DC Ondansetron HCl (Zofran) 4 mg PRN Q6HRS PRN IV Nausea; Start 08/26/16 at 04:45; Stop 08/26/16 at 14:42; Status DC Fentanyl Citrate (Fentanyl 2ml Vial) 25 mcg PRN Q5MIN PRN IV MILD PAIN; Start 08/26/16 at 04:45; Stop 08/26/16 at 14:41; Status DC Fentanyl Citrate (Fentanyl 2ml Vial) 50 mcg PRN Q5MIN PRN IV MODERATE PAIN; Start 08/26/16 at 04:45; Stop 08/26/16 at 14:42; Status DC Morphine Sulfate 1 mg 1 mg PRN Q10MIN PRN IV SEVERE PAIN; Start 08/26/16 at 04: 45; Stop 08/26/16 at 14:42; Status DC Lactated Ringer's (Iv Lactated Ringers) 1,000 ml @ 30 mls/hr Q24H IV ; Start at 04:43; Stop 08/26/16 at 16:42; Status DC Lidocaine HCl 2 ml 1X PRN PRN ID IV START; Start 08/26/16 at 04:45; Stop at 14:42; Status DC Hydromorphone HCl (Dilaudid) 0.5 mg PRN Q10MIN PRN IV SEV PAIN,Second choice; Start 08/26/16 at 04:45; Stop 08/26/16 at 14:42; Status DC Prochlorperazine Edisylate 5 mg 5 mg PACU PRN PRN IV NAUSEA; Start 08/26/16 at 04:45; Stop 08/26/16 at 14:42; Status DC Propofol (Diprivan) 20 ml @ As Directed STK-MED ONCE IV ; Start 08/26/16 at 04:44 ; Stop 08/26/16 at 04:45; Status DC Lidocaine HCl (Lidocaine Pf 2% Vial) 5 ml STK-MED ONCE .ROUTE ; Start 08/26/16 at 04:44; Stop 08/26/16 at 04:45; Status DC Sevoflurane (Ultane) 60 ml STK-MED ONCE IH ; Start 08/26/16 at 06:07; Stop at 06:08; Status DC Phenylephrine HCl 1 mg STK-MED ONCE IV ; Start 08/26/16 at 06:12; Stop 08/26/16 at 06:13; Status DC Dexamethasone Sodium Phosphate (Decadron) 20 mg STK-MED ONCE .ROUTE ; Start 08/26 at 06:12; Stop 08/26/16 at 06:13; Status DC Ondansetron HCl (Zofran) 4 mg STK-MED ONCE .ROUTE ; Start 08/26/16 at 06:12; Stop 08/26/16 at 06:13; Status DC Glycopyrrolate (Robinul) 1 mg STK-MED ONCE .ROUTE ; Start 08/26/16 at 06:13; Stop 08/26/16 at 06:14; Status DC Neostigmine Methylsulfate 5 mg STK-MED ONCE .ROUTE ; Start 08/26/16 at 06:13; Stop 08/26/16 at 06:14; Status DC Diphenhydramine HCl (Benadryl) 25 mg PRN Q6HRS PRN IV ITCHING; Start 08/26/16 at 07:00 Enoxaparin Sodium (Lovenox 40mg Syringe) 40 mg Q12HR SQ Last administered on 10:30; Start 08/26/16 at 09:00; Stop 08/27/16 at 16:33; Status DC Sodium Chloride 3 ml 3 ml QSHIFT PRN IV AFTER MEDS AND BLOOD DRAWS Last administered on 08/30/16 14:23; Start 08/26/16 at 07:00 Potassium Chloride/Sodium Chloride 1,000 ml @ 100 mls/hr Q10H IV Last administered on 09/03/16 06:04; Start 08/26/16 at 06:53 Hydromorphone HCl (Dilaudid Standard SULFUR CHLORIDE OPERATOR) 30 ml @ 0 mls/hr CONT PRN PRN IV PROTOCOL Last administered on 08/26/16 07:41; Start 08/26/16 at 07:00; Stop at 09:42; Status DC Ondansetron HCl (Zofran) 4 mg PRN Q6HRS PRN IV NAUESA, 1ST CHOICE Last administered on 09/03/16 06:04; Start 08/26/16 at 07:00 Throat Lozenges (Chloraseptic) 1 spray PRN Q2HR PRN PO SORE THROAT; Start at 07:00 Throat Lozenges 1 noreen 1 noreen PRN Q2HRS PRN PO SORE THROAT; Start 08/26/16 at 07: 00 Hydromorphone HCl 30 ml @ 0 mls/hr CONT PRN PRN IV PROTOCOL; Start 08/26/16 at 09:45; Stop 08/26/16 at 12:16; Status DC Hydromorphone HCl (Dilaudid Standard SULFUR CHLORIDE OPERATOR) 30 ml @ 0 mls/hr CONT PRN PRN IV PROTOCOL; Start 08/26/16 at 12:15; Stop 08/26/16 at 20:05; Status DC Pantoprazole Sodium (Protonix Vial) 40 mg BID IVP Last administered on 07:57; Start 08/26/16 at 21:00 Labetalol HCl 20 mg 20 mg PRN Q2HR PRN IVP HYPERTENSION, SEE COMMENTS Last administered on 08/30/16 09:34; Start 08/26/16 at 13:15 Sodium Chloride 1,000 ml @ 1,000 mls/hr 1X ONCE IV ; Start 08/26/16 at 23:00; Stop 08/26/16 at 23:59; Status DC Hydromorphone HCl (Dilaudid Standard SULFUR CHLORIDE OPERATOR) 30 ml @ 0 mls/hr CONT PRN PRN IV PROTOCOL Last administered on 09/02/16 05:37; Start 08/26/16 at 20:15; Stop 07/07 at 12:54; Status DC Enoxaparin Sodium (Lovenox 40mg Syringe) 40 mg Q24H SQ Last administered on 08:05; Start 08/28/16 at 09:00 Ondansetron HCl (Zofran) 4 mg PRN Q6HRS PRN IV Nausea; Start 08/30/16 at 07:00; Stop 08/31/16 at 06:59; Status DC Fentanyl Citrate (Fentanyl 2ml Vial) 25 mcg PRN Q5MIN PRN IV MILD PAIN; Start 08/30/16 at 07:00; Stop 08/31/16 at 06:59; Status DC Fentanyl Citrate (Fentanyl 2ml Vial) 50 mcg PRN Q5MIN PRN IV MODERATE PAIN Last administered on 08/30/16 14:48; Start 08/30/16 at 07:00; Stop 08/31/16 at 06 :59; Status DC Morphine Sulfate 1 mg 1 mg PRN Q10MIN PRN IV SEVERE PAIN; Start 08/30/16 at 07: 00; Stop 08/31/16 at 06:59; Status DC Lactated Ringer's (Iv Lactated Ringers) 1,000 ml @ 0 mls/hr Q0M IV ; Start 08/30 at 07:00; Stop 08/30/16 at 18:59; Status DC Lidocaine HCl 2 ml 1X PRN PRN ID IV START; Start 08/30/16 at 07:00; Stop at 06:59; Status DC Hydromorphone HCl (Dilaudid) 0.5 mg PRN Q10MIN PRN IV SEVERE PAIN, Second choice; Start 08/30/16 at 07:00; Stop 08/31/16 at 06:59; Status DC Prochlorperazine Edisylate 5 mg 5 mg PACU PRN PRN IV NAUSEA; Start 08/30/16 at 07:00; Stop 08/31/16 at 06:59; Status DC Propofol 0 ml @ As Directed STK-MED ONCE IV ; Start 08/30/16 at 12:35; Stop at 12:36; Status DC Propofol 50 ml @ As Directed STK-MED ONCE IV ; Start 08/30/16 at 12:35; Stop 08/30 at 12:36; Status DC Propofol 0 ml @ As Directed STK-MED ONCE IV ; Start 08/30/16 at 12:35; Stop at 12:36; Status DC Propofol 0 ml @ As Directed STK-MED ONCE IV ; Start 08/30/16 at 12:35; Stop at 12:36; Status DC Propofol (Diprivan) 20 ml @ As Directed STK-MED ONCE IV ; Start 08/30/16 at 12:35 ; Stop 08/30/16 at 12:36; Status DC Midazolam HCl (Versed) 2 mg STK-MED ONCE .ROUTE ; Start 08/30/16 at 12:35; Stop 08/30/16 at 12:36; Status DC Midazolam HCl (Versed) 2 mg STK-MED ONCE .ROUTE ; Start 08/30/16 at 12:35; Stop 08/30/16 at 12:36; Status DC Ketamine HCl 500 mg 500 mg STK-MED ONCE .ROUTE ; Start 08/30/16 at 12:35; Stop at 12:36; Status DC Sodium Chloride (Iv Sodium Chloride 0.9% 1000ml Bag) 1,000 ml @ 100 mls/hr Q10H IV Last administered on 08/30/16t 13:00; Start 08/30/16 at 13:00; Stop 08/31 at 08:41; Status DC Naloxone HCl (Narcan) 0.4 mg STK-MED ONCE .ROUTE ; Start 08/30/16 at 15:37; Stop 08/30/16 at 15:38; Status DC Flumazenil (Romazicon) 0.5 mg STK-MED ONCE IV ; Start 08/30/16 at 15:37; Stop 08/30/16 at 15:38; Status DC Midazolam HCl (Versed) 5 mg STK-MED ONCE .ROUTE ; Start 08/30/16 at 15:37; Stop 08/30/16 at 15:38; Status DC Fentanyl Citrate (Fentanyl 5ml Vial) 250 mcg STK-MED ONCE .ROUTE ; Start at 15:38; Stop 08/30/16 at 15:39; Status DC Lidocaine/Sodium Bicarbonate (Buffered Lidocaine 1%) 20 ml 1X ONCE IJ Last administered on 08/30/16 15:45; Start 08/30/16 at 15:45; Stop 08/30/16 at 15:46; Status DC Lidocaine/Sodium Bicarbonate (Buffered Lidocaine 1%) 20 ml 1X ONCE IJ ; Start 08/30/16 at 16:00; Stop 08/30/16 at 16:01; Status DC Midazolam HCl (Versed) 5 mg 1X ONCE IV Last administered on 08/30/16 16:00; Start 08/30/16 at 16:00; Stop 08/30/16 at 16:01; Status DC Fentanyl Citrate (Fentanyl 5ml Vial) 250 mcg 1X ONCE IV Last administered on 16:00; Start 08/30/16 at 16:00; Stop 08/30/16 at 16:01; Status DC Metoprolol Succinate (Toprol Xl) 12.5 mg DAILY PO Last administered on 08:01; Start 08/31/16 at 15:00 Metoclopramide HCl (Reglan) 5 mg PRN Q6HRS PRN IV NAUSEA/VOMITING Last administered on 09/01/16 05:30; Start 09/01/16 at 05:30 Hydromorphone HCl (Dilaudid) 0.5 mg PRN Q2HRS PRN IV PAIN Last administered on 09/03/16 07:58; Start 09/02/16 at 13:00 Oxycodone/ Acetaminophen (Percocet 10/325) 1 tab PRN Q4HRS PRN PO PAIN Last administered on 09/02/16 21:33; Start 09/02/16 at 19:00 Active Scripts Active Reported Cetirizine Hcl 1 Mg/1 Ml Solution 10 Mg PO Hydrocodone-Apap 7.5-325 (Hydrocodone Bit/Acetaminophen) 1 Each Tablet 1 Tab PO PRN Q6HRS PRN Fioricet 50-300-40 Mg Capsule (Butalb/Acetaminophen/Caffeine) 1 Each Capsule 1 Each PO PRN Q6-8HRS PRN Voltaren-Xr (Diclofenac Sodium) 100 Mg Tab.er.24h 75 Mg PO [id number] Ambien (Zolpidem Tartrate) 10 Mg Tablet 10 Mg PO HS PRN Propranolol Hcl 80 Mg Cap.sa.24h 1 Cap PO DAILY Vitals/I & O Vital Sign - Last 24 Hours 09/02/16 09/02/16 09/02/16 09/02/16 09:48 11:00 14:10 14:45 Temp 97.4 97.4 Pulse 57 67 Resp 20 B/P 164/63 187/89 Pulse Ox 96 96 96 O2 Delivery Room Air Room Air Room Air O2 Flow Rate 2.0 2.0 09/02/16 09/02/16 09/02/16 09/02/16 15:00 19:00 20:30 23:29 Temp 97.7 97.9 96.4 97.7 97.9 96.4 Pulse 68 60 61 Resp 20 18 18 B/P 148/63 148/57 141/51 Pulse Ox 96 93 95 O2 Delivery Room Air Room Air Room Air Room Air 09/03/16 09/03/16 09/03/16 03:37 07:58 08:01 Temp 96.4 96.4 Pulse 63 59 Resp 18 B/P 160/59 139/65 Pulse Ox 94 94 O2 Delivery Room Air Room Air O2 Flow Rate 2.0 Intake and Output 09/02/16 09/02/16 09/03/16 15:00 23:00 07:00 Intake Total 200 ml Output Total 300 ml 50 ml Balance -300 ml 150 ml SALVADOR PERALES MD Sep 03, 2016 08:53
--- NOTE | 2016-09-03 09:03 | PDOC ---
PROGRESS NOTES Chief Complaint Chief Complaint Acute abdominal pain Perforated pyloric ulcer ASSESSMENT AND PLAN: 1. Perf.d viscus: s/p emergent repair on 08/[address] Mendez. recovering appropriately. on flagyl. 2. T11 pathologic compression fx: unfortunately, not amenable to kyphoplasty. treat symptomatically. start long- and short-acting opioid 3. Breast CA: mets to bone. F/U w/ onc on O/P basis 4. DM2: by report, not on meds here with good control. stop FSBG 5. HTN: well controlled on current regimen 6. Dysrhythmia: appreciate cards input. O/P F/U 7. Prophylaxis: lovenox, PPI - switch to PO 8. Dispo: to SNF when clear ed by surgery Vitals Vitals Vital Signs Date Time Temp Pulse Resp B/P Pulse Ox O2 Delivery O2 Flow Rate FiO2 09/03/16 08:01 59 139/65 09/03/16 07:58 94 Room Air 2.0 09/03/16 03:37 96.4 18 96.4 Physical Exam General: Alert, Oriented X3, Cooperative, No acute distress Heart: Regular rate, Normal S1, Normal S2, Other (2/6 systolic murmur ) Lungs: Clear Abdomen: Normal bowel sounds, Soft, Other (midline incision c/d/i, no erythema , ABDIAZIZ serous) Extremities: No edema Skin: No breakdown, No significant lesion Labs LABS Laboratory Tests Test 09/02/16 11:45 09/02/16 21:15 09/03/16 08:09 Glucose (Fingerstick) 107mg/dL (70-99) 126mg/dL (70-99) 105mg/dL (70-99) Review of Systems Review of Systems pain control ayse at night not optimal, mainly back. eating w/o difficulties BUBBA LACY MD Sep 03, 2016 09:03
[2016-09-03] MEDS: OXYCODONE/APAP 10/325 TABLET. PO PRN ×3 (10:53→21:55)
[2016-09-03 11:00] VITALS: BP 174/71
[2016-09-03 15:00] VITALS: BP 118/64
--- NOTE | 2016-09-03 15:42 | PDOC ---
Provider Note Provider Note Day 8 post op from surgical correction of perforated pyloric ulcer. Tolerating oral fluids. Up in chair with pain well controlled. Ambulating. Biopsy of T4 done with result still in process. Simulated today for palliative treatment to T4 to T11 mets and incorporating treatment to include path fracture of inferior sternum in field of treatment. (No expansion of field needed beyond the T4 to T11 coverage) Will initiate 10 day course of treatment tomorrow. SERA BENDER MD Sep 03, 2016 15:42
[2016-09-03] MEDS: POLYETHYLENE GLYCOL 3350 17 GM PACKET. PO SCH (16:00)
[2016-09-03] MEDS: PANTOPRAZOLE 40 MG TABLET. PO SCH (16:12)
[2016-09-03 19:00] VITALS: BP 125/51
[2016-09-03] MEDS: OXYCODONE ER 15 MG TAB.ER.12H. PO SCH (20:24)
[2016-09-03 23:00] VITALS: BP 136/65
[2016-09-04] MEDS: HYDROMORPHONE 2 MG/ML VIAL. IV PRN ×7 (00:52→21:11)
[2016-09-04 03:00] VITALS: BP 135/54
[2016-09-04] MEDS: OXYCODONE/APAP 10/325 TABLET. PO PRN ×4 (03:24→20:17)
[2016-09-04] MEDS: PANTOPRAZOLE 40 MG TABLET. PO SCH ×2 (05:43→19:18)
[2016-09-04] MEDS: METRONIDAZOLE 500mg PREMIX 100 ML IV SCH ×3 (05:43→21:10)
[2016-09-04 07:00] VITALS: BP 132/48
[2016-09-04] MEDS: METOPROLOL SUCC 24HR ER 25 MG TAB.ER.24H. PO SCH (09:22)
[2016-09-04] MEDS: OXYCODONE ER 15 MG TAB.ER.12H. PO SCH ×2 (09:23→21:10)
--- NOTE | 2016-09-04 09:23 | PDOC ---
PROGRESS NOTES Subjective Subjective c/c - f/u of Invasive ductal carcinoma of the left breast Objective Objective Vital Signs Date Time Temp Pulse Resp B/P Pulse Ox O2 Delivery O2 Flow Rate FiO2 09/04/16 07:00 98.3 59 18 132/48 94 Room Air 98.3 09/03/16 15:00 2.0 Intake and Output 09/04/16 07:00 Intake Total 150 ml Output Total 55 ml Balance 95 ml Intake Oral 150 ml Drainage Total 55 ml # Voids 8 Physical Exam Heart: Normal S1, Normal S2 General: Alert, Oriented X3 Neuro: Normal speech Psych/Mental Status: Mental status NL Assessment Assessment Problems Medical Problems: (1) Closed wedge compression fracture of T11 vertebra Status: Acute (2) Perforated ulcer Status: Acute IMPRESSION AND PLAN: 1. Invasive ductal carcinoma of the left breast diagnosed in 2011, ER/OK positive, HER-2/kristel negative. She underwent lumpectomy and radiation therapy and she received Arimidex till 2013 and she quit taking it because she could afford it. She now has evidence of bone metastasis and possibly lung metastasis. She has evidence of a T11 pathologic fracture and also sternal fracture. This is now suggestive of stage IV lung cancer. Vertebroplasty and biopsy of the T11 vertebral body was canceled due to potential spinal cord compression I d/w Dr Sung. Bone bx - CT-guided biopsy of T4 was done 08/30/16. I will check ER/OK/Her 2 kristel. Bone scan 08/30/16: There are multiple areas of abnormal uptake compatible with metastatic disease. There is uptake at T11 consistent with the sclerotic focus seen on the recent CT. Additional foci are seen scattered in mid and upper thoracic vertebral body segments compatible with metastatic disease. Increased activity is seen in the midportion of the sternum consistent with same. There are 2 areas of increased activity in the calvarium compatible with calvarial metastatic disease. There is an isolated focus of increased activity in the lower lumbar spine which may be degenerative. Finally a single focus of increased activity is seen in a right lower, anterior, rib. MRI of the thoracic 08/30/16: . There are findings of osseous metastatic disease. T11 lesion results in mild bowing of the posterior cortex also with mild epidural extent of mass. There is fairly severe spinal stenosis at T10-11 primarily from buckling of the ligamentum flavum and facet degenerative change, effacement of subarachnoid space at this level and likely mild cord edema. Poorly evaluated, there may be aneurysmal dilatation of the ascending thoracic aorta on the order of 4 centimeters. There is small dependent right pleural effusion. I d/w pt and her son Huy. I explained the clinical impression of stage 4 breast cancer. I recommended palliative radiation followed by faslodex plus Ibrance or aromain plus afinitor. 2. Bone metastasis. She has numerous lytic and sclerotic bone lesions with pathologic fracture of the sternum at T11 vertebral body. Plan Xgeva as an outpatient. Plan, palliative radiation therapy from 09/04/16.. 3. Pulmonary nodules, thought to be due to metastatic disease from breast cancer. 4. Perforated pyloric channel ulcer, status post exploratory laparotomy and biopsy and closure of the ulcer by Dr. Mendez on 08/26/2016. Continue postoperative care. 5. Leukocytosis, reactive. Monitor. WBC better at 10.8 6. Anemia postoperative due to surgical blood loss. Monitor. 7. Renal insufficiency with a creatinine of 1.6 and a BUN of 37 on 08/27/2016. Continue to monitor. Comment Review of Relevant I have reviewed the following items maggy (where applicable) has been applied. Labs Laboratory Tests Test 09/02/16 11:45 09/02/16 21:15 09/02/16 22:00 09/03/16 08:09 Glucose (Fingerstick) 107mg/dL (70-99) 126mg/dL (70-99) 105mg/dL (70-99) Nasal Screen MRSA (PCR) Negative (Negative) Test 09/03/16 11:36 09/03/16 20:46 09/04/16 07:43 Glucose (Fingerstick) 130mg/dL (70-99) 138mg/dL (70-99) 111mg/dL (70-99) Laboratory Tests Test 09/03/16 11:36 09/03/16 20:46 09/04/16 07:43 Glucose (Fingerstick) 130mg/dL (70-99) 138mg/dL (70-99) 111mg/dL (70-99) Microbiology 08/26/16 Gram Stain - Final, Complete 08/26/16 Urine Culture - Final, Complete 08/26/16 Urine Culture Result 1 (LATASHA) - Final, Complete Medications Current Medications Nitroglycerin (Nitrostat) 0.4 mg PRN Q5MIN PRN SL CP RATING > 1/10 Last administered on 08/26/16 00:32; Start 08/25/16 at 23:45; Stop 08/26/16 at 23:44; Status DC Fentanyl Citrate 25 mcg 25 mcg PRN Q15MIN PRN IV PAIN GREATER THAN 3/10 Last administered on 08/26/16 02:43; Start 08/25/16 at 23:45; Stop 08/26/16 at 14:40; Status DC Sodium Chloride (Iv Sodium Chloride 0.9% 500ml Bag) 500 ml @ 500 mls/hr 1X ONCE IV Last administered on 08/26/16 00:32; Start 08/26/16 at 00:30; Stop at 01:29; Status DC Ondansetron HCl (Zofran) 4 mg STK-MED ONCE .ROUTE ; Start 08/26/16 at 01:44; Stop 08/26/16 at 01:45; Status DC Ondansetron HCl 4 mg 4 mg 1X ONCE IV Last administered on 08/26/16 01:45; Start 08/26/16 at 02:00; Stop 08/26/16 at 02:03; Status DC Metronidazole 100 ml @ 100 mls/hr Q8HRS IV Last administered on 09/04/16 05: 43; Start 08/26/16 at 14:00 Metronidazole 100 ml @ 100 mls/hr 1X ONCE IV Last administered on 08/26/16 02 :38; Start 08/26/16 at 02:30; Stop 08/26/16 at 03:29; Status DC Cefepime HCl 2 gm/ Sodium Chloride 100 ml @ 200 mls/hr 1X ONCE IV Last administered on 08/26/16 03:22; Start 08/26/16 at 03:00; Stop 08/26/16 at 03:29; Status DC Sodium Chloride (Iv Sodium Chloride 0.9% 1000ml Bag) 1,000 ml @ 125 mls/hr 1X ONCE IV Last administered on 08/26/16 02:41; Start 08/26/16 at 03:00; Stop at 10:59; Status DC Fentanyl Citrate (Fentanyl 2ml Vial) 50 mcg PRN Q15MIN PRN IV PAIN GREATER THAN 3/10 Last administered on 08/26/16 07:42; Start 08/26/16 at 02:45; Stop 08/26 at 14:40; Status DC Ondansetron HCl 4 mg 4 mg 1X ONCE PO ; Start 08/26/16 at 03:00; Stop 08/26/16 at 03:01; Status DC Metronidazole (FLAGYL 500Mmg PREMIX) 100 ml @ 100 mls/hr 1X ONCE IV Last administered on 08/26/16 05:12; Start 08/26/16 at 04:30; Stop 08/26/16 at 05:29; Status DC Hydromorphone HCl (Dilaudid) 1 mg 1X ONCE IV Last administered on 08/26/16 04: 29; Start 08/26/16 at 04:30; Stop 08/26/16 at 04:31; Status DC Fentanyl Citrate (Fentanyl 5ml Vial) 250 mcg STK-MED ONCE .ROUTE ; Start at 04:41; Stop 08/26/16 at 04:42; Status DC Succinylcholine Chloride (Anectine) 200 mg STK-MED ONCE .ROUTE ; Start 08/26/16 at 04:42; Stop 08/26/16 at 04:43; Status DC Rocuronium [place] (Zemuron) 50 mg STK-MED ONCE .ROUTE ; Start 08/26/16 at 04:42 ; Stop 08/26/16 at 04:43; Status DC Ondansetron HCl (Zofran) 4 mg PRN Q6HRS PRN IV Nausea; Start 08/26/16 at 04:45; Stop 08/26/16 at 14:42; Status DC Fentanyl Citrate (Fentanyl 2ml Vial) 25 mcg PRN Q5MIN PRN IV MILD PAIN; Start 08/26/16 at 04:45; Stop 08/26/16 at 14:41; Status DC Fentanyl Citrate (Fentanyl 2ml Vial) 50 mcg PRN Q5MIN PRN IV MODERATE PAIN; Start 08/26/16 at 04:45; Stop 08/26/16 at 14:42; Status DC Morphine Sulfate 1 mg 1 mg PRN Q10MIN PRN IV SEVERE PAIN; Start 08/26/16 at 04: 45; Stop 08/26/16 at 14:42; Status DC Lactated Ringer's (Iv Lactated Ringers) 1,000 ml @ 30 mls/hr Q24H IV ; Start at 04:43; Stop 08/26/16 at 16:42; Status DC Lidocaine HCl 2 ml 1X PRN PRN ID IV START; Start 08/26/16 at 04:45; Stop at 14:42; Status DC Hydromorphone HCl (Dilaudid) 0.5 mg PRN Q10MIN PRN IV SEV PAIN,Second choice; Start 08/26/16 at 04:45; Stop 08/26/16 at 14:42; Status DC Prochlorperazine Edisylate 5 mg 5 mg PACU PRN PRN IV NAUSEA; Start 08/26/16 at 04:45; Stop 08/26/16 at 14:42; Status DC Propofol (Diprivan) 20 ml @ As Directed STK-MED ONCE IV ; Start 08/26/16 at 04:44 ; Stop 08/26/16 at 04:45; Status DC Lidocaine HCl (Lidocaine Pf 2% Vial) 5 ml STK-MED ONCE .ROUTE ; Start 08/26/16 at 04:44; Stop 08/26/16 at 04:45; Status DC Sevoflurane (Ultane) 60 ml STK-MED ONCE IH ; Start 08/26/16 at 06:07; Stop at 06:08; Status DC Phenylephrine HCl 1 mg STK-MED ONCE IV ; Start 08/26/16 at 06:12; Stop 08/26/16 at 06:13; Status DC Dexamethasone Sodium Phosphate (Decadron) 20 mg STK-MED ONCE .ROUTE ; Start 08/26 at 06:12; Stop 08/26/16 at 06:13; Status DC Ondansetron HCl (Zofran) 4 mg STK-MED ONCE .ROUTE ; Start 08/26/16 at 06:12; Stop 08/26/16 at 06:13; Status DC Glycopyrrolate (Robinul) 1 mg STK-MED ONCE .ROUTE ; Start 08/26/16 at 06:13; Stop 08/26/16 at 06:14; Status DC Neostigmine Methylsulfate 5 mg STK-MED ONCE .ROUTE ; Start 08/26/16 at 06:13; Stop 08/26/16 at 06:14; Status DC Diphenhydramine HCl (Benadryl) 25 mg PRN Q6HRS PRN IV ITCHING; Start 08/26/16 at 07:00 Enoxaparin Sodium (Lovenox 40mg Syringe) 40 mg Q12HR SQ Last administered on 10:30; Start 08/26/16 at 09:00; Stop 08/27/16 at 16:33; Status DC Sodium Chloride 3 ml 3 ml QSHIFT PRN IV AFTER MEDS AND BLOOD DRAWS Last administered on 08/30/16 14:23; Start 08/26/16 at 07:00 Potassium Chloride/Sodium Chloride 1,000 ml @ 100 mls/hr Q10H IV Last administered on 09/03/16 06:04; Start 08/26/16 at 06:53; Stop 09/03/16 at 15:04 ; Status DC Hydromorphone HCl (Dilaudid Standard DRILL DOCTOR) 30 ml @ 0 mls/hr CONT PRN PRN IV PROTOCOL Last administered on 08/26/16 07:41; Start 08/26/16 at 07:00; Stop at 09:42; Status DC Ondansetron HCl (Zofran) 4 mg PRN Q6HRS PRN IV NAUESA, 1ST CHOICE Last administered on 09/03/16 06:04; Start 08/26/16 at 07:00 Throat Lozenges (Chloraseptic) 1 spray PRN Q2HR PRN PO SORE THROAT; Start at 07:00 Throat Lozenges 1 noreen 1 noreen PRN Q2HRS PRN PO SORE THROAT; Start 08/26/16 at 07: 00 Hydromorphone HCl 30 ml @ 0 mls/hr CONT PRN PRN IV PROTOCOL; Start 08/26/16 at 09:45; Stop 08/26/16 at 12:16; Status DC Hydromorphone HCl (Dilaudid Standard DRILL DOCTOR) 30 ml @ 0 mls/hr CONT PRN PRN IV PROTOCOL; Start 08/26/16 at 12:15; Stop 08/26/16 at 20:05; Status DC Pantoprazole Sodium (Protonix Vial) 40 mg BID IVP Last administered on 07:57; Start 08/26/16 at 21:00; Stop 09/03/16 at 09:04; Status DC Labetalol HCl 20 mg 20 mg PRN Q2HR PRN IVP HYPERTENSION, SEE COMMENTS Last administered on 08/30/16 09:34; Start 08/26/16 at 13:15 Sodium Chloride 1,000 ml @ 1,000 mls/hr 1X ONCE IV ; Start 08/26/16 at 23:00; Stop 08/26/16 at 23:59; Status DC Hydromorphone HCl (Dilaudid Standard DRILL DOCTOR) 30 ml @ 0 mls/hr CONT PRN PRN IV PROTOCOL Last administered on 09/02/16 05:37; Start 08/26/16 at 20:15; Stop 07/07 at 12:54; Status DC Enoxaparin Sodium (Lovenox 40mg Syringe) 40 mg Q24H SQ Last administered on 08:05; Start 08/28/16 at 09:00 Ondansetron HCl (Zofran) 4 mg PRN Q6HRS PRN IV Nausea; Start 08/30/16 at 07:00; Stop 08/31/16 at 06:59; Status DC Fentanyl Citrate (Fentanyl 2ml Vial) 25 mcg PRN Q5MIN PRN IV MILD PAIN; Start 08/30/16 at 07:00; Stop 08/31/16 at 06:59; Status DC Fentanyl Citrate (Fentanyl 2ml Vial) 50 mcg PRN Q5MIN PRN IV MODERATE PAIN Last administered on 08/30/16 14:48; Start 08/30/16 at 07:00; Stop 08/31/16 at 06 :59; Status DC Morphine Sulfate 1 mg 1 mg PRN Q10MIN PRN IV SEVERE PAIN; Start 08/30/16 at 07: 00; Stop 08/31/16 at 06:59; Status DC Lactated Ringer's (Iv Lactated Ringers) 1,000 ml @ 0 mls/hr Q0M IV ; Start 08/30 at 07:00; Stop 08/30/16 at 18:59; Status DC Lidocaine HCl 2 ml 1X PRN PRN ID IV START; Start 08/30/16 at 07:00; Stop at 06:59; Status DC Hydromorphone HCl (Dilaudid) 0.5 mg PRN Q10MIN PRN IV SEVERE PAIN, Second choice; Start 08/30/16 at 07:00; Stop 08/31/16 at 06:59; Status DC Prochlorperazine Edisylate 5 mg 5 mg PACU PRN PRN IV NAUSEA; Start 08/30/16 at 07:00; Stop 08/31/16 at 06:59; Status DC Propofol 0 ml @ As Directed STK-MED ONCE IV ; Start 08/30/16 at 12:35; Stop at 12:36; Status DC Propofol 50 ml @ As Directed STK-MED ONCE IV ; Start 08/30/16 at 12:35; Stop 08/30 at 12:36; Status DC Propofol 0 ml @ As Directed STK-MED ONCE IV ; Start 08/30/16 at 12:35; Stop at 12:36; Status DC Propofol 0 ml @ As Directed STK-MED ONCE IV ; Start 08/30/16 at 12:35; Stop at 12:36; Status DC Propofol (Diprivan) 20 ml @ As Directed STK-MED ONCE IV ; Start 08/30/16 at 12:35 ; Stop 08/30/16 at 12:36; Status DC Midazolam HCl (Versed) 2 mg STK-MED ONCE .ROUTE ; Start 08/30/16 at 12:35; Stop 08/30/16 at 12:36; Status DC Midazolam HCl (Versed) 2 mg STK-MED ONCE .ROUTE ; Start 08/30/16 at 12:35; Stop 08/30/16 at 12:36; Status DC Ketamine HCl 500 mg 500 mg STK-MED ONCE .ROUTE ; Start 08/30/16 at 12:35; Stop at 12:36; Status DC Sodium Chloride (Iv Sodium Chloride 0.9% 1000ml Bag) 1,000 ml @ 100 mls/hr Q10H IV Last administered on 08/30/16t 13:00; Start 08/30/16 at 13:00; Stop 08/31 at 08:41; Status DC Naloxone HCl (Narcan) 0.4 mg STK-MED ONCE .ROUTE ; Start 08/30/16 at 15:37; Stop 08/30/16 at 15:38; Status DC Flumazenil (Romazicon) 0.5 mg STK-MED ONCE IV ; Start 08/30/16 at 15:37; Stop 08/30/16 at 15:38; Status DC Midazolam HCl (Versed) 5 mg STK-MED ONCE .ROUTE ; Start 08/30/16 at 15:37; Stop 08/30/16 at 15:38; Status DC Fentanyl Citrate (Fentanyl 5ml Vial) 250 mcg STK-MED ONCE .ROUTE ; Start at 15:38; Stop 08/30/16 at 15:39; Status DC Lidocaine/Sodium Bicarbonate (Buffered Lidocaine 1%) 20 ml 1X ONCE IJ Last administered on 08/30/16 15:45; Start 08/30/16 at 15:45; Stop 08/30/16 at 15:46; Status DC Lidocaine/Sodium Bicarbonate (Buffered Lidocaine 1%) 20 ml 1X ONCE IJ ; Start 08/30/16 at 16:00; Stop 08/30/16 at 16:01; Status DC Midazolam HCl (Versed) 5 mg 1X ONCE IV Last administered on 08/30/16 16:00; Start 08/30/16 at 16:00; Stop 08/30/16 at 16:01; Status DC Fentanyl Citrate (Fentanyl 5ml Vial) 250 mcg 1X ONCE IV Last administered on 16:00; Start 08/30/16 at 16:00; Stop 08/30/16 at 16:01; Status DC Metoprolol Succinate (Toprol Xl) 12.5 mg DAILY PO Last administered on 08:01; Start 08/31/16 at 15:00 Metoclopramide HCl (Reglan) 5 mg PRN Q6HRS PRN IV NAUSEA/VOMITING Last administered on 09/01/16 05:30; Start 09/01/16 at 05:30 Hydromorphone HCl (Dilaudid) 0.5 mg PRN Q2HRS PRN IV PAIN Last administered on 09/04/16 05:43; Start 09/02/16 at 13:00 Oxycodone/ Acetaminophen (Percocet 10/325) 1 tab PRN Q4HRS PRN PO PAIN Last administered on 09/04/16 03:24; Start 09/02/16 at 19:00 Pantoprazole Sodium (Protonix) 40 mg BIDAC PO Last administered on 09/04/16 05 :43; Start 09/03/16 at 16:30 Oxycodone HCl (Oxycontin) 30 mg Q12HR PO Last administered on 09/03/16 20:24; Start 09/03/16 at 21:00 Polyethylene Glycol (miraLAX PACKET) 17 gm DAILY PO ; Start 09/03/16 at 16:00 Active Scripts Active Reported Cetirizine Hcl 1 Mg/1 Ml Solution 10 Mg PO Hydrocodone-Apap 7.5-325 (Hydrocodone Bit/Acetaminophen) 1 Each Tablet 1 Tab PO PRN Q6HRS PRN Fioricet 50-300-40 Mg Capsule (Butalb/Acetaminophen/Caffeine) 1 Each Capsule 1 Each PO PRN Q6-8HRS PRN Voltaren-Xr (Diclofenac Sodium) 100 Mg Tab.er.24h 75 Mg PO [id number] Ambien (Zolpidem Tartrate) 10 Mg Tablet 10 Mg PO HS PRN Propranolol Hcl 80 Mg Cap.sa.24h 1 Cap PO DAILY Vitals/I & O Vital Sign - Last 24 Hours 09/03/16 09/03/16 09/03/16 09/03/16 10:53 11:00 11:55 14:35 Temp 97.5 97.5 Pulse 58 Resp 18 B/P 174/71 Pulse Ox 94 95 97 95 O2 Delivery Room Air Room Air Room Air O2 Flow Rate 2.0 2.0 2.0 09/03/16 09/03/16 09/03/16 09/03/16 14:35 15:00 15:00 19:00 Temp 97.4 97.8 97.4 97.8 Pulse 59 58 Resp 16 16 B/P 118/64 125/51 Pulse Ox 95 97 97 96 O2 Delivery Room Air Room Air Room Air O2 Flow Rate 2.0 2.0 09/03/16 09/03/16 09/03/16 09/03/16 19:35 20:24 21:55 22:12 O2 Delivery Room Air Room Air Room Air Room Air 09/03/16 09/04/16 09/04/16 09/04/16 23:00 00:20 00:52 03:00 Temp 98.2 97.9 98.2 97.9 Pulse 62 58 Resp 18 18 B/P 136/65 135/54 Pulse Ox 96 96 O2 Delivery Room Air Room Air Room Air Room Air 09/04/16 09/04/16 09/04/16 09/04/16 03:24 03:25 04:20 05:43 O2 Delivery Room Air Room Air Room Air Room Air 09/04/16 09/04/16 06:15 07:00 Temp 98.3 98.3 Pulse 59 Resp 18 B/P 132/48 Pulse Ox 94 O2 Delivery Room Air Room Air Intake and Output 09/03/16 09/03/16 09/04/16 15:00 23:00 07:00 Intake Total 150 ml Output Total 45 ml 10 ml Balance 105 ml -10 ml SALVADOR PERALES MD Sep 04, 2016 09:23
[2016-09-04] MEDS: ENOXAPARIN 40 MG/0.4 ML DISP.SYRIN. SQ SCH (09:27)
[2016-09-04] MEDS: POLYETHYLENE GLYCOL 3350 17 GM PACKET. PO SCH (09:27)
--- NOTE | 2016-09-04 10:32 | PDOC ---
LINA LANIER RECEIVING CLERK 09/04/16 1032: SURGICAL PROGRESS NOTE Subjective down for radiation treatment, will fu in AM Vital Signs Vital Signs Date Time Temp Pulse Resp B/P Pulse Ox O2 Delivery O2 Flow Rate FiO2 09/04/16 09:22 59 132/48 09/04/16 07:00 98.3 18 94 Room Air 98.3 09/03/16 15:00 2.0 I&O Intake and Output 09/04/16 07:00 Intake Total 150 ml Output Total 55 ml Balance 95 ml Intake Oral 150 ml Drainage Total 55 ml # Voids 8 Labs Laboratory Tests Test 09/02/16 11:45 09/02/16 21:15 09/02/16 22:00 09/03/16 08:09 Glucose (Fingerstick) 107mg/dL (70-99) 126mg/dL (70-99) 105mg/dL (70-99) Nasal Screen MRSA (PCR) Negative (Negative) Test 09/03/16 11:36 09/03/16 20:46 09/04/16 07:43 Glucose (Fingerstick) 130mg/dL (70-99) 138mg/dL (70-99) 111mg/dL (70-99) Laboratory Tests Test 09/03/16 11:36 09/03/16 20:46 09/04/16 07:43 Glucose (Fingerstick) 130mg/dL (70-99) 138mg/dL (70-99) 111mg/dL (70-99) Problem List Problems Medical Problems: (1) Closed wedge compression fracture of T11 vertebra Status: Acute (2) Perforated ulcer Status: Acute Problems: MARLON PRINCE MD 09/04/16 1336: SURGICAL PROGRESS NOTE Assessment/Plan pt seen and examined incision c/d will remove half her olga ask D[employer]NUT D[employer] MIXER to see re dysfunctional uterine bleeding Problems: LINA LANIER APRN Sep 04, 2016 10:32 MARLON PRINCE MD Sep 04, 2016 13:36
[2016-09-04 11:00] VITALS: BP 99/48
--- NOTE | 2016-09-04 14:24 | PDOC ---
PROGRESS NOTES Chief Complaint Chief Complaint Acute abdominal pain Perforated pyloric ulcer ASSESSMENT AND PLAN: 1. Perf.d viscus: s/p emergent repair on 08/[address] Mendez. recovering appropriately. on flagyl. 2. T11 pathologic compression fx: unfortunately, not amenable to kyphoplasty. treat symptomatically. start long- and short-acting opioid 3. Breast CA: mets to bone. F/U w/ onc on O/P basis 4. DM2: by report, not on meds here with good control. stop FSBG 5. HTN: well controlled on current regimen 6. Dysrhythmia: appreciate cards input. O/P F/U 7. Prophylaxis: lovenox, PPI - switch to PO 8. Dispo: to SNF when clear ed by surgery get SW consult vaginal bleeding? anu consult as per sx History of Present Illness History of Present Illness tolerate GI soft diet ok 09/04 start RT HAS BM TAKE oxycodone q4h and dilaudid iv 2-3 times per day, oxycontin Vitals Vitals Vital Signs Date Time Temp Pulse Resp B/P Pulse Ox O2 Delivery O2 Flow Rate FiO2 09/04/16 14:05 92 Room Air 2.0 09/04/16 11:00 97.5 60 18 99/48 97.5 Physical Exam General: Alert, Oriented X3 Heart: Normal S1, Normal S2 Lungs: Clear Abdomen: Normal bowel sounds, Soft, Other (midline incision c/d/i, no erythema , ABDIAZIZ serous) Extremities: No edema Skin: No breakdown, No significant lesion Labs LABS Laboratory Tests Test 09/03/16 20:46 09/04/16 07:43 Glucose (Fingerstick) 138mg/dL (70-99) 111mg/dL (70-99) Review of Systems Review of Systems no fever, chills, sob or chest pain Assessment and Plan Assessmemt and Plan Problems Medical Problems: (1) Closed wedge compression fracture of T11 vertebra Status: Acute (2) Perforated ulcer Status: Acute Problems: Comment Review of Relevant I have reviewed the following items maggy (where applicable) has been applied. Labs Laboratory Tests Test 09/02/16 21:15 09/02/16 22:00 09/03/16 08:09 09/03/16 11:36 Glucose (Fingerstick) 126mg/dL (70-99) 105mg/dL (70-99) 130mg/dL (70-99) Nasal Screen MRSA (PCR) Negative (Negative) Test 09/03/16 20:46 09/04/16 07:43 Glucose (Fingerstick) 138mg/dL (70-99) 111mg/dL (70-99) Laboratory Tests Test 09/03/16 20:46 09/04/16 07:43 Glucose (Fingerstick) 138mg/dL (70-99) 111mg/dL (70-99) Microbiology 08/26/16 Gram Stain - Final, Complete 08/26/16 Urine Culture - Final, Complete 08/26/16 Urine Culture Result 1 (LATASHA) - Final, Complete Medications Current Medications Nitroglycerin (Nitrostat) 0.4 mg PRN Q5MIN PRN SL CP RATING > 1/10 Last administered on 08/26/16 00:32; Start 08/25/16 at 23:45; Stop 08/26/16 at 23:44; Status DC Fentanyl Citrate 25 mcg 25 mcg PRN Q15MIN PRN IV PAIN GREATER THAN 3/10 Last administered on 08/26/16 02:43; Start 08/25/16 at 23:45; Stop 08/26/16 at 14:40; Status DC Sodium Chloride (Iv Sodium Chloride 0.9% 500ml Bag) 500 ml @ 500 mls/hr 1X ONCE IV Last administered on 08/26/16 00:32; Start 08/26/16 at 00:30; Stop at 01:29; Status DC Ondansetron HCl (Zofran) 4 mg STK-MED ONCE .ROUTE ; Start 08/26/16 at 01:44; Stop 08/26/16 at 01:45; Status DC Ondansetron HCl 4 mg 4 mg 1X ONCE IV Last administered on 08/26/16 01:45; Start 08/26/16 at 02:00; Stop 08/26/16 at 02:03; Status DC Metronidazole 100 ml @ 100 mls/hr Q8HRS IV Last administered on 09/04/16 14: 06; Start 08/26/16 at 14:00 Metronidazole 100 ml @ 100 mls/hr 1X ONCE IV Last administered on 08/26/16 02 :38; Start 08/26/16 at 02:30; Stop 08/26/16 at 03:29; Status DC Cefepime HCl 2 gm/ Sodium Chloride 100 ml @ 200 mls/hr 1X ONCE IV Last administered on 08/26/16 03:22; Start 08/26/16 at 03:00; Stop 08/26/16 at 03:29; Status DC Sodium Chloride (Iv Sodium Chloride 0.9% 1000ml Bag) 1,000 ml @ 125 mls/hr 1X ONCE IV Last administered on 08/26/16 02:41; Start 08/26/16 at 03:00; Stop at 10:59; Status DC Fentanyl Citrate (Fentanyl 2ml Vial) 50 mcg PRN Q15MIN PRN IV PAIN GREATER THAN 3/10 Last administered on 08/26/16 07:42; Start 08/26/16 at 02:45; Stop 08/26 at 14:40; Status DC Ondansetron HCl 4 mg 4 mg 1X ONCE PO ; Start 08/26/16 at 03:00; Stop 08/26/16 at 03:01; Status DC Metronidazole (FLAGYL 500Mmg PREMIX) 100 ml @ 100 mls/hr 1X ONCE IV Last administered on 08/26/16 05:12; Start 08/26/16 at 04:30; Stop 08/26/16 at 05:29; Status DC Hydromorphone HCl (Dilaudid) 1 mg 1X ONCE IV Last administered on 08/26/16 04: 29; Start 08/26/16 at 04:30; Stop 08/26/16 at 04:31; Status DC Fentanyl Citrate (Fentanyl 5ml Vial) 250 mcg STK-MED ONCE .ROUTE ; Start at 04:41; Stop 08/26/16 at 04:42; Status DC Succinylcholine Chloride (Anectine) 200 mg STK-MED ONCE .ROUTE ; Start 08/26/16 at 04:42; Stop 08/26/16 at 04:43; Status DC Rocuronium [place] (Zemuron) 50 mg STK-MED ONCE .ROUTE ; Start 08/26/16 at 04:42 ; Stop 08/26/16 at 04:43; Status DC Ondansetron HCl (Zofran) 4 mg PRN Q6HRS PRN IV Nausea; Start 08/26/16 at 04:45; Stop 08/26/16 at 14:42; Status DC Fentanyl Citrate (Fentanyl 2ml Vial) 25 mcg PRN Q5MIN PRN IV MILD PAIN; Start 08/26/16 at 04:45; Stop 08/26/16 at 14:41; Status DC Fentanyl Citrate (Fentanyl 2ml Vial) 50 mcg PRN Q5MIN PRN IV MODERATE PAIN; Start 08/26/16 at 04:45; Stop 08/26/16 at 14:42; Status DC Morphine Sulfate 1 mg 1 mg PRN Q10MIN PRN IV SEVERE PAIN; Start 08/26/16 at 04: 45; Stop 08/26/16 at 14:42; Status DC Lactated Ringer's (Iv Lactated Ringers) 1,000 ml @ 30 mls/hr Q24H IV ; Start at 04:43; Stop 08/26/16 at 16:42; Status DC Lidocaine HCl 2 ml 1X PRN PRN ID IV START; Start 08/26/16 at 04:45; Stop at 14:42; Status DC Hydromorphone HCl (Dilaudid) 0.5 mg PRN Q10MIN PRN IV SEV PAIN,Second choice; Start 08/26/16 at 04:45; Stop 08/26/16 at 14:42; Status DC Prochlorperazine Edisylate 5 mg 5 mg PACU PRN PRN IV NAUSEA; Start 08/26/16 at 04:45; Stop 08/26/16 at 14:42; Status DC Propofol (Diprivan) 20 ml @ As Directed STK-MED ONCE IV ; Start 08/26/16 at 04:44 ; Stop 08/26/16 at 04:45; Status DC Lidocaine HCl (Lidocaine Pf 2% Vial) 5 ml STK-MED ONCE .ROUTE ; Start 08/26/16 at 04:44; Stop 08/26/16 at 04:45; Status DC Sevoflurane (Ultane) 60 ml STK-MED ONCE IH ; Start 08/26/16 at 06:07; Stop at 06:08; Status DC Phenylephrine HCl 1 mg STK-MED ONCE IV ; Start 08/26/16 at 06:12; Stop 08/26/16 at 06:13; Status DC Dexamethasone Sodium Phosphate (Decadron) 20 mg STK-MED ONCE .ROUTE ; Start 08/26 at 06:12; Stop 08/26/16 at 06:13; Status DC Ondansetron HCl (Zofran) 4 mg STK-MED ONCE .ROUTE ; Start 08/26/16 at 06:12; Stop 08/26/16 at 06:13; Status DC Glycopyrrolate (Robinul) 1 mg STK-MED ONCE .ROUTE ; Start 08/26/16 at 06:13; Stop 08/26/16 at 06:14; Status DC Neostigmine Methylsulfate 5 mg STK-MED ONCE .ROUTE ; Start 08/26/16 at 06:13; Stop 08/26/16 at 06:14; Status DC Diphenhydramine HCl (Benadryl) 25 mg PRN Q6HRS PRN IV ITCHING; Start 08/26/16 at 07:00 Enoxaparin Sodium (Lovenox 40mg Syringe) 40 mg Q12HR SQ Last administered on 10:30; Start 08/26/16 at 09:00; Stop 08/27/16 at 16:33; Status DC Sodium Chloride 3 ml 3 ml QSHIFT PRN IV AFTER MEDS AND BLOOD DRAWS Last administered on 08/30/16 14:23; Start 08/26/16 at 07:00 Potassium Chloride/Sodium Chloride 1,000 ml @ 100 mls/hr Q10H IV Last administered on 09/03/16 06:04; Start 08/26/16 at 06:53; Stop 09/03/16 at 15:04 ; Status DC Hydromorphone HCl (Dilaudid Standard BUSINESS ANALYST CONSULTANT) 30 ml @ 0 mls/hr CONT PRN PRN IV PROTOCOL Last administered on 08/26/16 07:41; Start 08/26/16 at 07:00; Stop at 09:42; Status DC Ondansetron HCl (Zofran) 4 mg PRN Q6HRS PRN IV NAUESA, 1ST CHOICE Last administered on 09/03/16 06:04; Start 08/26/16 at 07:00 Throat Lozenges (Chloraseptic) 1 spray PRN Q2HR PRN PO SORE THROAT; Start at 07:00 Throat Lozenges 1 noreen 1 noreen PRN Q2HRS PRN PO SORE THROAT; Start 08/26/16 at 07: 00 Hydromorphone HCl 30 ml @ 0 mls/hr CONT PRN PRN IV PROTOCOL; Start 08/26/16 at 09:45; Stop 08/26/16 at 12:16; Status DC Hydromorphone HCl (Dilaudid Standard BUSINESS ANALYST CONSULTANT) 30 ml @ 0 mls/hr CONT PRN PRN IV PROTOCOL; Start 08/26/16 at 12:15; Stop 08/26/16 at 20:05; Status DC Pantoprazole Sodium (Protonix Vial) 40 mg BID IVP Last administered on 07:57; Start 08/26/16 at 21:00; Stop 09/03/16 at 09:04; Status DC Labetalol HCl 20 mg 20 mg PRN Q2HR PRN IVP HYPERTENSION, SEE COMMENTS Last administered on 08/30/16 09:34; Start 08/26/16 at 13:15 Sodium Chloride 1,000 ml @ 1,000 mls/hr 1X ONCE IV ; Start 08/26/16 at 23:00; Stop 08/26/16 at 23:59; Status DC Hydromorphone HCl (Dilaudid Standard BUSINESS ANALYST CONSULTANT) 30 ml @ 0 mls/hr CONT PRN PRN IV PROTOCOL Last administered on 09/02/16 05:37; Start 08/26/16 at 20:15; Stop 07/07 at 12:54; Status DC Enoxaparin Sodium (Lovenox 40mg Syringe) 40 mg Q24H SQ Last administered on 09:27; Start 08/28/16 at 09:00 Ondansetron HCl (Zofran) 4 mg PRN Q6HRS PRN IV Nausea; Start 08/30/16 at 07:00; Stop 08/31/16 at 06:59; Status DC Fentanyl Citrate (Fentanyl 2ml Vial) 25 mcg PRN Q5MIN PRN IV MILD PAIN; Start 08/30/16 at 07:00; Stop 08/31/16 at 06:59; Status DC Fentanyl Citrate (Fentanyl 2ml Vial) 50 mcg PRN Q5MIN PRN IV MODERATE PAIN Last administered on 08/30/16 14:48; Start 08/30/16 at 07:00; Stop 08/31/16 at 06 :59; Status DC Morphine Sulfate 1 mg 1 mg PRN Q10MIN PRN IV SEVERE PAIN; Start 08/30/16 at 07: 00; Stop 08/31/16 at 06:59; Status DC Lactated Ringer's (Iv Lactated Ringers) 1,000 ml @ 0 mls/hr Q0M IV ; Start 08/30 at 07:00; Stop 08/30/16 at 18:59; Status DC Lidocaine HCl 2 ml 1X PRN PRN ID IV START; Start 08/30/16 at 07:00; Stop at 06:59; Status DC Hydromorphone HCl (Dilaudid) 0.5 mg PRN Q10MIN PRN IV SEVERE PAIN, Second choice; Start 08/30/16 at 07:00; Stop 08/31/16 at 06:59; Status DC Prochlorperazine Edisylate 5 mg 5 mg PACU PRN PRN IV NAUSEA; Start 08/30/16 at 07:00; Stop 08/31/16 at 06:59; Status DC Propofol 0 ml @ As Directed STK-MED ONCE IV ; Start 08/30/16 at 12:35; Stop at 12:36; Status DC Propofol 50 ml @ As Directed STK-MED ONCE IV ; Start 08/30/16 at 12:35; Stop 08/30 at 12:36; Status DC Propofol 0 ml @ As Directed STK-MED ONCE IV ; Start 08/30/16 at 12:35; Stop at 12:36; Status DC Propofol 0 ml @ As Directed STK-MED ONCE IV ; Start 08/30/16 at 12:35; Stop at 12:36; Status DC Propofol (Diprivan) 20 ml @ As Directed STK-MED ONCE IV ; Start 08/30/16 at 12:35 ; Stop 08/30/16 at 12:36; Status DC Midazolam HCl (Versed) 2 mg STK-MED ONCE .ROUTE ; Start 08/30/16 at 12:35; Stop 08/30/16 at 12:36; Status DC Midazolam HCl (Versed) 2 mg STK-MED ONCE .ROUTE ; Start 08/30/16 at 12:35; Stop 08/30/16 at 12:36; Status DC Ketamine HCl 500 mg 500 mg STK-MED ONCE .ROUTE ; Start 08/30/16 at 12:35; Stop at 12:36; Status DC Sodium Chloride (Iv Sodium Chloride 0.9% 1000ml Bag) 1,000 ml @ 100 mls/hr Q10H IV Last administered on 08/30/16 13:00; Start 08/30/16 at 13:00; Stop 08/31 at 08:41; Status DC Naloxone HCl (Narcan) 0.4 mg STK-MED ONCE .ROUTE ; Start 08/30/16 at 15:37; Stop 08/30/16 at 15:38; Status DC Flumazenil (Romazicon) 0.5 mg STK-MED ONCE IV ; Start 08/30/16 at 15:37; Stop 08/30/16 at 15:38; Status DC Midazolam HCl (Versed) 5 mg STK-MED ONCE .ROUTE ; Start 08/30/16 at 15:37; Stop 08/30/16 at 15:38; Status DC Fentanyl Citrate (Fentanyl 5ml Vial) 250 mcg STK-MED ONCE .ROUTE ; Start at 15:38; Stop 08/30/16 at 15:39; Status DC Lidocaine/Sodium Bicarbonate (Buffered Lidocaine 1%) 20 ml 1X ONCE IJ Last administered on 08/30/16 15:45; Start 08/30/16 at 15:45; Stop 08/30/16 at 15:46; Status DC Lidocaine/Sodium Bicarbonate (Buffered Lidocaine 1%) 20 ml 1X ONCE IJ ; Start 08/30/16 at 16:00; Stop 08/30/16 at 16:01; Status DC Midazolam HCl (Versed) 5 mg 1X ONCE IV Last administered on 08/30/16 16:00; Start 08/30/16 at 16:00; Stop 08/30/16 at 16:01; Status DC Fentanyl Citrate (Fentanyl 5ml Vial) 250 mcg 1X ONCE IV Last administered on 16:00; Start 08/30/16 at 16:00; Stop 08/30/16 at 16:01; Status DC Metoprolol Succinate (Toprol Xl) 12.5 mg DAILY PO Last administered on 09:22; Start 08/31/16 at 15:00 Metoclopramide HCl (Reglan) 5 mg PRN Q6HRS PRN IV NAUSEA/VOMITING Last administered on 09/01/16 05:30; Start 09/01/16 at 05:30 Hydromorphone HCl (Dilaudid) 0.5 mg PRN Q2HRS PRN IV PAIN Last administered on 09/04/16 14:05; Start 09/02/16 at 13:00 Oxycodone/ Acetaminophen (Percocet 10/325) 1 tab PRN Q4HRS PRN PO PAIN Last administered on 09/04/16 11:43; Start 09/02/16 at 19:00 Pantoprazole Sodium (Protonix) 40 mg BIDAC PO Last administered on 09/04/16 05 :43; Start 09/03/16 at 16:30 Oxycodone HCl (Oxycontin) 30 mg Q12HR PO Last administered on 09/04/16 09:23; Start 09/03/16 at 21:00 Polyethylene Glycol (miraLAX PACKET) 17 gm DAILY PO Last administered on 09:27; Start 09/03/16 at 16:00 Active Scripts Active Reported Cetirizine Hcl 1 Mg/1 Ml Solution 10 Mg PO Hydrocodone-Apap 7.5-325 (Hydrocodone Bit/Acetaminophen) 1 Each Tablet 1 Tab PO PRN Q6HRS PRN Fioricet 50-300-40 Mg Capsule (Butalb/Acetaminophen/Caffeine) 1 Each Capsule 1 Each PO PRN Q6-8HRS PRN Voltaren-Xr (Diclofenac Sodium) 100 Mg Tab.er.24h 75 Mg PO [id number] Ambien (Zolpidem Tartrate) 10 Mg Tablet 10 Mg PO HS PRN Propranolol Hcl 80 Mg Cap.sa.24h 1 Cap PO DAILY Vitals/I & O Vital Sign - Last 24 Hours 09/03/16 09/03/16 09/03/16 09/03/16 14:35 14:35 15:00 19:00 Temp 97.4 97.8 97.4 97.8 Pulse 59 58 Resp 16 16 B/P 118/64 125/51 Pulse Ox 95 95 97 96 O2 Delivery Room Air Room Air Room Air Room Air O2 Flow Rate 2.0 2.0 09/03/16 09/03/16 09/03/16 09/03/16 19:35 20:24 21:55 22:12 O2 Delivery Room Air Room Air Room Air Room Air 09/03/16 09/04/16 09/04/16 09/04/16 23:00 00:52 03:00 03:24 Temp 98.2 97.9 98.2 97.9 Pulse 62 58 Resp 18 18 B/P 136/65 135/54 Pulse Ox 96 96 O2 Delivery Room Air Room Air Room Air Room Air 09/04/16 09/04/16 09/04/16 09/04/16 03:25 05:43 07:00 08:00 Temp 98.3 98.3 Pulse 59 Resp 18 B/P 132/48 Pulse Ox 94 O2 Delivery Room Air Room Air Room Air Room Air O2 Flow Rate 2.0 09/04/16 09/04/16 09/04/16 09/04/16 09:22 10:00 11:00 11:43 Temp 97.5 97.5 Pulse 59 60 Resp 18 B/P 132/48 99/48 Pulse Ox 92 92 92 O2 Delivery Room Air Room Air Room Air O2 Flow Rate 2.0 09/04/16 09/04/16 09/04/16 12:43 13:22 14:05 Pulse Ox 92 92 92 O2 Delivery Room Air Room Air Room Air O2 Flow Rate 2.0 2.0 2.0 Intake and Output 09/03/16 09/03/16 09/04/16 15:00 23:00 07:00 Intake Total 150 ml Output Total 45 ml 10 ml Balance 105 ml -10 ml ABRAHAM SALES MD Sep 04, 2016 14:24
[2016-09-04 14:55] VITALS: BP 112/60
--- NOTE | 2016-09-04 16:54 | RAD ---
Pelvic ultrasound, 09/04/2016: History: Vaginal bleeding Transabdominal and transvaginal scans were obtained. The transabdominal scans were of limited value due to poor bladder distention and overlying bowel. The uterus is well visualized on the transvaginal scans. It measures 7.8 x 4.3 x 6.5 cm. There is heterogeneous thickening of the central uterine echo complex in the fundal region. At that level it measures 2.8 cm in AP dimension. There is color flow within this process. No other uterine mass is identified. The ovaries were not visualized. No free fluid is evident in the pelvis. IMPRESSION: Heterogeneous soft tissue thickening involving the central uterine echo complex in the fundal region with diagnostic considerations including endometrial malignancy, endometrial polyp or submucosal fibroid. Tissue sampling is suggested.
[2016-09-04 19:50] VITALS: BP 116/61
[2016-09-04 23:18] VITALS: BP 149/62
[2016-09-05] MEDS: HYDROMORPHONE 2 MG/ML VIAL. IV PRN ×6 (01:12→22:22)
[2016-09-05] MEDS: OXYCODONE/APAP 10/325 TABLET. PO PRN ×2 (01:13→05:09)
[2016-09-05 03:19] VITALS: BP 135/51
[2016-09-05] MEDS: METRONIDAZOLE 500mg PREMIX 100 ML IV SCH (06:01)
[2016-09-05] MEDS: PANTOPRAZOLE 40 MG TABLET. PO SCH ×2 (06:01→16:56)
[2016-09-05 07:00] VITALS: BP 132/57
[2016-09-05 07:21] LABS: BASO # 0.1 x10^3/uL (0.0-0.2); BASO % 1 % (0-3); EOS % 4 % (0-3); HEMATOCRIT 29.2 % (36.0-47.0); HEMOGLOBIN 9.4 g/dL (12.0-15.5); LYMPH % 12 % (24-48); MEAN CORPUSCULAR HEMOGLOBIN 30 pg (25-35); MEAN CORPUSCULAR HGB CONC 32 g/dL (31-37); MEAN CORPUSCULAR VOLUME 92 fL (79-100); MONO % 9 % (0-9); NEUT % 74 % (31-73); PLATELET COUNT 267 x10^3/uL (140-400); RED BLOOD COUNT 3.19 x10^6/uL (3.50-5.40); RED CELL DISTRIBUTION WIDTH 16.4 % (11.5-14.5); WHITE BLOOD COUNT 8.8 x10^3/uL (4.0-11.0)
[2016-09-05 07:52] LABS: CALCIUM 8.5 mg/dL (8.5-10.1); CREATININE 1.4 mg/dL (0.6-1.0); GFR 37.5; POTASSIUM 4.6 mmol/L (3.5-5.1)
[2016-09-05] MEDS: ONDANSETRON PF 4 MG/2 ML VIAL. IV PRN (08:36)
[2016-09-05] MEDS: POLYETHYLENE GLYCOL 3350 17 GM PACKET. PO SCH (08:39)
[2016-09-05] MEDS: ENOXAPARIN 40 MG/0.4 ML DISP.SYRIN. SQ SCH (08:39)
[2016-09-05] MEDS: OXYCODONE ER 15 MG TAB.ER.12H. PO SCH (08:40)
[2016-09-05] MEDS: METOPROLOL SUCC 24HR ER 25 MG TAB.ER.24H. PO SCH (08:45)
--- NOTE | 2016-09-05 10:10 | PDOC ---
PROGRESS NOTES Chief Complaint Chief Complaint Acute abdominal pain Perforated pyloric ulcer ASSESSMENT AND PLAN: 1. Perf.d viscus: s/p emergent repair on 08/[address] Mendez. recovering appropriately. on flagyl. 2. T11 pathologic compression fx: unfortunately, not amenable to kyphoplasty. treat symptomatically. long- and short-acting oxy insufficient. switch to morphine combo, increase long-acting 3. Breast CA: mets to bone. F/U w/ onc on O/P basis 4. Vaginal bleed: new in postmenopausal pt. CUSTODIAL OFFICER consult for consideration of endometrial bx. 5. DM2: by report, not on meds here with good control. stop FSBG 6. HTN: well controlled on current regimen 7. Dysrhythmia: appreciate cards input. O/P F/U 8. Prophylaxis: lovenox, PPI - switch to PO 9. Dispo: cleared by surg for SNF. needs better pain control Vitals Vitals Vital Signs Date Time Temp Pulse Resp B/P Pulse Ox O2 Delivery O2 Flow Rate FiO2 09/05/16 08:45 70 132/57 09/05/16 08:40 18 Room Air 09/05/16 07:00 97.9 95 97.9 09/05/16 01:13 2.0 Physical Exam General: Alert, Oriented X3 Heart: Normal S1, Normal S2 Lungs: Clear Abdomen: Normal bowel sounds, Soft, Other (midline incision c/d/i, no erythema , ABDIAZIZ serous) Extremities: No edema Skin: No breakdown, No significant lesion Labs LABS Laboratory Tests Test 09/04/16 20:43 09/05/16 06:45 Glucose (Fingerstick) 151mg/dL (70-99) White Blood Count 8.8x10^3/uL (4.0-11.0) Red Blood Count 3.19x10^6/uL (3.50-5.40) Hemoglobin 9.4g/dL (12.0-15.5) Hematocrit 29.2% (36.0-47.0) Mean Corpuscular Volume 92fL (79-100) Mean Corpuscular Hemoglobin 30pg (25-35) Mean Corpuscular Hemoglobin Concent 32g/dL (31-37) Red Cell Distribution Width 16.4% (11.5-14.5) Platelet Count 267x10^3/uL (140-400) Neutrophils (%) (Auto) 74% (31-73) Lymphocytes (%) (Auto) 12% (24-48) Monocytes (%) (Auto) 9% (0-9) Eosinophils (%) (Auto) 4% (0-3) Basophils (%) (Auto) 1% (0-3) Neutrophils # (Auto) 6.5x10^3uL (1.8-7.7) Lymphocytes # (Auto) 1.0x10^3/uL (1.0-4.8) Monocytes # (Auto) 0.8x10^3/uL (0.0-1.1) Eosinophils # (Auto) 0.3x10^3/uL (0.0-0.7) Basophils # (Auto) 0.1x10^3/uL (0.0-0.2) Sodium Level 144mmol/L (136-145) Potassium Level 4.6mmol/L (3.5-5.1) Chloride Level 108mmol/L (98-107) Carbon Dioxide Level 27mmol/L (21-32) Anion Gap 9 (6-14) Blood Urea Nitrogen 16mg/dL (7-20) Creatinine 1.4mg/dL (0.6-1.0) Estimated GFR (Cockcroft-Gault) 37.5 Glucose Level 115mg/dL (70-99) Calcium Level 8.5mg/dL (8.5-10.1) Review of Systems Review of Systems pain control not good on PO regimen. needs IV meds regularly BUBBA LACY MD Sep 05, 2016 10:10
[2016-09-05 11:00] VITALS: BP 127/47
--- NOTE | 2016-09-05 11:57 | PDOC ---
SURGICAL PROGRESS NOTE Subjective no new complaints Vital Signs Vital Signs Date Time Temp Pulse Resp B/P Pulse Ox O2 Delivery O2 Flow Rate FiO2 09/05/16 08:45 70 132/57 09/05/16 08:40 18 Room Air 09/05/16 07:00 97.9 95 97.9 09/05/16 01:13 2.0 I&O Intake and Output 09/05/16 07:00 Intake Total 800 ml Output Total 90 ml Balance 710 ml Intake Oral 800 ml Drainage Total 90 ml # Voids 11 PATIENT HAS A PEREZ: No Abdomen: Soft, Other (incision c/d) Labs Laboratory Tests Test 09/03/16 20:46 09/04/16 07:43 09/04/16 20:43 09/05/16 06:45 Glucose (Fingerstick) 138mg/dL (70-99) 111mg/dL (70-99) 151mg/dL (70-99) White Blood Count 8.8x10^3/uL (4.0-11.0) Red Blood Count 3.19x10^6/uL (3.50-5.40) Hemoglobin 9.4g/dL (12.0-15.5) Hematocrit 29.2% (36.0-47.0) Mean Corpuscular Volume 92fL (79-100) Mean Corpuscular Hemoglobin 30pg (25-35) Mean Corpuscular Hemoglobin Concent 32g/dL (31-37) Red Cell Distribution Width 16.4% (11.5-14.5) Platelet Count 267x10^3/uL (140-400) Neutrophils (%) (Auto) 74% (31-73) Lymphocytes (%) (Auto) 12% (24-48) Monocytes (%) (Auto) 9% (0-9) Eosinophils (%) (Auto) 4% (0-3) Basophils (%) (Auto) 1% (0-3) Neutrophils # (Auto) 6.5x10^3uL (1.8-7.7) Lymphocytes # (Auto) 1.0x10^3/uL (1.0-4.8) Monocytes # (Auto) 0.8x10^3/uL (0.0-1.1) Eosinophils # (Auto) 0.3x10^3/uL (0.0-0.7) Basophils # (Auto) 0.1x10^3/uL (0.0-0.2) Sodium Level 144mmol/L (136-145) Potassium Level 4.6mmol/L (3.5-5.1) Chloride Level 108mmol/L (98-107) Carbon Dioxide Level 27mmol/L (21-32) Anion Gap 9 (6-14) Blood Urea Nitrogen 16mg/dL (7-20) Creatinine 1.4mg/dL (0.6-1.0) Estimated GFR (Cockcroft-Gault) 37.5 Glucose Level 115mg/dL (70-99) Calcium Level 8.5mg/dL (8.5-10.1) Laboratory Tests Test 09/04/16 20:43 09/05/16 06:45 Glucose (Fingerstick) 151mg/dL (70-99) White Blood Count 8.8x10^3/uL (4.0-11.0) Red Blood Count 3.19x10^6/uL (3.50-5.40) Hemoglobin 9.4g/dL (12.0-15.5) Hematocrit 29.2% (36.0-47.0) Mean Corpuscular Volume 92fL (79-100) Mean Corpuscular Hemoglobin 30pg (25-35) Mean Corpuscular Hemoglobin Concent 32g/dL (31-37) Red Cell Distribution Width 16.4% (11.5-14.5) Platelet Count 267x10^3/uL (140-400) Neutrophils (%) (Auto) 74% (31-73) Lymphocytes (%) (Auto) 12% (24-48) Monocytes (%) (Auto) 9% (0-9) Eosinophils (%) (Auto) 4% (0-3) Basophils (%) (Auto) 1% (0-3) Neutrophils # (Auto) 6.5x10^3uL (1.8-7.7) Lymphocytes # (Auto) 1.0x10^3/uL (1.0-4.8) Monocytes # (Auto) 0.8x10^3/uL (0.0-1.1) Eosinophils # (Auto) 0.3x10^3/uL (0.0-0.7) Basophils # (Auto) 0.1x10^3/uL (0.0-0.2) Sodium Level 144mmol/L (136-145) Potassium Level 4.6mmol/L (3.5-5.1) Chloride Level 108mmol/L (98-107) Carbon Dioxide Level 27mmol/L (21-32) Anion Gap 9 (6-14) Blood Urea Nitrogen 16mg/dL (7-20) Creatinine 1.4mg/dL (0.6-1.0) Estimated GFR (Cockcroft-Gault) 37.5 Glucose Level 115mg/dL (70-99) Calcium Level 8.5mg/dL (8.5-10.1) Problem List Problems Medical Problems: (1) Closed wedge compression fracture of T11 vertebra Status: Acute (2) Perforated ulcer Status: Acute Assessment/Plan s/p closure perf ulcer no surgical issues home/rehab any time from my standpoint Problems: MARLON PRINCE MD Sep 05, 2016 11:57
[2016-09-05] MEDS: METOCLOPRAMIDE HCL 10 MG/2 ML VIAL. IV PRN (12:04)
[2016-09-05] MEDS: MORPHINE IR 15 MG TABLET PO PRN ×2 (14:06→20:56)
[2016-09-05] MEDS: MORPHINE ER 30 MG TABLET.ER PO SCH ×2 (14:09→20:57)
[2016-09-05] MEDS: METRONIDAZOLE 500 MG TABLET. PO SCH ×2 (14:09→20:55)
[2016-09-05 15:00] VITALS: BP 114/78
--- NOTE | 2016-09-05 15:13 | PATHOLOGY ---
PATHOLOGY REPORT * * * * * * * * FINAL DIAGNOSIS: Segment of bone and cartilage, T-4 bone biopsy: - METASTATIC POORLY DIFFERENTIATED NON-SMALL CELL CARCINOMA. SEE COMMENT. COMMENT: Sections of the T-4 bone biopsy reveal a segment of cartilage and bone. There are focal small solid nests of malignant cells within the marrow space. The malignant cells have ample amounts of clear to finely vacuolated pale eosinophilic cytoplasm, and possess enlarged, rounded to slightly irregular nuclei. A limited panel of immunoperoxidase stains is obtained and yields the following results: (Block A1) AE1/AE3: tumor cells positive Cytokeratin 7: tumor cells positive Cytokeratin 20: tumor cells negative The morphologic and immunophenotypic findings are supportive of the diagnosis of a metastatic poorly differentiated non-small cell carcinoma, and are consistent with breast origin. The case is also examined by Dr. Damian Tong, who concurs with the diagnosis. (JPM:; d/t: 09/04/16) Special Stains Performed: Immunoperoxidase stains for AE1/AE3, CK7, CK20. REPORT ELECTRONICALLY SIGNED BY: Robbie Zelaya M.D. DATE/TIME: 09/05/2016 15:12 * * * * * * * * GROSS PATHOLOGY: The specimen is received in formalin labeled "Dorie Grimm, T4 bone biopsy". Received is a needle core of pale shipman to light shipman bone measuring 1.5 cm in length by 0.3 cm in diameter. The specimen is submitted entirely in cassette A1, following decalcification. (CAA; 08/31/2016) INITIAL CPT CODE(S): A; 73411, 10274, 94417, 61672, 79958, 94571(3) Professional services performed by [facility] at [address] [address] Technical services performed by [facility] at [address] [place] [address], [address], [place] [address]. SPECIMEN(S) RECEIVED: A.T4 bone biopsy CLINICAL HISTORY: Bone mass, back pain PATIENT: DORIE GRIMM /AGE: 7 1950 (Age: 66) PATIENT #: [id number] ALT CASE #: SPECIMEN COLLECTION DATE: 08/30/2016 SPECIMEN RECEIVED DATE: 08/31/2016 [facility] - [id number] [address] - PHONE: [phone] * * * END OF REPORT * * *
--- NOTE | 2016-09-05 17:14 | PDOC2 ---
CONSULT Date of Consult Date of Consult DATE: 09/05/16 TIME: 17:06 Reason for Consult Reason for Consult: Post menopausal bleeding Referring Physician Referring Physician: Dr. Mendez Identification/Chief Complaint Chief Complaint metastatic breast cancer Source Source: Chart review, Patient History of Present Illness Reason for Visit: 66 y/o hospitalized with metastatic breast cancer and has new onset post menopausal bleeding. Discussed sono results and recommend embx. Past Medical History Cardiovascular: HTN, Hyperlipidemia Pulmonary: No pertinent hx CENTRAL NERVOUS SYSTEM: Migraine GI: No pertinent hx Heme/Onc: No pertinent hx, Cancer (breast- tx with chemo and radiation) Hepatobiliary: No pertinent hx Psych: No pertinent hx Musculoskeletal: Osteoarthritis Rheumatologic: No pertinent hx Infectious disease: No pertinent hx ENT: No pertinent hx Renal/: No pertinent hx Endocrine: Diabetes Dermatology: No pertinent hx Past Surgical History Past Surgical History: Other (cervical fusion, gastric bypass ) Family History Family History: Diabetes Social History No ALCOHOL: none Drugs: None Lives: Alone Current Problem List Problem List Problems Medical Problems: (1) Closed wedge compression fracture of T11 vertebra Status: Acute (2) Perforated ulcer Status: Acute Current Medications Current Medications Current Medications Nitroglycerin (Nitrostat) 0.4 mg PRN Q5MIN PRN SL CP RATING > 1/10 Last administered on 08/26/16 00:32; Start 08/25/16 at 23:45; Stop 08/26/16 at 23:44; Status DC Fentanyl Citrate 25 mcg 25 mcg PRN Q15MIN PRN IV PAIN GREATER THAN 3/10 Last administered on 08/26/16 02:43; Start 08/25/16 at 23:45; Stop 08/26/16 at 14:40; Status DC Sodium Chloride (Iv Sodium Chloride 0.9% 500ml Bag) 500 ml @ 500 mls/hr 1X ONCE IV Last administered on 08/26/16 00:32; Start 08/26/16 at 00:30; Stop at 01:29; Status DC Ondansetron HCl (Zofran) 4 mg STK-MED ONCE .ROUTE ; Start 08/26/16 at 01:44; Stop 08/26/16 at 01:45; Status DC Ondansetron HCl 4 mg 4 mg 1X ONCE IV Last administered on 08/26/16 01:45; Start 08/26/16 at 02:00; Stop 08/26/16 at 02:03; Status DC Metronidazole 100 ml @ 100 mls/hr Q8HRS IV Last administered on 09/05/16 06: 01; Start 08/26/16 at 14:00; Stop 09/05/16 at 12:30; Status DC Metronidazole 100 ml @ 100 mls/hr 1X ONCE IV Last administered on 08/26/16 02 :38; Start 08/26/16 at 02:30; Stop 08/26/16 at 03:29; Status DC Cefepime HCl 2 gm/ Sodium Chloride 100 ml @ 200 mls/hr 1X ONCE IV Last administered on 08/26/16 03:22; Start 08/26/16 at 03:00; Stop 08/26/16 at 03:29; Status DC Sodium Chloride (Iv Sodium Chloride 0.9% 1000ml Bag) 1,000 ml @ 125 mls/hr 1X ONCE IV Last administered on 08/26/16 02:41; Start 08/26/16 at 03:00; Stop at 10:59; Status DC Fentanyl Citrate (Fentanyl 2ml Vial) 50 mcg PRN Q15MIN PRN IV PAIN GREATER THAN 3/10 Last administered on 08/26/16 07:42; Start 08/26/16 at 02:45; Stop 08/26 at 14:40; Status DC Ondansetron HCl 4 mg 4 mg 1X ONCE PO ; Start 08/26/16 at 03:00; Stop 08/26/16 at 03:01; Status DC Metronidazole (FLAGYL 500Mmg PREMIX) 100 ml @ 100 mls/hr 1X ONCE IV Last administered on 08/26/16 05:12; Start 08/26/16 at 04:30; Stop 08/26/16 at 05:29; Status DC Hydromorphone HCl (Dilaudid) 1 mg 1X ONCE IV Last administered on 08/26/16 04: 29; Start 08/26/16 at 04:30; Stop 08/26/16 at 04:31; Status DC Fentanyl Citrate (Fentanyl 5ml Vial) 250 mcg STK-MED ONCE .ROUTE ; Start at 04:41; Stop 08/26/16 at 04:42; Status DC Succinylcholine Chloride (Anectine) 200 mg STK-MED ONCE .ROUTE ; Start 08/26/16 at 04:42; Stop 08/26/16 at 04:43; Status DC Rocuronium [place] (Zemuron) 50 mg STK-MED ONCE .ROUTE ; Start 08/26/16 at 04:42 ; Stop 08/26/16 at 04:43; Status DC Ondansetron HCl (Zofran) 4 mg PRN Q6HRS PRN IV Nausea; Start 08/26/16 at 04:45; Stop 08/26/16 at 14:42; Status DC Fentanyl Citrate (Fentanyl 2ml Vial) 25 mcg PRN Q5MIN PRN IV MILD PAIN; Start 08/26/16 at 04:45; Stop 08/26/16 at 14:41; Status DC Fentanyl Citrate (Fentanyl 2ml Vial) 50 mcg PRN Q5MIN PRN IV MODERATE PAIN; Start 08/26/16 at 04:45; Stop 08/26/16 at 14:42; Status DC Morphine Sulfate 1 mg 1 mg PRN Q10MIN PRN IV SEVERE PAIN; Start 08/26/16 at 04: 45; Stop 08/26/16 at 14:42; Status DC Lactated Ringer's (Iv Lactated Ringers) 1,000 ml @ 30 mls/hr Q24H IV ; Start at 04:43; Stop 08/26/16 at 16:42; Status DC Lidocaine HCl 2 ml 1X PRN PRN ID IV START; Start 08/26/16 at 04:45; Stop at 14:42; Status DC Hydromorphone HCl (Dilaudid) 0.5 mg PRN Q10MIN PRN IV SEV PAIN,Second choice; Start 08/26/16 at 04:45; Stop 08/26/16 at 14:42; Status DC Prochlorperazine Edisylate 5 mg 5 mg PACU PRN PRN IV NAUSEA; Start 08/26/16 at 04:45; Stop 08/26/16 at 14:42; Status DC Propofol (Diprivan) 20 ml @ As Directed STK-MED ONCE IV ; Start 08/26/16 at 04:44 ; Stop 08/26/16 at 04:45; Status DC Lidocaine HCl (Lidocaine Pf 2% Vial) 5 ml STK-MED ONCE .ROUTE ; Start 08/26/16 at 04:44; Stop 08/26/16 at 04:45; Status DC Sevoflurane (Ultane) 60 ml STK-MED ONCE IH ; Start 08/26/16 at 06:07; Stop at 06:08; Status DC Phenylephrine HCl 1 mg STK-MED ONCE IV ; Start 08/26/16 at 06:12; Stop 08/26/16 at 06:13; Status DC Dexamethasone Sodium Phosphate (Decadron) 20 mg STK-MED ONCE .ROUTE ; Start 08/26 at 06:12; Stop 08/26/16 at 06:13; Status DC Ondansetron HCl (Zofran) 4 mg STK-MED ONCE .ROUTE ; Start 08/26/16 at 06:12; Stop 08/26/16 at 06:13; Status DC Glycopyrrolate (Robinul) 1 mg STK-MED ONCE .ROUTE ; Start 08/26/16 at 06:13; Stop 08/26/16 at 06:14; Status DC Neostigmine Methylsulfate 5 mg STK-MED ONCE .ROUTE ; Start 08/26/16 at 06:13; Stop 08/26/16 at 06:14; Status DC Diphenhydramine HCl (Benadryl) 25 mg PRN Q6HRS PRN IV ITCHING; Start 08/26/16 at 07:00 Enoxaparin Sodium (Lovenox 40mg Syringe) 40 mg Q12HR SQ Last administered on 10:30; Start 08/26/16 at 09:00; Stop 08/27/16 at 16:33; Status DC Sodium Chloride 3 ml 3 ml QSHIFT PRN IV AFTER MEDS AND BLOOD DRAWS Last administered on 08/30/16 14:23; Start 08/26/16 at 07:00 Potassium Chloride/Sodium Chloride 1,000 ml @ 100 mls/hr Q10H IV Last administered on 09/03/16 06:04; Start 08/26/16 at 06:53; Stop 09/03/16 at 15:04 ; Status DC Hydromorphone HCl (Dilaudid Standard WAISTBAND SETTER) 30 ml @ 0 mls/hr CONT PRN PRN IV PROTOCOL Last administered on 08/26/16 07:41; Start 08/26/16 at 07:00; Stop at 09:42; Status DC Ondansetron HCl (Zofran) 4 mg PRN Q6HRS PRN IV NAUESA, 1ST CHOICE Last administered on 09/05/16 08:36; Start 08/26/16 at 07:00 Throat Lozenges (Chloraseptic) 1 spray PRN Q2HR PRN PO SORE THROAT; Start at 07:00 Throat Lozenges 1 noreen 1 noreen PRN Q2HRS PRN PO SORE THROAT; Start 08/26/16 at 07: 00 Hydromorphone HCl 30 ml @ 0 mls/hr CONT PRN PRN IV PROTOCOL; Start 08/26/16 at 09:45; Stop 08/26/16 at 12:16; Status DC Hydromorphone HCl (Dilaudid Standard WAISTBAND SETTER) 30 ml @ 0 mls/hr CONT PRN PRN IV PROTOCOL; Start 08/26/16 at 12:15; Stop 08/26/16 at 20:05; Status DC Pantoprazole Sodium (Protonix Vial) 40 mg BID IVP Last administered on 07:57; Start 08/26/16 at 21:00; Stop 09/03/16 at 09:04; Status DC Labetalol HCl 20 mg 20 mg PRN Q2HR PRN IVP HYPERTENSION, SEE COMMENTS Last administered on 08/30/16 09:34; Start 08/26/16 at 13:15 Sodium Chloride 1,000 ml @ 1,000 mls/hr 1X ONCE IV ; Start 08/26/16 at 23:00; Stop 08/26/16 at 23:59; Status DC Hydromorphone HCl (Dilaudid Standard WAISTBAND SETTER) 30 ml @ 0 mls/hr CONT PRN PRN IV PROTOCOL Last administered on 09/02/16 05:37; Start 08/26/16 at 20:15; Stop 07/07 at 12:54; Status DC Enoxaparin Sodium (Lovenox 40mg Syringe) 40 mg Q24H SQ Last administered on 08:39; Start 08/28/16 at 09:00 Ondansetron HCl (Zofran) 4 mg PRN Q6HRS PRN IV Nausea; Start 08/30/16 at 07:00; Stop 08/31/16 at 06:59; Status DC Fentanyl Citrate (Fentanyl 2ml Vial) 25 mcg PRN Q5MIN PRN IV MILD PAIN; Start 08/30/16 at 07:00; Stop 08/31/16 at 06:59; Status DC Fentanyl Citrate (Fentanyl 2ml Vial) 50 mcg PRN Q5MIN PRN IV MODERATE PAIN Last administered on 08/30/16t 14:48; Start 08/30/16 at 07:00; Stop 08/31/16 at 06 :59; Status DC Morphine Sulfate 1 mg 1 mg PRN Q10MIN PRN IV SEVERE PAIN; Start 08/30/16 at 07: 00; Stop 08/31/16 at 06:59; Status DC Lactated Ringer's (Iv Lactated Ringers) 1,000 ml @ 0 mls/hr Q0M IV ; Start 08/30 at 07:00; Stop 08/30/16 at 18:59; Status DC Lidocaine HCl 2 ml 1X PRN PRN ID IV START; Start 08/30/16 at 07:00; Stop at 06:59; Status DC Hydromorphone HCl (Dilaudid) 0.5 mg PRN Q10MIN PRN IV SEVERE PAIN, Second choice; Start 08/30/16 at 07:00; Stop 08/31/16 at 06:59; Status DC Prochlorperazine Edisylate 5 mg 5 mg PACU PRN PRN IV NAUSEA; Start 08/30/16 at 07:00; Stop 08/31/16 at 06:59; Status DC Propofol 0 ml @ As Directed STK-MED ONCE IV ; Start 08/30/16 at 12:35; Stop at 12:36; Status DC Propofol 50 ml @ As Directed STK-MED ONCE IV ; Start 08/30/16 at 12:35; Stop 08/30 at 12:36; Status DC Propofol 0 ml @ As Directed STK-MED ONCE IV ; Start 08/30/16 at 12:35; Stop at 12:36; Status DC Propofol 0 ml @ As Directed STK-MED ONCE IV ; Start 08/30/16 at 12:35; Stop at 12:36; Status DC Propofol (Diprivan) 20 ml @ As Directed STK-MED ONCE IV ; Start 08/30/16 at 12:35 ; Stop 08/30/16 at 12:36; Status DC Midazolam HCl (Versed) 2 mg STK-MED ONCE .ROUTE ; Start 08/30/16 at 12:35; Stop 08/30/16 at 12:36; Status DC Midazolam HCl (Versed) 2 mg STK-MED ONCE .ROUTE ; Start 08/30/16 at 12:35; Stop 08/30/16 at 12:36; Status DC Ketamine HCl 500 mg 500 mg STK-MED ONCE .ROUTE ; Start 08/30/16 at 12:35; Stop at 12:36; Status DC Sodium Chloride (Iv Sodium Chloride 0.9% 1000ml Bag) 1,000 ml @ 100 mls/hr Q10H IV Last administered on 08/30/16t 13:00; Start 08/30/16 at 13:00; Stop 08/31 at 08:41; Status DC Naloxone HCl (Narcan) 0.4 mg STK-MED ONCE .ROUTE ; Start 08/30/16 at 15:37; Stop 08/30/16 at 15:38; Status DC Flumazenil (Romazicon) 0.5 mg STK-MED ONCE IV ; Start 08/30/16 at 15:37; Stop 08/30/16 at 15:38; Status DC Midazolam HCl (Versed) 5 mg STK-MED ONCE .ROUTE ; Start 08/30/16 at 15:37; Stop 08/30/16 at 15:38; Status DC Fentanyl Citrate (Fentanyl 5ml Vial) 250 mcg STK-MED ONCE .ROUTE ; Start at 15:38; Stop 08/30/16 at 15:39; Status DC Lidocaine/Sodium Bicarbonate (Buffered Lidocaine 1%) 20 ml 1X ONCE IJ Last administered on 08/30/16t 15:45; Start 08/30/16 at 15:45; Stop 08/30/16 at 15:46; Status DC Lidocaine/Sodium Bicarbonate (Buffered Lidocaine 1%) 20 ml 1X ONCE IJ ; Start 08/30/16 at 16:00; Stop 08/30/16 at 16:01; Status DC Midazolam HCl (Versed) 5 mg 1X ONCE IV Last administered on 08/30/16 16:00; Start 08/30/16 at 16:00; Stop 08/30/16 at 16:01; Status DC Fentanyl Citrate (Fentanyl 5ml Vial) 250 mcg 1X ONCE IV Last administered on 16:00; Start 08/30/16 at 16:00; Stop 08/30/16 at 16:01; Status DC Metoprolol Succinate (Toprol Xl) 12.5 mg DAILY PO Last administered on 08:45; Start 08/31/16 at 15:00 Metoclopramide HCl (Reglan) 5 mg PRN Q6HRS PRN IV NAUSEA/VOMITING Last administered on 09/05/16 12:04; Start 09/01/16 at 05:30 Hydromorphone HCl (Dilaudid) 0.5 mg PRN Q2HRS PRN IV SEVERE PAIN Last administered on 09/05/16 16:56; Start 09/02/16 at 13:00 Oxycodone/ Acetaminophen (Percocet 10/325) 1 tab PRN Q4HRS PRN PO BREAKTHROUGH PAIN Last administered on 09/05/16 05:09; Start 09/02/16 at 19:00; Stop at 11:54; Status DC Pantoprazole Sodium (Protonix) 40 mg BIDAC PO Last administered on 09/05/16 16 :56; Start 09/03/16 at 16:30 Oxycodone HCl (Oxycontin) 30 mg Q12HR PO Last administered on 09/05/16 08:40; Start 09/03/16 at 21:00; Stop 09/05/16 at 11:54; Status DC Polyethylene Glycol (miraLAX PACKET) 17 gm DAILY PO Last administered on 08:39; Start 09/03/16 at 16:00 Morphine Sulfate (Ms Contin) 60 mg BID PO Last administered on 09/05/16 14:09 ; Start 09/05/16 at 12:00 Morphine Sulfate (Morphine Ir) 15 mg PRN Q4HRS PRN PO PAIN Last administered on 09/05/16 14:06; Start 09/05/16 at 12:00 Metronidazole (Flagyl) 500 mg Q8HRS PO Last administered on 2/15/17at 14:09; Start 09/05/16 at 14:00 Active Scripts Active Reported Cetirizine Hcl 1 Mg/1 Ml Solution 10 Mg PO Hydrocodone-Apap 7.5-325 (Hydrocodone Bit/Acetaminophen) 1 Each Tablet 1 Tab PO PRN Q6HRS PRN Fioricet 50-300-40 Mg Capsule (Butalb/Acetaminophen/Caffeine) 1 Each Capsule 1 Each PO PRN Q6-8HRS PRN Voltaren-Xr (Diclofenac Sodium) 100 Mg Tab.er.24h 75 Mg PO [id number] Ambien (Zolpidem Tartrate) 10 Mg Tablet 10 Mg PO HS PRN Propranolol Hcl 80 Mg Cap.sa.24h 1 Cap PO DAILY Allergies Allergies: Coded Allergies: Penicillins (Verified Allergy, Severe, Hives, 08/30/16) ROS General: YES: Appetite, Fatigue, Malaise PSYCHOLOGICAL ROS: No: Anxiety, Behavioral Disorder, Concentration difficultie , Decreased libido, Depression, Disorientation, Hallucinations, Hostility, Irritablity, Memory difficulties, Mood Swings, Obsessive thoughts, Other, Physical abuse, Sexual abuse, Sleep disturbances, Suicidal ideation Eyes: No Blurry vision, No Decreased vision, No Double vision, No Dry eyes, No Excessive tearing, No Eye Pain, No Itchy Eyes, No Loss of vision, No Other, No Photophobia, No Scotomata, No Uses contacts, No Uses glasses HEENT: No: Epistaxis, Heacaches, Hearing change, Nasal congestion, Nasal discharge, Oral lesions, Other, Sinus pain, Sneezing, Snoring, Sore Throat, Tinnitus, Vertigo, Visual Changes, Vocal changes ALLERGY AND IMMUNOLOGY: No: Hives, Insect Bite Sensitivity, Itchy/Watery Eyes, Nasal Congestion, Other, Post Nasal Drip, Seasonal Allergies Hematological and Lymphatic: YES: Night Sweats ENDOCRINE: No: Breast Changes, Galactorrhea, Hair Pattern Changes, Hot Flashes , Malaise/lethargy, Mood Swings, Other, Palpitations, Polydipsia/polyuria, Skin Changes, Temperature Intolerance, Unexpected Weight Changes Breast: No New/Changing Breast Lumps, No Nipple changes, No Nipple discharge, No Other Respiratory: No: Cough, Hemoptysis, Orthopnea, Other, Pleuritic Pain, SOB with excertion, Shortness of breath, Sputum Changes, Stridor, Tachypnea, Wheezing Cardiovascular: No Chest Pain, No Edema, No Lt Headedness, No Orthopnea, No Other, No Palpitations, No Paroxysmal Noc. Dyspnea Gastrointestinal: Yes Nausea Genitourinary: YES Other (vaginal bleeding) Musculoskeletal: No Gait Disturbance, No Joint Pain, No Joint Stiffness, No Joint Swelling, No Muscle Pain, No Muscular Weakness, No Other, No Pain In:, No Swelling In: Neurological: No Behavorial Changes, No Bowel/Bladder ControlChng, No Confusion , No Dizziness, No Gait Disturbance, No Headaches, No Impaired Coord/balance, No Memory Loss, No Numbness/Tingling, No Other, No Seizures, No Speech Problems , No Tremors, No Visual Changes, No Weakness Skin: No Acne, No Dry Skin, No Eczema, No Hair Changes, No Lumps, No Mole Changes, No Mottling, No Nail Changes, No Other, No Pruritus, No Rash, No Skin Lesion Changes Physical Exam General: Alert, Cooperative HEENT: Atraumatic Lungs: Clear to auscultation Heart: Regular rate Abdomen: Normal bowel sounds, Soft, No tenderness, No masses Extremities: No clubbing Psych/Mental Status: Mental status NL Vitals VITALS Vital Signs Date Time Temp Pulse Resp B/P Pulse Ox O2 Delivery O2 Flow Rate FiO2 09/05/16 16:56 18 Room Air 09/05/16 15:00 98.2 74 114/78 94 98.2 09/05/16 01:13 2.0 Labs Labs Laboratory Tests Test 09/03/16 20:46 09/04/16 07:43 09/04/16 20:43 09/05/16 06:45 Glucose (Fingerstick) 138mg/dL (70-99) 111mg/dL (70-99) 151mg/dL (70-99) White Blood Count 8.8x10^3/uL (4.0-11.0) Red Blood Count 3.19x10^6/uL (3.50-5.40) Hemoglobin 9.4g/dL (12.0-15.5) Hematocrit 29.2% (36.0-47.0) Mean Corpuscular Volume 92fL (79-100) Mean Corpuscular Hemoglobin 30pg (25-35) Mean Corpuscular Hemoglobin Concent 32g/dL (31-37) Red Cell Distribution Width 16.4% (11.5-14.5) Platelet Count 267x10^3/uL (140-400) Neutrophils (%) (Auto) 74% (31-73) Lymphocytes (%) (Auto) 12% (24-48) Monocytes (%) (Auto) 9% (0-9) Eosinophils (%) (Auto) 4% (0-3) Basophils (%) (Auto) 1% (0-3) Neutrophils # (Auto) 6.5x10^3uL (1.8-7.7) Lymphocytes # (Auto) 1.0x10^3/uL (1.0-4.8) Monocytes # (Auto) 0.8x10^3/uL (0.0-1.1) Eosinophils # (Auto) 0.3x10^3/uL (0.0-0.7) Basophils # (Auto) 0.1x10^3/uL (0.0-0.2) Sodium Level 144mmol/L (136-145) Potassium Level 4.6mmol/L (3.5-5.1) Chloride Level 108mmol/L (98-107) Carbon Dioxide Level 27mmol/L (21-32) Anion Gap 9 (6-14) Blood Urea Nitrogen 16mg/dL (7-20) Creatinine 1.4mg/dL (0.6-1.0) Estimated GFR (Cockcroft-Gault) 37.5 Glucose Level 115mg/dL (70-99) Calcium Level 8.5mg/dL (8.5-10.1) Laboratory Tests Test 09/04/16 20:43 09/05/16 06:45 Glucose (Fingerstick) 151mg/dL (70-99) White Blood Count 8.8x10^3/uL (4.0-11.0) Red Blood Count 3.19x10^6/uL (3.50-5.40) Hemoglobin 9.4g/dL (12.0-15.5) Hematocrit 29.2% (36.0-47.0) Mean Corpuscular Volume 92fL (79-100) Mean Corpuscular Hemoglobin 30pg (25-35) Mean Corpuscular Hemoglobin Concent 32g/dL (31-37) Red Cell Distribution Width 16.4% (11.5-14.5) Platelet Count 267x10^3/uL (140-400) Neutrophils (%) (Auto) 74% (31-73) Lymphocytes (%) (Auto) 12% (24-48) Monocytes (%) (Auto) 9% (0-9) Eosinophils (%) (Auto) 4% (0-3) Basophils (%) (Auto) 1% (0-3) Neutrophils # (Auto) 6.5x10^3uL (1.8-7.7) Lymphocytes # (Auto) 1.0x10^3/uL (1.0-4.8) Monocytes # (Auto) 0.8x10^3/uL (0.0-1.1) Eosinophils # (Auto) 0.3x10^3/uL (0.0-0.7) Basophils # (Auto) 0.1x10^3/uL (0.0-0.2) Sodium Level 144mmol/L (136-145) Potassium Level 4.6mmol/L (3.5-5.1) Chloride Level 108mmol/L (98-107) Carbon Dioxide Level 27mmol/L (21-32) Anion Gap 9 (6-14) Blood Urea Nitrogen 16mg/dL (7-20) Creatinine 1.4mg/dL (0.6-1.0) Estimated GFR (Cockcroft-Gault) 37.5 Glucose Level 115mg/dL (70-99) Calcium Level 8.5mg/dL (8.5-10.1) Assessment/Plan Assessment/Plan A: Post menopausal bleeding P: Embx completed today. Will continue to follow. Thank you for consult. SIMON TRAN Jr, MD Sep 05, 2016 17:14
[2016-09-05 19:17] VITALS: BP 121/67
[2016-09-05] MEDS: FLUCONAZOLE 100 MG TABLET. PO SCH (20:56)
[2016-09-05 23:30] VITALS: BP 113/55
[2016-09-06 03:25] VITALS: BP 113/61
[2016-09-06] MEDS: MORPHINE IR 15 MG TABLET PO PRN ×4 (03:55→21:18)
[2016-09-06] MEDS: ONDANSETRON PF 4 MG/2 ML VIAL. IV PRN ×2 (03:57→12:20)
[2016-09-06 07:00] VITALS: BP 105/53
[2016-09-06] MEDS: METRONIDAZOLE 500 MG TABLET. PO SCH ×3 (07:09→21:19)
[2016-09-06] MEDS: HYDROMORPHONE 2 MG/ML VIAL. IV PRN ×3 (07:10→21:23)
--- NOTE | 2016-09-06 09:04 | PDOC ---
LINA LANIER QUALITY ANALYST/TECHNICAL WRITER 09/06/16 0904: SURGICAL PROGRESS NOTE Subjective pain managed ambulating up in chair Vital Signs Vital Signs Date Time Temp Pulse Resp B/P Pulse Ox O2 Delivery O2 Flow Rate FiO2 09/06/16 07:10 16 93 Room Air 2.0 09/06/16 03:25 98.5 72 113/61 98.5 I&O Intake and Output 09/06/16 07:00 Intake Total 920 ml Balance 920 ml Intake Oral 920 ml # Voids 10 General: Alert, Oriented X3, Cooperative, No acute distress Abdomen: Soft, Other (incision c/d/i, no erythema, ABDIAZIZ serous) Labs Laboratory Tests Test 09/04/16 20:43 09/05/16 06:45 Glucose (Fingerstick) 151mg/dL (70-99) White Blood Count 8.8x10^3/uL (4.0-11.0) Red Blood Count 3.19x10^6/uL (3.50-5.40) Hemoglobin 9.4g/dL (12.0-15.5) Hematocrit 29.2% (36.0-47.0) Mean Corpuscular Volume 92fL (79-100) Mean Corpuscular Hemoglobin 30pg (25-35) Mean Corpuscular Hemoglobin Concent 32g/dL (31-37) Red Cell Distribution Width 16.4% (11.5-14.5) Platelet Count 267x10^3/uL (140-400) Neutrophils (%) (Auto) 74% (31-73) Lymphocytes (%) (Auto) 12% (24-48) Monocytes (%) (Auto) 9% (0-9) Eosinophils (%) (Auto) 4% (0-3) Basophils (%) (Auto) 1% (0-3) Neutrophils # (Auto) 6.5x10^3uL (1.8-7.7) Lymphocytes # (Auto) 1.0x10^3/uL (1.0-4.8) Monocytes # (Auto) 0.8x10^3/uL (0.0-1.1) Eosinophils # (Auto) 0.3x10^3/uL (0.0-0.7) Basophils # (Auto) 0.1x10^3/uL (0.0-0.2) Sodium Level 144mmol/L (136-145) Potassium Level 4.6mmol/L (3.5-5.1) Chloride Level 108mmol/L (98-107) Carbon Dioxide Level 27mmol/L (21-32) Anion Gap 9 (6-14) Blood Urea Nitrogen 16mg/dL (7-20) Creatinine 1.4mg/dL (0.6-1.0) Estimated GFR (Cockcroft-Gault) 37.5 Glucose Level 115mg/dL (70-99) Calcium Level 8.5mg/dL (8.5-10.1) Problem List Problems Medical Problems: (1) Closed wedge compression fracture of T11 vertebra Status: Acute (2) Perforated ulcer Status: Acute Assessment/Plan stable surgically Problems: MARLON PRINCE MD 09/06/16 1007: SURGICAL PROGRESS NOTE Assessment/Plan pt seen and examined agree with above Problems: LINA LANIER APRN Sep 06, 2016 09:04 MARLON PRINCE MD Sep 06, 2016 10:07
[2016-09-06] MEDS: POLYETHYLENE GLYCOL 3350 17 GM PACKET. PO SCH (09:34)
[2016-09-06] MEDS: ENOXAPARIN 40 MG/0.4 ML DISP.SYRIN. SQ SCH (09:35)
[2016-09-06] MEDS: FLUCONAZOLE 100 MG TABLET. PO SCH (09:35)
[2016-09-06] MEDS: METOPROLOL SUCC 24HR ER 25 MG TAB.ER.24H. PO SCH (09:36)
[2016-09-06] MEDS: PANTOPRAZOLE 40 MG TABLET. PO SCH ×2 (09:36→15:53)
[2016-09-06] MEDS: MORPHINE ER 30 MG TABLET.ER PO SCH ×2 (09:36→21:18)
[2016-09-06 11:00] VITALS: BP 99/49
--- NOTE | 2016-09-06 11:30 | PDOC ---
PROGRESS NOTES Chief Complaint Chief Complaint Acute abdominal pain Perforated pyloric ulcer ASSESSMENT AND PLAN: 1. Perf.d viscus: s/p emergent repair on 08/[address] Mendez. recovering appropriately. on flagyl, can be stopped (13 days) 2. T11 pathologic compression fx: unfortunately, not amenable to kyphoplasty. treat symptomatically. long- and short-acting oxy insufficient. doing well on current MScontin and MSIR 3. Breast CA: mets to bone. F/U w/ onc on O/P basis 4. 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 F/U on O/ P basis 5. DM2: by report, not on meds here, with good control. stopped FSBG 6. HTN: well controlled on current regimen 7. Dysrhythmia: appreciate cards input. O/P F/U 8. Prophylaxis: lovenox, PPI 9. Dispo: cleared by surg for SNF. Home w/HH Vitals Vitals Vital Signs Date Time Temp Pulse Resp B/P Pulse Ox O2 Delivery O2 Flow Rate FiO2 09/06/16 10:40 18 Room Air 09/06/16 09:36 69 105/53 09/06/16 07:10 93 2.0 09/06/16 07:00 98.9 98.9 Physical Exam Physical Exam sl slurred speech General: Alert, Oriented X3, Cooperative, No acute distress Heart: Regular rate Lungs: Clear Abdomen: Soft, Other (incision well healing) Extremities: No clubbing Skin: No significant lesion Review of Systems Review of Systems slept well last night. no c/o this AM Comment Review of Relevant BUBBA LACY MD Sep 06, 2016 11:30
--- NOTE | 2016-09-06 11:33 | DISCH ---
DISCHARGE INSTRUCTIONS Condition on Discharge Condition on Discharge: Stable Activity After Discharge Activity Instructions for Disc: Activity as tolerated Diet after Discharge Diet after Discharge: Regular Contacting the DR. after DC Call your doctor for: Concerns you may have Follow-Up Follow up with: Dr Mendez in 1 week (Surgery). Dr Traore in 2 weeks (DRAFTER MECHANICAL). Follow Up With: Oncology in 2-4 weeks BUBBA LACY MD Sep 06, 2016 11:33
[2016-09-06] MEDS ORDERED: POLY17PO5 PO (11:38)
[2016-09-06] MEDS ORDERED: PANT40TA5 PO (11:38)
[2016-09-06 15:00] VITALS: BP 103/49
--- NOTE | 2016-09-06 15:42 | PDOC ---
PROGRESS NOTES Subjective Subjective c/c - f/u of Invasive ductal carcinoma of the left breast ROS - -back pain better Objective Objective Vital Signs Date Time Temp Pulse Resp B/P Pulse Ox O2 Delivery O2 Flow Rate FiO2 09/06/16 15:00 98.5 56 18 103/49 92 Room Air 98.5 09/06/16 07:10 2.0 Intake and Output 09/06/16 07:00 Intake Total 920 ml Balance 920 ml Intake Oral 920 ml # Voids 10 Physical Exam Heart: Normal S1, Normal S2 General: Alert, Oriented X3 Neuro: Normal speech Psych/Mental Status: Mental status NL Assessment Assessment Problems Medical Problems: (1) Closed wedge compression fracture of T11 vertebra Status: Acute (2) Perforated ulcer Status: Acute IMPRESSION AND PLAN: 1. Invasive ductal carcinoma of the left breast diagnosed in 2011, ER/MI positive, HER-2/kristel negative. She underwent lumpectomy and radiation therapy and she received Arimidex till 2013 and she quit taking it because she could afford it. She now has evidence of bone metastasis and possibly lung metastasis. She has evidence of a T11 pathologic fracture and also sternal fracture. This is now suggestive of stage IV lung cancer. Vertebroplasty and biopsy of the T11 vertebral body was canceled due to potential spinal cord compression I d/w Dr Sung. Bone bx - CT-guided biopsy of T4 was done 08/30/16. I will check ER/MI/Her 2 kristel. Bone scan 08/30/16: There are multiple areas of abnormal uptake compatible with metastatic disease. There is uptake at T11 consistent with the sclerotic focus seen on the recent CT. Additional foci are seen scattered in mid and upper thoracic vertebral body segments compatible with metastatic disease. Increased activity is seen in the midportion of the sternum consistent with same. There are 2 areas of increased activity in the calvarium compatible with calvarial metastatic disease. There is an isolated focus of increased activity in the lower lumbar spine which may be degenerative. Finally a single focus of increased activity is seen in a right lower, anterior, rib. MRI of the thoracic 08/30/16: . There are findings of osseous metastatic disease. T11 lesion results in mild bowing of the posterior cortex also with mild epidural extent of mass. There is fairly severe spinal stenosis at T10-11 primarily from buckling of the ligamentum flavum and facet degenerative change, effacement of subarachnoid space at this level and likely mild cord edema. Poorly evaluated, there may be aneurysmal dilatation of the ascending thoracic aorta on the order of 4 centimeters. There is small dependent right pleural effusion. I d/w pt and her son Huy. I explained the clinical impression of stage 4 breast cancer. I recommended palliative radiation followed by faslodex plus Ibrance or aromain plus afinitor. 2. Bone metastasis. She has numerous lytic and sclerotic bone lesions with pathologic fracture of the sternum at T11 vertebral body. Plan Xgeva as an outpatient. Plan, palliative radiation therapy from 09/04/16.. 3. Pulmonary nodules, thought to be due to metastatic disease from breast cancer. 4. Perforated pyloric channel ulcer, status post exploratory laparotomy and biopsy and closure of the ulcer by Dr. Mendez on 08/26/2016. Continue postoperative care. 5. Leukocytosis, reactive. Monitor. WBC better at 8.8 6. Anemia postoperative due to surgical blood loss. Monitor. 7. Renal insufficiency with a creatinine of 1.6 and a BUN of 37 on 08/27/2016. Continue to monitor. 8. Post menopausal bleeding - appreciate [employer] eval and bx. Comment Review of Relevant I have reviewed the following items maggy (where applicable) has been applied. Labs Laboratory Tests Test 09/04/16 20:43 09/05/16 06:45 Glucose (Fingerstick) 151mg/dL (70-99) White Blood Count 8.8x10^3/uL (4.0-11.0) Red Blood Count 3.19x10^6/uL (3.50-5.40) Hemoglobin 9.4g/dL (12.0-15.5) Hematocrit 29.2% (36.0-47.0) Mean Corpuscular Volume 92fL (79-100) Mean Corpuscular Hemoglobin 30pg (25-35) Mean Corpuscular Hemoglobin Concent 32g/dL (31-37) Red Cell Distribution Width 16.4% (11.5-14.5) Platelet Count 267x10^3/uL (140-400) Neutrophils (%) (Auto) 74% (31-73) Lymphocytes (%) (Auto) 12% (24-48) Monocytes (%) (Auto) 9% (0-9) Eosinophils (%) (Auto) 4% (0-3) Basophils (%) (Auto) 1% (0-3) Neutrophils # (Auto) 6.5x10^3uL (1.8-7.7) Lymphocytes # (Auto) 1.0x10^3/uL (1.0-4.8) Monocytes # (Auto) 0.8x10^3/uL (0.0-1.1) Eosinophils # (Auto) 0.3x10^3/uL (0.0-0.7) Basophils # (Auto) 0.1x10^3/uL (0.0-0.2) Sodium Level 144mmol/L (136-145) Potassium Level 4.6mmol/L (3.5-5.1) Chloride Level 108mmol/L (98-107) Carbon Dioxide Level 27mmol/L (21-32) Anion Gap 9 (6-14) Blood Urea Nitrogen 16mg/dL (7-20) Creatinine 1.4mg/dL (0.6-1.0) Estimated GFR (Cockcroft-Gault) 37.5 Glucose Level 115mg/dL (70-99) Calcium Level 8.5mg/dL (8.5-10.1) Microbiology 08/26/16 Gram Stain - Final, Complete 08/26/16 Urine Culture - Final, Complete 08/26/16 Urine Culture Result 1 (LATASHA) - Final, Complete Medications Current Medications Nitroglycerin (Nitrostat) 0.4 mg PRN Q5MIN PRN SL CP RATING > 1/10 Last administered on 08/26/16 00:32; Start 08/25/16 at 23:45; Stop 08/26/16 at 23:44; Status DC Fentanyl Citrate 25 mcg 25 mcg PRN Q15MIN PRN IV PAIN GREATER THAN 3/10 Last administered on 08/26/16 02:43; Start 08/25/16 at 23:45; Stop 08/26/16 at 14:40; Status DC Sodium Chloride (Iv Sodium Chloride 0.9% 500ml Bag) 500 ml @ 500 mls/hr 1X ONCE IV Last administered on 08/26/16 00:32; Start 08/26/16 at 00:30; Stop at 01:29; Status DC Ondansetron HCl (Zofran) 4 mg [facility]-MED ONCE .ROUTE ; Start 08/26/16 at 01:44; Stop 08/26/16 at 01:45; Status DC Ondansetron HCl 4 mg 4 mg 1X ONCE IV Last administered on 08/26/16 01:45; Start 08/26/16 at 02:00; Stop 08/26/16 at 02:03; Status DC Metronidazole 100 ml @ 100 mls/hr Q8HRS IV Last administered on 09/05/16 06: 01; Start 08/26/16 at 14:00; Stop 09/05/16 at 12:30; Status DC Metronidazole 100 ml @ 100 mls/hr 1X ONCE IV Last administered on 08/26/16 02 :38; Start 08/26/16 at 02:30; Stop 08/26/16 at 03:29; Status DC Cefepime HCl 2 gm/ Sodium Chloride 100 ml @ 200 mls/hr 1X ONCE IV Last administered on 08/26/16 03:22; Start 08/26/16 at 03:00; Stop 08/26/16 at 03:29; Status DC Sodium Chloride (Iv Sodium Chloride 0.9% 1000ml Bag) 1,000 ml @ 125 mls/hr 1X ONCE IV Last administered on 08/26/16 02:41; Start 08/26/16 at 03:00; Stop at 10:59; Status DC Fentanyl Citrate (Fentanyl 2ml Vial) 50 mcg PRN Q15MIN PRN IV PAIN GREATER THAN 3/10 Last administered on 08/26/16 07:42; Start 08/26/16 at 02:45; Stop 08/26 at 14:40; Status DC Ondansetron HCl 4 mg 4 mg 1X ONCE PO ; Start 08/26/16 at 03:00; Stop 08/26/16 at 03:01; Status DC Metronidazole (FLAGYL 500Mmg PREMIX) 100 ml @ 100 mls/hr 1X ONCE IV Last administered on 08/26/16 05:12; Start 08/26/16 at 04:30; Stop 08/26/16 at 05:29; Status DC Hydromorphone HCl (Dilaudid) 1 mg 1X ONCE IV Last administered on 08/26/16 04: 29; Start 08/26/16 at 04:30; Stop 08/26/16 at 04:31; Status DC Fentanyl Citrate (Fentanyl 5ml Vial) 250 mcg STK-MED ONCE .ROUTE ; Start at 04:41; Stop 08/26/16 at 04:42; Status DC Succinylcholine Chloride (Anectine) 200 mg STK-MED ONCE .ROUTE ; Start 08/26/16 at 04:42; Stop 08/26/16 at 04:43; Status DC Rocuronium [place] (Zemuron) 50 mg STK-MED ONCE .ROUTE ; Start 08/26/16 at 04:42 ; Stop 08/26/16 at 04:43; Status DC Ondansetron HCl (Zofran) 4 mg PRN Q6HRS PRN IV Nausea; Start 08/26/16 at 04:45; Stop 08/26/16 at 14:42; Status DC Fentanyl Citrate (Fentanyl 2ml Vial) 25 mcg PRN Q5MIN PRN IV MILD PAIN; Start 08/26/16 at 04:45; Stop 08/26/16 at 14:41; Status DC Fentanyl Citrate (Fentanyl 2ml Vial) 50 mcg PRN Q5MIN PRN IV MODERATE PAIN; Start 08/26/16 at 04:45; Stop 08/26/16 at 14:42; Status DC Morphine Sulfate 1 mg 1 mg PRN Q10MIN PRN IV SEVERE PAIN; Start 08/26/16 at 04: 45; Stop 08/26/16 at 14:42; Status DC Lactated Ringer's (Iv Lactated Ringers) 1,000 ml @ 30 mls/hr Q24H IV ; Start at 04:43; Stop 08/26/16 at 16:42; Status DC Lidocaine HCl 2 ml 1X PRN PRN ID IV START; Start 08/26/16 at 04:45; Stop at 14:42; Status DC Hydromorphone HCl (Dilaudid) 0.5 mg PRN Q10MIN PRN IV SEV PAIN,Second choice; Start 08/26/16 at 04:45; Stop 08/26/16 at 14:42; Status DC Prochlorperazine Edisylate 5 mg 5 mg PACU PRN PRN IV NAUSEA; Start 08/26/16 at 04:45; Stop 08/26/16 at 14:42; Status DC Propofol (Diprivan) 20 ml @ As Directed STK-MED ONCE IV ; Start 08/26/16 at 04:44 ; Stop 08/26/16 at 04:45; Status DC Lidocaine HCl (Lidocaine Pf 2% Vial) 5 ml STK-MED ONCE .ROUTE ; Start 08/26/16 at 04:44; Stop 08/26/16 at 04:45; Status DC Sevoflurane (Ultane) 60 ml STK-MED ONCE IH ; Start 08/26/16 at 06:07; Stop at 06:08; Status DC Phenylephrine HCl 1 mg STK-MED ONCE IV ; Start 08/26/16 at 06:12; Stop 08/26/16 at 06:13; Status DC Dexamethasone Sodium Phosphate (Decadron) 20 mg STK-MED ONCE .ROUTE ; Start 08/26 at 06:12; Stop 08/26/16 at 06:13; Status DC Ondansetron HCl (Zofran) 4 mg STK-MED ONCE .ROUTE ; Start 08/26/16 at 06:12; Stop 08/26/16 at 06:13; Status DC Glycopyrrolate (Robinul) 1 mg STK-MED ONCE .ROUTE ; Start 08/26/16 at 06:13; Stop 08/26/16 at 06:14; Status DC Neostigmine Methylsulfate 5 mg STK-MED ONCE .ROUTE ; Start 08/26/16 at 06:13; Stop 08/26/16 at 06:14; Status DC Diphenhydramine HCl (Benadryl) 25 mg PRN Q6HRS PRN IV ITCHING; Start 08/26/16 at 07:00 Enoxaparin Sodium (Lovenox 40mg Syringe) 40 mg Q12HR SQ Last administered on 10:30; Start 08/26/16 at 09:00; Stop 08/27/16 at 16:33; Status DC Sodium Chloride 3 ml 3 ml QSHIFT PRN IV AFTER MEDS AND BLOOD DRAWS Last administered on 08/30/16 14:23; Start 08/26/16 at 07:00 Potassium Chloride/Sodium Chloride 1,000 ml @ 100 mls/hr Q10H IV Last administered on 2/13/17at 06:04; Start 08/26/16 at 06:53; Stop 09/03/16 at 15:04 ; Status DC Hydromorphone HCl (Dilaudid [employer]) 30 ml @ 0 mls/hr CONT PRN PRN IV PROTOCOL Last administered on 08/26/16 07:41; Start 08/26/16 at 07:00; Stop at 09:42; Status DC Ondansetron HCl (Zofran) 4 mg PRN Q6HRS PRN IV NAUESA, 1ST CHOICE Last administered on 09/06/16 12:20; Start 08/26/16 at 07:00 Throat Lozenges (Chloraseptic) 1 spray PRN Q2HR PRN PO SORE THROAT; Start at 07:00 Throat Lozenges 1 noreen 1 noreen PRN Q2HRS PRN PO SORE THROAT; Start 08/26/16 at 07: 00 Hydromorphone HCl 30 ml @ 0 mls/hr CONT PRN PRN IV PROTOCOL; Start 08/26/16 at 09:45; Stop 08/26/16 at 12:16; Status DC Hydromorphone HCl (Dilaudid [employer]) 30 ml @ 0 mls/hr CONT PRN PRN IV PROTOCOL; Start 08/26/16 at 12:15; Stop 08/26/16 at 20:05; Status DC Pantoprazole Sodium (Protonix Vial) 40 mg BID IVP Last administered on 07:57; Start 08/26/16 at 21:00; Stop 09/03/16 at 09:04; Status DC Labetalol HCl 20 mg 20 mg PRN Q2HR PRN IVP HYPERTENSION, SEE COMMENTS Last administered on 08/30/16 09:34; Start 08/26/16 at 13:15 Sodium Chloride 1,000 ml @ 1,000 mls/hr 1X ONCE IV ; Start 08/26/16 at 23:00; Stop 08/26/16 at 23:59; Status DC Hydromorphone HCl (Dilaudid Standard [employer]) 30 ml @ 0 mls/hr CONT PRN PRN IV PROTOCOL Last administered on 09/02/16 05:37; Start 08/26/16 at 20:15; Stop 07/07 at 12:54; Status DC Enoxaparin Sodium (Lovenox 40mg Syringe) 40 mg Q24H SQ Last administered on 09:35; Start 08/28/16 at 09:00 Ondansetron HCl (Zofran) 4 mg PRN Q6HRS PRN IV Nausea; Start 08/30/16 at 07:00; Stop 08/31/16 at 06:59; Status DC Fentanyl Citrate (Fentanyl 2ml Vial) 25 mcg PRN Q5MIN PRN IV MILD PAIN; Start 08/30/16 at 07:00; Stop 08/31/16 at 06:59; Status DC Fentanyl Citrate (Fentanyl 2ml Vial) 50 mcg PRN Q5MIN PRN IV MODERATE PAIN Last administered on 08/30/16 14:48; Start 08/30/16 at 07:00; Stop 08/31/16 at 06 :59; Status DC Morphine Sulfate 1 mg 1 mg PRN Q10MIN PRN IV SEVERE PAIN; Start 08/30/16 at 07: 00; Stop 08/31/16 at 06:59; Status DC Lactated Ringer's (Iv Lactated Ringers) 1,000 ml @ 0 mls/hr Q0M IV ; Start 08/30 at 07:00; Stop 08/30/16 at 18:59; Status DC Lidocaine HCl 2 ml 1X PRN PRN ID IV START; Start 08/30/16 at 07:00; Stop at 06:59; Status DC Hydromorphone HCl (Dilaudid) 0.5 mg PRN Q10MIN PRN IV SEVERE PAIN, Second choice; Start 08/30/16 at 07:00; Stop 08/31/16 at 06:59; Status DC Prochlorperazine Edisylate 5 mg 5 mg PACU PRN PRN IV NAUSEA; Start 08/30/16 at 07:00; Stop 08/31/16 at 06:59; Status DC Propofol 0 ml @ As Directed STK-MED ONCE IV ; Start 08/30/16 at 12:35; Stop at 12:36; Status DC Propofol 50 ml @ As Directed STK-MED ONCE IV ; Start 08/30/16 at 12:35; Stop 08/30 at 12:36; Status DC Propofol 0 ml @ As Directed STK-MED ONCE IV ; Start 08/30/16 at 12:35; Stop at 12:36; Status DC Propofol 0 ml @ As Directed STK-MED ONCE IV ; Start 08/30/16 at 12:35; Stop at 12:36; Status DC Propofol (Diprivan) 20 ml @ As Directed STK-MED ONCE IV ; Start 08/30/16 at 12:35 ; Stop 08/30/16 at 12:36; Status DC Midazolam HCl (Versed) 2 mg STK-MED ONCE .ROUTE ; Start 08/30/16 at 12:35; Stop 08/30/16 at 12:36; Status DC Midazolam HCl (Versed) 2 mg STK-MED ONCE .ROUTE ; Start 08/30/16 at 12:35; Stop 08/30/16 at 12:36; Status DC Ketamine HCl 500 mg 500 mg STK-MED ONCE .ROUTE ; Start 08/30/16 at 12:35; Stop at 12:36; Status DC Sodium Chloride (Iv Sodium Chloride 0.9% 1000ml Bag) 1,000 ml @ 100 mls/hr Q10H IV Last administered on 08/30/16t 13:00; Start 08/30/16 at 13:00; Stop 08/31 at 08:41; Status DC Naloxone HCl (Narcan) 0.4 mg STK-MED ONCE .ROUTE ; Start 08/30/16 at 15:37; Stop 08/30/16 at 15:38; Status DC Flumazenil (Romazicon) 0.5 mg STK-MED ONCE IV ; Start 08/30/16 at 15:37; Stop 08/30/16 at 15:38; Status DC Midazolam HCl (Versed) 5 mg STK-MED ONCE .ROUTE ; Start 08/30/16 at 15:37; Stop 08/30/16 at 15:38; Status DC Fentanyl Citrate (Fentanyl 5ml Vial) 250 mcg STK-MED ONCE .ROUTE ; Start at 15:38; Stop 08/30/16 at 15:39; Status DC Lidocaine/Sodium Bicarbonate (Buffered Lidocaine 1%) 20 ml 1X ONCE IJ Last administered on 08/30/16t 15:45; Start 08/30/16 at 15:45; Stop 08/30/16 at 15:46; Status DC Lidocaine/Sodium Bicarbonate (Buffered Lidocaine 1%) 20 ml 1X ONCE IJ ; Start 08/30/16 at 16:00; Stop 08/30/16 at 16:01; Status DC Midazolam HCl (Versed) 5 mg 1X ONCE IV Last administered on 08/30/16 16:00; Start 08/30/16 at 16:00; Stop 08/30/16 at 16:01; Status DC Fentanyl Citrate (Fentanyl 5ml Vial) 250 mcg 1X ONCE IV Last administered on 16:00; Start 08/30/16 at 16:00; Stop 08/30/16 at 16:01; Status DC Metoprolol Succinate (Toprol Xl) 12.5 mg DAILY PO Last administered on 09:36; Start 08/31/16 at 15:00 Metoclopramide HCl (Reglan) 5 mg PRN Q6HRS PRN IV NAUSEA/VOMITING Last administered on 09/05/16 12:04; Start 09/01/16 at 05:30 Hydromorphone HCl (Dilaudid) 0.5 mg PRN Q2HRS PRN IV SEVERE PAIN Last administered on 09/06/16 12:21; Start 09/02/16 at 13:00 Oxycodone/ Acetaminophen (Percocet 10/325) 1 tab PRN Q4HRS PRN PO BREAKTHROUGH PAIN Last administered on 09/05/16 05:09; Start 09/02/16 at 19:00; Stop at 11:54; Status DC Pantoprazole Sodium (Protonix) 40 mg BIDAC PO Last administered on 09/06/16 09 :36; Start 09/03/16 at 16:30 Oxycodone HCl (Oxycontin) 30 mg Q12HR PO Last administered on 09/05/16 08:40; Start 09/03/16 at 21:00; Stop 09/05/16 at 11:54; Status DC Polyethylene Glycol (miraLAX PACKET) 17 gm DAILY PO Last administered on 09:34; Start 09/03/16 at 16:00 Morphine Sulfate (Ms Contin) 60 mg BID PO Last administered on 09/06/16 09:36 ; Start 09/05/16 at 12:00 Morphine Sulfate (Morphine Ir) 15 mg PRN Q4HRS PRN PO PAIN Last administered on 09/06/16 09:36; Start 09/05/16 at 12:00 Metronidazole (Flagyl) 500 mg Q8HRS PO Last administered on 09/06/16 07:09; Start 09/05/16 at 14:00 Fluconazole (Diflucan) 200 mg DAILY PO Last administered on 09/06/16 09:35; Start 09/05/16 at 20:00 Active Scripts Active Reported Cetirizine Hcl 1 Mg/1 Ml Solution 10 Mg PO Hydrocodone-Apap 7.5-325 (Hydrocodone Bit/Acetaminophen) 1 Each Tablet 1 Tab PO PRN Q6HRS PRN Fioricet 50-300-40 Mg Capsule (Butalb/Acetaminophen/Caffeine) 1 Each Capsule 1 Each PO PRN Q6-8HRS PRN Voltaren-Xr (Diclofenac Sodium) 100 Mg Tab.er.24h 75 Mg PO [id number] Ambien (Zolpidem Tartrate) 10 Mg Tablet 10 Mg PO HS PRN Propranolol Hcl 80 Mg Cap.sa.24h 1 Cap PO DAILY Vitals/I & O Vital Sign - Last 24 Hours 09/05/16 09/05/16 09/05/16 09/05/16 16:56 19:17 20:00 20:56 Temp 98.5 98.5 Pulse 66 Resp 18 18 16 B/P 121/67 Pulse Ox 96 94 O2 Delivery Room Air Room Air Room Air Room Air O2 Flow Rate 2.0 09/05/16 09/05/16 09/05/16 09/05/16 20:57 22:22 22:52 23:30 Temp 98.9 98.9 Pulse 65 Resp 16 18 B/P 113/55 Pulse Ox 94 94 93 93 O2 Delivery Room Air Room Air Room Air O2 Flow Rate 2.0 2.0 2.0 09/06/16 09/06/16 09/06/16 09/06/16 00:57 03:25 03:55 04:55 Temp 98.5 98.5 Pulse 72 Resp 18 16 B/P 113/61 Pulse Ox 93 90 93 93 O2 Delivery Room Air Room Air O2 Flow Rate 2.0 09/06/16 09/06/16 09/06/16 09/06/16 07:00 07:10 08:10 09:36 Temp 98.9 98.9 Pulse 69 69 Resp 18 16 B/P 105/53 105/53 Pulse Ox 90 93 O2 Delivery Room Air Room Air Room Air O2 Flow Rate 2.0 09/06/16 09/06/16 09/06/16 09/06/16 09:36 09:36 10:40 11:00 Temp 98.2 98.2 Pulse 61 Resp 18 18 18 18 B/P 99/49 Pulse Ox 93 O2 Delivery Room Air Room Air Room Air Room Air 09/06/16 09/06/16 09/06/16 09/06/16 12:21 13:00 13:40 15:00 Temp 98.5 98.5 Pulse 56 Resp 18 18 18 B/P 103/49 Pulse Ox 92 O2 Delivery Room Air Room Air Room Air Room Air Intake and Output 09/05/16 09/05/16 09/06/16 15:00 23:00 07:00 Intake Total 920 ml Balance 920 ml SALVADOR PERALES MD Sep 06, 2016 15:42
--- NOTE | 2016-09-06 16:33 | PDOC ---
Provider Note Provider Note Day 3 of 10 day course treating metastatic T4 to T11 disease and sternum. Notes some ongoing morning nausea and minimal vomiting that began before radiation began. Back pain variable intensity but better overall. No pain on swallowing noted. 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 Tolerating treatment well. Nausea not treatment related. Will continue treatment as planned. Anticipate discharge tomorrow. SERA BENDER MD Sep 06, 2016 16:33
[2016-09-06 19:00] VITALS: BP 107/54
[2016-09-06 23:00] VITALS: BP 112/50
[2016-09-07 03:00] VITALS: BP 100/61
[2016-09-07] MEDS: MORPHINE IR 15 MG TABLET PO PRN ×2 (04:26→08:20)
[2016-09-07] MEDS: METRONIDAZOLE 500 MG TABLET. PO SCH (06:11)
[2016-09-07 07:00] VITALS: BP 149/65
[2016-09-07] MEDS: POLYETHYLENE GLYCOL 3350 17 GM PACKET. PO SCH (08:18)
[2016-09-07] MEDS: ONDANSETRON PF 4 MG/2 ML VIAL. IV PRN (08:18)
[2016-09-07] MEDS: FLUCONAZOLE 100 MG TABLET. PO SCH (08:19)
[2016-09-07] MEDS: MORPHINE ER 30 MG TABLET.ER PO SCH (08:20)
[2016-09-07] MEDS: PANTOPRAZOLE 40 MG TABLET. PO SCH (08:20)
[2016-09-07] MEDS: METOPROLOL SUCC 24HR ER 25 MG TAB.ER.24H. PO SCH (08:20)
[2016-09-07] MEDS: ENOXAPARIN 40 MG/0.4 ML DISP.SYRIN. SQ SCH (08:21)
--- NOTE | 2016-09-07 09:11 | PDOC ---
PROGRESS NOTES Chief Complaint Chief Complaint Acute abdominal pain Perforated pyloric ulcer ASSESSMENT AND PLAN: 1. Perf.d viscus: s/p emergent repair on 08/[address] Mendez. recovering appropriately. on flagyl, can be stopped (13 days) 2. T11 pathologic compression fx: unfortunately, not amenable to kyphoplasty. treat symptomatically, finish XRT. doing well on current MScontin and MSIR 3. Breast CA: mets to bone. F/U w/ onc on O/P basis 4. Vaginal bleed: new in postmenopausal pt. 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 F/U on O/ P basis 5. DM2: by report, not on meds here, with good control. stopped FSBG 6. HTN: well controlled on current regimen 7. Dysrhythmia: appreciate cards input. O/P F/U 8. Prophylaxis: lovenox, PPI 9. Dispo: cleared by surg for SNF. Home w/HH Vitals Vitals Vital Signs Date Time Temp Pulse Resp B/P Pulse Ox O2 Delivery O2 Flow Rate FiO2 09/07/16 08:20 20 Room Air 09/07/16 08:20 60 100/61 09/07/16 05:26 95 09/07/16 03:00 98.3 98.3 09/06/16 21:23 2.0 Physical Exam Physical Exam sl slurred speech General: Alert, Oriented X3 Heart: Normal S1, Normal S2 Lungs: Clear Abdomen: Soft, Other (incision well healing) Extremities: No clubbing Skin: No significant lesion Comment Labs Microbiology 08/26/16 Gram Stain - Final, Complete 08/26/16 Urine Culture - Final, Complete 08/26/16 Urine Culture Result 1 (LATASHA) - Final, Complete Medications Current Medications Nitroglycerin (Nitrostat) 0.4 mg PRN Q5MIN PRN SL CP RATING > 1/10 Last administered on 08/26/16 00:32; Start 08/25/16 at 23:45; Stop 08/26/16 at 23:44; Status DC Fentanyl Citrate 25 mcg 25 mcg PRN Q15MIN PRN IV PAIN GREATER THAN 3/10 Last administered on 08/26/16 02:43; Start 08/25/16 at 23:45; Stop 08/26/16 at 14:40; Status DC Sodium Chloride (Iv Sodium Chloride 0.9% 500ml Bag) 500 ml @ 500 mls/hr 1X ONCE IV Last administered on 08/26/16 00:32; Start 08/26/16 at 00:30; Stop at 01:29; Status DC Ondansetron HCl (Zofran) 4 mg STK-MED ONCE .ROUTE ; Start 08/26/16 at 01:44; Stop 08/26/16 at 01:45; Status DC Ondansetron HCl 4 mg 4 mg 1X ONCE IV Last administered on 08/26/16 01:45; Start 08/26/16 at 02:00; Stop 08/26/16 at 02:03; Status DC Metronidazole 100 ml @ 100 mls/hr Q8HRS IV Last administered on 09/05/16 06: 01; Start 08/26/16 at 14:00; Stop 09/05/16 at 12:30; Status DC Metronidazole 100 ml @ 100 mls/hr 1X ONCE IV Last administered on 08/26/16 02 :38; Start 08/26/16 at 02:30; Stop 08/26/16 at 03:29; Status DC Cefepime HCl 2 gm/ Sodium Chloride 100 ml @ 200 mls/hr 1X ONCE IV Last administered on 08/26/16 03:22; Start 08/26/16 at 03:00; Stop 08/26/16 at 03:29; Status DC Sodium Chloride (Iv Sodium Chloride 0.9% 1000ml Bag) 1,000 ml @ 125 mls/hr 1X ONCE IV Last administered on 08/26/16 02:41; Start 08/26/16 at 03:00; Stop at 10:59; Status DC Fentanyl Citrate (Fentanyl 2ml Vial) 50 mcg PRN Q15MIN PRN IV PAIN GREATER THAN 3/10 Last administered on 08/26/16 07:42; Start 08/26/16 at 02:45; Stop 08/26 at 14:40; Status DC Ondansetron HCl 4 mg 4 mg 1X ONCE PO ; Start 08/26/16 at 03:00; Stop 08/26/16 at 03:01; Status DC Metronidazole (FLAGYL 500Mmg PREMIX) 100 ml @ 100 mls/hr 1X ONCE IV Last administered on 08/26/16 05:12; Start 08/26/16 at 04:30; Stop 08/26/16 at 05:29; Status DC Hydromorphone HCl (Dilaudid) 1 mg 1X ONCE IV Last administered on 08/26/16t 04: 29; Start 08/26/16 at 04:30; Stop 08/26/16 at 04:31; Status DC Fentanyl Citrate (Fentanyl 5ml Vial) 250 mcg STK-MED ONCE .ROUTE ; Start at 04:41; Stop 08/26/16 at 04:42; Status DC Succinylcholine Chloride (Anectine) 200 mg STK-MED ONCE .ROUTE ; Start 08/26/16 at 04:42; Stop 08/26/16 at 04:43; Status DC Rocuronium [place] (Zemuron) 50 mg STK-MED ONCE .ROUTE ; Start 08/26/16 at 04:42 ; Stop 08/26/16 at 04:43; Status DC Ondansetron HCl (Zofran) 4 mg PRN Q6HRS PRN IV Nausea; Start 08/26/16 at 04:45; Stop 08/26/16 at 14:42; Status DC Fentanyl Citrate (Fentanyl 2ml Vial) 25 mcg PRN Q5MIN PRN IV MILD PAIN; Start 08/26/16 at 04:45; Stop 08/26/16 at 14:41; Status DC Fentanyl Citrate (Fentanyl 2ml Vial) 50 mcg PRN Q5MIN PRN IV MODERATE PAIN; Start 08/26/16 at 04:45; Stop 08/26/16 at 14:42; Status DC Morphine Sulfate 1 mg 1 mg PRN Q10MIN PRN IV SEVERE PAIN; Start 08/26/16 at 04: 45; Stop 08/26/16 at 14:42; Status DC Lactated Ringer's (Iv Lactated Ringers) 1,000 ml @ 30 mls/hr Q24H IV ; Start at 04:43; Stop 08/26/16 at 16:42; Status DC Lidocaine HCl 2 ml 1X PRN PRN ID IV START; Start 08/26/16 at 04:45; Stop at 14:42; Status DC Hydromorphone HCl (Dilaudid) 0.5 mg PRN Q10MIN PRN IV SEV PAIN,Second choice; Start 08/26/16 at 04:45; Stop 08/26/16 at 14:42; Status DC Prochlorperazine Edisylate 5 mg 5 mg PACU PRN PRN IV NAUSEA; Start 08/26/16 at 04:45; Stop 08/26/16 at 14:42; Status DC Propofol (Diprivan) 20 ml @ As Directed STK-MED ONCE IV ; Start 08/26/16 at 04:44 ; Stop 08/26/16 at 04:45; Status DC Lidocaine HCl (Lidocaine Pf 2% Vial) 5 ml STK-MED ONCE .ROUTE ; Start 08/26/16 at 04:44; Stop 08/26/16 at 04:45; Status DC Sevoflurane (Ultane) 60 ml STK-MED ONCE IH ; Start 08/26/16 at 06:07; Stop at 06:08; Status DC Phenylephrine HCl 1 mg STK-MED ONCE IV ; Start 08/26/16 at 06:12; Stop 08/26/16 at 06:13; Status DC Dexamethasone Sodium Phosphate (Decadron) 20 mg STK-MED ONCE .ROUTE ; Start 08/26 at 06:12; Stop 08/26/16 at 06:13; Status DC Ondansetron HCl (Zofran) 4 mg STK-MED ONCE .ROUTE ; Start 08/26/16 at 06:12; Stop 08/26/16 at 06:13; Status DC Glycopyrrolate (Robinul) 1 mg STK-MED ONCE .ROUTE ; Start 08/26/16 at 06:13; Stop 08/26/16 at 06:14; Status DC Neostigmine Methylsulfate 5 mg STK-MED ONCE .ROUTE ; Start 08/26/16 at 06:13; Stop 08/26/16 at 06:14; Status DC Diphenhydramine HCl (Benadryl) 25 mg PRN Q6HRS PRN IV ITCHING; Start 08/26/16 at 07:00 Enoxaparin Sodium (Lovenox 40mg Syringe) 40 mg Q12HR SQ Last administered on t 10:30; Start 08/26/16 at 09:00; Stop 08/27/16 at 16:33; Status DC Sodium Chloride 3 ml 3 ml QSHIFT PRN IV AFTER MEDS AND BLOOD DRAWS Last administered on 08/30/16 14:23; Start 08/26/16 at 07:00 Potassium Chloride/Sodium Chloride 1,000 ml @ 100 mls/hr Q10H IV Last administered on 09/03/16 06:04; Start 08/26/16 at 06:53; Stop 09/03/16 at 15:04 ; Status DC Hydromorphone HCl (Dilaudid [employer]) 30 ml @ 0 mls/hr CONT PRN PRN IV PROTOCOL Last administered on 08/26/16 07:41; Start 08/26/16 at 07:00; Stop at 09:42; Status DC Ondansetron HCl (Zofran) 4 mg PRN Q6HRS PRN IV NAUESA, 1ST CHOICE Last administered on 09/07/16 08:18; Start 08/26/16 at 07:00 Throat Lozenges (Chloraseptic) 1 spray PRN Q2HR PRN PO SORE THROAT; Start at 07:00 Throat Lozenges 1 noreen 1 noreen PRN Q2HRS PRN PO SORE THROAT; Start 08/26/16 at 07: 00 Hydromorphone HCl 30 ml @ 0 mls/hr CONT PRN PRN IV PROTOCOL; Start 08/26/16 at 09:45; Stop 08/26/16 at 12:16; Status DC Hydromorphone HCl (Dilaudid Standard [employer]) 30 ml @ 0 mls/hr CONT PRN PRN IV PROTOCOL; Start 08/26/16 at 12:15; Stop 08/26/16 at 20:05; Status DC Pantoprazole Sodium (Protonix Vial) 40 mg BID IVP Last administered on 07:57; Start 08/26/16 at 21:00; Stop 09/03/16 at 09:04; Status DC Labetalol HCl 20 mg 20 mg PRN Q2HR PRN IVP HYPERTENSION, SEE COMMENTS Last administered on 08/30/16 09:34; Start 08/26/16 at 13:15 Sodium Chloride 1,000 ml @ 1,000 mls/hr 1X ONCE IV ; Start 08/26/16 at 23:00; Stop 08/26/16 at 23:59; Status DC Hydromorphone HCl (Dilaudid [employer]) 30 ml @ 0 mls/hr CONT PRN PRN IV PROTOCOL Last administered on 09/02/16 05:37; Start 08/26/16 at 20:15; Stop 07/07 at 12:54; Status DC Enoxaparin Sodium (Lovenox 40mg Syringe) 40 mg Q24H SQ Last administered on 08:21; Start 08/28/16 at 09:00 Ondansetron HCl (Zofran) 4 mg PRN Q6HRS PRN IV Nausea; Start 08/30/16 at 07:00; Stop 08/31/16 at 06:59; Status DC Fentanyl Citrate (Fentanyl 2ml Vial) 25 mcg PRN Q5MIN PRN IV MILD PAIN; Start 08/30/16 at 07:00; Stop 08/31/16 at 06:59; Status DC Fentanyl Citrate (Fentanyl 2ml Vial) 50 mcg PRN Q5MIN PRN IV MODERATE PAIN Last administered on 08/30/16 14:48; Start 08/30/16 at 07:00; Stop 08/31/16 at 06 :59; Status DC Morphine Sulfate 1 mg 1 mg PRN Q10MIN PRN IV SEVERE PAIN; Start 08/30/16 at 07: 00; Stop 08/31/16 at 06:59; Status DC Lactated Ringer's (Iv Lactated Ringers) 1,000 ml @ 0 mls/hr Q0M IV ; Start 08/30 at 07:00; Stop 08/30/16 at 18:59; Status DC Lidocaine HCl 2 ml 1X PRN PRN ID IV START; Start 08/30/16 at 07:00; Stop at 06:59; Status DC Hydromorphone HCl (Dilaudid) 0.5 mg PRN Q10MIN PRN IV SEVERE PAIN, Second choice; Start 08/30/16 at 07:00; Stop 08/31/16 at 06:59; Status DC Prochlorperazine Edisylate 5 mg 5 mg PACU PRN PRN IV NAUSEA; Start 08/30/16 at 07:00; Stop 08/31/16 at 06:59; Status DC Propofol 0 ml @ As Directed STK-MED ONCE IV ; Start 08/30/16 at 12:35; Stop at 12:36; Status DC Propofol 50 ml @ As Directed STK-MED ONCE IV ; Start 08/30/16 at 12:35; Stop 08/30 at 12:36; Status DC Propofol 0 ml @ As Directed STK-MED ONCE IV ; Start 08/30/16 at 12:35; Stop at 12:36; Status DC Propofol 0 ml @ As Directed STK-MED ONCE IV ; Start 08/30/16 at 12:35; Stop at 12:36; Status DC Propofol (Diprivan) 20 ml @ As Directed STK-MED ONCE IV ; Start 08/30/16 at 12:35 ; Stop 08/30/16 at 12:36; Status DC Midazolam HCl (Versed) 2 mg STK-MED ONCE .ROUTE ; Start 08/30/16 at 12:35; Stop 08/30/16 at 12:36; Status DC Midazolam HCl (Versed) 2 mg STK-MED ONCE .ROUTE ; Start 08/30/16 at 12:35; Stop 08/30/16 at 12:36; Status DC Ketamine HCl 500 mg 500 mg STK-MED ONCE .ROUTE ; Start 08/30/16 at 12:35; Stop at 12:36; Status DC Sodium Chloride (Iv Sodium Chloride 0.9% 1000ml Bag) 1,000 ml @ 100 mls/hr Q10H IV Last administered on 08/30/16t 13:00; Start 08/30/16 at 13:00; Stop 08/31 at 08:41; Status DC Naloxone HCl (Narcan) 0.4 mg STK-MED ONCE .ROUTE ; Start 08/30/16 at 15:37; Stop 08/30/16 at 15:38; Status DC Flumazenil (Romazicon) 0.5 mg STK-MED ONCE IV ; Start 08/30/16 at 15:37; Stop 08/30/16 at 15:38; Status DC Midazolam HCl (Versed) 5 mg STK-MED ONCE .ROUTE ; Start 08/30/16 at 15:37; Stop 08/30/16 at 15:38; Status DC Fentanyl Citrate (Fentanyl 5ml Vial) 250 mcg STK-MED ONCE .ROUTE ; Start at 15:38; Stop 08/30/16 at 15:39; Status DC Lidocaine/Sodium Bicarbonate (Buffered Lidocaine 1%) 20 ml 1X ONCE IJ Last administered on 08/30/16 15:45; Start 08/30/16 at 15:45; Stop 08/30/16 at 15:46; Status DC Lidocaine/Sodium Bicarbonate (Buffered Lidocaine 1%) 20 ml 1X ONCE IJ ; Start 08/30/16 at 16:00; Stop 08/30/16 at 16:01; Status DC Midazolam HCl (Versed) 5 mg 1X ONCE IV Last administered on 08/30/16 16:00; Start 08/30/16 at 16:00; Stop 08/30/16 at 16:01; Status DC Fentanyl Citrate (Fentanyl 5ml Vial) 250 mcg 1X ONCE IV Last administered on 16:00; Start 08/30/16 at 16:00; Stop 08/30/16 at 16:01; Status DC Metoprolol Succinate (Toprol Xl) 12.5 mg DAILY PO Last administered on 08:20; Start 08/31/16 at 15:00 Metoclopramide HCl (Reglan) 5 mg PRN Q6HRS PRN IV NAUSEA/VOMITING Last administered on 09/05/16 12:04; Start 09/01/16 at 05:30 Hydromorphone HCl (Dilaudid) 0.5 mg PRN Q2HRS PRN IV SEVERE PAIN Last administered on 09/06/16 21:23; Start 09/02/16 at 13:00 Oxycodone/ Acetaminophen (Percocet 10/325) 1 tab PRN Q4HRS PRN PO BREAKTHROUGH PAIN Last administered on 09/05/16 05:09; Start 09/02/16 at 19:00; Stop at 11:54; Status DC Pantoprazole Sodium (Protonix) 40 mg BIDAC PO Last administered on 09/07/16 08 :20; Start 09/03/16 at 16:30 Oxycodone HCl (Oxycontin) 30 mg Q12HR PO Last administered on 09/05/16 08:40; Start 09/03/16 at 21:00; Stop 09/05/16 at 11:54; Status DC Polyethylene Glycol (miraLAX PACKET) 17 gm DAILY PO Last administered on 08:18; Start 09/03/16 at 16:00 Morphine Sulfate (Ms Contin) 60 mg BID PO Last administered on 09/07/16 08:20 ; Start 09/05/16 at 12:00 Morphine Sulfate (Morphine Ir) 15 mg PRN Q4HRS PRN PO PAIN Last administered on 09/07/16 08:20; Start 09/05/16 at 12:00 Metronidazole (Flagyl) 500 mg Q8HRS PO Last administered on 09/07/16 06:11; Start 09/05/16 at 14:00 Fluconazole (Diflucan) 200 mg DAILY PO Last administered on 09/07/16 08:19; Start 09/05/16 at 20:00 Active Scripts Active Reported Cetirizine Hcl 1 Mg/1 Ml Solution 10 Mg PO Hydrocodone-Apap 7.5-325 (Hydrocodone Bit/Acetaminophen) 1 Each Tablet 1 Tab PO PRN Q6HRS PRN Fioricet 50-300-40 Mg Capsule (Butalb/Acetaminophen/Caffeine) 1 Each Capsule 1 Each PO PRN Q6-8HRS PRN Voltaren-Xr (Diclofenac Sodium) 100 Mg Tab.er.24h 75 Mg PO [id number] Ambien (Zolpidem Tartrate) 10 Mg Tablet 10 Mg PO HS PRN Propranolol Hcl 80 Mg Cap.sa.24h 1 Cap PO DAILY Vitals/I & O Vital Sign - Last 24 Hours 09/06/16 09/06/16 09/06/16 09/06/16 09:36 09:36 09:36 11:00 Temp 98.2 98.2 Pulse 69 61 Resp 18 18 18 B/P 105/53 99/49 Pulse Ox 93 O2 Delivery Room Air Room Air Room Air 09/06/16 09/06/16 09/06/16 09/06/16 12:21 15:00 15:53 19:00 Temp 98.5 98.9 98.5 98.9 Pulse 56 67 Resp 18 18 B/P 103/49 107/54 Pulse Ox 92 94 O2 Delivery Room Air Room Air Room Air Room Air 09/06/16 09/06/16 09/06/16 09/06/16 20:00 21:18 21:23 21:53 Resp 16 16 16 Pulse Ox 92 92 92 O2 Delivery Room Air Room Air Room Air Room Air O2 Flow Rate 2.0 2.0 09/06/16 09/07/16 09/07/16 09/07/16 23:00 01:18 03:00 04:26 Temp 98.7 98.3 98.7 98.3 Pulse 62 60 Resp 18 16 18 16 B/P 112/50 100/61 Pulse Ox 94 95 95 95 O2 Delivery Room Air Room Air Room Air Room Air 09/07/16 09/07/16 09/07/16 09/07/16 05:26 08:20 08:20 08:20 Pulse 60 Resp 16 20 20 B/P 100/61 Pulse Ox 95 O2 Delivery Room Air Room Air Room Air Intake and Output 09/06/16 09/06/16 09/07/16 14:59 22:59 06:59 Intake Total 120 ml 240 ml Balance 120 ml 240 ml BUBBA LACY MD Sep 07, 2016 09:11
--- NOTE | 2016-09-07 10:26 | PDOC ---
LINA LANIER APRN 09/07/16 1026: SURGICAL PROGRESS NOTE Subjective tolerating diet plans for home with HH today Vital Signs Vital Signs Date Time Temp Pulse Resp B/P Pulse Ox O2 Delivery O2 Flow Rate FiO2 09/07/16 08:20 20 Room Air 09/07/16 08:20 60 100/61 09/07/16 07:00 98.1 94 98.1 09/06/16 21:23 2.0 I&O Intake and Output 09/07/16 07:00 Intake Total 360 ml Balance 360 ml Intake Oral 360 ml # Voids 4 General: Alert, Oriented X3, Cooperative, No acute distress Abdomen: Soft, Other (ND, incision c/d/i, no erythema, saturnino serous ) Problem List Problems Medical Problems: (1) Closed wedge compression fracture of T11 vertebra Status: Acute (2) Perforated ulcer Status: Acute Assessment/Plan dc drain, olga FU 1 week with Andrea Problems: MARLON PRINCE MD 09/07/16 1246: SURGICAL PROGRESS NOTE Assessment/Plan pt seen agree with above Problems: LINA LANIER APRN Sep 07, 2016 10:26 MARLON PRINCE MD Sep 07, 2016 12:46
[2016-09-07 11:00] VITALS: BP 107/44
[2016-09-07] MEDS: METOCLOPRAMIDE HCL 10 MG/2 ML VIAL. IV PRN (11:41)
--- NOTE | 2016-09-07 12:03 | PDOC ---
PROGRESS NOTES Subjective Subjective c/c - f/u of Invasive ductal carcinoma of the left breast Objective Objective Vital Signs Date Time Temp Pulse Resp B/P Pulse Ox O2 Delivery O2 Flow Rate FiO2 09/07/16 09:30 18 Room Air 09/07/16 08:20 60 100/61 09/07/16 07:00 98.1 94 98.1 09/06/16 21:23 2.0 Intake and Output 09/07/16 07:00 Intake Total 360 ml Balance 360 ml Intake Oral 360 ml # Voids 4 Physical Exam Heart: Normal S1, Normal S2 Lungs: Clear to auscultation Psych/Mental Status: Mental status NL Assessment Assessment Problems Medical Problems: (1) Closed wedge compression fracture of T11 vertebra Status: Acute (2) Perforated ulcer Status: Acute IMPRESSION AND PLAN: 1. Invasive ductal carcinoma of the left breast diagnosed in 2011, ER/DC positive, HER-2/kristel negative. She underwent lumpectomy and radiation therapy and she received Arimidex till 2013 and she quit taking it because she could afford it. She now has evidence of bone metastasis and possibly lung metastasis. She has evidence of a T11 pathologic fracture and also sternal fracture. This is now suggestive of stage IV lung cancer. Vertebroplasty and biopsy of the T11 vertebral body was canceled due to potential spinal cord compression I d/w Dr Sung. Bone bx - CT-guided biopsy of T4 was done 08/30/16. I will check ER/DC/Her 2 kristel. Bone scan 08/30/16: There are multiple areas of abnormal uptake compatible with metastatic disease. There is uptake at T11 consistent with the sclerotic focus seen on the recent CT. Additional foci are seen scattered in mid and upper thoracic vertebral body segments compatible with metastatic disease. Increased activity is seen in the midportion of the sternum consistent with same. There are 2 areas of increased activity in the calvarium compatible with calvarial metastatic disease. There is an isolated focus of increased activity in the lower lumbar spine which may be degenerative. Finally a single focus of increased activity is seen in a right lower, anterior, rib. MRI of the thoracic 08/30/16: . There are findings of osseous metastatic disease. T11 lesion results in mild bowing of the posterior cortex also with mild epidural extent of mass. There is fairly severe spinal stenosis at T10-11 primarily from buckling of the ligamentum flavum and facet degenerative change, effacement of subarachnoid space at this level and likely mild cord edema. Poorly evaluated, there may be aneurysmal dilatation of the ascending thoracic aorta on the order of 4 centimeters. There is small dependent right pleural effusion. I d/w pt and her son Huy. I explained the clinical impression of stage 4 breast cancer. I recommended palliative radiation followed by faslodex plus Ibrance or aromain plus afinitor. Agree with discharge plans. f/u with me in 2 weeks. 2. Bone metastasis. She has numerous lytic and sclerotic bone lesions with pathologic fracture of the sternum at T11 vertebral body. Plan Xgeva as an outpatient. Plan, palliative radiation therapy from 09/04/16..Continue radiation. 3. Pulmonary nodules, thought to be due to metastatic disease from breast cancer. 4. Perforated pyloric channel ulcer, status post exploratory laparotomy and biopsy and closure of the ulcer by Dr. Mendez on 08/26/2016. Continue postoperative care. 5. Leukocytosis, reactive. Monitor. WBC better at 8.8 6. Anemia postoperative due to surgical blood loss. Monitor. 7. Renal insufficiency with a creatinine of 1.6 and a BUN of 37 on 08/27/2016. Continue to monitor. 8. Post menopausal bleeding - appreciate Fuel Verification Technician eval and bx. PATHOLOGY REPORT * * * * * * * * FINAL DIAGNOSIS: Segment of bone and cartilage, T-4 bone biopsy: - METASTATIC POORLY DIFFERENTIATED NON-SMALL CELL CARCINOMA. Comment Review of Relevant I have reviewed the following items maggy (where applicable) has been applied. Labs Microbiology 08/26/16 Gram Stain - Final, Complete 08/26/16 Urine Culture - Final, Complete 08/26/16 Urine Culture Result 1 (LATASHA) - Final, Complete Medications Current Medications Nitroglycerin (Nitrostat) 0.4 mg PRN Q5MIN PRN SL CP RATING > 1/10 Last administered on 08/26/16 00:32; Start 08/25/16 at 23:45; Stop 08/26/16 at 23:44; Status DC Fentanyl Citrate 25 mcg 25 mcg PRN Q15MIN PRN IV PAIN GREATER THAN 3/10 Last administered on 08/26/16 02:43; Start 08/25/16 at 23:45; Stop 08/26/16 at 14:40; Status DC Sodium Chloride (Iv Sodium Chloride 0.9% 500ml Bag) 500 ml @ 500 mls/hr 1X ONCE IV Last administered on 08/26/16 00:32; Start 08/26/16 at 00:30; Stop at 01:29; Status DC Ondansetron HCl (Zofran) 4 mg STK-MED ONCE .ROUTE ; Start 08/26/16 at 01:44; Stop 08/26/16 at 01:45; Status DC Ondansetron HCl 4 mg 4 mg 1X ONCE IV Last administered on 08/26/16 01:45; Start 08/26/16 at 02:00; Stop 08/26/16 at 02:03; Status DC Metronidazole 100 ml @ 100 mls/hr Q8HRS IV Last administered on 09/05/16 06: 01; Start 08/26/16 at 14:00; Stop 09/05/16 at 12:30; Status DC Metronidazole 100 ml @ 100 mls/hr 1X ONCE IV Last administered on 08/26/16 02 :38; Start 08/26/16 at 02:30; Stop 08/26/16 at 03:29; Status DC Cefepime HCl 2 gm/ Sodium Chloride 100 ml @ 200 mls/hr 1X ONCE IV Last administered on 08/26/16 03:22; Start 08/26/16 at 03:00; Stop 08/26/16 at 03:29; Status DC Sodium Chloride (Iv Sodium Chloride 0.9% 1000ml Bag) 1,000 ml @ 125 mls/hr 1X ONCE IV Last administered on 08/26/16 02:41; Start 08/26/16 at 03:00; Stop at 10:59; Status DC Fentanyl Citrate (Fentanyl 2ml Vial) 50 mcg PRN Q15MIN PRN IV PAIN GREATER THAN 3/10 Last administered on 08/26/16 07:42; Start 08/26/16 at 02:45; Stop 08/26 at 14:40; Status DC Ondansetron HCl 4 mg 4 mg 1X ONCE PO ; Start 08/26/16 at 03:00; Stop 08/26/16 at 03:01; Status DC Metronidazole (FLAGYL 500Mmg PREMIX) 100 ml @ 100 mls/hr 1X ONCE IV Last administered on 08/26/16 05:12; Start 08/26/16 at 04:30; Stop 08/26/16 at 05:29; Status DC Hydromorphone HCl (Dilaudid) 1 mg 1X ONCE IV Last administered on 08/26/16t 04: 29; Start 08/26/16 at 04:30; Stop 08/26/16 at 04:31; Status DC Fentanyl Citrate (Fentanyl 5ml Vial) 250 mcg STK-MED ONCE .ROUTE ; Start at 04:41; Stop 08/26/16 at 04:42; Status DC Succinylcholine Chloride (Anectine) 200 mg STK-MED ONCE .ROUTE ; Start 08/26/16 at 04:42; Stop 08/26/16 at 04:43; Status DC Rocuronium Cavalier (Zemuron) 50 mg STK-MED ONCE .ROUTE ; Start 08/26/16 at 04:42 ; Stop 08/26/16 at 04:43; Status DC Ondansetron HCl (Zofran) 4 mg PRN Q6HRS PRN IV Nausea; Start 08/26/16 at 04:45; Stop 08/26/16 at 14:42; Status DC Fentanyl Citrate (Fentanyl 2ml Vial) 25 mcg PRN Q5MIN PRN IV MILD PAIN; Start 08/26/16 at 04:45; Stop 08/26/16 at 14:41; Status DC Fentanyl Citrate (Fentanyl 2ml Vial) 50 mcg PRN Q5MIN PRN IV MODERATE PAIN; Start 08/26/16 at 04:45; Stop 08/26/16 at 14:42; Status DC Morphine Sulfate 1 mg 1 mg PRN Q10MIN PRN IV SEVERE PAIN; Start 08/26/16 at 04: 45; Stop 08/26/16 at 14:42; Status DC Lactated Ringer's (Iv Lactated Ringers) 1,000 ml @ 30 mls/hr Q24H IV ; Start at 04:43; Stop 08/26/16 at 16:42; Status DC Lidocaine HCl 2 ml 1X PRN PRN ID IV START; Start 08/26/16 at 04:45; Stop at 14:42; Status DC Hydromorphone HCl (Dilaudid) 0.5 mg PRN Q10MIN PRN IV SEV PAIN,Second choice; Start 08/26/16 at 04:45; Stop 08/26/16 at 14:42; Status DC Prochlorperazine Edisylate 5 mg 5 mg PACU PRN PRN IV NAUSEA; Start 08/26/16 at 04:45; Stop 08/26/16 at 14:42; Status DC Propofol (Diprivan) 20 ml @ As Directed STK-MED ONCE IV ; Start 08/26/16 at 04:44 ; Stop 08/26/16 at 04:45; Status DC Lidocaine HCl (Lidocaine Pf 2% Vial) 5 ml STK-MED ONCE .ROUTE ; Start 08/26/16 at 04:44; Stop 08/26/16 at 04:45; Status DC Sevoflurane (Ultane) 60 ml STK-MED ONCE IH ; Start 08/26/16 at 06:07; Stop at 06:08; Status DC Phenylephrine HCl 1 mg STK-MED ONCE IV ; Start 08/26/16 at 06:12; Stop 08/26/16 at 06:13; Status DC Dexamethasone Sodium Phosphate (Decadron) 20 mg STK-MED ONCE .ROUTE ; Start 08/26 at 06:12; Stop 08/26/16 at 06:13; Status DC Ondansetron HCl (Zofran) 4 mg STK-MED ONCE .ROUTE ; Start 08/26/16 at 06:12; Stop 08/26/16 at 06:13; Status DC Glycopyrrolate (Robinul) 1 mg STK-MED ONCE .ROUTE ; Start 08/26/16 at 06:13; Stop 08/26/16 at 06:14; Status DC Neostigmine Methylsulfate 5 mg STK-MED ONCE .ROUTE ; Start 08/26/16 at 06:13; Stop 08/26/16 at 06:14; Status DC Diphenhydramine HCl (Benadryl) 25 mg PRN Q6HRS PRN IV ITCHING; Start 08/26/16 at 07:00 Enoxaparin Sodium (Lovenox 40mg Syringe) 40 mg Q12HR SQ Last administered on t 10:30; Start 08/26/16 at 09:00; Stop 08/27/16 at 16:33; Status DC Sodium Chloride 3 ml 3 ml QSHIFT PRN IV AFTER MEDS AND BLOOD DRAWS Last administered on 08/30/16 14:23; Start 08/26/16 at 07:00 Potassium Chloride/Sodium Chloride 1,000 ml @ 100 mls/hr Q10H IV Last administered on 09/03/16 06:04; Start 08/26/16 at 06:53; Stop 09/03/16 at 15:04 ; Status DC Hydromorphone HCl (Dilaudid Standard STUDENT [employer] VICE PRESIDENT) 30 ml @ 0 mls/hr CONT PRN PRN IV PROTOCOL Last administered on 08/26/16 07:41; Start 08/26/16 at 07:00; Stop at 09:42; Status DC Ondansetron HCl (Zofran) 4 mg PRN Q6HRS PRN IV NAUESA, 1ST CHOICE Last administered on 09/07/16 08:18; Start 08/26/16 at 07:00 Throat Lozenges (Chloraseptic) 1 spray PRN Q2HR PRN PO SORE THROAT; Start at 07:00 Throat Lozenges 1 noreen 1 noreen PRN Q2HRS PRN PO SORE THROAT; Start 08/26/16 at 07: 00 Hydromorphone HCl 30 ml @ 0 mls/hr CONT PRN PRN IV PROTOCOL; Start 08/26/16 at 09:45; Stop 08/26/16 at 12:16; Status DC Hydromorphone HCl (Dilaudid Standard STUDENT [employer] VICE PRESIDENT) 30 ml @ 0 mls/hr CONT PRN PRN IV PROTOCOL; Start 08/26/16 at 12:15; Stop 08/26/16 at 20:05; Status DC Pantoprazole Sodium (Protonix Vial) 40 mg BID IVP Last administered on 07:57; Start 08/26/16 at 21:00; Stop 09/03/16 at 09:04; Status DC Labetalol HCl 20 mg 20 mg PRN Q2HR PRN IVP HYPERTENSION, SEE COMMENTS Last administered on 08/30/16 09:34; Start 08/26/16 at 13:15 Sodium Chloride 1,000 ml @ 1,000 mls/hr 1X ONCE IV ; Start 08/26/16 at 23:00; Stop 08/26/16 at 23:59; Status DC Hydromorphone HCl (Dilaudid Standard STUDENT [employer] VICE PRESIDENT) 30 ml @ 0 mls/hr CONT PRN PRN IV PROTOCOL Last administered on 09/02/16 05:37; Start 08/26/16 at 20:15; Stop 07/07 at 12:54; Status DC Enoxaparin Sodium (Lovenox 40mg Syringe) 40 mg Q24H SQ Last administered on 08:21; Start 08/28/16 at 09:00 Ondansetron HCl (Zofran) 4 mg PRN Q6HRS PRN IV Nausea; Start 08/30/16 at 07:00; Stop 08/31/16 at 06:59; Status DC Fentanyl Citrate (Fentanyl 2ml Vial) 25 mcg PRN Q5MIN PRN IV MILD PAIN; Start 08/30/16 at 07:00; Stop 08/31/16 at 06:59; Status DC Fentanyl Citrate (Fentanyl 2ml Vial) 50 mcg PRN Q5MIN PRN IV MODERATE PAIN Last administered on 08/30/16 14:48; Start 08/30/16 at 07:00; Stop 08/31/16 at 06 :59; Status DC Morphine Sulfate 1 mg 1 mg PRN Q10MIN PRN IV SEVERE PAIN; Start 08/30/16 at 07: 00; Stop 08/31/16 at 06:59; Status DC Lactated Ringer's (Iv Lactated Ringers) 1,000 ml @ 0 mls/hr Q0M IV ; Start 08/30 at 07:00; Stop 08/30/16 at 18:59; Status DC Lidocaine HCl 2 ml 1X PRN PRN ID IV START; Start 08/30/16 at 07:00; Stop at 06:59; Status DC Hydromorphone HCl (Dilaudid) 0.5 mg PRN Q10MIN PRN IV SEVERE PAIN, Second choice; Start 08/30/16 at 07:00; Stop 08/31/16 at 06:59; Status DC Prochlorperazine Edisylate 5 mg 5 mg PACU PRN PRN IV NAUSEA; Start 08/30/16 at 07:00; Stop 08/31/16 at 06:59; Status DC Propofol 0 ml @ As Directed STK-MED ONCE IV ; Start 08/30/16 at 12:35; Stop at 12:36; Status DC Propofol 50 ml @ As Directed STK-MED ONCE IV ; Start 08/30/16 at 12:35; Stop 08/30 at 12:36; Status DC Propofol 0 ml @ As Directed STK-MED ONCE IV ; Start 08/30/16 at 12:35; Stop at 12:36; Status DC Propofol 0 ml @ As Directed STK-MED ONCE IV ; Start 08/30/16 at 12:35; Stop at 12:36; Status DC Propofol (Diprivan) 20 ml @ As Directed STK-MED ONCE IV ; Start 08/30/16 at 12:35 ; Stop 08/30/16 at 12:36; Status DC Midazolam HCl (Versed) 2 mg STK-MED ONCE .ROUTE ; Start 08/30/16 at 12:35; Stop 08/30/16 at 12:36; Status DC Midazolam HCl (Versed) 2 mg STK-MED ONCE .ROUTE ; Start 08/30/16 at 12:35; Stop 08/30/16 at 12:36; Status DC Ketamine HCl 500 mg 500 mg STK-MED ONCE .ROUTE ; Start 08/30/16 at 12:35; Stop at 12:36; Status DC Sodium Chloride (Iv Sodium Chloride 0.9% 1000ml Bag) 1,000 ml @ 100 mls/hr Q10H IV Last administered on 08/30/16t 13:00; Start 08/30/16 at 13:00; Stop 08/31 at 08:41; Status DC Naloxone HCl (Narcan) 0.4 mg STK-MED ONCE .ROUTE ; Start 08/30/16 at 15:37; Stop 08/30/16 at 15:38; Status DC Flumazenil (Romazicon) 0.5 mg STK-MED ONCE IV ; Start 08/30/16 at 15:37; Stop 08/30/16 at 15:38; Status DC Midazolam HCl (Versed) 5 mg STK-MED ONCE .ROUTE ; Start 08/30/16 at 15:37; Stop 08/30/16 at 15:38; Status DC Fentanyl Citrate (Fentanyl 5ml Vial) 250 mcg STK-MED ONCE .ROUTE ; Start at 15:38; Stop 08/30/16 at 15:39; Status DC Lidocaine/Sodium Bicarbonate (Buffered Lidocaine 1%) 20 ml 1X ONCE IJ Last administered on 08/30/16 15:45; Start 08/30/16 at 15:45; Stop 08/30/16 at 15:46; Status DC Lidocaine/Sodium Bicarbonate (Buffered Lidocaine 1%) 20 ml 1X ONCE IJ ; Start 08/30/16 at 16:00; Stop 08/30/16 at 16:01; Status DC Midazolam HCl (Versed) 5 mg 1X ONCE IV Last administered on 08/30/16 16:00; Start 08/30/16 at 16:00; Stop 08/30/16 at 16:01; Status DC Fentanyl Citrate (Fentanyl 5ml Vial) 250 mcg 1X ONCE IV Last administered on 16:00; Start 08/30/16 at 16:00; Stop 08/30/16 at 16:01; Status DC Metoprolol Succinate (Toprol Xl) 12.5 mg DAILY PO Last administered on 08:20; Start 08/31/16 at 15:00 Metoclopramide HCl (Reglan) 5 mg PRN Q6HRS PRN IV NAUSEA/VOMITING Last administered on 09/07/16 11:41; Start 09/01/16 at 05:30 Hydromorphone HCl (Dilaudid) 0.5 mg PRN Q2HRS PRN IV SEVERE PAIN Last administered on 09/06/16 21:23; Start 09/02/16 at 13:00 Oxycodone/ Acetaminophen (Percocet 10/325) 1 tab PRN Q4HRS PRN PO BREAKTHROUGH PAIN Last administered on 09/05/16 05:09; Start 09/02/16 at 19:00; Stop at 11:54; Status DC Pantoprazole Sodium (Protonix) 40 mg BIDAC PO Last administered on 09/07/16 08 :20; Start 09/03/16 at 16:30 Oxycodone HCl (Oxycontin) 30 mg Q12HR PO Last administered on 09/05/16 08:40; Start 09/03/16 at 21:00; Stop 09/05/16 at 11:54; Status DC Polyethylene Glycol (miraLAX PACKET) 17 gm DAILY PO Last administered on 08:18; Start 09/03/16 at 16:00 Morphine Sulfate (Ms Contin) 60 mg BID PO Last administered on 09/07/16 08:20 ; Start 09/05/16 at 12:00 Morphine Sulfate (Morphine Ir) 15 mg PRN Q4HRS PRN PO PAIN Last administered on 09/07/16 08:20; Start 09/05/16 at 12:00 Metronidazole (Flagyl) 500 mg Q8HRS PO Last administered on 09/07/16 06:11; Start 09/05/16 at 14:00 Fluconazole (Diflucan) 200 mg DAILY PO Last administered on 09/07/16 08:19; Start 09/05/16 at 20:00 Active Scripts Active Reported Cetirizine Hcl 1 Mg/1 Ml Solution 10 Mg PO Hydrocodone-Apap 7.5-325 (Hydrocodone Bit/Acetaminophen) 1 Each Tablet 1 Tab PO PRN Q6HRS PRN Fioricet 50-300-40 Mg Capsule (Butalb/Acetaminophen/Caffeine) 1 Each Capsule 1 Each PO PRN Q6-8HRS PRN Voltaren-Xr (Diclofenac Sodium) 100 Mg Tab.er.24h 75 Mg PO [id number] Ambien (Zolpidem Tartrate) 10 Mg Tablet 10 Mg PO HS PRN Propranolol Hcl 80 Mg Cap.sa.24h 1 Cap PO DAILY Vitals/I & O Vital Sign - Last 24 Hours 09/06/16 09/06/16 09/06/16 09/06/16 12:21 15:00 15:53 19:00 Temp 98.5 98.9 98.5 98.9 Pulse 56 67 Resp 18 18 B/P 103/49 107/54 Pulse Ox 92 94 O2 Delivery Room Air Room Air Room Air Room Air 09/06/16 09/06/16 09/06/16 09/06/16 20:00 21:18 21:23 21:53 Resp 16 16 16 Pulse Ox 92 92 92 O2 Delivery Room Air Room Air Room Air Room Air O2 Flow Rate 2.0 2.0 09/06/16 09/07/16 09/07/16 09/07/16 23:00 01:18 03:00 04:26 Temp 98.7 98.3 98.7 98.3 Pulse 62 60 Resp 18 16 18 16 B/P 112/50 100/61 Pulse Ox 94 95 95 95 O2 Delivery Room Air Room Air Room Air Room Air 09/07/16 09/07/16 09/07/16 09/07/16 05:26 07:00 08:00 08:20 Temp 98.1 98.1 Pulse 74 60 Resp 16 B/P 149/65 100/61 Pulse Ox 95 94 O2 Delivery Room Air Room Air 09/07/16 09/07/16 09/07/16 08:20 08:20 09:30 Resp 20 20 18 O2 Delivery Room Air Room Air Room Air Intake and Output 09/06/16 09/06/16 09/07/16 15:00 23:00 07:00 Intake Total 120 ml 240 ml Balance 120 ml 240 ml SALVADOR PERALES MD Sep 07, 2016 12:03
--- NOTE | 2016-09-08 23:29 | DS ---
DATE OF DISCHARGE: 09/07/2016 CHIEF COMPLAINT: Back pain, perforated pyloric ulcer. HOSPITAL COURSE: The patient is a 66-year-old woman, who presented to the Emergency Room with mid back pain. A CT unfortunately revealed pneumoperitoneum and she was emergently taken to the OR by Dr. Mendez on 08/25/2016. She recovered appropriately was maintained on Flagyl, which was stopped at the time of discharge. The back pain which initially ____ presentation to the Emergency Room and was determined to be secondary to a T11 compression fracture, which was pathologic with multiple other lesions seen as seen as well. The patient had a history of breast cancer. Biopsy of a bone lesion was obtained and confirmed a metastatic disease. She was not a candidate for kyphoplasty and was therefore treated symptomatically including radiation to T4 and T11 as well as MS Contin and MSIR . The patient also experienced new onset of vaginal bleeding. She was evaluated by [facility], Dr. Traore for biopsy. She will follow up with him on an outpatient basis. DISCHARGE PHYSICAL EXAMINATION: Please refer to note from same day discharge date is 09/07/2016. DISCHARGE DISPOSITION: To home with services. DISCHARGE CONDITION: Improved. DISCHARGE MEDICATIONS: Please refer to MAR. DISCHARGE DIAGNOSES: Perforated pyloric ulcer, status post repair on 08/25/2016 pathological compression fracture T11 and metastatic breast cancer. DISCHARGE INSTRUCTIONS: The patient will follow up with Dr. Zhang for continued palliative radiation. She will see her oncologist, Dr. Gaitan for further treatment of her breast cancer. She will follow up with Dr. Traore from [facility] for followup of endometrial biopsy. She will see Dr. Mendez in 1 week for surgical followup of abdominal incision. BUBBA LACY MD DR: UR/nts JOB#: [id number] / [id number] CALIXTO Sands MD
== END 2016-09-07 14:15 | disposition home health service (06) | DRG 853 ==
LOC: ER 23:27 → 1 WEST ICU 08-26 05:37 → 4 NORTH 08-26 08:02
PROVIDERS: ADMIT Internal Medicine Hematology & Oncology; ATTEND Internal Medicine Hematology & Oncology
PROC: 0DU907Z Supplement Duodenum with Autologous Tissue Substitute, Open Approach (ICD-10-PCS; 2016-08-26)
PROC: 0DQ70ZZ Repair Stomach, Pylorus, Open Approach (ICD-10-PCS; principal; 2016-08-26 05:00)
PROC: 0PB43ZX Excision of Thoracic Vertebra, Percutaneous Approach, Diagnostic (ICD-10-PCS; 2016-08-31)
DX: A41.9 Sepsis, unspecified organism (principal); K25.1 Acute gastric ulcer with perforation; K66.1 Hemoperitoneum; D62 Acute posthemorrhagic anemia; J90 Pleural effusion, not elsewhere classified; N17.9 Acute kidney failure, unspecified; C79.51 Secondary malignant neoplasm of bone; E11.9 Type 2 diabetes mellitus without complications; E66.9 Obesity, unspecified; Z68.33 Body mass index [BMI] 33.0-33.9, adult; E78.5 Hyperlipidemia, unspecified; H91.90 Unspecified hearing loss, unspecified ear; I10 Essential (primary) hypertension; I71.2 Thoracic aortic aneurysm, without rupture; K66.0 Peritoneal adhesions (postprocedural) (postinfection); K80.20 Calculus of gallbladder without cholecystitis without obstruction; M48.04 Spinal stenosis, thoracic region; N83.311 Acquired atrophy of right ovary; N83.312 Acquired atrophy of left ovary; N95.0 Postmenopausal bleeding; Z83.3 Family history of diabetes mellitus; Z85.3 Personal history of malignant neoplasm of breast; Z88.0 Allergy status to penicillin; Z87.11 Personal history of peptic ulcer disease; Z87.891 Personal history of nicotine dependence; Z92.3 Personal history of irradiation; Z98.84 Bariatric surgery status
CPT/HCPCS: 20225; 36415; 71010; 71250; 72146; 74000; 74176; 76830; 76856; 77012; 77290; 77295; 77300; 77334; 77387; 77412; 78306; 80047; 80048; 80053; 81001; 82947; 83605; 83690; 83735; 83880; 84443; 84484; 85007; 85027; 85610; 87071; 87075; 87086; 87205; 87641; 88305; 88307; 88311; 88341; 88342; 88361; 93005; 93306; 96361; 96365; 96374; 96375; 96376; A9503; C1892; C9113; G0481; J0330; J0692; J1100; J1170; J1650; J2250; J2370; J2405; J2704; J2710; J2765; J3010; J3490; J7030; J7040; 97110; 97116; 97535; 99285-25; G0641

== ENCOUNTER → 2016-10-29 | Outpatient (CLI) | payer OTHER, MEDICARE ==
[~2016-10-29] MED LIST: BUTA1CAP29 PO; CETI-203 PO; DICL100T PO; HYDR-2762 PO; PANT40TA5 PO; POLY17PO29 PO; PROP80CA3 PO; ZOLP10TA PO
--- NOTE | 2016-10-29 14:07 | RAD ---
DATE: 10/29/2016 EXAM: DIGITAL DIAGNOSTIC BILATERAL HISTORY: Left breast skin thickening, previous breast cancer COMPARISON: 05/24/2014 This study was interpreted with the benefit of Computerized Aided Detection (CAD). FINDINGS: There are scattered fibroglandular densities in the breasts. These densities have increased on the left. There is extensive diffuse skin thickening anteriorly on the left which was not evident on the previous study. There are surgical clips in the posteromedial aspect of the left breast at the lumpectomy site. No discrete mass is seen in this region. No new right breast densities are evident. There are benign type calcifications in both breasts. No new calcifications have developed. IMPRESSION: Generalized streaky increased densities have developed in the left breast with considerable overlying skin thickening. No discrete breast mass is seen. Diagnostic considerations include left breast edema due to lymphatic obstruction on a metastatic basis versus recurrent inflammatory type breast cancer. Surgical consultation is suggested, if clinically indicated in this patient with known metastatic disease. BI-RADS CATEGORY: 4 SUSPICIOUS ABNORMALITY- BIOPSY SHOULD BE CONSIDERED RECOMMENDED FOLLOW-UP: SURG SURGICAL CONSULTATION PQRS compliance statement: Patient information was entered into a reminder system with a target due date for the next mammogram. Mammography is a sensitive method for finding small breast cancers, but it does not detect them all and is not a substitute for careful clinical examination. A negative mammogram does not negate a clinically suspicious finding and should not result in delay in biopsying a clinically suspicious abnormality. "Our facility is accredited by the [employer] Mammography Program."
== END | disposition home or self-care (01) ==
LOC: MAMMO 13:18
PROVIDERS: ATTEND Internal Medicine Hematology & Oncology
DX: C50.519 Malignant neoplasm of lower-outer quadrant of unspecified female breast (principal)
CPT/HCPCS: G0204; 77066